=== PATIENT | female | born 2000 | race Caucasian/White ===

== ENCOUNTER → 2020-07-21 15:43 | Outpatient (BNVA) | payer MEDICAID, SELFPAY | PROVIDERS: PCP Internal Medicine; Visit Provider Student in an Organized Health Care Education/Training Program | DX: Z76.89 Persons encountering health services in other specified circumstances (principal) ==

== ENCOUNTER 2020-08-18 09:14 | Outpatient (REF) | payer MEDICAID, SELFPAY ==
[2020-08-18 10:13] LABS: MANUAL DIFF FLAG NO
[2020-08-18 10:31] LABS: Basophils Percent Auto 0.3 % (0-2); Hematocrit 37.6 % (37-47); Hemoglobin 11.1 g/dl (12.0-16.0); Imm Gran Abs Auto 0.01 X10*3/uL (0.00-0.03); Imm Gran Pct Auto 0.2 % (0.0-0.4); Lymphocytes Absolute Auto 2.4 X10*3/uL (1.2-4.9); Lymphocytes Percent Auto 36.8 % (20-40); Mean Corpuscular HGB Conc 29.5 g/dl (31.0-35.0); Mean Corpuscular Hemoglobin 20.3 pg (27.0-33.0); Mean Corpuscular Volume 68.6 fL (80-98); Mean Platelet Volume 9.8 fL (9.4-12.3); Monocytes Absolute Auto 0.6 X10*3/uL (0.1-1.2); Monocytes Percent Auto 9.8 % (2-11); Neutrophils Absolute Auto 3.5 X10*3/uL (2.0-8.3); Neutrophils Percent Auto 52.9 % (45-73); Platelet Count 411 X10*3/uL (160-400); Red Blood Count 5.48 X10*6/uL (4.20-5.50); Red Cell Distribution Width 20.3 % (11.0-16.0); White Blood Count 6.5 X10*3/uL (4.8-10.8)
[2020-08-18 10:59] LABS: Alanine Aminotransferase 16 U/L (0-31); Albumin Level 3.5 g/dL (3.5-5.0); Alkaline Phosphatase 67 U/L (39-117); Anion Gap 13 (12-20); Aspartate Amino Transferase 16 U/L (5-31); Bilirubin Total 0.3 mg/dL (0.0-1.0); Blood Urea Nitrogen 12 mg/dL (9-16); C Reactive Protein 0.02 mg/dL (< or = 0.50); Calcium 8.5 mg/dL (8.4-10.2); Carbon Dioxide 26 mmol/L (22-29); Chloride 106 mmol/L (96-108); Estimated Glomerular Filt Rate > 60; Glucose Random 84 mg/dL (60-115); Potassium 3.9 mmol/L (3.3-5.1); Sodium 141 mmol/L (135-145); Total Protein 6.2 g/dL (6.5-8.0)
[2020-08-18 11:47] LABS: Erythrocyte Sedimentation Rate 12 MM/HR (0-20)
[2020-08-18 13:26] LABS: Glucose Urine UA NEG (NEG); Leukocyte Esterase Urine NEG (NEG); Nitrite Urine NEG (NEG); Specific Gravity - Urine >= 1.030 (1.005-1.025); Urine Blood TRACE (NEG); Urine Ketones NEG (NEG); Urine Protein 3+ MG/DL (NEG-TRACE)
[2020-08-18 13:30] LABS: Appearance Urine HAZY; Color Urine YELLOW
[2020-08-18 13:48] LABS: Bacteria Urine TRACE /LPF; RBC Urine 0-2 /HPF (0); Squamous Epithelial Cell Urine TRACE /LPF; WBC Urine 0 /HPF (0-4)
[2020-08-18 13:53] LABS: Creatinine Urine 293.17 mg/dL
[2020-08-18 14:09] LABS: Protein/Creatinine Ratio, Ur 4.04 (<0.2); Total Protein Urine Random 1183 mg/dL (<12)
[2020-08-19 13:58] LABS: Complement C3 54 mg/dL (83-193)
[2020-08-21 12:58] LABS: Anti DNA DS Antibody 3 IU/mL
== END 2020-08-18 09:15 | disposition home or self-care (01) ==
LOC: HO.LAB 09:14
PROVIDERS: PCP Student in an Organized Health Care Education/Training Program; Visit Provider Student in an Organized Health Care Education/Training Program
DX: M32.14 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 lupus erythematosus (principal)
CPT/HCPCS: 36415; 80053; 81001; 84156; 85025; 85652; 86140; 86160; 86225

== ENCOUNTER → 2020-08-19 10:03 | Outpatient (BNVA) | payer MEDICAID, SELFPAY | PROVIDERS: PCP Internal Medicine; Visit Provider Student in an Organized Health Care Education/Training Program | DX: M32.14 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 lupus erythematosus (principal) | CPT/HCPCS: 36415; 80053; 81001; 84156; 84702; 85025; 85652; 86140; 86160; 86225; 99212 ==

== ENCOUNTER 2020-10-01 09:03 | Outpatient (REF) | payer MEDICAID, SELFPAY ==
[2020-10-01 09:49] LABS: Glucose Urine UA NEG (NEG); Leukocyte Esterase Urine NEG (NEG); Nitrite Urine NEG (NEG); Specific Gravity - Urine >= 1.030 (1.005-1.025); Urine Blood 1+ (NEG); Urine Ketones NEG (NEG); Urine Protein 3+ MG/DL (NEG-TRACE)
[2020-10-01 09:51] LABS: Appearance Urine CLEAR; Color Urine YELLOW
[2020-10-01 10:05] LABS: Bacteria Urine TRACE /LPF; Mucus Urine 2+ /LPF; Squamous Epithelial Cell Urine 1+ /LPF; WBC Urine 0-2 /HPF (0-4)
== END 2020-10-01 09:04 | disposition home or self-care (01) ==
LOC: HO.LAB 09:03
PROVIDERS: PCP Internal Medicine; Visit Provider Student in an Organized Health Care Education/Training Program
DX: M35.02 Sjogren syndrome with lung involvement (principal)
CPT/HCPCS: 81001

== ENCOUNTER 2020-11-10 15:20 | Outpatient (REF) | payer MEDICAID, SELFPAY ==
[2020-11-10 16:21] LABS: Glucose Urine UA NEG (NEG); Leukocyte Esterase Urine NEG (NEG); Nitrite Urine NEG (NEG); PH 5.5 (5.0-8.0); Specific Gravity - Urine >= 1.030 (1.005-1.025); Urine Blood 1+ (NEG); Urine Ketones NEG (NEG); Urine Protein 3+ MG/DL (NEG-TRACE)
[2020-11-10 16:24] LABS: Appearance Urine CLEAR; Color Urine YELLOW
[2020-11-10 16:29] LABS: Bacteria Urine 2+ /LPF; Squamous Epithelial Cell Urine 3+ /LPF; WBC Urine 0 /HPF (0-4)
== END 2020-11-10 15:21 | disposition home or self-care (01) ==
LOC: HO.LAB 15:20
PROVIDERS: Visit Provider Student in an Organized Health Care Education/Training Program
DX: M32.14 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 lupus erythematosus (principal)
CPT/HCPCS: 81001

== ENCOUNTER 2020-11-11 13:14 | Outpatient (REF) | payer MEDICAID, SELFPAY ==
[2020-11-11 14:28] LABS: MANUAL DIFF FLAG NO
[2020-11-11 14:36] LABS: Basophils Percent Auto 0.1 % (0-2); Eosinophils Percent Auto 0.3 % (0-4); Hematocrit 41.5 % (37-47); Hemoglobin 12.9 g/dl (12.0-16.0); Imm Gran Abs Auto 0.02 X10*3/uL (0.00-0.03); Imm Gran Pct Auto 0.3 % (0.0-0.4); Lymphocytes Absolute Auto 1.6 X10*3/uL (1.2-4.9); Lymphocytes Percent Auto 21.3 % (20-40); Mean Corpuscular HGB Conc 31.1 g/dl (31.0-35.0); Mean Corpuscular Hemoglobin 23.2 pg (27.0-33.0); Mean Corpuscular Volume 74.5 fL (80-98); Mean Platelet Volume 10.2 fL (9.4-12.3); Monocytes Absolute Auto 0.7 X10*3/uL (0.1-1.2); Monocytes Percent Auto 9.1 % (2-11); Neutrophils Absolute Auto 5.1 X10*3/uL (2.0-8.3); Neutrophils Percent Auto 68.9 % (45-73); Platelet Count 384 X10*3/uL (160-400); Red Blood Count 5.57 X10*6/uL (4.20-5.50); Red Cell Distribution Width 23.9 % (11.0-16.0); White Blood Count 7.4 X10*3/uL (4.8-10.8)
[2020-11-11 14:56] LABS: Alanine Aminotransferase 14 U/L (0-31); Albumin Level 3.6 g/dL (3.5-5.0); Alkaline Phosphatase 73 U/L (39-117); Anion Gap 12 (12-20); Aspartate Amino Transferase 15 U/L (5-31); Bilirubin Total 0.2 mg/dL (0.0-1.0); Blood Urea Nitrogen 13 mg/dL (9-16); C Reactive Protein 0.03 mg/dL (< or = 0.50); Calcium 8.9 mg/dL (8.4-10.2); Carbon Dioxide 23 mmol/L (22-29); Chloride 110 mmol/L (96-108); Estimated Glomerular Filt Rate > 60; Glucose Random 95 mg/dL (60-115); Sodium 141 mmol/L (135-145); Total Protein 6.5 g/dL (6.5-8.0)
[2020-11-11 15:11] LABS: Glucose Urine UA NEG (NEG); Leukocyte Esterase Urine NEG (NEG); Nitrite Urine NEG (NEG); Specific Gravity - Urine >= 1.030 (1.005-1.025); Urine Blood 1+ (NEG); Urine Ketones NEG (NEG); Urine Protein 3+ MG/DL (NEG-TRACE)
[2020-11-11 15:12] LABS: Appearance Urine CLEAR; Color Urine YELLOW
[2020-11-11 15:22] LABS: Bacteria Urine TRACE /LPF; RBC Urine 0-2 /HPF (0); Squamous Epithelial Cell Urine 1+ /LPF; WBC Urine 0 /HPF (0-4)
[2020-11-11 15:29] LABS: Erythrocyte Sedimentation Rate 12 MM/HR (0-20)
[2020-11-11 16:13] LABS: Creatinine Urine 173.11 mg/dL; Protein/Creatinine Ratio, Ur 3.43 (<0.2); Total Protein Urine Random 593 mg/dL (<12)
[2020-11-12 10:23] LABS: Complement C3 103 mg/dL (83-193)
[2020-11-12 12:02] LABS: Anti DNA DS Antibody 3 IU/mL
== END 2020-11-11 13:15 | disposition home or self-care (01) ==
LOC: HO.LAB 13:14
PROVIDERS: Visit Provider Student in an Organized Health Care Education/Training Program
DX: M31.4 Aortic arch syndrome [Takayasu] (principal)
CPT/HCPCS: 36415; 80053; 81001; 84156; 85025; 85652; 86140; 86160; 86225; 99212

== ENCOUNTER 2022-10-10 09:53 | Outpatient (REF) | payer OTHER, SELFPAY ==
[2022-10-10 11:48] LABS: Hematocrit 37.2 % (37.0-47.0); Hemoglobin 11.6 g/dl (12.0-16.0); Mean Corpuscular HGB Conc 31.2 g/dl (31.0-35.0); Mean Corpuscular Hemoglobin 25.3 pg (27.0-33.0); Mean Corpuscular Volume 81.2 fL (80.0-98.0); Mean Platelet Volume 10.1 fL (9.4-12.3); Platelet Count 505 X10*3/uL (160-400); Red Blood Count 4.58 X10*6/uL (4.20-5.50); Red Cell Distribution Width 13.8 % (11.0-16.0); White Blood Count 10.3 X10*3/uL (4.8-10.8)
[2022-10-10 12:23] LABS: Alanine Aminotransferase 10 U/L (0-31); Albumin Level 3.1 g/dL (3.5-5.0); Alkaline Phosphatase 73 U/L (39-117); Anion Gap 12 (12-20); Aspartate Amino Transferase 14 U/L (5-31); Bilirubin Total 0.2 mg/dL (0.0-1.0); Blood Urea Nitrogen 19 mg/dL (9-16); Calcium 8.7 mg/dL (8.4-10.2); Carbon Dioxide 25 mmol/L (22-29); Chloride 108 mmol/L (96-108); Cholesterol 240 mg/dL; Estimated Glomerular Filt Rate > 60; Glucose Fasting 96 mg/dL (60-99); HDL Cholesterol 38 mg/dL; LDL Cholesterol Calculated 175 mg/dl; Magnesium 1.9 mg/dL (1.6-2.6); Phosphorus 4.8 mg/dL (2.7-4.5); Potassium 3.9 mmol/L (3.3-5.1); Sodium 141 mmol/L (135-145); Total Protein 5.5 g/dL (6.5-8.0); Triglycerides 139 mg/dL
[2022-10-10 12:36] LABS: TSH reflex Free T4 3.15 uIU/mL (0.32-4.0); Vitamin B12 350 pg/mL (200-900)
[2022-10-10 14:19] LABS: Appearance Urine Clear; Color Urine Yellow; Glucose Urine UA Negative (Negative); Leukocyte Esterase Urine Negative (Negative); Nitrite Urine Negative (Negative); PH 5.5 (5.0-9.0); Specific Gravity - Urine 1.025 (1.005-1.025); UMIC TRIGGER UA YES; Urine Blood Large (3+) (Negative); Urine Ketones Negative (Negative); Urine Protein >=1000 (4+) mg/dL (Neg-Trace)
[2022-10-10 14:37] LABS: Bacteria Urine None Seen (None Seen); WBC Urine 0-5 /HPF (0-5)
[2022-10-14 19:24] LABS: Vitamin D 25-OH, D2 <4 ng/mL; Vitamin D 25-OH, D3 9 ng/mL; Vitamin D 25-OH, Total 9 ng/mL (30-100)
== END 2022-10-10 09:54 | disposition home or self-care (01) ==
LOC: HO.WFDLDS 09:53
PROVIDERS: Visit Provider Hospitalist
DX: Z00.00 Encounter for general adult medical examination without abnormal findings (principal); D64.9 Anemia, unspecified; K21.9 Gastro-esophageal reflux disease without esophagitis; K44.9 Diaphragmatic hernia without obstruction or gangrene; E78.00 Pure hypercholesterolemia, unspecified; E55.9 Vitamin D deficiency, unspecified; E11.9 Type 2 diabetes mellitus without complications; E66.9 Obesity, unspecified; Z79.899 Other long term (current) drug therapy
CPT/HCPCS: 36415; 80053; 80061; 81001; 82306; 82607; 83735; 84100; 84443; 85027

== ENCOUNTER 2024-06-13 11:27 | Outpatient (AMB) | payer OTHER, SELFPAY ==
--- NOTE | 2024-06-13 11:29 | A.OFFPC_ITS ---
Vital Signs 06/13/24 11:39 Height 5 ft 8 in Weight 245 lb BMI 37.2 BP 144/70 H Blood Pressure Location Lt brachial Position Sitting Respiration 13 Pulse 86 Pulse Source Pulse Oximeter Temp 98.2 F Temp Source Skin Pulse Oximetry (%) 97 Oxygen Delivery Method Room Air Intake Visit Reasons: brian from linda Intake Note: brian linda to establish care Envelope Adjuster Required: No Allergies amoxicillin Allergy (Intermediate, Verified 06/13/24 11:32) rash Medication List - Last Reconciled 06/13/24 by Adamaris Acosta PA-C albuterol sulfate 90 mcg/actuation 2 puffs inhalation Q4-6H PRN blood sugar diagnostic (FreeStyle Lite Strips) As directed cholecalciferol (vitamin D3) 1,250 mcg PO 2XW ferrous sulfate 325 mg PO DAILY hydroxychloroquine 200 mg PO BID lancets (FreeStyle Lancets) As directed losartan 25 mg PO DAILY mycophenolate mofetil 500 mg PO BID omeprazole 20 mg PO DAILY torsemide 20 mg PO DAILY Tobacco use date assessed: 06/13/24 Dental Screening Dental Screen Date: 06/13/24 Did you have a dental visit in the last 12 months?: No Did you have a dental problem in the last 6 months where you did not have access to dental care?: No Was dental information given to patient?: Patient has dentist HPI brian from linda HPI Details Patient is a 23-year-old female with a significant past medical history of hyperlipidemia, iron-deficiency anemia, mild intermittent asthma, diet- controlled gestational diabetes, hypertension and lupus presenting today for a new patient visit. Used to follow with Linda. She states that she has had a cold for 2 weeks and has been using coricidin. She has been having ear pain, nasal congestion, pnd, sore throat, cough and sinus pain. She has a hx of asthma and has not needed albuterol. No fever or chills. No n/v/d. rheum: was following [facility] but has had difficulty getting appointments and would like to see a different certified hyperbaric technologist because most of her lupus care is being managed by nephrology. Nephro: On hydroxychloroquine and mycophenolate for management of lupus. Her pulp plant supervisor ordered farxiga last week for management of DM and for renal protection. She is on losartan and torsemide as well from [facility]. -she states she was told she has some pr otein and getting rechecked in a month after starting farxiga. -no records available today CV: Blood pressure today in the office is 144/70. She is on losartan 25 mg and 2 furosemide 20 mg daily Endo: Last A1c was over a year ago and she states that she was just a prediabetic. Recently started farxiga. Denies any polyuria or polydipsia. Heme: On iron MANUFACTURING QUALITY INSPECTOR: overdue [facility] Medical History (Updated 06/13/24 @ 12:04 by Adamaris Acosta PA-C) Migraines Hypertension Kidney disease Diabetes Asthma Denial Lupus (systemic lupus erythematosus) Systemic lupus erythematosus, unspecified Surgical History (Updated 06/13/24 @ 11:37 by Dahlia Humphrey MA) No pertinent past surgical history Family History (Updated 06/13/24 @ 11:37 by Dahlia Humphrey MA) Father Diabetes Hypertension Asthma Mother Diabetes Hypertension Maternal Grandmother Cancer Paternal Grandmother Cancer Brother Asthma Social History (Updated 06/13/24 @ 11:35 by Dahlia Humphrey MA) Household Members: Spouse Both parents involved: No Caregiver staying overnight: No Housing: Apartment Are you a primary manager home healthcare to a significant other at home: Yes Do you presently have visiting nurse or other home services: No 75 years or older and lives alone: No Alcohol intake: never Patient Tobacco Use Status: Never used Tobacco e-Cigarette/Vaping Use: Never Used Current occupational status: employed Cognitive needs: No Hearing needs: No Vision needs: No Questionnaire PHQ-9 Over the last 2 weeks, how often have you been bothered by any of the following problems? 1. Little interest or pleasure in doing things: several days 2. Feeling down, depressed, or hopeless: not at all 3. Trouble falling or staying asleep, or sleeping too much: not at all 4. Feeling tired or having little energy: nearly every day 5. Poor appetite or overeating: several days 6. Feeling bad about yourself - or that you are a failure or have let yourself or your family down: not at all 7. Trouble concentrating on things, such as reading the newspaper or watching television: not at all 8. Moving or speaking so slowly that other people could have noticed. Or the opposite - being so fidgety or restless that you have been moving around a lot more than usual: not at all 9. Thoughts that you would be better off or of hurting yourself in some way: not at all Total score: 5 Depression Screening Interpretation: Negative (feels tired, not depressed) Depression Screening Done: Yes 63366 - PHQ-9 Billing: Yes Source: Developed by Drs. Konstantin Parekh, Tatiana Gallardo, Juancarlos Rodrigez and colleagues, with an educational chente from [employer]. Thrive Questionnaire Date Thrive assessed: 06/13/24 I am a: Patient What is your living situation today?: I choose not to answer this question Within the past 12 months, did the food you bought not last and you didn't have the money to get more?: I choose not to answer this question Within the past 12 months, did you worry whether your food would run out before you got money to buy more?: I choose not to answer this question Do you have trouble paying for medicines?: Yes Do you have trouble getting transportation to medical appointments?: No Do you have trouble paying your heating and electricity bill?: No Do you have trouble taking care of your child, family member or friend?: No Do you have trouble with day-to-day activities such as bathing, preparing meals, shopping, managing finances, etc.?: No Are you currently unemployed and looking for a job?: No Are you interested in more education?: No Please select the resources that you would like help with: None Currently or been in a relationship where the following occur: I choose not to answer THRIVE Score: 0 AUDIT C Alcohol Use Questionnaire (AUDIT-C) 1. How often do you have a drink containing alcohol?: Never Total Score: 0 HEIDE-7 AMB Questionnaire HEIDE-7 Date HEIDE - 7 assessed: 06/13/24 Feeling nervous, anxious, or on edge: 0 = Not at all Not being able to stop or control worryin = More than half the days Worrying too much about different things: 2 = More than half the days Trouble relaxin = Several days Being so restless that it is hard to sit still: 0 = Not at all Becoming easily annoyed or irritable: 0 = Not at all Feeling afraid as if something awful might happen: 0 = Not at all Total HEIDE-7 score (0-4 normal; 5-9 mild; 10-14 moderate; 15-21 severe): 5 Source: Developed by Drs. Konstantin Parekh, Tatiana Gallardo, Juancarlos Rodrigez and colleagues, with an educational chente from [employer]. HEIDE-7 Assessment Billing HEIDE-7 Assessment Tool: HEIDE-7 Assessment 59739 Physical exam (Primary Care) Vital Signs: Last Vital Signs Temp 98.2 F 06/13/24 11:39 Pulse 86 06/13/24 11:39 Resp 13 06/13/24 11:39 BP 144/70 H 06/13/24 11:39 Pulse Ox 97 06/13/24 11:39 Oxygen Delivery Method Room Air 06/13/24 11:39 BMI result Body Mass Index 37.2 Tobacco/Smoking Status: Tobacco use Status Tobacco use date assessed 06/13/24 06/13/24 11:41 Patient Tobacco Use Status Never used Tobacco 06/13/24 11:35 e-Cigarette/Vaping Use Never Used 06/13/24 11:35 PHQ-9: PHQ-9 Score PHQ-9: Total score 5 06/13/24 11:30 Depression Screening Interpretation: Negative (feels tired, not depressed) Thrive Assessment: Date of Thrive Assessment Date Thrive assessed 06/13/24 06/13/24 11:30 Currently or been in a relationship where the following occur: I choose not to answer Const Orientation/consciousness: patient oriented x3 HENMT Other: TMs dome-shaped with small air-fluid levels, nasal mucosa erythematous and edematous. Maxillary sinus tenderness present. Ears: hearing grossly normal bilaterally Neck Thyroid: Thyroid normal Lymphatic: no lymphadenopathy noted Resp Auscultation: clear to auscultation bilaterally Cardio Rate: regular rate Rhythm: regular rhythm Heart sounds: S1 normal heart sound present and S2 normal heart sound present GI Inspection: Yes normal to inspection Palpation (GI): Soft to palpation and Other GI palpation findings present (nontender, no cva tenderness) Auscultation: normoactive bowel sounds Rectal Exam - Female: deferred Skin General skin exam: no rashes or lesions noted Neuro General: patient oriented x3, gait normal and no focal motor deficits Coding Level of Care Code Est Pt Level 4 (75977) Complex EM visit Add On G2211 Diagnoses Systemic lupus erythematosus with glomerular disease, unspecified SLE type M32.14 Systemic lupus erythematosus type: unspecified Systemic lupus erythematosus organ involvement: glomerular disease HTN, goal below 130/80 I10 High cholesterol E78.00 IFG (impaired fasting glucose) R73.01 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; N28.89 Bacterial sinusitis J32.9; B96.89 Additional Codes HEIDE-7 Assessment Billing - HEIDE-7 Assessment Tool: HEIDE-7 Assessment 67917 ([id number]) PHQ-9 - 94281 - PHQ-9 Billing: Yes ([id number]) Assessment & Plan Assessment & Plan (1) Lupus (systemic lupus erythematosus): Code(s): M32.9 - Systemic lupus erythematosus, unspecified Category: Medical Qualifiers: Systemic lupus erythematosus type: unspecified Systemic lupus erythematosus organ involvement: glomerular disease Qualified Code(s): M32.14 - 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 Plan: referral to rheum being managed right now by nephro because she can't get into rheum (2) HTN, goal below 130/80: Code(s): I10 - Essential (primary) hypertension Category: Medical Plan: elevated today but states she has been using cough and cold medicine, follows monthly with nephrology. she states that she did not take losartan today. (3) High cholesterol: Code(s): E78.00 - Pure hypercholesterolemia, unspecified Category: Medical Plan: used to be on atorvastatin but this was d/c and she does not know why (4) IFG (impaired fasting glucose): Code(s): R73.01 - Impaired fasting glucose Category: Medical Plan: a1c ordered started [facility] (5) Kidney disease associated with lupus: Code(s): M32.19 - Other organ or system involvement in systemic lupus erythematosus; N28.89 - Other specified disorders of kidney and ureter Category: Medical Plan: following with [facility]. advised to get records (6) Bacterial sinusitis: Code(s): J32.9 - Chronic sinusitis, unspecified; B96.89 - Other specified bacterial agents as the cause of diseases classified elsewhere Category: Medical Plan: will start doxy and flonase. will follow up if no improvement or anything worsens/changes. Orders: Orders Lipid Panel Today E78.00 - Pure hypercholesterolemia, unspecified, I10 - Essential (primary) hypertension, M32.14 - 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, M32.19 - Other organ or system involvement in systemic lupus erythematosus, N28.89 - Other specified disorders of kidney and ureter, R73.01 - Impaired fasting glucose TSH reflex Free T4 Today E78.00 - Pure hypercholesterolemia, unspecified, I10 - Essential (primary) hypertension, M32.14 - 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, M32.19 - Other organ or system involvement in systemic lupus erythematosus, N28.89 - Other specified disorders of kidney and ureter, R73.01 - Impaired fasting glucose Comprehensive [facility]. Panel Fast Today E78.00 - Pure hypercholesterolemia, unspecified, I10 - Essential (primary) hypertension, M32.14 - 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, M32.19 - Other organ or system involvement in systemic lupus erythematosus, N28.89 - Other specified disorders of kidney and ureter, R73.01 - Impaired fasting glucose Hemoglobin A1c Today E78.00 - Pure hypercholesterolemia, unspecified, I10 - Essential (primary) hypertension, M32.14 - 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, M32.19 - Other organ or system involvement in systemic lupus erythematosus, N28.89 - Other specified disorders of kidney and ureter, R73.01 - Impaired fasting glucose Referrals Rheumatology Referral M32.14 - 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 FRONTLOAD DRIVER Referral [id number] - Encounter for gynecological examination (general) (routine) without abnormal findings Medications: New fluticasone propionate 50 mcg/actuation (Flonase Allergy Relief) administer into each nostril 1 spray intranasal BID 16 grams 0RF doxycycline hyclate 100 mg PO BID 20 tabs 0RF
[2024-06-13 11:39] VITALS: BP 144/70; PULSE 86; RESP 13; TEMP 36.8; O2SAT 97; BMI 37.2
== END 2024-06-13 13:44 | disposition home or self-care (01) ==
PROVIDERS: PCP Physician Assistant; Visit Provider Physician Assistant
DX: I10 Essential (primary) hypertension (principal); M32.14 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 lupus erythematosus; M32.19 Other organ or system involvement in systemic lupus erythematosus; E78.00 Pure hypercholesterolemia, unspecified; R73.01 Impaired fasting glucose; N28.89 Other specified disorders of kidney and ureter; J32.9 Chronic sinusitis, unspecified; B96.89 Other specified bacterial agents as the cause of diseases classified elsewhere

== ENCOUNTER → 2024-06-13 11:27 | Outpatient (BNVA) | payer OTHER, SELFPAY | PROVIDERS: PCP Hospitalist; Visit Provider Physician Assistant | DX: M32.14 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 lupus erythematosus (principal); I10 Essential (primary) hypertension; E78.00 Pure hypercholesterolemia, unspecified; R73.01 Impaired fasting glucose; M32.19 Other organ or system involvement in systemic lupus erythematosus; N28.89 Other specified disorders of kidney and ureter; J32.9 Chronic sinusitis, unspecified; B96.89 Other specified bacterial agents as the cause of diseases classified elsewhere | CPT/HCPCS: 96127; 99212 ==

== ENCOUNTER 2024-06-24 11:32 | Outpatient (AMB) | payer OTHER, SELFPAY ==
[2024-06-24 11:43] VITALS: BP 114/66; PULSE 84; TEMP 36.6; O2SAT 99; BMI 37.2
--- NOTE | 2024-06-24 11:43 | MHC.OFFWIV ---
Intake Vital Signs 06/24/24 11:43 Height 5 ft 8 in Weight 245 lb BMI 37.2 BP 114/66 Blood Pressure Location Lt brachial Position Sitting Pulse 84 Pulse Source Pulse Oximeter Temp 97.8 F Temp Source Temporal Artery Scan Pulse Oximetry (%) 99 Oxygen Delivery Method Room Air Intake Visit Reasons: EP-dizziness, vomiting, body ache, headaches Intake Note: Pt presents to the office today for dizziness,vomiting, body aches, and a headache x4 days. Patient Tobacco Use Status: Never used Tobacco Allergies amoxicillin Allergy (Intermediate, Verified 06/24/24 11:45) rash HPI HPI Comments History of Present Illness Details History The patient is a 23-year-old female presenting with dizziness, headache, vomiting, and generalized body pain. She also has pain with deep inspiration and a cough. These symptoms began a day prior to the visit, with vomiting and nausea intensifying over the last two days, while nausea has been persistent for the last two weeks. The patient attributes these symptoms to a potential lupus flare, as past flares have manifested similarly. She denies having fever, though she reports a sensation of feeling febrile, with her maximum recorded temperature being only 99?F. The patient also reports significant bilateral flank pain and diffuse musculoskeletal pain, exacerbated by coughing and vomiting, suggestive of musculoskeletal strain. Additionally, she mentions experiencing increased bruising on her legs, which is atypical in extent compared to her past experiences. The patient describes having lupus and chronic kidney disease under the care of a residential sales rep, who has planned a kidney biopsy due to her lab results being abnormal. Her laboratory tests revealed low levels of several analytes, including vitamins and proteins. There has been no mention of recent fever, but the patient experiences significant difficulty in retaining fluids due to vomiting, raising concern for dehydration. Previous evaluation by her primary care physician, Adamaris Acosta PA-C included the prescription of Flonase and doxycycline for an upper respiratory condition. The patient had recent labs ordered by her Adamaris, which have yet to be completed. Physical Exam General: Cooperative, healthy appearing, comfortable and no acute distress Orientation/consciousness: Patient oriented x3 Limitations: No limitations Head: Normal to inspection Ears: Hearing grossly normal bilaterally, external ears normal and TM's normal bilaterally Nose: Normal external nose present, Normal nares present and No nasal discharge present Face and sinus: Normal facial exam and Yes sinuses nontender Mouth: Normal oral and palatal mucosa present and moist mucous membranes Throat: Yes tonsils normal, Yes uvula midline. Posterior oropharynx erythema Eyes: Appearance normal, both eyes and all related structures Neck: Normal visual inspection Respiratory: Clear to auscultation bilaterally. Normal respiratory effort, able to speak in complete sentences, no respiratory distress, not tachypneic, no tripod positioning and no use of accessory muscles Cardiovascular: Regular rate and rhythm. Normal S1 and S2 Skin: No rashes or lesions noted Neuro: Patient oriented x3 Extremities: Normal to inspection and Yes no clubbing, cyanosis or edema PFSH Medical History (Updated 06/24/24 @ 12:05 by Staci Madrigal PA-C) Migraines Hypertension Kidney disease Diabetes Asthma Denial Lupus (systemic lupus erythematosus) Systemic lupus erythematosus, unspecified Surgical History (Updated 06/13/24 @ 11:37 by Dahlia Humphrey MA) No pertinent past surgical history Family History (Updated 06/13/24 @ 11:37 by Dahlia Humphrey MA) Father Diabetes Hypertension Asthma Mother Diabetes Hypertension Maternal Grandmother Cancer Paternal Grandmother Cancer Brother Asthma Social History (Updated 06/13/24 @ 11:35 by Dahlia Humphrey MA) Household Members: Spouse Housing: Apartment Are you a primary resident care director to a significant other at home: Yes Do you presently have visiting nurse or other home services: No Alcohol intake: never Patient Tobacco Use Status: Never used Tobacco e-Cigarette/Vaping Use: Never Used Current occupational status: employed Cognitive needs: No Hearing needs: No Vision needs: No Review of Systems Const All systems reviewed & are unremarkable except as noted in HPI and below Physical Exam Vital Signs: Last Vital Signs Temp 97.8 F 06/24/24 11:43 Pulse 102 H 06/24/24 11:43 BP 114/66 06/24/24 11:43 Pulse Ox 99 06/24/24 11:43 Oxygen Delivery Method Room Air 06/24/24 11:43 BMI result Body Mass Index 37.2 Assessment & Plan Assessment & Plan (1) URI, acute: Code(s): J06.9 - Acute upper respiratory infection, unspecified Plan: Plan - Assess for viral gastroenteritis and differentiate from lupus flare symptoms. Advise the patient to take ondansetron for nausea and to ensure adequate hydration to prevent dehydration. - Perform chest radiograph to investigate possible pneumonic process due to pleuritic chest pain. - Order influenza, COVID-19, and RSV testing to assess for viral respiratory infection. - Encouraged the patient to complete all outstanding labs ordered by her PCP, particularly assessing coagulation profiles to elucidate cause of increased bruising. - Prescribe benzonatate for relief of cough-related symptoms causing musculoskeletal strain. - Provide a work note for the patient to take two days off work and ensure adequate rest and recovery. - Recommend urgent re-evaluation or emergency care if symptoms persist or worsen towards the weekend, particularly if linked to lupus activity. - Inform the patient of current findings and the next steps, including potential adjustments based on test outcomes and symptom progression. Patient was informed and verbally consented to the use of an ambient scribe for clinic note documentation during this visit (2) Viral gastroenteritis: Code(s): A08.4 - Viral intestinal infection, unspecified Plan: as above Orders: Orders SARS-CoV2/FLU/RSV Today J06.9 - Acute upper respiratory infection, unspecified XR chest 2V Today R05.9 - Cough, unspecified Medications: New benzonatate 200 mg PO TID PRN 14 caps 0RF cough ondansetron 4 mg PO Q8H PRN 10 tabs 0RF nausea and vomiting Coding Level of Care Code Est Pt Level 4 (85362) Diagnoses URI, acute J06.9 Viral gastroenteritis A08.4
== END 2024-06-24 12:22 | disposition home or self-care (01) ==
PROVIDERS: PCP Physician Assistant; Visit Provider Physician Assistant
DX: J06.9 Acute upper respiratory infection, unspecified (principal); A08.4 Viral intestinal infection, unspecified

== ENCOUNTER 2024-06-24 11:32 | Outpatient (REF) | payer OTHER, SELFPAY ==
[2024-06-24 14:21] LABS: Influenza A PCR NEGATIVE (Negative); Influenza B PCR NEGATIVE (Negative); Resp Syncy Virus RNA Qual PCR NEGATIVE (Negative); SARS COV2 PCR INHOUSE NEGATIVE (Negative)
== END 2024-06-24 11:33 | disposition home or self-care (01) ==
LOC: HO.LAB 11:32
PROVIDERS: PCP Physician Assistant; Visit Provider Physician Assistant
DX: J06.9 Acute upper respiratory infection, unspecified (principal); A08.4 Viral intestinal infection, unspecified
CPT/HCPCS: 0241U; 99212

== ENCOUNTER 2024-06-24 12:01 | Outpatient (REF) | payer OTHER, SELFPAY ==
--- NOTE | ~2024-06-24 | XR_ITS ---
EXAMINATION: XR CHEST CLINICAL INFORMATION: R05.9 - Cough, unspecified COMPARISON: X-ray 10/10/2018 TECHNIQUE: 2 views of the chest were obtained. FINDINGS: The cardiomediastinal silhouette is within normal limits. The lungs are well expanded. There is no focal consolidation, edema, or effusion. No pneumothorax. No acute osseous abnormality. XR/XR chest 2V IMPRESSION: No evidence of focal consolidation. Electronically signed by: Ivan Chamorro MD 06/24/2024 04:00 PM KARUNA CAMERON
[2024-06-24 14:30] LABS: Estimated Average Glucose 103 mg/dL; Hemoglobin A1C 127.2824 umol/L; Hemoglobin A1c % 5.2 % (<6.0)
[2024-06-24 14:45] LABS: Alanine Aminotransferase 20 U/L (0-31); Alkaline Phosphatase 73 U/L (39-117); Anion Gap 12 (12-20); Aspartate Amino Transferase 19 U/L (5-31); Bilirubin Total 0.2 mg/dL (0.0-1.0); Blood Urea Nitrogen 24 mg/dL (9-16); Calcium 8.7 mg/dL (8.4-10.2); Carbon Dioxide 25 mmol/L (22-29); Chloride 103 mmol/L (96-108); Cholesterol 328 mg/dL (<200); Estimated Glomerular Filt Rate 55; Glucose Fasting 104 mg/dL (60-99); HDL Cholesterol 46 mg/dL (>40); LDL Cholesterol Calculated 238 mg/dL (<100); Potassium 3.4 mmol/L (3.3-5.1); Sodium 137 mmol/L (135-145); Total Protein 6.6 g/dL (6.5-8.0); Triglycerides 223 mg/dL (<150)
[2024-06-24 14:52] LABS: TSH reflex Free T4 2.89 uIU/mL (0.32-4.0)
== END 2024-06-24 12:02 | disposition home or self-care (01) ==
LOC: HO.HMGCX 12:01
PROVIDERS: PCP Physician Assistant; Referring Provider Physician Assistant; Visit Provider Physician Assistant
DX: R73.01 Impaired fasting glucose (principal); R05.9 Cough, unspecified; E78.00 Pure hypercholesterolemia, unspecified; I10 Essential (primary) hypertension; M32.14 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 lupus erythematosus; M32.19 Other organ or system involvement in systemic lupus erythematosus; N28.89 Other specified disorders of kidney and ureter
CPT/HCPCS: 36415; 71046; 80053; 80061; 83036; 84443

== ENCOUNTER 2024-06-26 10:59 | Outpatient (AMB) | payer OTHER, SELFPAY ==
--- NOTE | 2024-06-26 11:05 | A.OFFPC_ITS ---
Vital Signs 06/26/24 11:15 Height 5 ft 8 in Weight 241 lb 2 oz BMI 36.7 BP 102/84 Blood Pressure Location Lt brachial Pulse 79 Pulse Source Pulse Oximeter Temp 98.5 F Temp Source Oral Pulse Oximetry (%) 99 Oxygen Delivery Method Room Air Intake Visit Reasons: Regular Visit Intake Note: Follow up. Still having nausea, vomiting, dizziness, joint pain, fatigue. Dizziness started over the weekend. Resident Care Coordinator Required: No Allergies amoxicillin Allergy (Intermediate, Verified 06/26/24 11:05) rash Tobacco use date assessed: 06/26/24 Dental Screening Dental Screen Date: 06/13/24 HPI Regular Visit HPI Details History of Present Illness The patient is a 23-year-old female presenting with persistent vomiting and associated symptoms. She reports the onset of vomiting since last Monday and has vomited multiple times daily. Associated symptoms include dizziness, described as a feeling of being out of it, and not feeling like she might faint. She has also experienced left-sided body pain, which initially was significant but has decreased in intensity since Monday. The patient reports prior episodes of sinus congestion and coughing, which have improved. She sought urgent care on Monday due to persistent symptoms where dehydration was noted, and she was prescribed Zofran. Attempts to drink water or juice result in nausea and vomiting. She denies fever, abdominal pain, or diarrhea. The patient has a history of lupus nephritis and dyslipidemia. The recent laboratory tests indicated elevated cholesterol levels. She also reports headaches, described as occurring since the onset of her illness and located primarily near the hairline. Health Maintenance - Recent COVID-19, Influenza, and RSV te sts were all negative. - Previous atorvastatin usage for dyslip idemia, though not actively being taken due to current illness. - Plan to re-evaluate cholesterol in a c ouple of months. Social History - Employment: Works in a [employer]. - Currently inactive due to illness and receiving a note to remain out of work until Monday. - Reports significant tiredness affectin g daily activities such as cooking for her family. Review of Systems - Gastrointestinal: Reports nausea and v omiting, no diarrhea. - Neurological: Reports dizziness and he adaches. Physical Exam see note Results - Labs: Elevated cholesterol. - Tests: Negative results for COVID-19, Influenza, and RSV. Plan - Temporarily discontinue Farxiga due to risk of hypoglycemia and dehydration. - Continue Zofran as needed to manage na usea, taking it proactively before vomiting occurs. - Encourage small frequent sips of liqui ds and bland diets to allow the gastrointestinal system to heal. - Consider avoiding dairy products such as yogurt which may irritate the stomach. - Pause atorvastatin until a follow-up a ssessment is conducted for cholesterol management. - Check kidney function and electrolyte levels, lipase and cbc Patient was informed and verbally consented to the use of an ambient scribe for clinic note documentation during this visit. Discussion Notes I discussed with the patient the likely diagnosis of viral gastroenteritis, given the negative results for COVID-19, Influenza, and RSV, and that this condition is self-limiting. I recommended temporarily holding medications such as Farxiga until her symptoms improve and reinforced the importance of hydration and dietary modifications. We reviewed the use of Zofran to manage nausea proactively. For her headache, we discussed that it may be related to dehydration, and I emphasized the necessity of fluid intake to address this. I provided leave from work until Monday. I planned a follow-up in two to four weeks or sooner if her condition worsens significantly. Patient Instructions - Hold Farxiga until symptoms improve. - Take Zofran as needed, especially befo re feeling nauseous. - Maintain hydration with small, frequen t sips of water or electrolyte-rich fluids, avoiding juices and sugary drinks. - Stick to bland foods such as dry toast , applesauce, and oatmeal, avoiding dairy. - Rest as much as possible and listen to your body. - Return for follow-up labs and assessme nt in two to four weeks. - Seek attention sooner if your symptoms worsen, such as increased abdominal pain or inability to hydrate adequately. [facility] Medical History (Updated 06/24/24 @ 12:05 by Staci Madrigal PA-C) Migraines Hypertension Kidney disease Diabetes Asthma Denial Lupus (systemic lupus erythematosus) Systemic lupus erythematosus, unspecified Surgical History No pertinent past surgical history Family History Father Diabetes Hypertension Asthma Mother Diabetes Hypertension Maternal Grandmother Cancer Paternal Grandmother Cancer Brother Asthma Social History (Updated 06/26/24 @ 11:11 by SAM Chavez Household Members: Spouse Both parents involved: No Caregiver staying overnight: No Housing: Apartment Are you a primary urgent care physician assistant to a significant other at home: Yes Do you presently have visiting nurse or other home services: No 75 years or older and lives alone: No Alcohol intake: never Patient Tobacco Use Status: Never used Tobacco e-Cigarette/Vaping Use: Never Used Current occupational status: employed Cognitive needs: No Hearing needs: No Vision needs: No Questionnaire Thrive Questionnaire Date Thrive assessed: 06/13/24 I am a: Patient What is your living situation today?: I choose not to answer this question Within the past 12 months, did the food you bought not last and you didn't have the money to get more?: I choose not to answer this question Within the past 12 months, did you worry whether your food would run out before you got money to buy more?: I choose not to answer this question Do you have trouble paying for medicines?: Yes Do you have trouble getting transportation to medical appointments?: No Do you have trouble paying your heating and electricity bill?: No Do you have trouble taking care of your child, family member or friend?: No Do you have trouble with day-to-day activities such as bathing, preparing meals, shopping, managing finances, etc.?: No Are you currently unemployed and looking for a job?: No Are you interested in more education?: No Please select the resources that you would like help with: None Currently or been in a relationship where the following occur: I choose not to answer THRIVE Score: 0 HEIDE-7 AMB Questionnaire HEIDE-7 Date HEIDE - 7 assessed: 06/13/24 Source: Developed by Drs. Konstantin Parekh, Tatiana Gallardo, Juancarlos Rodrigez and colleagues, with an educational chente from [employer]. Physical exam (Primary Care) Vital Signs: Last Vital Signs Temp 98.5 F 06/26/24 11:15 Pulse 79 06/26/24 11:15 BP 102/84 06/26/24 11:15 Pulse Ox 99 06/26/24 11:15 Oxygen Delivery Method Room Air 06/26/24 11:15 BMI result Body Mass Index 36.7 Tobacco/Smoking Status: Tobacco use Status Tobacco use date assessed 06/26/24 06/26/24 11:12 Patient Tobacco Use Status Never used Tobacco 06/26/24 11:12 e-Cigarette/Vaping Use Never Used 06/26/24 11:12 Thrive Assessment: Date of Thrive Assessment Date Thrive assessed 06/13/24 06/26/24 11:12 Currently or been in a relationship where the following occur: I choose not to answer Const Orientation/consciousness: patient oriented x3 HENMT Ears: hearing grossly normal bilaterally Neck Thyroid: Thyroid normal Lymphatic: no lymphadenopathy noted Resp Auscultation: clear to auscultation bilaterally Cardio Rate: regular rate Rhythm: regular rhythm Heart sounds: S1 normal heart sound present and S2 normal heart sound present GI Inspection: Yes normal to inspection Palpation (GI): Soft to palpation and Other GI palpation findings present (nontender, no cva tenderness) Auscultation: normoactive bowel sounds Rectal Exam - Female: deferred Skin General skin exam: no rashes or lesions noted Neuro General: patient oriented x3, gait normal and no focal motor deficits Coding Level of Care Code Est Pt Level 4 (33681) Complex EM visit Add On G2211 Diagnoses Viral gastroenteritis A08.4 Systemic lupus erythematosus with glomerular disease, unspecified SLE type M32.14 Systemic lupus erythematosus type: unspecified Systemic lupus erythematosus organ involvement: glomerular disease Assessment & Plan Assessment & Plan (1) Viral gastroenteritis: Code(s): A08.4 - Viral intestinal infection, unspecified Category: Medical (2) Lupus (systemic lupus erythematosus): Code(s): M32.9 - Systemic lupus erythematosus, unspecified Category: Medical Qualifiers: Systemic lupus erythematosus type: unspecified Systemic lupus erythematosus organ involvement: glomerular disease Qualified Code(s): M32.14 - 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 Plan: . Plan . Orders: Orders Magnesium Today A08.4 - Viral intestinal infection, unspecified, M32.14 - 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 Complete Blood Count Auto Diff Today A08.4 - Viral intestinal infection, unspecified Comprehensive Met. Panel Today A08.4 - Viral intestinal infection, unspecified UA CC w/rflx Micro + Cult Today A08.4 - Viral intestinal infection, unspe cified, Z13.220 - Encounter for screening for lipoid disorders Lipase Today A08.4 - Viral intestinal infection, unspecified
[2024-06-26 11:15] VITALS: BP 102/84; PULSE 79; TEMP 36.9; O2SAT 99; BMI 36.7
== END 2024-06-26 11:50 | disposition home or self-care (01) ==
PROVIDERS: PCP Physician Assistant; Visit Provider Physician Assistant
DX: A08.4 Viral intestinal infection, unspecified (principal); M32.14 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 lupus erythematosus

== ENCOUNTER → 2024-06-26 10:59 | Outpatient (BNVA) | payer OTHER, SELFPAY | PROVIDERS: PCP Physician Assistant; Visit Provider Physician Assistant | DX: A08.4 Viral intestinal infection, unspecified (principal); M32.14 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 lupus erythematosus | CPT/HCPCS: 99212 ==

== ENCOUNTER 2024-06-26 13:41 | Outpatient (REF) | payer OTHER, SELFPAY ==
[2024-06-26 17:31] LABS: MANUAL DIFF FLAG NO
[2024-06-26 17:36] LABS: Appearance Urine Clear; Color Urine Yellow; Glucose Urine UA 500 mg/dL (Negative); Leukocyte Esterase Urine Negative (Negative); Nitrite Urine Negative (Negative); Specific Gravity - Urine >= 1.030 (1.005-1.025); UMIC TRIGGER UACC YES; Urine Blood Small (1+) (Negative); Urine Ketones Negative (Negative); Urine Protein >=1000 (4+) mg/dL (Neg-Trace)
[2024-06-26 17:41] LABS: Basophils Absolute Auto 0.1 X10*3/uL (0.0-0.2); Basophils Percent Auto 0.6 % (0-2); Eosinophils Absolute Auto 0.2 X10*3/uL (0.0-0.4); Hematocrit 39.1 % (37.0-47.0); Hemoglobin 12.6 g/dl (12.0-16.0); Imm Gran Abs Auto 0.04 X10*3/uL (0.00-0.03); Imm Gran Pct Auto 0.4 % (0.0-0.4); Lymphocytes Percent Auto 22.1 % (20-40); Mean Corpuscular HGB Conc 32.2 g/dl (31.0-35.0); Mean Corpuscular Hemoglobin 25.9 pg (27.0-33.0); Mean Corpuscular Volume 80.5 fL (80.0-98.0); Mean Platelet Volume 10.2 fL (9.4-12.3); Monocytes Absolute Auto 0.5 X10*3/uL (0.1-1.2); Neutrophils Absolute Auto 6.2 x10*3/uL (2.0-8.3); Neutrophils Percent Auto 68.9 % (45-73); Platelet Count 509 X10*3/uL (160-400); Red Blood Count 4.86 X10*6/uL (4.20-5.50); Red Cell Distribution Width 15.8 % (11.0-16.0)
[2024-06-26 17:55] LABS: Alanine Aminotransferase 16 U/L (0-31); Albumin Level 2.6 g/dL (3.5-5.0); Alkaline Phosphatase 60 U/L (39-117); Anion Gap 9 (12-20); Aspartate Amino Transferase 21 U/L (5-31); Bilirubin Total 0.1 mg/dL (0.0-1.0); Blood Urea Nitrogen 20 mg/dL (9-16); Calcium 8.3 mg/dL (8.4-10.2); Carbon Dioxide 24 mmol/L (22-29); Chloride 109 mmol/L (96-108); Estimated Glomerular Filt Rate > 60; Glucose Random 117 mg/dL (60-115); Lipase 11 U/L (8-78); Magnesium 2.3 mg/dL (1.6-2.6); Potassium 3.6 mmol/L (3.3-5.1); Sodium 138 mmol/L (135-145); Total Protein 5.4 g/dL (6.5-8.0)
[2024-06-26 18:03] LABS: Bacteria Urine None Seen (None Seen); WBC Urine 0-5 /HPF (0-5)
== END 2024-06-26 13:42 | disposition home or self-care (01) ==
LOC: HO.WFDLDS 13:41
PROVIDERS: Visit Provider Physician Assistant
DX: A08.4 Viral intestinal infection, unspecified (principal); M32.14 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 lupus erythematosus
CPT/HCPCS: 36415; 80053; 81001; 83690; 83735; 85025

== ENCOUNTER 2024-07-04 10:21 | Outpatient (REF) | payer OTHER, SELFPAY ==
[2024-07-04 14:35] LABS: Appearance Urine Clear; Color Urine Yellow; Glucose Urine UA Negative (Negative); Leukocyte Esterase Urine Negative (Negative); Nitrite Urine Negative (Negative); Specific Gravity - Urine 1.025 (1.005-1.025); UMIC TRIGGER UACC YES; Urine Blood Trace (Negative); Urine Ketones Negative (Negative); Urine Protein >=1000 (4+) mg/dL (Neg-Trace)
[2024-07-04 14:40] LABS: Bacteria Urine None Seen (None Seen); RBC Urine 0-2 /HPF (0-2); Squamous Epithelial Cell Urine 0-2 /HPF (0-2); WBC Urine 0-5 /HPF (0-5)
== END 2024-07-04 10:22 | disposition home or self-care (01) ==
LOC: HO.WFDLDS 10:21
PROVIDERS: Visit Provider Physician Assistant
DX: A08.4 Viral intestinal infection, unspecified (principal)
CPT/HCPCS: 81001

== ENCOUNTER 2024-07-18 14:48 | Outpatient (AMB) | payer MEDICARE, SELFPAY ==
--- NOTE | 2024-07-18 14:50 | MHC.PC.OV ---
Vital Signs 07/18/24 14:57 Height 5 ft 8 in Weight 249 lb BMI 37.9 BP 132/76 Blood Pressure Location Rt brachial Position Sitting Respiration 14 Pulse 100 Pulse Source Pulse Oximeter Pulse Oximetry (%) 98 Oxygen Delivery Method Room Air Intake Visit Reasons: f/u meds Intake Note: follow up on meds and patient also needs a refill on zofran that was given to her at walk in clinic at [place]. Transportation Maintenance Supervisor Required: No Allergies amoxicillin Allergy (Intermediate, Verified 07/18/24 14:50) rash Medication List - Last Reconciled 07/18/24 by Adamaris Acosta PA-C albuterol sulfate 90 mcg/actuation 2 puffs inhalation Q4-6H PRN blood sugar diagnostic (FreeStyle Lite Strips) As directed cholecalciferol (vitamin D3) 1,250 mcg PO 2XW dapagliflozin propanediol (Farxiga) 5 mg PO DAILY fluticasone propionate 50 mcg/actuation (Flonase Allergy Relief) 1 spray intranasal BID hydroxychloroquine 200 mg PO BID lancets (FreeStyle Lancets) As directed losartan 25 mg PO DAILY mycophenolate mofetil 500 mg PO BID omeprazole 20 mg PO DAILY ondansetron 4 mg PO Q8H PRN prednisone 40 mg PO DAILY torsemide 40 mg PO DAILY Tobacco use date assessed: 06/26/24 Dental Screening Dental Screen Date: 06/13/24 HPI f/u meds HPI Details Patient is a 23-year-old female with a significant past medical history of kidney disease associated with lupus, lupus, hypertension, chronic GERD, anemia presenting today for a follow up. Complains today of upper abdominal pain that started on and off for 3 months. She states the pain comes and goes. She states that it feels cramping. No n/v/d/c with the pain. She is getting intermittent nausea and vomiting by itself without the pain. She states in one week she will have 2 days of vomiting. She does feel nauseous on and off throughout the day. When she does not eat she feels nauseous. She states the only thing she tolerates well is fruit. Last night she tolerated welsh fries, bananas, cherries, apple sauce. She had similar food for breakfast and milk. She states these foods do not bother her. These sx have also been going on for about 3 months as well. She thinks that she has multiple food sensitivities and would like to see Allergy and immunology. She also wants to see what she is allergic to in the environment as she does get a runny nose. She avoids gluten completely because she was told that she is gluten sensitive by her mother as a child. -she states that she knows the [place] fries that she eats are free of gluten contamination. She is back on jardiance and torsemide since our last visit and is feeling better. The URI sx have resolved. She did see nephrology who also increased her prednisone. She is currently taking 20-10 mg of prednisone. BP today in the office is 132/76 she is on torsemide 20 mg 4x a day, losartan 25 mg, PFSH Medical History (Updated 07/18/24 @ 15:45 by Adamaris Acosta PA-C) Migraines Hypertension Kidney disease Diabetes Asthma Denial Lupus (systemic lupus erythematosus) Systemic lupus erythematosus, unspecified Surgical History No pertinent past surgical history Family History Father Diabetes Hypertension Asthma Mother Diabetes Hypertension Maternal Grandmother Cancer Paternal Grandmother Cancer Brother Asthma Social History (Updated 06/26/24 @ 11:11 by Lisa Medel CMA) Household Members: Spouse Both parents involved: No Caregiver staying overnight: No Housing: Apartment Are you a primary patient care specialist to a significant other at home: Yes Do you presently have visiting nurse or other home services: No 75 years or older and lives alone: No Alcohol intake: never Patient Tobacco Use Status: Never used Tobacco e-Cigarette/Vaping Use: Never Used Current occupational status: employed Cognitive needs: No Hearing needs: No Vision needs: No Questionnaire PHQ-9 Over the last 2 weeks, how often have you been bothered by any of the following problems? 53071 - PHQ-9 Billing: Patient declined-do not bill Source: Developed by Drs. Konstantin Parekh, Tatiana Gallardo, Juancarlos Rodrigez and colleagues, with an educational chente from [employer] Thrive Questionnaire Date Thrive assessed: 07/18/24 I am a: Patient What is your living situation today?: I choose not to answer this question Within the past 12 months, did the food you bought not last and you didn't have the money to get more?: I choose not to answer this question Within the past 12 months, did you worry whether your food would run out before you got money to buy more?: I choose not to answer this question Do you have trouble paying for medicines?: I choose not to answer this question Do you have trouble getting transportation to medical appointments?: I choose not to answer this question Do you have trouble paying your heating and electricity bill?: I choose not to answer this question Do you have trouble taking care of your child, family member or friend?: I choose not to answer this question Do you have trouble with day-to-day activities such as bathing, preparing meals, shopping, managing finances, etc.?: I choose not to answer this question Are you currently unemployed and looking for a job?: I choose not to answer this question Are you interested in more education?: I choose not to answer this question Please select the resources that you would like help with: None Currently or been in a relationship where the following occur: I choose not to answer THRIVE Score: 0 HEIDE-7 AMB Questionnaire HEIDE-7 Date HEIDE - 7 assessed: 06/13/24 Source: Developed by Drs. Konstantin Parekh, Tatiana Gallardo, Juancarlos Rodrigez and colleagues, with an educational chente from [employer]). Physical exam (Primary Care) Vital Signs: Last Vital Signs Pulse 100 07/18/24 14:57 Resp 14 07/18/24 14:57 BP 132/76 07/18/24 14:57 Pulse Ox 98 07/18/24 14:57 Oxygen Delivery Method Room Air 07/18/24 14:57 BMI result Body Mass Index 37.9 Tobacco/Smoking Status: Tobacco use Status Tobacco use date assessed 06/26/24 07/18/24 14:53 Patient Tobacco Use Status Never used Tobacco 07/18/24 14:53 e-Cigarette/Vaping Use Never Used 07/18/24 14:53 Thrive Assessment: Date of Thrive Assessment Date Thrive assessed 07/18/24 07/18/24 14:53 Currently or been in a relationship where the following occur: I choose not to answer Const Orientation/consciousness: patient oriented x3 HENMT Ears: hearing grossly normal bilaterally Neck Thyroid: Thyroid normal Lymphatic: no lymphadenopathy noted Resp Auscultation: clear to auscultation bilaterally Cardio Rate: regular rate Rhythm: regular rhythm Heart sounds: S1 normal heart sound present and S2 normal heart sound present GI Inspection: Yes normal to inspection Palpation (GI): Soft to palpation and Other GI palpation findings present (nontender, no cva tenderness) Auscultation: normoactive bowel sounds Rectal Exam - Female: deferred Skin General skin exam: no rashes or lesions noted Neuro General: patient oriented x3, gait normal and no focal motor deficits Coding Level of Care Code Est Pt Level 4 (83952) Complex EM visit Add On G2211 Diagnoses HTN, goal below 130/80 I10 Chronic GERD K21.9 IFG (impaired fasting glucose) R73.01 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; N28.89 Upper abdominal pain R10.10 Assessment & Plan Assessment & Plan (1) HTN, goal below 130/80: Code(s): I10 - Essential (primary) hypertension Category: Medical Plan: WNL. Continue current regimen (2) Chronic GERD: Code(s): K21.9 - Gastro-esophageal reflux disease without esophagitis Category: Medical Plan: She is compliant with the omeprazole. Refilled today. Referral to GI. (3) IFG (impaired fasting glucose): Code(s): R73.01 - Impaired fasting glucose Category: Medical Plan: Last A1c was 5.2 (4) Kidney disease associated with lupus: Code(s): M32.19 - Other organ or system involvement in systemic lupus erythematosus; N28.89 - Other specified disorders of kidney and ureter Category: Medical Plan: Following with Nephrology. Was referred to Rheumatology (5) Upper abdominal pain: Code(s): R10.10 - Upper abdominal pain, unspecified Category: Medical Plan: Abdominal ultrasound and labs ordered. Refilled Zofran. Orders: Orders Comprehensive Met. Panel Today I10 - Essential (primary) hypertension, K21.9 - Gastro-esophageal reflux disease without esophagitis, M32.19 - Other organ or system involvement in systemic lupus erythematosus, N28.89 - Other specified disorders of kidney and ureter, R10.10 - Upper abdominal pain, unspecified, R11.2 - Nausea with vomiting, unspecified, R73.01 - Impaired fasting glucose Complete Blood Count Auto Diff Today I10 - Essential (primary) hypertension, K21.9 - Gastro-esophageal reflux disease without esophagitis, M32.19 - Other organ or system involvement in systemic lupus erythematosus, N28.89 - Other specified disorders of kidney and ureter, R10.10 - Upper abdominal pain, unspecified, R11.2 - Nausea with vomiting, unspecified, R73.01 - Impaired fasting glucose TSH reflex Free T4 Today I10 - Essential (primary) hypertension, K21.9 - Gastro-esophageal reflux disease without esophagitis, M32.19 - Other organ or system involvement in systemic lupus erythematosus, N28.89 - Other specified disorders of kidney and ureter, R10.10 - Upper abdominal pain, unspecified, R11.2 - Nausea with vomiting, unspecified, R73.01 - Impaired fasting glucose Referrals Allergy & Immunology Referral T78.1XXA - Other adverse food reactions, not elsewhere classified, initial encounter Gastroenterology Referral R10.10 - Upper abdominal pain, unspecified, R11.2 - Nausea with vomiting, unspecified Medications: Refilled ondansetron 4 mg PO Q8H PRN 30 tabs 0RF nausea and vomiting omeprazole 20 mg PO DAILY 90 caps 1RF K21.9 - Gastro-esophageal reflux disease without esophagitis
[2024-07-18 14:57] VITALS: BP 132/76; PULSE 100; RESP 14; O2SAT 98; BMI 37.9
== END 2024-07-18 15:58 | disposition home or self-care (01) ==
PROVIDERS: PCP Physician Assistant; Visit Provider Physician Assistant
DX: I10 Essential (primary) hypertension (principal); K21.9 Gastro-esophageal reflux disease without esophagitis; R73.01 Impaired fasting glucose; M32.19 Other organ or system involvement in systemic lupus erythematosus; N28.89 Other specified disorders of kidney and ureter; R10.10 Upper abdominal pain, unspecified

== ENCOUNTER → 2024-07-18 14:48 | Outpatient (BNVA) | payer MEDICARE, SELFPAY | PROVIDERS: PCP Physician Assistant; Visit Provider Physician Assistant | DX: I10 Essential (primary) hypertension (principal); K21.9 Gastro-esophageal reflux disease without esophagitis; R73.01 Impaired fasting glucose; M32.19 Other organ or system involvement in systemic lupus erythematosus; N28.89 Other specified disorders of kidney and ureter; R10.10 Upper abdominal pain, unspecified | CPT/HCPCS: 99212 ==

== ENCOUNTER 2024-08-07 13:28 | Outpatient (REF) | payer MEDICARE, SELFPAY ==
--- OUTSIDE RECORDS SUMMARY | 2024-08-07 15:38 | XMS_ITS | Encounter Summary ---
Author Organization [facility] Address [address] [place] [address] Phone Care Team Providers Care Neurology Technologist Name Role Phone Denise Blancas MD Primary Care Provider [phone] Encounter Details Date Type Department Care Team (Latest Contact Info) Description 07/11/2024 2:15 PM EST Office Visit [facility] [place], [address] [place] [address] Omar Garcia MD [address] 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) (Primary Dx) Social History Tobacco Use Types Packs/Day Years Used Date Smoking Tobacco: Never Alcohol Use Standard Drinks/Week Comments No 0 (1 standard drink = 0.6 oz pur e alcohol) Comments Unknown Sex and Gender Information Value Date Recorded Sex Assigned at Not on file Legal Sex Female 4:31 PM EST Gender Identity Not on file Sexual Orientation Not on file documented as of this encounter Last Filed Vital Signs Vital Sign Reading Time Taken Comments Blood Pressure 141/89 07/11/2024 2:14 PM EST Pulse 76 07/11/2024 2:14 PM EST Temperature - - Respiratory Rate - - Oxygen Saturation - - Inhaled Oxygen Concentration - - Weight - - Height - - Body Mass Index - - documented in this encounter Progress Notes * Omar Garcia MD - 07/11/2024 2:15 PM EST Images from the original note were not included. PATIENT: Deny Reeder : 2000 ENCOUNTER: 07/11/2024 PCP: Denise Blancas MD HPI: In the interval since our last visit I have had the opportunity to review the following, if available: -laboratory data, imaging studies, and cardiovascular data -current medications from the patient; any changes from previous (including information from the patient's pharmacy, [facility], and Care Everywhere) During this visit I had the opportunity for a full review of systems and limited physical exam as outlined below, with the pertinent findings noted and others found to be negative or noncontributory to the current assessment of this patient. ROS: Constitutional: No fever. Respiratory: No shortness of breath. Cardiovascular: No chest pain. Gastrointestinal: No abdominal pain, nausea or vomiting. Genitourinary: No hematuria. All other systems reviewed and are negative. PAST MEDICAL HISTORY: Patient Active Problem List Diagnosis Date Noted ??? Type 2 diabetes mellitus (HCC) ??? Systemic lupus erythematosus (HCC) 09/05/2023 ??? Vitamin D deficiency 09/05/2023 ??? Anemia 09/05/2023 ??? Edema of lower extremity 09/05/2023 ??? Flank pain 09/05/2023 ??? Hypertension 09/05/2023 ??? Nephrotic syndrome 09/05/2023 ??? Proteinuria 06/20/2019 PAST SURGICAL HISTORY: No past surgical history on file. SOCIAL HISTORY: Social History Tobacco Use ??? Smoking status: Never ??? Smokeless tobacco: Not on file Substance Use Topics ??? Alcohol use: No FAMILY HISTORY: No family history on file. MEDICATIONS: Outpatient Encounter Medications as of 07/11/2024 Medication Sig Dispense Refill ??? albuterol HFA (PROAIR HFA) 108 (90 Base) MCG/ACT inhaler ??? amLODIPine (NORVASC) 5 MG tablet Take 1 tablet (5 mg total) by mouth 1 (one) time each day 30 tablet 11 ??? atorvastatin (LIPITOR) 20 MG tablet ??? Dapagliflozin Propanediol (Farxiga) 10 MG tablet Take 10 mg by mouth 1 (one) time each day in the morning 30 tablet 5 ??? folic acid (FOLVITE) 1 MG tablet Take 1 tablet by mouth 1 (one) time each day ??? furosemide (Lasix) 40 MG tablet Take 1 tablet (40 mg total) by mouth in the morning and 1 tablet (40 mg total) at noon and 1 tablet (40 mg total) in the evening. 270 tablet 0 ??? hydroxychloroquine (PLAQUENIL) 200 MG tablet TAKE 1 TABLET BY MOUTH EVERY DAY 90 tablet 1 ??? losartan (Cozaar) 50 MG tablet Take 1 tablet (50 mg total) by mouth 1 (one) time each day 30 tablet 11 ??? omeprazole (PriLOSEC) [address] capsule TAKE 1 CAPSULE BY MOUTH 1 TIME EACH DAY. 30 capsule 3 ??? omeprazole (PriLOSEC) [address] capsule Take 20 mg by mouth ??? omeprazole OTC (PriLOSEC OTC) 20 MG EC tablet Take 1 tablet (20 mg total) by mouth 1 (one) timeeach day Do not crush, chew, or split. 30 tablet 11 ??? predniSONE (DELTASONE) 20 MG tablet Take 2 tablets (40 mg total) by mouth 1 (one) time each day60 tablet 0 ??? SITagliptin (Januvia) 50 MG tablet Take 1 tablet (50 mg total) by mouth 1 (one) time each day 30 tablet 11 ??? sulfamethoxazole-trimethoprim (BACTRIM,SEPTRA) 400-80 MG per tablet Take 1 tablet by mouth 1 (one) time each day 30 tablet 1 ??? torsemide (DEMADEX) 20 MG tablet Take 3 tablets (60 mg total) by mouth 1 (one) time each day 90tablet 3 ??? traZODone (DESYREL) 50 MG tablet Take 50 mg by mouth at bed time No facility-administered encounter medications on file as of 07/11/2024. MEDICATION REVIEW: I have reviewed the patient's current medications. ALLERGIES: is allergic to amoxicillin, ferumoxytol, and gluten meal. PHYSICAL EXAM: BP 141/89 Pulse 76 Constitutional: No apparent distress Cardiovascular: No friction rub. Pulmonary/Chest: No rales. Abdominal: Soft and non-tender. Extremities: Edema None LABS: Chemistry Lab Units 06/27/24 1440 05/30/24 1618 05/15/24 1509 02/06/24 1513 12/20/23 1147 10/30/23 1635 08/03/23 1339 05/25/23 1338 10/25/22 1516 10/03/22 1104 08/29/22 1059 07/28/22 1610 07/28/22 1610 07/14/22 1353 CREATININE mg/dL 0.90 1.08* 0.95 0.88 0.84 0.64 1.0 0.9 1.0 1.0 1.1* -- 1.1* 1.1* BUN mg/dL 21* 15 20 15 21* 14 22* 14 23* 23* 23* -- 26* 30* POTASSIUM mmol/L 4.2 4.4 4.3 4.4 4.0 4.5 3.9 4.3 4.0 3.9 4.0 -- 4.3 4.3 SODIUM mmol/L 141 141 141 140 141 139 141 143 138 140 140 -- 140 141 CO2 mmol/L 20 22 22 21 22 21 25 26 25 24 27 -- 27 25 CHLORIDE mmol/L 108* 108* 106 106 105 107* 106 110* 104 105 103 -- 103 102 ALBUMIN g/dL 2.8* 2.9* 2.7* 3.1* 2.9* 2.9* 3.1* 2.8* 3.8 3.7 3.5 -- 3.2* 3.5 EGFRNAFR ML/MIN/1.73 M2 -- -- -- -- -- -- 84 97 84 82 71 -- 73 71 HEMOGLOBIN A1C % -- -- -- -- 5.9* -- -- -- 5.9* -- -- -- -- 6.3* WBC AUTO x10E3/uL 9.3 10.1 9.8 12.3* 8.8 10.7 12.0* -- 9.0 -- 8.7 < > -- -- HEMATOCRIT % 41.1 40.0 39.8 39.0 37.9 40.2 39.3 -- 35.8 -- 35.2* < > -- -- HEMOGLOBIN g/dL 13.3 12.5 12.7 12.2 11.8 12.9 12.0 -- 11.1* -- 11.0* < > -- -- PLATELETS AUTO x10E3/uL 493* 453* 395 470* 469* 502* 464* -- 447 -- 472* < > -- -- < > = values in this interval not displayed. Bone Mineral Lab Units 06/27/24 1440 05/30/24 1618 05/15/24 1509 02/06/24 1513 12/20/23 1147 10/30/23 1635 08/03/23 1339 CALCIUM mg/dL 8.4* 8.4* 8.2* 8.4* 8.4* 8.7 8.4* PHOSPHORUS mg/dL -- 3.0 3.3 4.2 4.1 4.3 3.5 ALK PHOS IU/L 76 -- -- -- -- -- -- PTH pg/mL -- -- 48 -- -- -- -- VIT D 25 HYDROXY ng/mL -- -- 5.5* -- 5.3* -- -- Urine Lab Units 05/30/24 1618 05/16/24 1504 02/06/24 1513 12/20/23 1147 10/30/23 1635 08/03/23 1339 10/25/22 1516 PROT/CREAT RATIO UR mg/g creat 7,159* 7,173* 5,448* 3,992* 7,137* -- -- ALB MG/G CREAT UR mg/g creat 4,263* 5,057* -- 2,492* -- 4,120.0* 9.0 1,788.6* 38.5 Protein/Creatine Ratio Date Value Ref Range Status 08/03/2023 5.31 (H) (0-0.2) Final LABORATORY REVIEW: I have reviewed the labs noted above as well as in the chart, in [facility] and in Care Everywhere. DOCUMENTATION REVIEW: I have reviewed the applicable outside notes located in the chart, in [facility] and in Care Everywhere. ASSESSMENT: 1. 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) Ms. Reeder is 23 y/o woman w hx of lupus nephritis, last flare in 03/2022 (bx: class IV and V), currently on MMF and hydroxychloroquine. Due to concern for possible flare, we repeated her biopsy this past Monday but do not have the results yet. She has been tapering her steroids. Labs looked reasonably good middle of June but we do not have urine testing from then. Will have her repeat labs ming few weeks, continuing to taper her steroids down. She dominguez have quite a bit of edema so increasingtorsemide to BID. Plan to cont current dose of MMF (has been on it steadily over the past 6mo), plaquenil, and losartan. Will also restart her farxiga. Otherwise will make further plans when we get our biopsy back. Omar Garcia MD Home Health Administrator Court Interpreter [facility] [address] [place] [address] Orders Placed This Encounter ??? CBC and Differential ??? Renal Function Panel ??? Urinalysis with microscopic ??? Protein, Total, Random Urine w/Creatinine (Protein/Creat Ratio) ??? Vitamin D 25 Hydroxy ??? Urine Albumin / Creatinine Ratio ??? Anti-DNA antibody, double-stranded ??? DANNIE Panel ??? C3 Complement ??? C4 Complement ??? C-Reactive Protein ??? Sedimentation Rate documented in this encounter Plan of Treatment Upcoming Encounters Date Type Department Care Team (Late st Contact Info) Description 09/05/2024 4:00 PM EST [facility] [address] [place] [address] Breonna Le MD [address] [place] [address] [place] [id number] Scheduled Orders Name Type Priority Associated Diagnoses Orde r Schedule CBC and Differential Lab Routine 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) Expected: 07/11/2024, Expires: 08/11/2025 Renal Function Panel Lab Routine 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) Expected: 07/11/2024, Expires: 08/11/2025 Urinalysis with microscopic Lab Routine 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) Expected: 07/11/2024, Expires: 08/11/2025 Protein, Total, Random Urine w/Creatinine (Protein/Creat Ratio) Lab Routine 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 ([facility]) Expected: 07/11/2024, Expires: 08/11/2025 Vitamin D 25 Hydroxy Lab Routine 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 ([facility]) Expected: 07/11/2024, Expires: 08/11/2025 Urine Albumin / Creatinine Ratio Lab Routine 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 ([facility]) Expected: 07/11/2024, Expires: 08/11/2025 Anti-DNA antibody, double-stranded Lab Routine 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 ([facility]) Expected: 07/11/2024, Expires: 08/11/2025 DANNIE Panel Lab Routine 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 ([facility]) Expected: 07/11/2024, Expires: 08/11/2025 C3 Complement Lab Routine 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 ([facility]) Expected: 07/11/2024, Expires: 08/11/2025 C4 Complement Lab Routine 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 ([facility]) Expected: 07/11/2024, Expires: 08/11/2025 C-Reactive Protein Lab Routine 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 ([facility]) Expected: 07/11/2024, Expires: 08/11/2025 Sedimentation Rate Lab Routine 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 ([facility]) Expected: 07/11/2024, Expires: 08/11/2025 documented as of this encounter Visit Diagnoses Diagnosis 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)- Primary documented in this encounter Care Teams Neurology Technologist Relationship Specialty Start Date End Date Denise Blancas MD [address] [place] [address] PCP - General Internal Medicine 06/27/24 documented as of this encounter
--- OUTSIDE RECORDS SUMMARY | 2024-08-07 15:38 | XMS_ITS | Clinical Summary ---
Author Organization [facility], Address [address] [place] [address] [place] [address] Phone Care Team Providers Care Continuous Improvement Facilitator Name Role Phone Denise Blancas MD Primary Care Provider [phone] Allergies Active Allergy Reactions Criticality Noted Date Comments Amoxicillin Other (see comments) 06/20/2019 Ferumoxytol 09/29/2020 NAUSEA VOMITING AND ABDOMINAL PAIN ON 09/25 INFUSION Gluten Meal 05/05/2022 Medications * This document contains information received from the source organization and may not represent a complete record from that organization. folic acid (FOLVITE) 1 MG tablet Take 1 tablet by mouth 1 (one) time each day 9 Active traZODone (DESYREL) 50 MG tablet Take 50 mg by mouth at bed time 9 Active albuterol HFA (PROAIR HFA) 108 (90 Base) MCG/ACT inhaler Acti ve sulfamethoxazole -trimethoprim (BACTRIM,SEPTRA) 400-80 MG per tablet Take 1 tablet by mouth 1 (one) time each day 30 tablet 1 2 Active omeprazole (PriLOSEC) [address] capsule TAKE 1 CAPSULE BY MOUTH 1 TIME EACH DAY. 30 capsule 3 3 Active SITagliptin (Januvia) 50 MG tablet Take 1 tablet (50 mg total) by mouth 1 (one) time each day 30 tablet 11 3 Active losartan (Cozaar) 50 MG tablet Take 1 tablet (50 mg total) by mouth 1 (one) time each day 30 tablet 11 3 Active atorvastatin (LIPITOR) 20 MG tablet 3 Active omeprazole (PriLOSEC) [address] capsule Take 20 mg by mouth 2 Active amLODIPine (NORVASC) 5 MG tablet Take 1 tablet (5 mg total) by mouth 1 (one) time each day 30 tablet 11 4 Active furosemide (Lasix) 40 MG tablet Take 1 tablet (40 mg total) by mouth in the morning and 1 tablet (40 mg total) at noon and 1 tablet (40 mg total) in the evening. 270 tablet 4 Active omeprazole OTC (PriLOSEC OTC) 20 MG EC tablet Take 1 tablet (20 mg total) by mouth 1 (one) time each day Do not crush, chew, or split. 30 tablet 11 4 09/28/19 25 Active Dapagliflozin Propanediol (Farxiga) 10 MG tablet Take 10 mg by mouth 1 (one) time each day in the morning 30 tablet 5 4 Active torsemide (DEMADEX) 20 MG tablet Take 3 tablets (60 mg total) by mouth 1 (one) time each day 90 tablet 3 4 Active hydroxychloroqui ne (PLAQUENIL) 200 MG tablet TAKE 1 TABLET BY MOUTH EVERY DAY 90 tablet 1 4 Active predniSONE (DELTASONE) 20 MG tablet Take 2 tablets (40 mg total) by mouth 1 (one) time each day 60 tablet 4 07/27/19 25 Active Problems Problem Noted Date Diagnosed Date Systemic lupus erythematosus 09/05/2023 Overview (09/05/2023): with lupus nephritis class IV/V Vitamin D deficiency 09/05/2023 Anemia 09/05/2023 Edema of lower extremity 09/05/2023 Flank pain 09/05/2023 Hypertension 09/05/2023 Nephrotic syndrome 09/05/2023 Proteinuria 06/20/2019 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 Date Type Department Care Team Description 08/02/2024 Telephone [facility] [address] [place] [address] Rhianna Castro 08/01/2024 Documentation Only [facility] [address] [place] [address] Shauna Foreman MA 07/30/2024 Telephone [facility] [address] [place] [address] Shauna Foreman MA 07/17/2024 Documentation Only [facility] [address] [place] [address] Rhianna Castro 07/11/2024 2:15 PM EST Office Visit [facility] [address] [place] [address] Omar Garcia MD 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 ([facility]) (Primary Dx) 07/08/2024 Office Communication [facility] [address] [place] [address] Rhianna Castro 07/05/2024 Orders Only [facility] [address] [place] [address] Jovanna Schaeffer MD SLE glomerulonephritis syndrome, 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[facility]) 06/27/2024 1:30 PM EST Office Visit [facility] [address] [place] [address] Breonna Le MD 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) (Primary Dx) from Last 3 Months Immunizations Name Administration Dates Next Due DTaP 04/19/2012, 1,05/25/2000,02/16,1999 DTaP 5 10/16/2003, 1,05/25/2000,02/16,1999 HPV, Quadrivalent 05/06/2016,01/05/2016,05/08/20 15 HPV, Unspecified 05/06/2016,01/05/2016, 5 Hep A, 2 Dose 01/05/2016,05/08/2015 Hep A, Unspecified 01/05/2016,05/08/2015 Hep B, Adolescent or Pediatric 05/25/2000,1999,1999 Hib (PRP-T) 02/05/2001, 0,02/17/2000,12/15 IPV 10/16/2003, 1,02/17/2000,12/15 Influenza TIV (IM) 05/23/2006 Influenza, Quadrivalent, Pre servative Free 05/28/2020,06/05/2018,05/08/2015 Influenza, Unspecified 05/28/2020,2018,06/05/2018,05/08 MMR 10/16/2003,09/27/2000 Meningococcal MCV4P 05/06/2016,05/08/2015 Meningococcal, Unspecified 05/06/2016,05/08/2015 Pneumococcal Conjugate 05/10/2001,2000,05/25/2000,02/16 Pneumococcal Conjugate 13-Valent 07/18/2019 Tdap 05/08/2015 Varicella 04/19/2012,09/27/2000 Family History Relation Status Comments Father Alive Mother Alive Social History Tobacco Use Types Packs/Day Years Used Date Smoking Tobacco: Never Alcohol Use Standard Drinks/Week Comments No 0 (1 standard drink = 0.6 oz pur e alcohol) Comments Unknown Sex and Gender Information Value Date Recorded Sex Assigned at Not on file Legal Sex Female 4:31 PM EST Gender Identity Not on file Sexual Orientation Not on file Last Filed Vital Signs Vital Sign Reading Time Taken Comments Blood Pressure 141/89 07/11/2024 2:14 PM EST Pulse 76 07/11/2024 2:14 PM EST Temperature - - Respiratory Rate 16 2019 1:11 PM EDT Oxygen Saturation - - Inhaled Oxygen Concentration - - Weight 88.9 kg (196 lb) 06/09/2022 3:33 PM EST Height 172.7 cm (5' 8 ) 2019 1:11 PM EDT Body Mass Index 29.8 2019 1:11 PM EDT Plan of Treatment Upcoming Encounters Date Type Department Care Team (Late st Contact Info) Description 09/05/2024 4:00 PM EST Office Visit [facility], [address] [place] [address] Breonna Le MD [address] [place] [address] Health Maintenance Due Date Last Done Comments Pneumococcal Vaccine: Pediat rics (0 to 5 Years) and At-Risk Patients (6 to 64 Years) (2 of 2 - PPSV23 or PCV20) 09/12/2019 07/18/2019, 05/10/2001, 02/05/2001, Additional history exists Diabetes: Ophthalmology Exam 09/05/2023 Diabetes: Pedal Pulse Checked 09/05/2023 Diabetes: Sensory Foot Exam 09/05/2023 Diabetes: Visual Foot Exam 09/05/2023 Influenza Vaccine (#1) 2024 0, 05/28/2020, 05/30/2019, Additional history exists Diabetes: Hemoglobin A1C 03/21/2024 024, 10/25/2022, 07/14/2022, Additional history exists Hepatitis B Vaccine Completed 05/25/2000, 1999, 1999 Procedures Procedure Name Priority Date/Time Associated Diagnosis Comments PROTIME-INR Routine 06/27/2024 2:40 PM EST 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 ([facility]) ANTI-DNA ANTIBODY, DOUBLE-STRANDED Routine 06/27/2024 2:40 PM EST 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 ([facility]) C-REACTIVE PROTEIN Routine 06/27/2024 2: 40 PM EST 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 ([facility]) SEDIMENTATION RATE, AUTOMATED Routine 06/27/2024 2:40 PM EST 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 ([facility]) C4 COMPLEMENT Routine 06/27/2024 2:40 PM EST 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 ([facility]) C3 COMPLEMENT Routine 06/27/2024 2:40 PM EST 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 ([facility]) URINALYSIS WITH MICROSCOPIC Routine 06/27/2024 2:40 PM EST 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 ([facility]) COMPREHENSIVE METABOLIC PANEL Routine 06/27/2024 2:40 PM EST 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 ([facility]) CBC Routine 06/27/2024 2:40 PM EST 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 ([facility]) MICROSCOPIC EXAMINATION - DO NOT USE Routine 06/27/2024 2:40 PM EST C-REACTIVE PROTEIN Routine 05/30/2024 4: 19 PM EST 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 ([facility]) SEDIMENTATION RATE, AUTOMATED Routine 05/30/2024 4:19 PM EST 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 ([facility]) CBC Routine 05/30/2024 4:18 PM EST Other proteinuria 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 ([facility]) URINALYSIS WITH MICROSCOPIC Routine 05/30/2024 4:18 PM EST Other proteinuria 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 ([facility]) URINE ALBUMIN / CREATININE RATIO Routine 05/30/2024 4:18 PM EST Other proteinuria 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 ([facility]) PROTEIN / CREATININE RATIO, URINE Routine 05/30/2024 4:18 PM EST Other proteinuria 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 ([facility]) RENAL FUNCTION PANEL Routine 05/30/2024 4:18 PM EST Other proteinuria 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 ([facility]) MICROSCOPIC EXAMINATION - DO NOT USE Routine 05/30/2024 4:18 PM EST SJOGRENS SYNDROME-B EXTRACTABLE NUCLEAR ANTIBODY Routine 05/16/2024 3:04 PM EST 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 ([facility]) SJOGRENS SYNDROME-A EXTRACTABLE NUCLEAR ANTIBODY Routine 05/16/2024 3:04 PM EST 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 ([facility]) FAWAD PANEL Routine 05/16/2024 3:04 PM EST 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 ([facility]) PROTEIN / CREATININE RATIO, URINE Routine 05/16/2024 3:04 PM EST 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 ([facility]) URINALYSIS WITH MICROSCOPIC Routine 05/16/2024 3:04 PM EST 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) URINE ALBUMIN / CREATININE RATIO Routine 05/16/2024 3:04 PM EST 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) MICROSCOPIC EXAMINATION - DO NOT USE Routine 05/16/2024 3:04 PM EST PTH, INTACT Routine 05/15/2024 3:09 PM EST FERRITIN Routine 05/15/2024 3:09 PM EST ANTI-DNA ANTIBODY, DOUBLE-STRANDED Routine 05/15/2024 3:09 PM EST VITAMIN D 25 HYDROXY Routine 05/15/2024 3:09 PM EST C3 COMPLEMENT Routine 05/15/2024 3:09 PM EST C4 COMPLEMENT Routine 05/15/2024 3:09 PM EST IRON PANEL (FE, TIBC, TSAT) Routine 05/15/2024 3:09 PM EST RENAL FUNCTION PANEL Routine 05/15/2024 3:09 PM EST CBC AND DIFFERENTIAL Routine 05/15/2024 3:09 PM EST ANTI-DNA ANTIBODY, DOUBLE-STRANDED Routine 05/15/2024 3:08 PM EST SLE glomerulonephritis syndrome, 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HCC) HEMOGLOBIN A1C Routine 12/20/2023 11:47 AM EDT SLE glomerulonephritis syndrome, 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HCC) from Last 3 Months or Most Recently Relevant to Health Maintenance Results * (ABNORMAL) Microscopic Examination (06/27/2024 2:40 PM EST) Only the most recent of3 resultswithin the time period is included. WBC, Urine 0-5 0 - 5 /hpf [facility] RBC, Urine 11-30(A) 0 - 2 /hpf [facility] Squamous Epithelial, Urine 0-10 0 - 10 /hpf [facility] Casts None seen None seen /lpf [facility] Bacteria, Urine None seen None seen/Few [facility] 06/27/2024 2:40 PM EST 06/27/2024 us Breonna Le MD LAB MICROBIOLOGY - GENERAL ORD ERABLES Final Result Performing Organization Address [facility] Co de Phone Number [facility] [address] [place] [phone] * Anti-DNA antibody, double-stranded (06/27/2024 2:40 PM EST) Only the most recent of3 resultswithin the time period is included. [facility] DS DNA Ab 3 0 - 9 IU/mL [facility] Comment: ? Negative ?<5 ? Equivocal ??5 - 9 ? Positive ?>9 Blood (Blood, Venous) 06/27/2024 2:40 PM EST 06/27/2024 us Breonna Le MD LAB BLOOD ORDERABLES Final Res ult Performing Organization Address [facility]/ZIP Co de Phone Number [facility] [address] [place] [address] * (ABNORMAL) Urinalysis with microscopic (06/27/2024 2:40 PM EST) Only the most recent of3 resultswithin the time period is included. Specific [place], Urine >=1.030(A) 1.005 - 1.030 [facility] pH Urine 6.0 5.0 - 7.5 [facility] Color, Urine Yellow Yellow [facility] Appearance Urine Clear Clear [facility] WBC Esterase Urine Negative Negative [facility] [phone] Protein, Ur 4+(A) Negative/Tra ce [facility] Glucose, Ur 1+(A) Negative [facility] Ketones, Urine Negative Negative [facility] Blood Urine 1+(A) Negative [facility] Bilirubin Urine Negative Negative [facility] Urobilinogen Urine 0.2 0.2 - 1.0 mg/dL [facility] Nitrite, Urine Negative Negative [facility] Microscopic Examination See below: [facility] Comment:Microscopic was shashi cated and was performed. Urine (Urine, Clean Catch) 06/27/2024 2:40 PM EST 06/27/2024 us Breonna Le MD LAB URINE ORDERABLES Final Res ult [facility] [address] [place] [address] * (ABNORMAL) Sedimentation Rate (06/27/2024 2:40 PM EST) Only the most recent of2 resultswithin the time period is included. Sed Rate 35(H) 0 - 32 mm/hr [facility] Blood (Blood, Venous) 06/27/2024 2:40 PM EST 06/27/2024 Breonna Le MD LAB BLOOD ORDERABLES Final Res ult Performing Organization Address [facility] Co de Phone Number [facility] [address] [place] [address] * Protime-INR (06/27/2024 2:40 PM EST) INR 1.0 0.9 - 1.2 [facility] Comment: Reference interval is for non-anticoagulated patients. Suggested INR therapeutic range for Vitamin K antagonist therapy: ?? Standard Dose (moderate intensity ?therapeutic range): ? 2.0 - 3.0 ?? Higher intensity therapeutic range ? 2.5 - 3.5 Protime 10.6 9.1 - 12.0 sec [facility] Blood (Blood, Venous) 06/27/2024 2:40 PM EST 06/27/2024 Breonna Le MD LAB BLOOD ORDERABLES Final Res ult Performing Organization Address [facility] de Phone Number [facility] [address] [place] [address] * (ABNORMAL) CBC (06/27/2024 2:40 PM EST) Only the most recent of2 resultswithin the time period is included. WBC 9.3 3.4 - 10.8 x10E3/uL [facility] RBC 4.95 3.77 - 5.28 x10E6/uL [facility] Hemoglobin 13.3 11.1 - 15.9 g/dL [facility] Hematocrit 41.1 34.0 - 46.6 % [facility] MCV 83 79 - 97 fL [facility] MCH 26.9 26.6 - 33.0 pg [facility] MCHC 32.4 31.5 - 35.7 g/dL [facility] RDW 15.9(H) 11.7 - 15.4 % [facility] Platelets 493(H) 150 - 450 x10E3/uL [facility] Blood (Blood, Venous) 06/27/2024 2:40 PM EST 06/27/2024 us Breonna Le MD LAB BLOOD ORDERABLES Final Res ult Performing Organization Address City/[facility]/ZIP Co de Phone Number [facility] [address] [place] [address] * C3 complement (06/27/2024 2:40 PM EST) Only the most recent of2 resultswithin the time period is included. C3 Complement 130 82 - 167 mg/dL [facility] Blood (Blood, Venous) 06/27/2024 2:40 PM EST 06/27/2024 Breonna Le MD LAB BLOOD ORDERABLES Final Res ult [facility] [address] [place] [address] * C4 complement (06/27/2024 2:40 PM EST) Only the most recent of2 resultswithin the time period is included. C4 Complement 16 12 - 38 mg/dL [facility] Blood (Blood, Venous) 06/27/2024 2:40 PM EST 06/27/2024 Breonna Le MD LAB BLOOD ORDERABLES Final Res ult [facility] [address] [place] [address] * C-Reactive Protein (06/27/2024 2:40 PM EST) Only the most recent of2 resultswithin the time period is included. [facility] C-Reactive Protein Quant <1 0 - 10 mg/[facility] Blood (Blood, Venous) 06/27/2024 2:40 PM EST 06/27/2024 us Breonna Le MD LAB BLOOD ORDERABLES Final Res ult Performing Organization Address City/[facility]/ZIP Co de Phone Number [facility] [address] [place] [address] * (ABNORMAL) Comprehensive metabolic panel (06/27/2024 2:40 PM EST) [facility] Glucose 84 70 - 99 mg/dL [facility] BUN 21(H) 6 - 20 mg/dL [facility] Creatinine 0.90 0.57 - 1.00 mg/dL [facility] eGFR CKD-EPI CR 2020 92 >59 mL/min/1.7 3 [facility] BUN/Creatinine Ratio 23 9 - 23 [facility] Sodium 141 134 - 144 mmol/L [facility] Potassium 4.2 3.5 - 5.2 mmol/L [facility] Chloride 108(H) 96 - 106 mmol/L [facility] Bicarbonate (CO2) 20 20 - 29 mmol/L [facility] Calcium 8.4(L) 8.7 - 10.2 mg/dL [facility] Total Protein 5.0(L) 6.0 - 8.5 g/dL [facility] Albumin 2.8(L) 4.0 - 5.0 g/dL [facility] Globulin 2.2 1.5 - 4.5 g/dL [facility] Total Bilirubin <0.2 0.0 - 1.2 mg/dL [facility] Alkaline Phosphatase 76 44 - 121 IU/L [facility] AST (SGOT) 15 0 - 40 IU/L [facility] ALT (SGPT) 16 0 - 32 IU/L [facility] Blood (Blood, Venous) 06/27/2024 2:40 PM EST 06/27/2024 us Breonna Le MD LAB BLOOD ORDERABLES Final Res ult [facility] [address] [place] [address] * (ABNORMAL) Urine Protein / creatinine ratio (05/30/2024 4:18 PM EST) Only the most recent of2 resultswithin the time period is included. Creatinine, Ur 231.3 Not Estab. mg/dL [facility] Protein, Ur 1,655.9 Not Estab. mg/dL [facility] Comment: Results confirmed on dilution. Urine Protein/Creati nine Ratio 7,159(H) 0 - 200 mg/g creat [facility] Urine (Urine, Clean Catch) 05/30/2024 4:18 PM EST 05/30/2024 us Breonna Le MD LAB URINE ORDERABLES Final Res ult Performing Organization Address [facility] de Phone Number [facility] [address] [place] [address] * (ABNORMAL) Urine Albumin / Creatinine Ratio (05/30/2024 4:18 PM EST) Only the most recent of2 resultswithin the time period is included. Urine Microalbumin 9,860.3 Not Estab. ug/mL [facility] Comment: Results confirmed on dilution. Microalbumin/Crea tinine Ratio 4,263(H) 0 - 29 mg/g creat [facility] Comment: ? Normal: ?0 - ??29 ? Moderately increased: 30 - 300 ? Severely increased: ? >300 Urine (Urine, Clean Catch) 05/30/2024 4:18 PM EST 05/30/2024 us Breonna Le MD LAB URINE ORDERABLES Final Res ult Performing Organization Address [facility] de Phone Number [facility] [address] [place] [address] * (ABNORMAL) Renal function panel (05/30/2024 4:18 PM EST) Only the most recent of2 resultswithin the time period is included. Glucose 104(H) 70 - 99 mg/dL [facility] BUN 15 6 - 20 mg/dL [facility] Creatinine 1.08(H) 0.57 - 1.00 mg/dL [facility] eGFR CKD-EPI CR 2020 74 >59 mL/min/1.7 3 [facility] BUN/Creatinine Ratio 14 9 - 23 [facility] Sodium 141 134 - 144 mmol/L [facility] Potassium 4.4 3.5 - 5.2 mmol/L [facility] Chloride 108(H) 96 - 106 mmol/L [facility] Bicarbonate (CO2) 22 20 - 29 mmol/L [facility] Calcium 8.4(L) 8.7 - 10.2 mg/dL [facility] Albumin 2.9(L) 4.0 - 5.0 g/dL [facility] Phosphorus 3.0 3.0 - 4.3 mg/dL [facility] Blood (Blood, Venous) 05/30/2024 4:18 PM EST 05/30/2024 us Breonna Le MD LAB BLOOD ORDERABLES Final Res ult [facility] [address] [place] [address] * (ABNORMAL) FAWAD Panel (05/16/2024 3:04 PM EST) Pathologist Laura AG ANTIBODIES >8.0(H) 0.0 - 0.9 AI [facility] Blood (Blood, Venous) 05/16/2024 3:04 PM EST 05/16/2024 us Breonna Le MD LAB BLOOD ORDERABLES Final Res ult Performing Organization Address City/[facility]/ZIP Co de Phone Number [facility] [address] [place] [address] * Sjogrens syndrome-B extractable nuclear antibody (05/16/2024 3:04 PM EST) Sjogren's Anti-SS-B <0.2 0.0 - 0.9 AI [facility] Blood (Blood, Venous) 05/16/2024 3:04 PM EST 05/16/2024 us Breonna Le MD LAB BLOOD ORDERABLES Final Res ult Performing Organization Address [facility] Co de Phone Number [facility] [address] [place] [address] * (ABNORMAL) Sjogrens syndrome-A extractable nuclear antibody (05/16/2024 3:04 PM EST) Sjogren's Anti-SS-A 1.2(H) 0.0 - 0.9 [facility] Blood (Blood, Venous) 05/16/2024 3:04 PM EST 05/16/2024 us Breonna Le MD LAB BLOOD ORDERABLES Final Res ult Performing Organization Address City/[facility]/ZIP Co de Phone Number [facility] [address] [place] [address] * (ABNORMAL) Iron Panel (Fe, TIBC, TSAT) (05/15/2024 3:09 PM EST) TIBC 296 250 - 450 ug/dL [facility] UIBC 257 131 - 425 ug/dL [facility] Iron 39 27 - 159 ug/dL [facility] Iron Saturation (TSat) 13(L) 15 - 55 % [facility] 05/15/2024 3:09 PM EST 05/15/2024 Omar Garcia MD LAB BLOOD ORDERABLES Final Re sult Performing Organization Address City/[facility]/ZIP Co de Phone Number [facility] [address] [place] [address] * (ABNORMAL) Vitamin D 25 Hydroxy (05/15/2024 3:09 PM EST) Pathologist [facility] Vitamin D, 25-OH, Total 5.5(L) 30.0 - 100.0 ng/mL [facility] Comment: Vitamin D deficiency has been defined by the [place] of Medicine and an Endocrine Society practice guideline as a level of serum 25-OH vitamin D less than 20 ng/mL (1,2). The Endocrine Society went on to further define vitamin D insufficiency as a level between 21 and 29 ng/mL (2). 1. IOM ([place] of [employer]). 2010. Dietary reference ?? intakes for calcium and D. [place]: The ?? National AcademGoSave Press. 2. Niranjan MF, Jesu NC, Leatha OWEN, et al. ?? Evaluation, treatment, and prevention of vitamin D ?? deficiency: an Endocrine Society clinical practice ?? guideline. JCEM. 2010; 96(7):1911-30. 05/15/2024 3:09 PM EST 05/15/2024 Omar Garcia MD LAB BLOOD ORDERABLES Final Re sult Performing Organization Address City/[facility]/ZIP Co de Phone Number [facility] [address] [place] [address] * (ABNORMAL) CBC and Differential (05/15/2024 3:09 PM EST) WBC 9.8 3.4 - 10.8 x10E3/uL [facility] RBC 5.00 3.77 - 5.28 x10E6/uL [facility] Hemoglobin 12.7 11.1 - 15.9 g/dL [facility] Hematocrit 39.8 34.0 - 46.6 % [facility] MCV 80 79 - 97 fL [facility] MCH 25.4(L) 26.6 - 33.0 pg [facility] MCHC 31.9 31.5 - 35.7 g/dL [facility] RDW 16.7(H) 11.7 - 15.4 % [facility] Platelets 395 150 - 450 x10E3/uL [facility] Neutrophils Relative 71 Not Estab. % [facility] Lymphocytes Relative 19 Not Estab. % [facility] Monocytes 7 Not Estab. % [facility] Eosinophils Relative 2 Not Estab. % [facility] Basophils Relative 1 Not Estab. % [facility] Neutrophils Absolute 7.0 1.4 - 7.0 x10E3/uL [facility] Lymphocytes Absolute 1.8 0.7 - 3.1 x10E3/uL [facility] Monocytes Absolute 0.6 0.1 - 0.9 x10E3/uL [facility] Eosinophils Absolute 0.2 0.0 - 0.4 x10E3/uL [facility] Basophils Absolute 0.1 0.0 - 0.2 x10E3/uL [facility] Immature Granulocytes 0 Not Estab. % [facility] Immature Grans (Absolute) 0.0 0.0 - 0.1 x10E3/uL [facility] 05/15/2024 3:09 PM EST 05/15/2024 Omar Garcia MD LAB BLOOD ORDERABLES Final Re sult Performing Organization Address City/[facility]/ZIP Co de Phone Number [facility] [address] [place] [address] * PTH, Intact (05/15/2024 3:09 PM EST) PTH 48 15 - 65 pg/mL [facility] 05/15/2024 3:09 PM EST 05/15/2024 Omar Garcia MD LAB BLOOD ORDERABLES Final Re sult Performing Organization Address [facility] Co de Phone Number [facility] [address] [place] [address] * Ferritin (05/15/2024 3:09 PM EST) Pathologist [facility] Ferritin 16 15 - 150 ng/mL [facility] 05/15/2024 3:09 PM EST 05/15/2024 Omar Garcia MD LAB BLOOD ORDERABLES Final Re sult Performing Organization Address City/[facility] de Phone Number [facility] [address] [place] [address] * (ABNORMAL) Hemoglobin A1c (12/20/2023 11:47 AM EDT) Hemoglobin A1C 5.9(H) 4.8 - 5.6 % See order comments Comment: ? Prediabetes: 5.7 - 6.4 ? Diabetes: >6.4 ? Glycemic control for adults with diabetes: <7.0 Blood (Blood, Venous) 12/20/2023 11:47 AM EDT 12/20/2023 Narrative [facility] - 12/21/2023 4:08 PM EDT Performed at: ??01 - [facility] [address] ??[id number] Antique Dealer: Mitzy Knutson MD, Phone: ??[phone] us Omar Garcia MD LAB BLOOD ORDERABLES Final Re sult [facility] See order comments [place] [address] from Last 3 Months or Most Recently Relevant to Health Maintenance Insurance MEDICARE Care Teams Continuous Improvement Facilitator Relationship Specialty Start Date End Date Denise Blancas MD [address] [place] [address] [place] [address] PCP - General Internal Medicine 06/27/24
--- OUTSIDE RECORDS SUMMARY | 2024-08-07 15:38 | XMS_ITS | Encounter Summary ---
Author Organization [facility] [place], Address [address] [place] [address] Phone Care Team Providers Care Snow Technician Name Role Phone Denise Blancas MD Primary Care Provider [phone] Encounter Details Date Type Department Care Team (Late st Contact Info) Description 07/17/2024 Documentation Only [facility] [place] [facility], [address] [place] [address] Rhianna Castro [address] [place] [address] Social History Tobacco Use Types Packs/Day Years [...] on file documented as of this encounter Plan of Treatment Upcoming Encounters Date Type Department Care Team (Late st Contact Info) Description 09/05/2024 4:00 PM EST Office Visit [facility] [address] [place] [address] Breonna Le MD [address] [place] [address] [place] [address] documented as of this encounter Visit Diagnoses Not on filedocumented in this encounter Care Teams Snow Technician Relationship Specialty Start Date End Date Denise Blancas MD [address] [facility] [address] PCP - General Internal Medicine 06/27/24 documented as of this encounter
--- OUTSIDE RECORDS SUMMARY | 2024-08-07 15:38 | XMS_ITS | Encounter Summary ---
Author Organization [facility] Address [address] [place] [address] Phone Care Team Providers Care Vice President Risk Management Name Role Phone Denise Blancas MD Primary Care Provider [phone] Encounter Details Date Type Department Care Team (Latest Contact Info) Description 04/12/2024 Orders Only [facility] [address] [place] [address] Jovanna Schaeffer MD SLE glomerulonephritis syndrome, 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HCC) Social History Tobacco Use Types Packs/Day Years [...] Visit [facility] [address] [place] [address] Breonna Le MD [address] [place] [address] [place] [address] documented as of this encounter Procedures Procedure Name Priority Date/Time Associated Diagnosis Comments ANTI-DNA ANTIBODY, DOUBLE-STRANDED Routine 05/15/2024 3:08 PM EST SLE glomerulonephritis syndrome, 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HCC) documented in this encounter Results * Anti-DNA antibody, double-stranded (05/15/2024 3:08 PM EST) DS DNA Ab 2 0 - 9 IU/mL [facility] Comment: ? Negative ?<5 ? Equivocal ??5 - 9 ? Positive ?>9 Blood (Blood, Venous) 05/15/2024 3:08 PM EST 05/15/2024 us Jovanna Schaeffer MD LAB BLOOD ORDERABLES Final Resul t [facility] [address] [place] [address] documented in this encounter Visit Diagnoses Diagnosis SLE glomerulonephritis syndrome, 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HCC) documented in this encounter Care Teams Vice President Risk Management Relationship Specialty Start Date End Date Denise Blancas MD [address] [place] [address] PCP - General Internal Medicine 06/27/24 documented as of this encounter
--- OUTSIDE RECORDS SUMMARY | 2024-08-07 15:38 | XMS_ITS | Encounter Summary ---
Author Organization [facility] Address [address] [place] [address] Phone Care Team Providers Care Basket Operator Name Role Phone Denise Blancas MD Primary Care Provider [phone] Encounter Details Date Type Department Care Team (Latest Contact Info) Description 03/17/2023 Orders Only [facility] [address] [place] [address] oJvanna Schaeffer MD SLE glomerulonephritis syndrome, WHO class [...] Visit [facility] [address] [place] [address] Breonna Le MD [address] [place] [address] [place] [address] documented as of this encounter Visit Diagnoses Diagnosis SLE glomerulonephritis syndrome, 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HCC) documented in this encounter Care Teams Basket Operator Relationship Specialty Start Date End Date Denise Blancas MD [address] [facility] [address] PCP - General Internal Medicine 06/27/24 documented as of this encounter
--- OUTSIDE RECORDS SUMMARY | 2024-08-07 15:38 | XMS_ITS | Encounter Summary ---
Author Organization [facility] Address [address] [place] [address] Phone Care Team Providers Care Car Mechanic Helper Name Role Phone Denise Blancas MD Primary Care Provider [phone] Encounter Details Date Type Department Care Team (Latest Contact Info) Description 06/09/2023 Orders Only [facility] [address] [place] [address] Jovanna Schaeffer MD SLE glomerulonephritis [...] Visit [facility] [address] [place] [address] Breonna Le MD [address] [place] [address] [place] [address] documented as of this encounter Visit Diagnoses Diagnosis SLE glomerulonephritis syndrome, 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HCC) documented in this encounter Care Teams Car Mechanic Helper Relationship Specialty Start Date End Date Denise Blancas MD [address] [facility] [place] [address] PCP - General Internal Medicine 06/27/24 documented as of this encounter
--- OUTSIDE RECORDS SUMMARY | 2024-08-07 15:38 | XMS_ITS | Encounter Summary ---
Author Organization [facility] Address [address] [place] [address] Phone Care Team Providers Care Faa Certified Powerplant Mechanic Name Role Phone Denise Blancas MD Primary Care Provider [phone] Encounter Details Date Type Department Care Team (Latest Contact Info) Description 01/19/2024 Orders Only [facility] [address] [place] [address] Jovanna Schaeffer MD SLE glomerulonephritis [...] Visit [facility] [address] [place] [address] Breonna Le MD [address] [place] [address] [place] [address] documented as of this encounter Procedures Procedure Name Priority Date/Time Associated Diagnosis Comments ANTI-DNA ANTIBODY, DOUBLE-STRANDED Routine 02/06/2024 3:02 PM EDT SLE glomerulonephritis syndrome, 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HCC) documented in this encounter Results * Anti-DNA antibody, double-stranded (02/06/2024 3:02 PM EDT) DS DNA Ab 2 0 - 9 IU/mL [facility] Comment: ? Negative ?<5 ? Equivocal ??5 - 9 ? Positive ?>9 Blood (Blood, Venous) 02/06/2024 3:02 PM EDT 02/06/2024 us Jovanna Schaeffer MD LAB BLOOD ORDERABLES Final Resul t [facility] [address] [place] [address] documented in this encounter Visit Diagnoses Diagnosis SLE glomerulonephritis syndrome, 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HCC) documented in this encounter Care Teams Faa Certified Powerplant Mechanic Relationship Specialty Start Date End Date Denise Blancas MD [address] [place] [address] PCP - General Internal Medicine 06/27/24 documented as of this encounter
--- OUTSIDE RECORDS SUMMARY | 2024-08-07 15:38 | XMS_ITS | Encounter Summary ---
Author Organization [facility] [place], Address [address] [place] [address] Phone Care Team Providers Care Unloader Operator Name Role Phone Denise Blancas MD Primary Care Provider [phone] Encounter Details Date Type Department Care Team (Late st Contact Info) Description 09/01/2023 Documentation Only [facility] [place], [address] [place] [address] Omar Garcia MD [address] [place] [address] [place] [address] Social History Tobacco Use Types Packs/Day Years [...] Visit [facility] [address] [place] [address] Breonna Le MD [address] [place] [address] documented as of this encounter Visit Diagnoses Not on filedocumented in this encounter Care Teams Unloader Operator Relationship Specialty Start Date End Date OCassandraVazquez, Denise M, MD [address] [place] [address] PCP - General Internal Medicine 06/27/24 documented as of this encounter
--- OUTSIDE RECORDS SUMMARY | 2024-08-07 15:38 | XMS_ITS | Encounter Summary ---
Author Organization [facility] Address [address] [place] [address] Phone Care Team Providers Care Vertical Roll Operator Name Role Phone Denise Blancas MD Primary Care Provider [phone] Encounter Details Date Type Department Care Team (Latest Contact Info) Description 12/23/2022 Orders Only [facility] [address] [place] [address] Jovanna Schaeffer MD SLE glomerulonephritis [...] Visit [facility] [address] [place] [address] Breonna Le MD [address] [place] [address] [place] [address] documented as of this encounter Procedures Procedure Name Priority Date/Time Associated Diagnosis Comments DNA ANTIBODY DS #2 - HC Routine 10/30/2023 4:35 PM EDT documented in this encounter Results * DNA Antibody DS (10/30/2023 4:35 PM EDT) Anti-DNA (DS) AB QN 2 0 - 9 IU/mL See order comments Comment: ? Negative ?<5 ? Equivocal ??5 - 9 ? Positive ?>9 10/30/2023 4:35 PM EDT 10/30/2023 Narrative [facility] - 10/31/2023 3:07 PM EDT Performed at: ??01 - [facility] [address] ??[id number] Crossing Guard: Mitzy Knutson MD, Phone: ??[phone] us Jovanna Schaeffer MD LAB [id number] ICITED RESULTS Final Result [facility] See order comments [place] [address] documented in this encounter Visit Diagnoses Diagnosis SLE glomerulonephritis syndrome, 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HCC) documented in this encounter Care Teams Vertical Roll Operator Relationship Specialty Start Date End Date Denise Blancas MD [address] [place] [address] PCP - General Internal Medicine 06/27/24 documented as of this encounter
--- OUTSIDE RECORDS SUMMARY | 2024-08-07 15:39 | XMS_ITS | Encounter Summary ---
Author Organization [facility] [place], Address [address] [place] [address] Phone Care Team Providers Care Barrel Turner Name Role Phone Denise Blancas MD Primary Care Provider [phone] Encounter Details Date Type Department Care Team (Late st Contact Info) Description 10/26/2023 Documentation Only [facility] [place], [address] [place] [address] Rhianna Castro [address] [place] [address] Social History Tobacco Use Types [...] Visit [facility] [address] [place] [address] Breonna Le MD [address] [place] [address] [place] [address] documented as of this encounter Visit Diagnoses Not on filedocumented in this encounter Care Teams Barrel Turner Relationship Specialty Start Date End Date Denise Blancas MD [address] [facility] [place] [address] PCP - General Internal Medicine 06/27/24 documented as of this encounter
--- OUTSIDE RECORDS SUMMARY | 2024-08-07 15:39 | XMS_ITS | Encounter Summary ---
Author Organization [facility] Address [address] [place] [address] Phone Care Team Providers Care Fur Puller Name Role Phone Denise Blancas MD Primary Care Provider [phone] Encounter Details Date Type Department Care Team (Latest Contact Info) Description 09/16/2022 Orders Only [facility] [address] [place] [address] Jovanna Schaeffer MD SLE glomerulonephritis [...] Visit [facility] [address] [place] [address] Breonna Le MD [address] [place] [address] [place] [address] documented as of this encounter Visit Diagnoses Diagnosis SLE glomerulonephritis syndrome, 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HCC) documented in this encounter Care Teams Fur Puller Relationship Specialty Start Date End Date Denise Blancas MD [address] [facility] [place] [address] PCP - General Internal Medicine 06/27/24 documented as of this encounter
--- OUTSIDE RECORDS SUMMARY | 2024-08-07 15:39 | XMS_ITS | Encounter Summary ---
Author Organization [facility] [place], Address [address] [place] [address] Phone Care Team Providers Care Wool Scourer Name Role Phone Denise Blancas MD Primary Care Provider [phone] Encounter Details Date Type Department Care Team (Late st Contact Info) Description 09/05/2023 Documentation Only [facility] [place], [address] [place] [address] Rhianna Castro [address] [place] [address] Social History Tobacco Use Types [...] Visit [facility] [address] [place] [address] Breonna Le MD [address] [place] [address] [place] [address] documented as of this encounter Visit Diagnoses Not on filedocumented in this encounter Care Teams Wool Scourer Relationship Specialty Start Date End Date Denise Blancas MD [address] [place] [address] PCP - General Internal Medicine 06/27/24 documented as of this encounter
--- OUTSIDE RECORDS SUMMARY | 2024-08-07 15:39 | XMS_ITS | Encounter Summary ---
Author Organization [facility] Address [address] [place] [address] Phone Care Team Providers Care Quartz Miner Name Role Phone Denise Blancas MD Primary Care Provider [phone] Encounter Details Date Type Department Care Team (Latest Contact Info) Description 07/05/2024 Orders Only [facility] [address] [place] [address] Jovanna Schaeffer MD SLE glomerulonephritis [...] Visit [facility] [address] [place] [address] Breonna Le MD [address] [place] [address] [place] [address] documented as of this encounter Visit Diagnoses Diagnosis SLE glomerulonephritis syndrome, 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HCC) documented in this encounter Care Teams Quartz Miner Relationship Specialty Start Date End Date Denise Blancas MD [address] [place] [address] PCP - General Internal Medicine 06/27/24 documented as of this encounter
--- OUTSIDE RECORDS SUMMARY | 2024-08-07 15:39 | XMS_ITS | Encounter Summary ---
Author Organization [employer] [facility] Address [address] [place] [address] [address] [place] [address] Care Team Providers Care Senior Bi Architect Name Role Phone Verena Hardin Primary Care Provider [phone] Encounter Details Date Type Department Care Team (Late st Contact Info) Description 06/01/2022 Orders Only [facility] [address] [place] [address] Norma Reich, RN [address] [place] [address] Social History Tobacco Use Types Packs/Day Years Used Date Smoking Tobacco: Never Assessed Comments Unknown Sex and Gender Information Value Date Recorded Sex Assigned at Female 05/09/2022 10:17 AM EDT Legal Sex Female 10:17 AM EDT Gender Identity Female 06/01/2022 12:17 PM EST Sexual Orientation Not on file documented as of this encounter Plan of Treatment Not on file documented as of this encounter Visit Diagnoses Not on filedocumented in this encounter Care Teams Senior Bi Architect Relationship Specialty Start Date End Date Verena Hardin FNP [address] [place] [address] PCP - General Family Medicine 12/14/21 05/29/23 documented as of this encounter
--- OUTSIDE RECORDS SUMMARY | 2024-08-07 15:39 | XMS_ITS | Encounter Summary ---
Author Organization [facility] [place], Address [address] [place] [address] Phone Care Team Providers Care Wind Energy Mechanic Name Role Phone Denise Blancas MD Primary Care Provider [phone] Encounter Details Date Type Department Care Team (Late st Contact Info) Description 04/21/2022 Documentation Only [facility] [place], [address] [place] [address] Ahsan [place], [place] [address] [place] [address] Social History Tobacco Use Types [...] Visit [facility] [place], [address] [place] [place] [address] Breonna eL MD [address] [place] [address] documented as of this encounter Visit Diagnoses Not on filedocumented in this encounter Care Teams Wind Energy Mechanic Relationship Specialty Start Date End Date Denise Blancas MD [address] [place] [address] PCP - General Internal Medicine 06/27/24 documented as of this encounter
--- OUTSIDE RECORDS SUMMARY | 2024-08-07 15:39 | XMS_ITS | Encounter Summary ---
Author Organization [facility] Address [address] [place] [address] Phone Care Team Providers Care Transit Vehicle Inspector Name Role Phone Denise Blancas MD Primary Care Provider [phone] Encounter Details Date Type Department Care Team (Latest Contact Info) Description 09/02/2022 Orders Only [facility] [address] [place] [address] Jovanna Schaeffer MD SLE glomerulonephritis [...] [facility] [address] [place] [address] Breonna Le MD [address] [place] [address] [place] [address] documented as of this encounter Procedures Procedure Name Priority Date/Time Associated Diagnosis Comments PROTEIN / CREATININE RATIO, URINE Routine 10/03/2022 11:04 AM EDT SLE glomerulonephritis syndrome, 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HCC) URINE ALBUMIN / CREATININE RATIO Routine 10/03/2022 11:04 AM EDT SLE glomerulonephritis syndrome, 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HCC) ANTI-DNA ANTIBODY, DOUBLE-STRANDED Routine 10/03/2022 11:04 AM EDT SLE glomerulonephritis syndrome, 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HCC) URINALYSIS WITH MICROSCOPIC Routine 10/03/2022 11:04 AM EDT SLE glomerulonephritis syndrome, 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HCC) SEDIMENTATION RATE, AUTOMATED Routine 10/03/2022 11:04 AM EDT SLE glomerulonephritis syndrome, 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HCC) C3 COMPLEMENT Routine 10/03/2022 11:04 AM EDT SLE glomerulonephritis syndrome, 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HCC) C4 COMPLEMENT Routine 10/03/2022 11:04 AM EDT SLE glomerulonephritis syndrome, 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HCC) C-REACTIVE PROTEIN Routine 10/03/2022 11 :04 AM EDT SLE glomerulonephritis syndrome, 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HCC) DANNIE PANEL Routine 10/03/2022 11:04 AM EDT SLE glomerulonephritis syndrome, 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HCC) RENAL FUNCTION PANEL Routine 10/03/2022 11:04 AM EDT SLE glomerulonephritis syndrome, 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HCC) documented in this encounter Results * C3 Complement (10/03/2022 11:04 AM EDT) C3 Complement 118 (90-180) MG/DL [facility] Comment: Testing performed or reported by [facility], a Service of [facility], [address] [place] [address] Cherri Lucas MD, Neurocritical Care Physician [facility]# [id number] Blood (Blood, Venous) 10/03/2022 11:04 AM EDT 10/03/2022 11:12 AM EDT us Jovanna Schaeffer MD LAB BLOOD ORDERABLES Final Resul t [facility] * C4 Complement (10/03/2022 11:04 AM EDT) Pathologist [facility] C4 Complement 22 (10-40) MG/DL [facility] Comment: Testing performed or reported by [facility], a Service of [facility], [address] [place] [address] Cherri Lucas MD, Neurocritical Care Physician CLIA# [id number] Blood (Blood, Venous) 10/03/2022 11:04 AM EDT 10/03/2022 11:12 AM EDT Result [facility] Jovanna Schaeffer MD LAB BLOOD ORDERABLES Final Resul t Performing Organization Address City/[facility]/ZIP Co de Phone Number [facility] * (ABNORMAL) DANNIE Panel (10/03/2022 11:04 AM EDT) [facility] DANNIE Screen POSITIVE(A ) [facility] Comment: (NOTE) ?Negative ?? <1:80 ?Borderline ??1:80 ?Positive ?? >1:80 Test performed by [facility], [address] [place] [address] Testing performed or reported by [facility], a Service of [facility], [address] [place] [address] Robbie Cardona MD, Neurocritical Care Physician [facility]# [id number] Blood (Blood, Venous) 10/03/2022 11:04 AM EDT 10/03/2022 11:13 AM EDT Result [facility] Jovanna Schaeffer MD LAB BLOOD ORDERABLES Final Resul t Performing Organization Address [facility] de Phone Number [facility] * Anti-DNA antibody, double-stranded (10/03/2022 11:04 AM EDT) Pathologist [facility] Anti DNA, [place] [address] [facility] Comment: Reference range: 0 to 9 Unit: IU/mL (NOTE) ?Negative ?<5 ?Equivocal ??5 - 9 ?Positive ?>9 Test performed by [facility], [address] [place] [address] Testing performed or reported by [facility], a Service of [facility], [address] [place] [address] Robbie Cardona MD, Neurocritical Care Physician CLIA# [id number] Blood (Blood, Venous) 10/03/2022 11:04 AM EDT 10/03/2022 11:13 AM EDT Jovanna Schaeffer MD LAB BLOOD ORDERABLES Final Resul t Performing Organization Address [facility] de Phone Number [facility] * C-Reactive Protein (10/03/2022 11:04 AM EDT) [facility] CRP <0.3 (0-0.5) MG/DL [facility] Comment: Testing performed or reported by [facility], a Service of [facility], [address] [place] [address] Cherri Lucas MD, Neurocritical Care Physician CLIA# [id number] Blood (Blood, Venous) 10/03/2022 11:04 AM EDT 10/03/2022 11:12 AM EDT us Jovanna Schaeffer MD LAB BLOOD ORDERABLES Final Resul t Performing Organization Address [facility] de Phone Number [facility] * (ABNORMAL) Sedimentation Rate (10/03/2022 11:04 AM EDT) Pathologist [facility] Sed Rate 47(H) (0-20) MM/HR [facility] Comment: Testing performed or reported by [facility], [place] [address] Cherri Lucas MD, Neurocritical Care Physician [place]# [id number] Blood (Blood, Venous) 10/03/2022 11:04 AM EDT 10/03/2022 11:13 AM EDT Result [facility] Jovanna Schaeffer MD LAB BLOOD ORDERABLES Final Resul t Performing Organization Address [facility] Phone Number [facility] * (ABNORMAL) Urine Albumin / Creatinine Ratio (10/03/2022 11:04 AM EDT) Pathologist [facility] Urine Microalbumin 576.4(H) (<20) MG/L [facility] Comment: The urine microalbumin test is designed to monitor renal function. When screening for [place]ne proteinuria, urine electrophoresis is recommended. Microalbumin/Creati nine Ratio 2,088.4(H ) (0-20) MG/GM [facility] Microalb/Creat Ratio 27.6 MG/DL [facility] Comment: Testing performed or reported by [facility], a Service of [facility], [address] [place] [address] Cherri Lucas MD, Neurocritical Care Physician [place]# [id number] Urine (Urine, Clean Catch) 10/03/2022 11:04 AM EDT 10/03/2022 11:12 AM EDT Result [facility] Jovanna Schaeffer MD LAB URINE ORDERABLES Final Resul t Performing Organization Address [facility] de Phone Number [facility] * (ABNORMAL) Protein, Total, Random Urine w/Creatinine (Protein/Creat Ratio) (10/03/2022 11:04 AM EDT) [facility] Protein/Creatine Ratio 2.73(H) (0-0.2) [facility] Protein, Urine 75 MG/DL [facility] Comment: The urine microalbumin test is designed to monitor renal function. When screening for B[place] Lyn[place] proteinuria, urine electrophoresis is recommended. Creatinine, Urine 27.6 MG/DL [facility] Comment: Testing performed or reported by [facility], [place] [address] Cherri Lucas MD, Neurocritical Care Physician [facility]# [id number] Urine (Urine, Clean Catch) 10/03/2022 11:04 AM EDT 10/03/2022 11:12 AM EDT us Jovanna Schaeffer MD LAB URINE ORDERABLES Final Resul t [facility] * (ABNORMAL) Urinalysis with microscopic (10/03/2022 11:04 AM EDT) [facility] Appearance COLORLESS [facility] Comment:CLEAR Specific [place] 1.009 (1.002-1. 030) [facility] pH Urine 6.0 (5.0-8.0) [facility] Albumin, Urine 2+(A) (NEG) [facility] Glucose, Ur NEGATIVE (NEG) [facility] Ketones, Urine NEGATIVE (NEG) [facility] Bilirubin Urine NEGATIVE (NEG) [facility] Hemoglobin Presence in Urine NEGATIVE (NEG) [facility] Nitrite, Urine NEGATIVE (NEG) [facility] Leukocyte Esterase Urine NEGATIVE (NEG) [facility] Urobilinogen Urine NORMAL (NORM) MG/DL [facility] WBC, Urine <1 (0-5) /HPF [facility] RBC, Urine 1 (0-3) /HPF [facility] Bacteria SLIGHT(A) (NEG) HPF [facility] Mucus, Urine SLIGHT /LPF [facility] Squamous Epithelial, Urine <1 (0-8) /HPF [facility] Hyaline Casts, Urine 1 (0-2) LPF [facility] Comment: Testing performed or reported by [facility], a Service of [address] [address] Cherri Lucas MD, Neurocritical Care Physician [facility]# [id number] Urine (Urine, Clean Catch) 10/03/2022 11:04 AM EDT 10/03/2022 11:12 AM EDT Jovanna Schaeffer MD LAB URINE ORDERABLES Final Resul t Performing Organization Address [facility] Co de Phone Number [facility] * (ABNORMAL) Renal Function Panel (10/03/2022 11:04 AM EDT) Glucose 87 (70-99) MG/DL [facility] BUN 23(H) (6-20) MG/DL [facility] Creatinine 1.0 (0.5-1.0) MG/DL [facility] Sodium 140 (133-145) MMOL/L [facility] Potassium 3.9 (3.6-5.2) MMOL/L [facility] Chloride 105 (98-107) MMOL/L [facility] Bicarbonate (CO2) 24 (22-29) MMOL/L [facility] Anion Gap 11 (4-17) [facility] Albumin 3.7 (3.4-4.8) GM/DL [facility] Calcium 9.2 (8.6-10.5) MG/DL [facility] Phosphorus, Serum 4.8(H) (2.5-4.5) MG/DL [facility] Est GFR Non 82 ML/MIN/1.7 3 M2 [facility] Comment: Creatinine based estimated glomerular filtration (eGFR) in adults is calculated using the National Kid[employer] recommended 2020 CKD-EPI equation. Estimates GFR from serum creatinine, age and sex. Testing performed or reported by [facility], a Service of [facility], [address] [place] [address] Cherri Lucas MD, Neurocritical Care Physician [facility]# [id number] Blood (Blood, Venous) 10/03/2022 11:04 AM EDT 10/03/2022 11:12 AM EDT Result [facility] Jovanna Schaeffer MD LAB BLOOD ORDERABLES Final Resul t Performing Organization Address [facility] Co de Phone Number [facility] documented in this encounter Visit Diagnoses Diagnosis SLE glomerulonephritis syndrome, 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HCC) documented in this encounter Care Teams Transit Vehicle Inspector Relationship Specialty Start Date End Date Denise Blancas MD [address] [facility] [place] [address] PCP - General Internal Medicine 06/27/24 documented as of this encounter
--- OUTSIDE RECORDS SUMMARY | 2024-08-07 15:39 | XMS_ITS | Encounter Summary ---
Author Organization [facility] [place], Address [address] [place] [address] Phone Care Team Providers Care Straightening Press Operator Name Role Phone Denise Blancas MD Primary Care Provider [phone] Encounter Details Date Type Department Care Team (Late st Contact Info) Description 09/05/2023 Documentation Only [facility] [place], [address] [place] [address] Rhianna Castro [address] [place] [address] Social History Tobacco Use Types [...] Visit [facility] [address] [place] [address] Breonna Le MD [address] [place] [address] [place] [address] documented as of this encounter Visit Diagnoses Not on filedocumented in this encounter Care Teams Straightening Press Operator Relationship Specialty Start Date End Date Denise Blancas MD [address] [place] [address] PCP - General Internal Medicine 06/27/24 documented as of this encounter
--- OUTSIDE RECORDS SUMMARY | 2024-08-07 15:39 | XMS_ITS | Encounter Summary ---
Author Organization [facility] Address [address] [place] [address] Phone Care Team Providers Care Podiatric Aide Name Role Phone Denise Blancas MD Primary Care Provider [phone] Encounter Details Date Type Department Care Team (Latest Contact Info) Description 08/05/2022 Orders Only [facility] [address] [place] [address] Jovanna Schaeffer MD SLE glomerulonephritis [...] [facility] [address] [place] [address] Breonna Le MD [address] [place] [address] [place] [address] documented as of this encounter Visit Diagnoses Diagnosis SLE glomerulonephritis syndrome, 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HCC) documented in this encounter Care Teams Podiatric Aide Relationship Specialty Start Date End Date Denise Blancas MD [address] [place] [address] PCP - General Internal Medicine 06/27/24 documented as of this encounter
--- OUTSIDE RECORDS SUMMARY | 2024-08-07 15:39 | XMS_ITS | Encounter Summary ---
Author Organization [facility] Address [address] [place] [address] Phone Care Team Providers Care Ergonomics Technician Name Role Phone Denise Blancas MD Primary Care Provider [phone] Encounter Details Date Type Department Care Team (Latest Contact Info) Description 11/03/2023 Orders Only [facility] [address] [place] [address] Jovanna Schaeffer MD SLE glomerulonephritis [...] Visit [facility] [address] [place] [address] Breonna Le MD [address] [place] [address] [place] [address] documented as of this encounter Visit Diagnoses Diagnosis SLE glomerulonephritis syndrome, 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HCC) documented in this encounter Care Teams Ergonomics Technician Relationship Specialty Start Date End Date Denise Blancas MD [address] [place] [address] PCP - General Internal Medicine 06/27/24 documented as of this encounter
--- OUTSIDE RECORDS SUMMARY | 2024-08-07 15:39 | XMS_ITS | Encounter Summary ---
Author Organization [facility] Address [address] [place] [address] Phone Care Team Providers Care Plant Production Manager Name Role Phone Denise Blancas MD Primary Care Provider [phone] Encounter Details Date Type Department Care Team (Latest Contact Info) Description 11/17/2023 Orders Only [facility] [address] [place] [address] Jovanna Schaeffer MD SLE glomerulonephritis [...] Visit [facility] [address] [place] [address] Breonna Le MD [address] [place] [address] [place] [address] documented as of this encounter Visit Diagnoses Diagnosis SLE glomerulonephritis syndrome, 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HCC) documented in this encounter Care Teams Plant Production Manager Relationship Specialty Start Date End Date Denise Blancas MD [address] [facility] [place] [address] PCP - General Internal Medicine 06/27/24 documented as of this encounter
--- OUTSIDE RECORDS SUMMARY | 2024-08-07 15:39 | XMS_ITS | Encounter Summary ---
Author Organization [facility] Address [address] [place] [address] Phone Care Team Providers Care Gamb Cutter Name Role Phone Denise Blancas MD Primary Care Provider [phone] Encounter Details Date Type Department Care Team (Latest Contact Info) Description 12/15/2023 Orders Only [facility] [address] [place] [address] Jovanna Schaeffer MD SLE glomerulonephritis [...] Visit [facility] [address] [place] [address] Breonna Le MD [address] [place] [address] [place] [address] documented as of this encounter Visit Diagnoses Diagnosis SLE glomerulonephritis syndrome, 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HCC) documented in this encounter Care Teams Gamb Cutter Relationship Specialty Start Date End Date Denise Blancas MD 140 [facility] [place] [address] PCP - General Internal Medicine 06/27/24 documented as of this encounter
--- OUTSIDE RECORDS SUMMARY | 2024-08-07 15:39 | XMS_ITS | Encounter Summary ---
Author Organization [facility] [place], Address [address] [place] [address] Phone Care Team Providers Care Rn Clinical Trials Name Role Phone Denise Blancas MD Primary Care Provider [phone] Encounter Details Date Type Department Care Team (Late st Contact Info) Description 10/26/2023 Documentation Only [facility] [place], [address] [place] [address] Rhianna Castro [address] [place] [address] Social History Tobacco Use Types [...] Visit [facility] [address] [place] [address] Breonna Le MD [address] [place] [address] [place] [address] documented as of this encounter Visit Diagnoses Not on filedocumented in this encounter Care Teams Rn Clinical Trials Relationship Specialty Start Date End Date Denise Blancas MD [address] [place] [address] PCP - General Internal Medicine 06/27/24 documented as of this encounter
--- OUTSIDE RECORDS SUMMARY | 2024-08-07 15:39 | XMS_ITS | Encounter Summary ---
Author Organization [facility] Address [address] [place] [address] Phone Care Team Providers Care Cosmetology Educator Name Role Phone Denise Blancas MD Primary Care Provider [phone] Encounter Details Date Type Department Care Team (Latest Contact Info) Description 11/10/2023 Orders Only [facility] [address] [place] [address] Jovanna Schaeffer MD SLE glomerulonephritis [...] Visit [facility] [address] [place] [address] Breonna Le MD [address] [place] [address] [place] [address] documented as of this encounter Visit Diagnoses Diagnosis SLE glomerulonephritis syndrome, 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HCC) documented in this encounter Care Teams Cosmetology Educator Relationship Specialty Start Date End Date Denise Blancas MD [address] [place] [address] PCP - General Internal Medicine 06/27/24 documented as of this encounter
--- OUTSIDE RECORDS SUMMARY | 2024-08-07 15:39 | XMS_ITS | Clinical Summary ---
Author Organization [employer] Address [address] [facility] [address] [place] [address] Care Team Providers Care Unix Architect Name Role Phone Unavailable Primary Care Provider Unavailabl e Allergies Active Allergy Reactions Criticality Noted Date Comments Amoxicillin 06/01/2022 Medications albuterol (ProAir HFA) 108 (90 Base) MCG/ACT inhaler inhale 2 puff by inhalation route 4 times every day if needed as needed 0 Active omeprazole OTC (PriLOSEC OTC) 20 MG EC tablet take 1 Tablet by Oral route every day before breakfast 0 Active fluticasone (Flovent HFA) 110 MCG/ACT inhaler inhale 2 puff by inhalation route 2 times every day Rinse mouth out afterwards. 0 Active traZODone (Desyrel) 50 MG tablet Take 1 tablet by mouth at bed time. Active torsemide (Demadex) 20 MG tablet take 3 (60 mg) tablet by oral route twice a day. Active predniSONE (Deltasone) 20 MG tablet take 1 tablet by oral route every day Active mycophenolate (Cellcept) 500 MG tablet take 2 tablet by oral route 2 times every day Active lisinopril 20 MG tablet take 1 tablet by oral route every day Active labetalol (Normodyne) 100 MG tablet take 1 tablet by oral route 2 times every day Active hydroxychloroqu ine (Plaquenil) 200 MG tablet take 1 tablet by oral route BID Active hydroCHLOROthia zide (HYDRODiuril) 12.5 MG tablet take 1 tablet by oral route every day Active folic acid (Folvite) 1 MG tablet take 1 tablet by oral route every day Active ferrous sulfate 325 (65 Fe) MG tablet take 1 tablet by oral route every day Active ergocalciferol (Drisdol) 1.25 MG (17627 UT) capsule take 1 capsule by oral route once a week. Active bumetanide (Bumex) 2 MG tablet take 1 tablet by oral route twice daily. Active Spacer/Aero-Hol ding Chambers (AeroChamber Z-Stat Plus) inhaler by Other route. Aerochamber plus Z stat spacer Use as directed with Alb HFA PRN 7 Active Active Problems Problem Noted Date Diagnosed Date Hypercholesterolemia 06/01/2022 Nephrotic range proteinuria 06/01/2022 SLE glomerulonephritis syndrome 06/01/2022 Systemic lupus erythematosus 06/01/2022 Mild persistent asthma 06/05/2018 Obesity 10/17/2016 Scoliosis deformity of spine 06/17/2016 Gastroesophageal reflux disease 05/08/2015 Encounters Date Type Department Care Team Description 05/31/2024 Telephone [facility] [address] [place] [address] Andi Mancera MD New patient appt. from Last 3 Months Immunizations Name Administration Dates Next Due DTaP 04/19/2012, 1,05/25/2000,02/16 DTaP, 5 pertussis antigens 1999 HPV 9-Valent 05/06/2016,01/05/2016,05/08/2015 Hep A, ped/adol, 2 dose 01/05/2016,05/08/2015 Hep B, Adolescent or Pediatric 05/25/2000,1999,1999 IPV 10/16/2003, 1,02/17/2000,12/15 Influenza injectable quadriv alent preservative free 05/28/2020,06/05/2018,05/08/2015 MMR 10/16/2003,09/27/2000 Meningococcal MCV4P ACYW-135 05/06/2016,05/08/20 15 Pneumococcal Conjugate PCV 13 07/18/2019 Tdap 05/08/2015 Varicella 04/19/2012,09/27/2000 Social History Tobacco Use Types Packs/Day Years Used Date Smoking Tobacco: Never Assessed Comments Unknown Sex and Gender Information Value Date Recorded Sex Assigned at Female 05/09/2022 10:17 AM EDT Legal Sex Female 10:17 AM EDT Gender Identity Female 06/01/2022 12:17 PM EST Sexual Orientation Not on file Last Filed Vital Signs Vital Sign Reading Time Taken Comments Blood Pressure 120/80 08/23/2019 12:02 AM EST Pulse 80 08/23/2019 12:02 AM EST Temperature - - Respiratory Rate - - Oxygen Saturation - - Inhaled Oxygen Concentration - - Weight 94.8 kg (209 lb) 08/23/2019 12:02 AM EST Height 172.7 cm (5' 8 ) 08/23/2019 12:02 AM EST Body Mass Index 31.78 08/23/2019 12:02 AM EST Plan of Treatment Health Maintenance Due Date Last Done Comments Depression Screening 1999 HIV Screening 1999 SDOH Screening 1999 COVID-19 Vaccine (#1) 09/22/2004 Alcohol/Substance Use Screening 2011 Tobacco Screening 2011 Family Planning (PISQ) 09/22/2014 Hepatitis C Screening 09/22/2017 Zoster Vaccines (1 of 2) 09/22/2018 Pneumococcal Vaccine: Pediatrics (0 to 5 Years) and At-Risk Patients (6 to 49) Years) (2 of 2 - PPSV23 or PCV20) 09/12/2019 07/18/2019, 05/10/2001, 02/05/2001, Additional history exists Pap Smear 09/22/2020 Influenza Vaccine (#1) 2024 , 05/28/2020, 05/30/2019, Additional history exists DTaP/Tdap/Td Vaccines (8 - Td or Tdap) 05/08/2025 05/08/2015, 04/19/2012, 10/16/2003, Additional history exists Lipid Panel 05/28/2025 05/28/2020 RSV Patients and Patients Aged 60 years or older (1 - 1-dose 75+ series) 09/22/2074 Hepatitis B Vaccines Completed 05/25/2000, 1999, 1999 HIB Vaccines Completed 02/05/2001, 05/10, 02/17/2000, Additional history exists IPV Vaccines Completed 10/16/2003, 09/08, 02/17/2000, Additional history exists Hepatitis A Vaccines Completed 01/05/2016, 01/05/2016, 05/08/2015, Additional history exists HPV Vaccines Completed 05/06/2016, 04/10, 05/06/2016, Additional history exists Meningococcal Vaccine Completed 05/06/2016 , 05/06/2016, 05/08/2015, Additional history exists RSV under 20 months Aged Out No longe r eligible based on patient's age to complete this topic Rotavirus Vaccines Aged Out No longer eligible based on patient's age to complete this topic Procedures Procedure Name Priority Date/Time Associated Diagnosis Comments LIPID PANEL, STANDARD Routine 05/28/2020 10:10 AM EST from Last 3 Months or Most Recently Relevant to Health Maintenance Results * (ABNORMAL) LIPID PANEL, STANDARD (05/28/2020 10:10 AM EST) Cholesterol, Total 205(H) <200 mg/dL [facility] Non-HDL Cholesterol 164(H) <130 mg/dL (calc) [facility] Comment: For patients with diabetes plus 1 major ASCVD risk ?? factor, treating to a non-HDL-C goal of <100 mg/dL ?? (LDL-C of <70 mg/dL) is considered a therapeutic ?? option. HDL Cholesterol 41(L) > OR = 50 mg/dL [facility] Non-HDL Cholesterol 164(H) <130 mg/dL (calc) [facility] Comment: For patients with diabetes plus 1 major ASCVD risk ?? factor, treating to a non-HDL-C goal of <100 mg/dL ?? (LDL-C of <70 mg/dL) is considered a therapeutic ?? option. HDL Cholesterol 41(L) > OR = 50 mg/dL [facility] Triglycerides 95 <150 mg/dL [facility] LDL Cholesterol 144(H) mg/dL (calc) [facility] Comment: Reference range: <100 ?? Desirable range <100 mg/dL for primary prevention; ?? <70 mg/dL for patients with CHD or diabetic patients ?? with > or = 2 CHD risk factors. ?? LDL-C is now calculated using the Cori ?? calculation, which is a validated novel method providing ?? better accuracy than the Friedewald equation in the ?? estimation of LDL-C. ?? Walter SANCHEZ et al. RANDY. 2013;310(19): 3708-3463 ?? (http://education.[employer].Jumbas/faq/UQI331) Chol/HDLC Ratio 5.0(H) <5.0 (calc) [facility] Cholesterol, Total 205(H) <200 mg/dL [facility] Triglycerides 95 <150 mg/dL [facility] LDL Cholesterol 144(H) mg/dL (calc) [facility] Comment: Reference range: <100 ?? Desirable range <100 mg/dL for primary prevention; ?? <70 mg/dL for patients with CHD or diabetic patients ?? with > or = 2 CHD risk factors. ?? LDL-C is now calculated using the Cori ?? calculation, which is a validated novel method providing ?? better accuracy than the Friedewald equation in the ?? estimation of LDL-C. ?? Walter SANCHEZ et al. RANDY. 2013;310(19): 9532-6286 ?? (http://[employer].Jumbas/faq/LIS244) Chol/HDLC Ratio 5.0(H) <5.0 (calc) [facility] 05/28/2020 10:1 0 AM EST Efraín Lara HOME HEALTH NURSE LICENSED PRACTICAL LAB BLOOD ORDERABLES Final Result [facility] [address] from Last 3 Months or Most Recently Relevant to [place] [address] [place] [address] [place] [address] [place] [address]
--- OUTSIDE RECORDS SUMMARY | 2024-08-07 15:39 | XMS_ITS | Encounter Summary ---
Author Organization [facility], Address [address] [place] [address] Phone Care Team Providers Care Telephone Exchange Operator Name Role Phone Denise Blancas MD Primary Care Provider [phone] Encounter Details Date Type Department Care Team (Late st Contact Info) Description 08/01/2024 Documentation Only [facility], [address] [place] [address] [place], [place] [address] [place] [address] Social History Tobacco Use Types [...] Visit [facility], [address] [place] [address] Breonna Le MD [address] [place] [address] documented as of this encounter Visit Diagnoses Not on filedocumented in this encounter Care Teams Telephone Exchange Operator Relationship Specialty Start Date End Date Denise Blancas MD [address] [place] [address] PCP - General Internal Medicine 06/27/24 documented as of this encounter
--- OUTSIDE RECORDS SUMMARY | 2024-08-07 15:39 | XMS_ITS | Encounter Summary ---
Author Organization [facility] Address [address] [place] [address] Phone Care Team Providers Care Corporate Training Manager Name Role Phone Denise Blancas MD Primary Care Provider [phone] Encounter Details Date Type Department Care Team (Latest Contact Info) Description 12/08/2023 Orders Only [facility] [address] [place] [address] Jovanna Schaeffer MD SLE glomerulonephritis [...] Visit [facility] [address] [place] [address] Breonna Le MD [address] [place] [address] [place] [address] documented as of this encounter Visit Diagnoses Diagnosis SLE glomerulonephritis syndrome, 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HCC) documented in this encounter Care Teams Corporate Training Manager Relationship Specialty Start Date End Date Denise Blancas MD [address] [place] [address] PCP - General Internal Medicine 06/27/24 documented as of this encounter
--- OUTSIDE RECORDS SUMMARY | 2024-08-07 15:39 | XMS_ITS | Encounter Summary ---
Author Organization [facility] Address [address] [place] [address] Phone Care Team Providers Care Stone Engraver Name Role Phone Denise Blancas MD Primary Care Provider [phone] Encounter Details Date Type Department Care Team (Late st Contact Info) Description 07/08/2024 Office Communication [facility] [address] [place] [address] Rhianna Castro [address] [place] [address] Social History Tobacco Use Types [...] Visit [facility] [address] [place] [address] Breonna Le MD [address] [place] [address] [place] [address] documented as of this encounter Visit Diagnoses Not on filedocumented in this encounter Care Teams Stone Engraver Relationship Specialty Start Date End Date Denise Blancas MD [address] [place] [address] PCP - General Internal Medicine 06/27/24 documented as of this encounter
--- OUTSIDE RECORDS SUMMARY | 2024-08-07 15:39 | XMS_ITS | Encounter Summary ---
Author Organization [facility] Address [address] [place] [address] Phone Care Team Providers Care Parking Technician Name Role Phone Denise Blancas MD Primary Care Provider [phone] Encounter Details Date Type Department Care Team (Late st Contact Info) Description 08/02/2024 Telephone [facility] [place], [address] [place] [address] Rhianna Castro [address] [place] [address] Social History Tobacco Use Types [...] on file documented as of this encounter Miscellaneous Notes * Telephone Encounter - Rhianna Castro - 08/02/2024 4:[address] Le, informed Deny that she should have lab work (blood and urine) every two weeks while she is on Cytoxan therapy. Order placed through [facility]. Patient will start getting Lab work one week after her first infusion. Per patient her first infusion is 08/12. Dr. Le is aware of the above. documented in this encounter Plan of Treatment Upcoming Encounters Date Type Department Care Team (Late st Contact Info) Description 09/05/2024 4:00 PM EST Office Visit [facility], [address] [place] [address] Breonna Le MD [address] [place] [address] [place] [id number] documented as of this encounter Visit Diagnoses Not on filedocumented in this encounter Care Teams Parking Technician Relationship Specialty Start Date End Date Denise Blancas MD [address] [place] [address] PCP - General Internal Medicine 06/27/24 documented as of this encounter
--- OUTSIDE RECORDS SUMMARY | 2024-08-07 15:39 | XMS_ITS | Encounter Summary ---
Author Organization [facility] Address [address] [place] [address] Phone Care Team Providers Care Outbound Sales Executive Name Role Phone Denise Blancas MD Primary Care Provider [phone] Encounter Details Date Type Department Care Team (Latest Contact Info) Description 12/01/2023 Orders Only [facility] [address] [place] [address] Jovanna Schaeffer MD SLE glomerulonephritis [...] Visit [facility] [address] [place] [address] Breonna Le MD [address] [place] [address] [place] [address] documented as of this encounter Visit Diagnoses Diagnosis SLE glomerulonephritis syndrome, 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HCC) documented in this encounter Care Teams Outbound Sales Executive Relationship Specialty Start Date End Date Denise Blancas MD [address] [place] [address] PCP - General Internal Medicine 06/27/24 documented as of this encounter
--- OUTSIDE RECORDS SUMMARY | 2024-08-07 15:39 | XMS_ITS | Encounter Summary ---
Author Organization [facility] Address [address] [place] [address] Phone Care Team Providers Care Property Maintenance Technician Name Role Phone Denise Blancas MD Primary Care Provider [phone] Encounter Details Date Type Department Care Team (Latest Contact Info) Description 08/19/2022 Orders Only [facility] [address] [place] [address] Jovanna Schaeffer MD SLE glomerulonephritis [...] Visit [facility] [address] [place] [address] Breonna Le MD [address] [place] [address] [place] [address] documented as of this encounter Visit Diagnoses Diagnosis SLE glomerulonephritis syndrome, 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HCC) documented in this encounter Care Teams Property Maintenance Technician Relationship Specialty Start Date End Date Denise Blancas MD [address] [place] [address] PCP - General Internal Medicine 06/27/24 documented as of this encounter
--- OUTSIDE RECORDS SUMMARY | 2024-08-07 15:39 | XMS_ITS | Encounter Summary ---
Author Organization [facility] Address [address] [place] [address] Phone Care Team Providers Care Dial Painter Name Role Phone Denise Blancas MD Primary Care Provider [phone] Encounter Details Date Type Department Care Team (Latest Contact Info) Description 11/24/2023 Orders Only [facility] [address] [place] [address] Jovanna Schaeffer MD SLE glomerulonephritis [...] Visit [facility] [address] [place] [address] Breonna Le MD [address] [place] [address] [place] [address] documented as of this encounter Visit Diagnoses Diagnosis SLE glomerulonephritis syndrome, 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HCC) documented in this encounter Care Teams Dial Painter Relationship Specialty Start Date End Date Denise Blancas MD [address] [place] [address] PCP - General Internal Medicine 06/27/24 documented as of this encounter
--- OUTSIDE RECORDS SUMMARY | 2024-08-07 15:39 | XMS_ITS | Encounter Summary ---
Author Organization [facility] Address [address] [place] [address] Phone Care Team Providers Care Amr Physician Name Role Phone Denise Blancas MD Primary Care Provider [phone] Encounter Details Date Type Department Care Team (Late st Contact Info) Description 07/30/2024 Telephone [facility] [place], [address] [place] [address] [place] [address] [place] [address] Social History Tobacco Use Types Packs/Day [...] encounter Miscellaneous Notes * Telephone Encounter - Shauna Foreman MA - 07/30/2024 4:21 PM EST I called and left a message for Deny asking if she has a secondary insurance to the Medicare so that I can work on getting her Cytoxan scheduled documented in this encounter Plan of Treatment Upcoming Encounters Date Type Department Care Team (Late st Contact Info) Description 09/05/2024 4:00 PM EST Office Visit [facility] [place], [address] [place] [address] Breonna Le MD [address] [place] [address] documented as of this encounter Visit Diagnoses Not on filedocumented in this encounter Care Teams Amr Physician Relationship Specialty Start Date End Date Denise Blancas MD [address] [place] [address] PCP - General Internal Medicine 06/27/24 documented as of this encounter
[2024-08-07 17:43] LABS: MANUAL DIFF FLAG NO
[2024-08-07 18:19] LABS: Alanine Aminotransferase 10 U/L (0-31); Albumin Level 2.5 g/dL (3.5-5.0); Alkaline Phosphatase 53 U/L (39-117); Anion Gap 6 (12-20); Aspartate Amino Transferase 22 U/L (5-31); Bilirubin Total 0.2 mg/dL (0.0-1.0); Blood Urea Nitrogen 14 mg/dL (9-16); Calcium 7.8 mg/dL (8.4-10.2); Carbon Dioxide 20 mmol/L (22-29); Chloride 113 mmol/L (96-108); Estimated Glomerular Filt Rate > 60; Glucose Random 85 mg/dL (60-115); Sodium 135 mmol/L (135-145); Total Protein 5.3 g/dL (6.5-8.0)
[2024-08-07 18:20] LABS: Basophils Absolute Auto 0.1 X10*3/uL (0.0-0.2); Basophils Percent Auto 0.5 % (0-2); Eosinophils Absolute Auto 0.2 X10*3/uL (0.0-0.4); Eosinophils Percent Auto 1.4 % (0-4); Hemoglobin 12.4 g/dl (12.0-16.0); Imm Gran Abs Auto 0.06 X10*3/uL (0.00-0.03); Imm Gran Pct Auto 0.5 % (0.0-0.4); Lymphocytes Absolute Auto 1.7 X10*3/uL (1.2-4.9); Lymphocytes Percent Auto 15.3 % (20-40); Mean Corpuscular HGB Conc 31.8 g/dl (31.0-35.0); Mean Corpuscular Hemoglobin 25.4 pg (27.0-33.0); Mean Corpuscular Volume 79.8 fL (80.0-98.0); Mean Platelet Volume 10.7 fL (9.4-12.3); Monocytes Absolute Auto 0.6 X10*3/uL (0.1-1.2); Monocytes Percent Auto 5.8 % (2-11); Neutrophils Absolute Auto 8.5 x10*3/uL (2.0-8.3); Neutrophils Percent Auto 76.5 % (45-73); Platelet Count 400 X10*3/uL (160-400); Red Blood Count 4.89 X10*6/uL (4.20-5.50); Red Cell Distribution Width 15.7 % (11.0-16.0); White Blood Count 11.1 X10*3/uL (4.8-10.8)
[2024-08-07 18:25] LABS: TSH reflex Free T4 2.84 uIU/mL (0.32-4.0)
[2024-08-09 14:34] LABS: HCG Quantitative 288 mIU/mL; Vitamin D 25-OH Total 8.7 ng/mL (>30)
== END 2024-08-07 13:29 | disposition home or self-care (01) ==
LOC: HO.WFDLDS 13:28
PROVIDERS: Visit Provider Physician Assistant
DX: M32.19 Other organ or system involvement in systemic lupus erythematosus (principal); N28.89 Other specified disorders of kidney and ureter; R73.01 Impaired fasting glucose; K21.9 Gastro-esophageal reflux disease without esophagitis; I10 Essential (primary) hypertension; R10.10 Upper abdominal pain, unspecified; R11.2 Nausea with vomiting, unspecified; N91.2 Amenorrhea, unspecified; E83.51 Hypocalcemia
CPT/HCPCS: 36415; 80053; 82306; 84443; 84702; 85025

== ENCOUNTER 2024-08-08 08:42 | Outpatient (AMB) | payer MEDICARE, SELFPAY ==
--- NOTE | 2024-08-08 08:55 | A.OFFPC_ITS ---
Vital Signs 08/08/24 08:57 Height 5 ft 8 in Weight 254 lb BMI 38.6 BP 118/72 Blood Pressure Location Lt brachial Position Sitting Pulse 98 Pulse Source Pulse Oximeter Pulse Oximetry (%) 97 Oxygen Delivery Method Room Air Intake Visit Reasons: F/U meds Intake Note: Follow up. Hearing Impaired Itinerant Teacher Required: No Allergies amoxicillin Allergy (Intermediate, Verified 08/08/24 08:56) rash Medication List - Last Reconciled 08/08/24 by Adamaris Acosta PA-C albuterol sulfate 90 mcg/actuation 2 puffs inhalation Q4-6H PRN blood sugar diagnostic (FreeStyle Lite Strips) As directed cholecalciferol (vitamin D3) 1,250 mcg PO 2XW dapagliflozin propanediol (Farxiga) 5 mg PO DAILY fluticasone propionate 50 mcg/actuation (Flonase Allergy Relief) 1 spray intranasal BID hydroxychloroquine 200 mg PO BID lancets (FreeStyle Lancets) As directed losartan 25 mg PO DAILY mycophenolate mofetil 500 mg PO BID omeprazole 20 mg PO DAILY ondansetron 4 mg PO Q8H PRN torsemide 80 mg PO DAILY Tobacco use date assessed: 06/26/24 Dental Screening Dental Screen Date: 06/13/24 HPI F/U meds HPI Details Patient is a 23-year-old female with a significant past medical history of hypertension, impaired fasting glucose, vitamin-D deficiency, anemia, lupus, kidney disease associated with lupus presenting today for a follow up. At our last visit she did complain of ongoing nausea, vomiting and intermittent upper abdominal pain x 4 months. I did refer her to GI. She states that this is relatively stable and intermittent. She is scheduled with Allergy and immunology to work her up for food sensitivities. Her labs to come back yesterday with a decreased albumin, protein and calcium. White count slightly elevated. She does have a history of vitamin-D deficiency and has been taking her supplement. She is also on a diuretic. She states that her labs were similar last week at her cdl driver's office. She says that they plan to start a new treatment for her once a week. She does not recall exactly what it is but she also tells me that she is worried that she will not be able to get it because she thinks she had a positive test last night. She states that she was not preventing but also was not necessarily planning it. She would be excited about the idea of having a baby. She says that she is aware that the medications that she is taking would need to be changed if she is in fact . She is aware of the risks as she has been warned by her cdl driver about these medications and . She does not have an OB. She is currently off of the prednisone BP today in the office is 118/72 she is on torsemide 20 mg 4x a day, losartan 25 mg. She is back on farxiga. She is still on the mycophenolate and hydroxychloroquine. Has a rheumatology appointment in October. [facility] Medical History (Updated 08/08/24 @ 09:23 by Adamaris Acosta PA-C) Migraines Hypertension Kidney disease Diabetes Asthma Denial Lupus (systemic lupus erythematosus) Systemic lupus erythematosus, unspecified Surgical History No pertinent past surgical history Family History Father Diabetes Hypertension Asthma Mother Diabetes Hypertension Maternal Grandmother Cancer Paternal Grandmother Cancer Brother Asthma Social History (Updated 08/08/24 @ 09:24 by Lisa Medel CMA) Household Members: Spouse Both parents involved: No Caregiver staying overnight: No Housing: Apartment Are you a primary account executive healthcare to a significant other at home: Yes Do you presently have visiting nurse or other home services: No 75 years or older and lives alone: No Alcohol intake: never Patient Tobacco Use Status: Never used Tobacco e-Cigarette/Vaping Use: Never Used Use of substances other than those prescribed or required for medical reasons: No Current occupational status: employed Cognitive needs: No Hearing needs: No Vision needs: No Questionnaire Thrive Questionnaire Date Thrive assessed: 07/11/24 I am a: Patient What is your living situation today?: I choose not to answer this question Within the past 12 months, did the food you bought not last and you didn't have the money to get more?: I choose not to answer this question Within the past 12 months, did you worry whether your food would run out before you got money to buy more?: I choose not to answer this question Do you have trouble paying for medicines?: I choose not to answer this question Do you have trouble getting transportation to medical appointments?: I choose not to answer this question Do you have trouble paying your heating and electricity bill?: I choose not to answer this question Do you have trouble taking care of your child, family member or friend?: I choose not to answer this question Do you have trouble with day-to-day activities such as bathing, preparing meals, shopping, managing finances, etc.?: I choose not to answer this question Are you currently unemployed and looking for a job?: I choose not to answer this question Are you interested in more education?: I choose not to answer this question Please select the resources that you would like help with: None Currently or been in a relationship where the following occur: I choose not to answer THRIVE Score: 0 HEIDE-7 AMB Questionnaire HEIDE-7 Date HEIDE - 7 assessed: 06/13/24 Source: Developed by Drs. Konstantin Parekh, Tatiana Gallardo, Juancarlos Rodrigez and colleagues, with an educational chente from [employer]. Physical exam (Primary Care) Vital Signs: Last Vital Signs Pulse 98 08/08/24 08:57 BP 118/72 08/08/24 08:57 Pulse Ox 97 08/08/24 08:57 Oxygen Delivery Method Room Air 08/08/24 08:57 BMI result Body Mass Index 38.6 Tobacco/Smoking Status: Tobacco use Status Tobacco use date assessed 06/26/24 08/08/24 08:57 Patient Tobacco Use Status Never used Tobacco 08/08/24 09:24 e-Cigarette/Vaping Use Never Used 08/08/24 09:24 Thrive Assessment: Date of Thrive Assessment Date Thrive assessed 07/11/24 08/08/24 08:57 Currently or been in a relationship where the following occur: I choose not to answer Const Orientation/consciousness: patient oriented x3 HENMT Ears: hearing grossly normal bilaterally Neck Thyroid: Thyroid normal Lymphatic: no lymphadenopathy noted Resp Auscultation: clear to auscultation bilaterally Cardio Rate: regular rate Rhythm: regular rhythm Heart sounds: S1 normal heart sound present and S2 normal heart sound present GI Inspection: Yes normal to inspection Palpation (GI): Soft to palpation and Other GI palpation findings present (nontender, no cva tenderness) Auscultation: normoactive bowel sounds Rectal Exam - Female: deferred Skin General skin exam: no rashes or lesions noted Neuro General: patient oriented x3, gait normal and no focal motor deficits Coding Level of Care Code Est Pt Level 4 (70079) Complex EM visit Add On G2211 Diagnoses Systemic lupus erythematosus with glomerular disease, unspecified SLE type M32.14 Systemic lupus erythematosus organ involvement: glomerular disease Systemic lupus erythematosus type: unspecified Vitamin D deficiency E55.9 Upper abdominal pain R10.10 Nausea and vomiting R11.2 Amenorrhea N91.2 Assessment & Plan Assessment & Plan (1) Lupus (systemic lupus erythematosus): Code(s): M32.9 - Systemic lupus erythematosus, unspecified Category: Medical Qualifiers: Systemic lupus erythematosus organ involvement: glomerular disease Systemic lupus erythematosus type: unspecified Qualified Code(s): M32.14 - 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 Plan: Following with Nephrology. Has an appointment pending with Rheumatology. (2) Vitamin D deficiency: Code(s): E55.9 - Vitamin D deficiency, unspecified Category: Medical Plan: Reports compliance of this. I will check a lab today. (3) Upper abdominal pain: Code(s): R10.10 - Upper abdominal pain, unspecified Category: Medical Plan: Ultrasound ordered. Has been referred to GI. Abdominal exam is benign. She is not currently symptomatic. We did discuss warning signs of abdominal pain that would require emergent medical treatment. (4) Nausea and vomiting: Code(s): R11.2 - Nausea with vomiting, unspecified Category: Medical Plan: As above. (5) Amenorrhea: Code(s): N91.2 - Amenorrhea, unspecified Category: Medical Plan: Eighteen days late on her menses per her maik. She took an at home test twice last night and she states that the lines were faintly positive. She is requesting a blood test today. She does not have a OBGYN. I did put in a referral for her. Advised that if she is she needs to contact her cdl driver who is managing her medications immediately to discuss changes. Orders: Orders Comprehensive Met. Panel Today E55.9 - Vitamin D deficiency, unspecified, M32.14 - 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, N91.2 - Amenorrhea, unspecified, R10.10 - Upper abdominal pain, unspecified, R11.2 - Nausea with vomiting, unspecified Vitamin D 25-OH Total Today E55.9 - Vitamin D deficiency, unspecified, E83.51 - Hypocalcemia, N91.2 - Amenorrhea, unspecified, R10.10 - Upper abdominal pain, unspecified, R11.2 - Nausea with vomiting, unspecified US abdomen complete Today M32.14 - 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, R10.10 - Upper abdominal pain, unspecified, R11.2 - Nausea with vomiting, unspecified HCG Quantitative Today E55.9 - Vitamin D deficiency, unspecified, M32.14 - 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, N91.2 - Amenorrhea, unspecified, R10.10 - Upper abdominal pain, unspecified, R11.2 - Nausea with vomiting, unspecified Complete Blood Count Auto Diff Today E55.9 - Vitamin D deficiency, unspecified, M32.14 - 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, N91.2 - Amenorrhea, unspecified, R10.10 - Upper abdominal pain, unspecified, R11.2 - Nausea with vomiting, unspecified Referrals MASONRY INSTALLER Referral N91.2 - Amenorrhea, unspecified, Z01.419 - Encounter for gynecological examination (general) (routine) without abnormal findings
[2024-08-08 08:57] VITALS: BP 118/72; PULSE 98; O2SAT 97; BMI 38.6
--- OUTSIDE RECORDS SUMMARY | 2024-08-08 11:27 | XMS_ITS | Encounter Summary ---
Author Organization [facility] [place], Address [address] [place] [address] Phone Care Team Providers Care Silo Worker Name Role Phone Denise Blancas MD Primary Care Provider [phone] Encounter Details Date Type Department Care Team (Late st Contact Info) Description 08/01/2024 Documentation Only [facility] [place], [address] [place] [address] Ahsan [place], [place] [address] [place] [address] Social History Tobacco Use Types [...] Visit [facility] [place], [address] [place] [address] Breonna Le MD [address] [place] [address] documented as of this encounter Visit Diagnoses Not on filedocumented in this encounter Care Teams Silo Worker Relationship Specialty Start Date End Date Denise Blancas MD [address] [place] [address] PCP - General Internal Medicine 06/27/24 documented as of this encounter
--- OUTSIDE RECORDS SUMMARY | 2024-08-08 11:27 | XMS_ITS | Encounter Summary ---
Author Organization [facility] Address [address] [place] [address] Phone Care Team Providers Care Vascular Manager Name Role Phone Denise Blancas MD Primary Care Provider [phone] Encounter Details Date Type Department Care Team (Latest Contact Info) Description 04/12/2024 Orders Only [facility] [address] [place] [address] Jovanna Schaeffer MD SLE glomerulonephritis [...] Visit [facility] [address] [place] [address] Breonna eL MD [address] [place] [address] [place] [address] documented as of this encounter Procedures Procedure Name Priority Date/Time Associated Diagnosis Comments ANTI-DNA ANTIBODY, DOUBLE-STRANDED Routine 05/15/2024 3:08 PM EST SLE glomerulonephritis syndrome, 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HCC) documented in this encounter Results * Anti-DNA antibody, double-stranded (05/15/2024 3:08 PM EST) DS DNA Ab 2 0 - 9 IU/[facility] Comment: ? Negative ?<5 ? Equivocal ??5 - 9 ? Positive ?>9 Blood (Blood, Venous) 05/15/2024 3:08 PM EST 05/15/2024 us Jovanna Schaeffer MD LAB BLOOD ORDERABLES Final Resul t [facility] [address] [place] [address] documented in this encounter Visit Diagnoses Diagnosis SLE glomerulonephritis syndrome, 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HCC) documented in this encounter Care Teams Vascular Manager Relationship Specialty Start Date End Date Denise Blancas MD [address] [place] [address] PCP - General Internal Medicine 06/27/24 documented as of this encounter
--- OUTSIDE RECORDS SUMMARY | 2024-08-08 11:27 | XMS_ITS | Encounter Summary ---
Author Organization [facility] [place], Address [address] [place] [address] Phone Care Team Providers Care Entry Level Financial Analyst Name Role Phone Denise Blancas MD Primary Care Provider [phone] Encounter Details Date Type Department Care Team (Late st Contact Info) Description 07/17/2024 Documentation Only [facility] [place], [address] [place] [address] Rhianna Castro [address] [place] [address] Social History Tobacco Use Types [...] Visit [facility] [address] [address] Breonna Le MD [address] [place] [address] [place] [address] documented as of this encounter Visit Diagnoses Not on filedocumented in this encounter Care Teams Entry Level Financial Analyst Relationship Specialty Start Date End Date Denise Blancas MD [address] [facility] [place] [address] PCP - General Internal Medicine 06/27/24 documented as of this encounter
--- OUTSIDE RECORDS SUMMARY | 2024-08-08 11:27 | XMS_ITS | Encounter Summary ---
Author Organization [facility] Address [address] [place] [address] Phone Care Team Providers Care Emergency Management Consultant Name Role Phone Denise Blancas MD Primary Care Provider [phone] Encounter Details Date Type Department Care Team (Latest Contact Info) Description 07/11/2024 2:15 PM EST Office Visit [facility] [place], [address] [place] [address] Omar Garcia MD [address] [place] [address] 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 lupus [...] get our biopsy back. Omar Garcia MD Early Breastfeeding Care Specialist Cargo Agent [facility] [address] [place] [address] Orders Placed This Encounter ??? CBC and [...] Office Visit [facility] [address] [place] [address] Breonna Le MD [address] [place] [address] [place] [address] Scheduled Orders Name Type Priority Associated Diagnoses [...] Routine 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 ([facility]) Expected: 07/11/2024, Expires: 08/11/2025 Vitamin D 25 Hydroxy Lab Routine 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 ([facility]) Expected: 07/11/2024, Expires: 08/11/2025 Urine Albumin / Creatinine Ratio Lab Routine 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 ([facility]) Expected: 07/11/2024, Expires: 08/11/2025 Anti-DNA antibody, double-stranded Lab Routine 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 ([facility]) Expected: 07/11/2024, Expires: 08/11/2025 DANNIE Panel Lab Routine 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 ([facility]) Expected: 07/11/2024, Expires: 08/11/2025 C3 Complement Lab Routine 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 ([facility]) Expected: 07/11/2024, Expires: 08/11/2025 C4 Complement Lab Routine 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 ([facility]) Expected: 07/11/2024, Expires: 08/11/2025 C-Reactive Protein Lab Routine 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 ([facility]) Expected: 07/11/2024, Expires: 08/11/2025 Sedimentation Rate Lab Routine 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 ([facility]) Expected: 07/11/2024, Expires: 08/11/2025 documented as of this encounter Visit Diagnoses Diagnosis 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)- Primary documented in this encounter Care Teams Emergency Management Consultant Relationship Specialty Start Date End Date Denise Blancas MD [address] [place] [address] PCP - General Internal Medicine 06/27/24 documented as of this encounter
--- OUTSIDE RECORDS SUMMARY | 2024-08-08 11:27 | XMS_ITS | Encounter Summary ---
Author Organization [facility] [place], Address [address] [place] [address] Phone Care Team Providers Care Web Content Producer Name Role Phone Denise Blancas MD Primary Care Provider [phone] Encounter Details Date Type Department Care Team (Late st Contact Info) Description 09/05/2023 Documentation Only [facility] [place], [address] [place] [address] Rhianna Castro [address] [place] [address] Social History Tobacco Use Types [...] Visit [facility] [address] [place] [address] Breonna Le MD [address] [place] [address] [place] [address] documented as of this encounter Visit Diagnoses Not on filedocumented in this encounter Care Teams Web Content Producer Relationship Specialty Start Date End Date Denise Blancas MD [address] [facility] [address] PCP - General Internal Medicine 06/27/24 documented as of this encounter
--- OUTSIDE RECORDS SUMMARY | 2024-08-08 11:27 | XMS_ITS | Encounter Summary ---
Author Organization [facility] Address [address] [place] [address] Phone Care Team Providers Care Business Risk Analyst Name Role Phone Denise Blancas MD Primary Care Provider [phone] Encounter Details Date Type Department Care Team (Latest Contact Info) Description 01/19/2024 Orders Only [facility] [address] [place] [address] Jovanna Schaeffer MD SLE glomerulonephritis [...] Visit [facility] [address] [place] [address] Breonna Le MD [address] [place] [address] [place] [address] documented as of this encounter Procedures Procedure Name Priority Date/Time Associated Diagnosis Comments ANTI-DNA ANTIBODY, DOUBLE-STRANDED Routine 02/06/2024 3:02 PM EDT SLE glomerulonephritis syndrome, 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HCC) documented in this encounter Results * Anti-DNA antibody, double-stranded (02/06/2024 3:02 PM EDT) DS DNA Ab 2 0 - 9 IU/[facility] Comment: ? Negative ?<5 ? Equivocal ??5 - 9 ? Positive ?>9 Blood (Blood, Venous) 02/06/2024 3:02 PM EDT 02/06/2024 us Jovanna Schaeffer MD LAB BLOOD ORDERABLES Final Resul t [facility] [address] [place] [address] documented in this encounter Visit Diagnoses Diagnosis SLE glomerulonephritis syndrome, 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HCC) documented in this encounter Care Teams Business Risk Analyst Relationship Specialty Start Date End Date Denise Blancas MD [address] [place] [address] PCP - General Internal Medicine 06/27/24 documented as of this encounter
--- OUTSIDE RECORDS SUMMARY | 2024-08-08 11:27 | XMS_ITS | Encounter Summary ---
Author Organization [facility] [place], Address [address] [place] [address] Phone Care Team Providers Care Coastal And Estuary Specialist Name Role Phone Denise Blancas MD Primary Care Provider [phone] Encounter Details Date Type Department Care Team (Late st Contact Info) Description 09/01/2023 Documentation Only [facility] [place], [address] [place] [address] Omar Garcia MD [address] [place] [address] [place] [address] Social History Tobacco Use Types [...] Visit [facility] [address] [place] [address] Breonna Le MD [address] [facility] [address] [address] [place] [address] documented as of this encounter Visit Diagnoses Not on filedocumented in this encounter Care Teams Coastal And Estuary Specialist Relationship Specialty Start Date End Date OCassandraVazquez, Denise M, MD [address] [place] [address] PCP - General Internal Medicine 06/27/24 documented as of this encounter
--- OUTSIDE RECORDS SUMMARY | 2024-08-08 11:27 | XMS_ITS | Encounter Summary ---
Author Organization [facility] Address [address] [place] [address] Phone Care Team Providers Care Geothermal Sheet Metal Worker Name Role Phone Denise Blancas MD Primary Care Provider [phone] Encounter Details Date Type Department Care Team (Latest Contact Info) Description 08/05/2022 Orders Only [facility] [address] [place] [address] Jovanna Schaeffer MD SLE glomerulonephritis [...] Visit [facility] [address] [place] [address] Breonna Le MD [address] [place] [address] [place] [address] documented as of this encounter Visit Diagnoses Diagnosis SLE glomerulonephritis syndrome, 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HCC) documented in this encounter Care Teams Geothermal Sheet Metal Worker Relationship Specialty Start Date End Date Denise Blancas MD [address] [place] [address] PCP - General Internal Medicine 06/27/24 documented as of this encounter
--- OUTSIDE RECORDS SUMMARY | 2024-08-08 11:27 | XMS_ITS | Encounter Summary ---
Author Organization [facility] Address [address] [place] [address] Phone Care Team Providers Care Narcotics And/Or Vice Detective Name Role Phone Denise Blancas MD Primary Care Provider [phone] Encounter Details Date Type Department Care Team (Latest Contact Info) Description 12/23/2022 Orders Only [facility] [address] [place] [address] Jovanna Schaeffer MD SLE glomerulonephritis [...] Visit [facility] [address] [place] [address] Breonna Le MD [address] [place] [address] [place] [address] documented as of this encounter [...] PM EDT Performed at: ??01 - [facility] [address] ??[id number] Aging Room Hand: Mitzy Knutson MD, Phone: ??[phone] us Jovanna Schaeffer MD LAB [id number] ICITED RESULTS Final Result [facility] See order comments [place] [address] documented in this encounter Visit Diagnoses Diagnosis SLE glomerulonephritis syndrome, 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HCC) documented in this encounter Care Teams Narcotics And/Or Vice Detective Relationship Specialty Start Date End Date Denise Blancas MD [address] [place] [address] PCP - General Internal Medicine 06/27/24 documented as of this encounter
--- OUTSIDE RECORDS SUMMARY | 2024-08-08 11:27 | XMS_ITS | Encounter Summary ---
Author Organization [facility] Address [address] [place] [address] Phone Care Team Providers Care Account Executive Name Role Phone Denise Blancas MD Primary Care Provider [phone] Encounter Details Date Type Department Care Team (Latest Contact Info) Description 06/09/2023 Orders Only [facility] [address] [place] [address] Jovanna Schaeffer MD SLE glomerulonephritis [...] Visit [facility] [address] [place] [address] Breonna Le MD [address] [place] [address] [place] [address] documented as of this encounter Visit Diagnoses Diagnosis SLE glomerulonephritis syndrome, 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HCC) documented in this encounter Care Teams Account Executive Relationship Specialty Start Date End Date Denise Blancas MD [address] [place] [address] PCP - General Internal Medicine 06/27/24 documented as of this encounter
--- OUTSIDE RECORDS SUMMARY | 2024-08-08 11:27 | XMS_ITS | Encounter Summary ---
Author Organization [facility] [place], Address [address] [place] [address] Phone Care Team Providers Care Foreign Language Interpreter Name Role Phone Denise Blancas MD Primary Care Provider [phone] Encounter Details Date Type Department Care Team (Late st Contact Info) Description 09/05/2023 Documentation Only [facility] [place], [address] [place] [address] Rhianna Castro [address] [place] [address] Social History Tobacco Use Types [...] Visit [facility] [address] [place] [address] Breonna Le MD [address] [place] [address] [place] [address] documented as of this encounter Visit Diagnoses Not on filedocumented in this encounter Care Teams Foreign Language Interpreter Relationship Specialty Start Date End Date Denise Blancas MD [address] [facility] [place] [place] [address] PCP - General Internal Medicine 06/27/24 documented as of this encounter
--- OUTSIDE RECORDS SUMMARY | 2024-08-08 11:27 | XMS_ITS | Encounter Summary ---
Author Organization [facility] Address [address] [place] [address] Phone Care Team Providers Care Bilingual Student Tutor Name Role Phone Denise Blancas MD Primary Care Provider Encounter Details Date Type Department Care Team (Late st Contact Info) Description 08/02/2024 Telephone [facility] [place], [address] [place] [address] Rhianna Castro [address] [place] [address] Social History Tobacco Use Types [...] Visit [facility] [place], [address] [place] [address] Breonna eL MD [address] [place] [address] [place] [phone] documented as of this encounter Visit Diagnoses Not on filedocumented in this encounter Care Teams Bilingual Student Tutor Relationship Specialty Start Date End Date Denise Blancas MD [address] [place] [address] PCP - General Internal Medicine 06/27/24 documented as of this encounter
--- OUTSIDE RECORDS SUMMARY | 2024-08-08 11:27 | XMS_ITS | Clinical Summary ---
Author Organization [facility] [place], Address [address] [place] [address] [place] [address] Phone Care Team Providers Care Plumbing Assembler Installer Name Role Phone Denise Blancas MD Primary Care Provider [phone] Allergies Active Allergy Reactions Criticality Noted Date [...] Telephone [facility] [address] [place] [address] Rhianna Castro 08/01/2024 Documentation Only [facility] [address] [place] [address] Shauna Foreman MA 07/30/2024 Telephone [facility] [address] [place] [address] Shauna Foreman MA 07/17/2024 Documentation Only [facility] [address] [place] [address] Rhianna Castro 07/11/2024 2:15 PM EST Office Visit [facility] [address] [place] [address] Omar Garcia MD 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 ([facility]) (Primary Dx) 07/08/2024 Office Communication [facility] [address] [place] [address] Rhianna Castro 07/05/2024 Orders Only [facility] [address] [place] [address] Jovanna Schaeffer MD SLE glomerulonephritis syndrome, 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[facility]) 06/27/2024 1:30 PM EST Office Visit [facility] [address] [place] [address] Breonna Le MD 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) (Primary Dx) 06/20/2024 Telephone [facility] [address] [place] [address] Shauna Foreman MA 06/14/2024 Documentation Only [facility] [address] [place] [address] Breonna Le MD 05/24/2024 Documentation Only [facility] [address] [place] [phone] Breonna Le MD Results (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 ) 05/17/2024 Refill [facility] [address] [place] [phone] Mariela Flores MA 05/16/2024 2:00 PM EST Office Visit [facility] [address] [place] [phone] Breonna Le MD 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 [...] Visit [facility] [place], [address] [place] [address] Breonna Le MD [address] [place] [address] Health Maintenance Due [...] EST 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 ([facility]) ANTI-DNA ANTIBODY, DOUBLE-STRANDED Routine 06/27/2024 2:40 PM EST 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 ([facility]) C-REACTIVE PROTEIN Routine 06/27/2024 2: 40 PM EST 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 ([facility]) SEDIMENTATION RATE, AUTOMATED Routine 06/27/2024 2:40 PM EST 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 ([facility]) C4 COMPLEMENT Routine 06/27/2024 2:40 PM EST 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 ([facility]) C3 COMPLEMENT Routine 06/27/2024 2:40 PM EST 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 ([facility]) URINALYSIS WITH MICROSCOPIC Routine 06/27/2024 2:40 PM EST 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 ([facility]) COMPREHENSIVE METABOLIC PANEL Routine 06/27/2024 2:40 PM EST 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 ([facility]) CBC Routine 06/27/2024 2:40 PM EST 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 ([facility]) MICROSCOPIC EXAMINATION - DO NOT USE Routine 06/27/2024 2:40 PM EST C-REACTIVE PROTEIN Routine 05/30/2024 4: 19 PM EST 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 ([facility]) SEDIMENTATION RATE, AUTOMATED Routine 05/30/2024 4:19 PM EST 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 ([facility]) CBC Routine 05/30/2024 4:18 PM EST Other proteinuria 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 ([facility]) URINALYSIS WITH MICROSCOPIC Routine 05/30/2024 4:18 PM EST Other proteinuria 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 ([facility]) URINE ALBUMIN / CREATININE RATIO Routine 05/30/2024 4:18 PM EST Other proteinuria 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 ([facility]) PROTEIN / CREATININE RATIO, URINE Routine 05/30/2024 4:18 PM EST Other proteinuria 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 ([facility]) RENAL FUNCTION PANEL Routine 05/30/2024 4:18 PM EST Other proteinuria 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 ([facility]) MICROSCOPIC EXAMINATION - DO NOT USE Routine 05/30/2024 4:18 PM EST SJOGRENS SYNDROME-B EXTRACTABLE NUCLEAR ANTIBODY Routine 05/16/2024 3:04 PM EST 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 ([facility]) SJOGRENS SYNDROME-A EXTRACTABLE NUCLEAR ANTIBODY Routine 05/16/2024 3:04 PM EST 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 ([facility]) FAWAD PANEL Routine 05/16/2024 3:04 PM EST 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 ([facility]) PROTEIN / CREATININE RATIO, URINE Routine 05/16/2024 3:04 PM EST 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 ([facility]) URINALYSIS WITH MICROSCOPIC Routine 05/16/2024 3:04 PM [...] Urine 0-5 0 - 5 /hpf [facility] RBC, Urine 11-30(A) 0 - 2 /hpf [facility] [place] Squamous Epithelial, Urine 0-10 0 - 10 /hpf [facility] [place] Casts None seen None seen /lpf [facility] [place] Bacteria, Urine None seen None seen/Few [facility] [place] 06/27/2024 2:40 PM EST 06/27/2024 us Breonna Le MD LAB MICROBIOLOGY - GENERAL ORD ERABLES Final Result Performing Organization Address [facility] Co de Phone Number [facility] [place] [address] [place] [phone] * Anti-DNA antibody, double-stranded (06/27/2024 2:40 PM EST) Only the most recent of3 resultswithin the time period is included. [facility] DS DNA Ab 3 0 - 9 IU/mL [facility] [place] Comment: ? Negative ?<5 ? Equivocal ??5 - 9 ? Positive ?>9 Blood (Blood, Venous) 06/27/2024 2:40 PM EST 06/27/2024 us Breonna Le MD LAB BLOOD ORDERABLES Final Res ult Performing Organization Address [facility]/ZIP Co de Phone Number [facility] [place] [address] [place] [address] * (ABNORMAL) Urinalysis with microscopic (06/27/2024 2:40 PM EST) Only the most recent of3 resultswithin the time period is included. Specific [place], Urine >=1.030(A) 1.005 - 1.030 [facility] [place] pH Urine 6.0 5.0 - 7.5 [facility] [place] Color, Urine Yellow Yellow [facility] [place] [phone] Appearance Urine Clear Clear [facility] [place] WBC Esterase Urine Negative Negative [facility] [place] Protein, Ur 4+(A) Negative/Tra ce [facility] [place] [phone] Glucose, Ur 1+(A) Negative [facility] [place] Ketones, Urine Negative Negative [facility] [place] Blood Urine 1+(A) Negative [facility] [place] [phone] Bilirubin Urine Negative Negative [facility] [place] Urobilinogen Urine 0.2 0.2 - 1.0 mg/dL [facility] [place] Nitrite, Urine Negative Negative [facility] [place] Microscopic Examination See below: [facility] [place] [phone] Comment:Microscopic was shashi cated and was performed. Urine (Urine, Clean Catch) 06/27/2024 2:40 PM EST 06/27/2024 us Breonna Le MD LAB URINE ORDERABLES Final Res ult [facility] [place] [address] [place] [address] * (ABNORMAL) Sedimentation Rate (06/27/2024 2:40 PM EST) Only the most recent of2 resultswithin the time period is included. Sed Rate 35(H) 0 - 32 mm/hr [facility] [place] Blood (Blood, Venous) 06/27/2024 2:40 PM EST 06/27/2024 Breonna eL MD LAB BLOOD ORDERABLES Final Res ult Performing Organization Address [facility] Co de Phone Number [facility] [place] [address] [place] [address] * Protime-INR (06/27/2024 2:40 PM EST) INR 1.0 0.9 - 1.2 [facility] [place] Comment: Reference interval is for non-anticoagulated patients. Suggested INR therapeutic range for Vitamin K antagonist therapy: ?? Standard Dose (moderate intensity ?therapeutic range): ? 2.0 - 3.0 ?? Higher intensity therapeutic range ? 2.5 - 3.5 Protime 10.6 9.1 - 12.0 sec [facility] [place] Blood (Blood, Venous) 06/27/2024 2:40 PM EST 06/27/2024 Breonna Le MD LAB BLOOD ORDERABLES Final Res ult Performing Organization Address [facility] de Phone Number [facility] [place] [address] [place] [address] * (ABNORMAL) CBC (06/27/2024 2:40 PM EST) Only the most recent of2 resultswithin the time period is included. WBC 9.3 3.4 - 10.8 x10E3/uL [facility] [place] RBC 4.95 3.77 - 5.28 x10E6/uL [facility] [place] Hemoglobin 13.3 11.1 - 15.9 g/dL [facility] [place] Hematocrit 41.1 34.0 - 46.6 % [facility] [place] MCV 83 79 - 97 fL [facility] [place] MCH 26.9 26.6 - 33.0 pg [facility] [place] MCHC 32.4 31.5 - 35.7 g/dL [facility] [place] RDW 15.9(H) 11.7 - 15.4 % [facility] [place] Platelets 493(H) 150 - 450 x10E3/uL [facility] [place] Blood (Blood, Venous) 06/27/2024 2:40 PM EST 06/27/2024 us Breonna Le MD LAB BLOOD ORDERABLES Final Res ult Performing Organization Address [facility]/ZIP Co de Phone Number [facility] [place] [address] [place] [address] * C3 complement (06/27/2024 2:40 PM EST) Only the most recent of2 resultswithin the time period is included. C3 Complement 130 82 - 167 mg/dL [facility] [place] Blood (Blood, Venous) 06/27/2024 2:40 PM EST 06/27/2024 Breonna Le MD LAB BLOOD ORDERABLES Final Res ult [facility] [place] [address] [place] [address] * C4 complement (06/27/2024 2:40 PM EST) Only the most recent of2 resultswithin the time period is included. C4 Complement 16 12 - 38 mg/dL [facility] [place] Blood (Blood, Venous) 06/27/2024 2:40 PM EST 06/27/2024 Breonna Le MD LAB BLOOD ORDERABLES Final Res ult [facility] [address] [place] [address] * C-Reactive Protein (06/27/2024 2:40 PM EST) Only the most recent of2 resultswithin the time period is included. [facility] C-Reactive Protein Quant <1 0 - 10 mg/L [facility] Blood (Blood, Venous) 06/27/2024 2:40 PM EST 06/27/2024 us Breonna Le MD LAB BLOOD ORDERABLES Final Res ult Performing Organization Address [facility]/ZIP Co de Phone Number [facility] [place] [address] [place] [address] * (ABNORMAL) Comprehensive metabolic panel (06/27/2024 2:40 PM EST) [facility] Glucose 84 70 - 99 mg/dL [facility] BUN 21(H) 6 - 20 mg/dL [facility] Creatinine 0.90 0.57 - 1.00 mg/dL [facility] [place] eGFR CKD-EPI CR 2020 92 >59 mL/min/1.7 3 [facility] [place] BUN/Creatinine Ratio 23 9 - 23 [facility] [place] Sodium 141 134 - 144 mmol/L [facility] [place] Potassium 4.2 3.5 - 5.2 mmol/L [facility] [place] Chloride 108(H) 96 - 106 mmol/L [facility] [place] Bicarbonate (CO2) 20 20 - 29 mmol/L [facility] [place] Calcium 8.4(L) 8.7 - 10.2 mg/dL [facility] [place] Total Protein 5.0(L) 6.0 - 8.5 g/dL [facility] [place] Albumin 2.8(L) 4.0 - 5.0 g/dL [facility] [place] Globulin 2.2 1.5 - 4.5 g/dL [facility] [place] Total Bilirubin <0.2 0.0 - 1.2 mg/dL [facility] [place] Alkaline Phosphatase 76 44 - 121 IU/L [facility] [place] AST (SGOT) 15 0 - 40 IU/L [facility] [place] ALT (SGPT) 16 0 - 32 IU/L [facility] [place] Blood (Blood, Venous) 06/27/2024 2:40 PM EST 06/27/2024 us Breonna Le MD LAB BLOOD ORDERABLES Final Res ult [facility] [place] [address] [place] [address] * (ABNORMAL) Urine Protein / creatinine ratio (05/30/2024 4:18 PM EST) Only the most recent of2 resultswithin the time period is included. Creatinine, Ur 231.3 Not Estab. mg/dL [facility] [place] Protein, Ur 1,655.9 Not Estab. mg/dL [facility] [place] Comment: Results confirmed on dilution. Urine Protein/Creati nine Ratio 7,159(H) 0 - 200 mg/g creat [facility] [place] Urine (Urine, Clean Catch) 05/30/2024 4:18 PM EST 05/30/2024 us Breonna Le MD LAB URINE ORDERABLES Final Res ult Performing Organization Address [facility] de Phone Number [facility] [place] [address] [place] [address] * (ABNORMAL) Urine Albumin / Creatinine Ratio (05/30/2024 4:18 PM EST) Only the most recent of2 resultswithin the time period is included. Urine Microalbumin 9,860.3 Not Estab. ug/mL [facility] [place] Comment: Results confirmed on dilution. Microalbumin/Crea tinine Ratio 4,263(H) 0 - 29 mg/g creat [id number] Comment: ? Normal: ?0 - ??29 ? Moderately increased: 30 - 300 ? Severely increased: ? >300 Urine (Urine, Clean Catch) 05/30/2024 4:18 PM EST 05/30/2024 us Breonna Le MD LAB URINE ORDERABLES Final Res ult Performing Organization Address [facility] de Phone Number [facility] [place] [address] [place] [address] * (ABNORMAL) Renal function panel (05/30/2024 4:18 PM EST) Only the most recent of2 resultswithin the time period is included. Glucose 104(H) 70 - 99 mg/dL [facility] [place] BUN 15 6 - 20 mg/dL [facility] [place] Creatinine 1.08(H) 0.57 - 1.00 mg/dL [facility] [place] eGFR CKD-EPI CR 2020 74 >59 mL/min/1.7 3 [facility] [place] BUN/Creatinine Ratio 14 9 - 23 [facility] [place] Sodium 141 134 - 144 mmol/L [facility] [place] Potassium 4.4 3.5 - 5.2 mmol/L [facility] [place] Chloride 108(H) 96 - 106 mmol/L [facility] [place] Bicarbonate (CO2) 22 20 - 29 mmol/L [facility] [place] Calcium 8.4(L) 8.7 - 10.2 mg/dL [facility] [place] Albumin 2.9(L) 4.0 - 5.0 g/dL [facility] [place] Phosphorus 3.0 3.0 - 4.3 mg/dL [facility] [place] Blood (Blood, Venous) 05/30/2024 4:18 PM EST 05/30/2024 us Breonna Le MD LAB BLOOD ORDERABLES Final Res ult [facility] [place] [address] [place] [address] * (ABNORMAL) FAWAD Panel (05/16/2024 3:04 PM EST) Pathologist Laura AG ANTIBODIES >8.0(H) 0.0 - 0.9 AI [facility] [place] Blood (Blood, Venous) 05/16/2024 3:04 PM EST 05/16/2024 us Breonna Le MD LAB BLOOD ORDERABLES Final Res ult Performing Organization Address [facility]/ZIP Co de Phone Number [facility] [place] [address] [place] [address] * Sjogrens syndrome-B extractable nuclear antibody (05/16/2024 3:04 PM EST) Sjogren's Anti-SS-B <0.2 0.0 - 0.9 AI [facility] [place] Blood (Blood, Venous) 05/16/2024 3:04 PM EST 05/16/2024 us Breonna Le MD LAB BLOOD ORDERABLES Final Res ult Performing Organization Address [facility] Co de Phone Number [facility] [place] [address] [place] [address] * (ABNORMAL) Sjogrens syndrome-A extractable nuclear antibody (05/16/2024 3:04 PM EST) Sjogren's Anti-SS-A 1.2(H) 0.0 - 0.9 [facility] [place] Blood (Blood, Venous) 05/16/2024 3:04 PM EST 05/16/2024 us Breonna Le MD LAB BLOOD ORDERABLES Final Res ult Performing Organization Address [facility]/ZIP Co de Phone Number [facility] [place] [address] [place] [address] * (ABNORMAL) Iron Panel (Fe, TIBC, TSAT) (05/15/2024 3:09 PM EST) TIBC 296 250 - 450 ug/dL [facility] [place] UIBC 257 131 - 425 ug/dL [facility] [place] Iron 39 27 - 159 ug/dL [facility] Iron Saturation (TSat) 13(L) 15 - 55 % [facility] [place] 05/15/2024 3:09 PM EST 05/15/2024 Omar Garcia MD LAB BLOOD ORDERABLES Final Re sult Performing Organization Address [facility]/ZIP Co de Phone Number [facility] [address] [place] [address] * (ABNORMAL) Vitamin D 25 Hydroxy (05/15/2024 3:09 PM EST) Pathologist [facility] Vitamin D, 25-OH, Total 5.5(L) 30.0 - 100.0 ng/mL [facility] Comment: Vitamin D deficiency has been defined by the [place] of Medicine and an Endocrine Society practice guideline as a level of serum 25-OH vitamin D less than 20 ng/mL (1,2). The Endocrine Society went on to further define vitamin D insufficiency as a level between 21 and 29 ng/mL (2). 1. IOM ([place] of Medicine). 2010. Dietary reference ?? intakes for calcium and D. [place]: The ?? National AcademHostway Press. 2. Niranjan MF, Jesu NC, Leatha OWEN, et al. ?? Evaluation, treatment, and prevention of vitamin D ?? deficiency: an Endocrine Society clinical practice ?? guideline. JCEM. 2010; 96(7):1911-30. 05/15/2024 3:09 PM EST 05/15/2024 Omar Garcia MD LAB BLOOD ORDERABLES Final Re sult Performing Organization Address [facility]/ZIP Co de Phone Number [facility] [address] [place] [address] * (ABNORMAL) CBC and Differential (05/15/2024 3:09 PM EST) WBC 9.8 3.4 - 10.8 x10E3/uL [facility] [place] RBC 5.00 3.77 - 5.28 x10E6/uL [facility] [place] Hemoglobin 12.7 11.1 - 15.9 g/dL [facility] [place] Hematocrit 39.8 34.0 - 46.6 % [facility] [place] MCV 80 79 - 97 fL [facility] [place] MCH 25.4(L) 26.6 - 33.0 pg [facility] [place] MCHC 31.9 31.5 - 35.7 g/dL [facility] [place] RDW 16.7(H) 11.7 - 15.4 % [facility] [place] Platelets 395 150 - 450 x10E3/uL [facility] [place] Neutrophils Relative 71 Not Estab. % [facility] [place] Lymphocytes Relative 19 Not Estab. % [facility] [place] Monocytes 7 Not Estab. % [facility] [place] Eosinophils Relative 2 Not Estab. % [facility] [place] Basophils Relative 1 Not Estab. % [facility] [place] Neutrophils Absolute 7.0 1.4 - 7.0 x10E3/uL [facility] [place] Lymphocytes Absolute 1.8 0.7 - 3.1 x10E3/uL [facility] [place] Monocytes Absolute 0.6 0.1 - 0.9 x10E3/uL [facility] [place] Eosinophils Absolute 0.2 0.0 - 0.4 x10E3/uL [facility] [place] Basophils Absolute 0.1 0.0 - 0.2 x10E3/uL [facility] [place] Immature Granulocytes 0 Not Estab. % [facility] [place] Immature Grans (Absolute) 0.0 0.0 - 0.1 x10E3/uL [facility] [place] 05/15/2024 3:09 PM EST 05/15/2024 Omar Garcia MD LAB BLOOD ORDERABLES Final Re sult Performing Organization Address [facility]/ZIP Co de Phone Number [facility] [place] [address] [place] [address] * PTH, Intact (05/15/2024 3:09 PM EST) PTH 48 15 - 65 pg/mL [facility] [place] 05/15/2024 3:09 PM EST 05/15/2024 Omar Garcia MD LAB BLOOD ORDERABLES Final Re sult Performing Organization Address [facility] Co de Phone Number [facility] [place] [address] [place] [address] * Ferritin (05/15/2024 3:09 PM EST) Pathologist [facility] Ferritin 16 15 - 150 ng/mL [facility] [place] 05/15/2024 3:09 PM EST 05/15/2024 Omar Garcia MD LAB BLOOD ORDERABLES Final Re sult Performing Organization Address [facility] de Phone Number [facility] [place] [address] [place] [address] * (ABNORMAL) Hemoglobin A1c (12/20/2023 11:47 AM EDT) Hemoglobin A1C 5.9(H) 4.8 - 5.6 % See order comments Comment: ? Prediabetes: 5.7 - 6.4 ? Diabetes: >6.4 ? Glycemic control for adults with diabetes: <7.0 Blood (Blood, Venous) 12/20/2023 11:47 AM EDT 12/20/2023 Narrative [facility] - 12/21/2023 4:08 PM EDT Performed at: ??01 - [facility] [address] ??[id number] Core Analyst: Mitzy Knutson MD, Phone: ??[phone] us Omar Garcia MD LAB BLOOD ORDERABLES Final Re sult [facility] See order comments [place] [address] from Last 3 Months or Most Recently Relevant to Health Maintenance Insurance MEDICARE Care Teams Plumbing Assembler Installer Relationship Specialty Start Date End Date Denise Blancas MD [address] [place] [address] [place] [address] PCP - General Internal Medicine 06/27/24
--- OUTSIDE RECORDS SUMMARY | 2024-08-08 11:27 | XMS_ITS | Encounter Summary ---
Author Organization [facility] Address [address] [place] [address] Phone Care Team Providers Care Human Resources Project Coordinator Name Role Phone Denise Blancas MD Primary Care Provider [phone] Encounter Details Date Type Department Care Team (Latest Contact Info) Description 03/17/2023 Orders Only [facility] [address] [place] [address] Jovanna Schaeffer MD SLE glomerulonephritis [...] Visit [facility] [address] [place] [address] Breonna Le MD [address] [place] [address] [place] [address] documented as of this encounter Visit Diagnoses Diagnosis SLE glomerulonephritis syndrome, 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HCC) documented in this encounter Care Teams Human Resources Project Coordinator Relationship Specialty Start Date End Date Denise Blancas MD 140 [facility] [place] [address] PCP - General Internal Medicine 06/27/24 documented as of this encounter
--- OUTSIDE RECORDS SUMMARY | 2024-08-08 11:27 | XMS_ITS | Encounter Summary ---
Author Organization [facility] Of [facility] Address [address] [place] [address] Phone Care Team Providers Care Transfer And Line Up Worker Name Role Phone Denise Blancas MD Primary Care Provider [phone] Encounter Details Date Type Department Care Team (Late st Contact Info) Description 07/30/2024 Telephone [facility] [place], [address] [place] [address] [place] [address] [place] [address] Social History Tobacco Use Types Packs/Day [...] Visit [facility] [place], [address] [place] [address] Breonna Le MD [address] [place] [address] documented as of this encounter Visit Diagnoses Not on filedocumented in this encounter Care Teams Transfer And Line Up Worker Relationship Specialty Start Date End Date Denise Blancas MD [address] [place] [address] PCP - General Internal Medicine 06/27/24 documented as of this encounter
--- OUTSIDE RECORDS SUMMARY | 2024-08-08 11:28 | XMS_ITS | Encounter Summary ---
Author Organization [email or web address] [facility] Address [address] [place] [address] 7 [place] [address] Care Team Providers Care Checkering Machine Operator Name Role Phone Verena Hardin Primary Care Provider [phone] Encounter Details Date Type Department Care Team (Late st Contact Info) Description 06/01/2022 Orders Only [facility] MEDICINE [address] [place] [address] Norma Reich, RN [address] [place] [address] Social History Tobacco Use Types Packs/Day Years [...] on filedocumented in this encounter Care Teams Checkering Machine Operator Relationship Specialty Start Date End Date Verena Hardin FNP [address] [place] [address] PCP - General Family Medicine 12/14/21 05/29/23 documented as of this encounter
--- OUTSIDE RECORDS SUMMARY | 2024-08-08 11:28 | XMS_ITS | Encounter Summary ---
Author Organization [facility] Of [facility] Address [address] [place] [address] Phone Care Team Providers Care Customs Import Specialist Name Role Phone Denise Blancas MD Primary Care Provider [phone] Encounter Details Date Type Department Care Team (Latest Contact Info) Description 11/10/2023 Orders Only [facility] [address] [place] [address] Jovanna Schaeffer MD SLE glomerulonephritis [...] [facility] [address] [place] [address] Breonna Le MD [address] [place] [address] [place] [address] documented as of this encounter Visit Diagnoses Diagnosis SLE glomerulonephritis syndrome, 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HCC) documented in this encounter Care Teams Customs Import Specialist Relationship Specialty Start Date End Date Denise Blancas MD 140 [place] [address] PCP - General Internal Medicine 06/27/24 documented as of this encounter
--- OUTSIDE RECORDS SUMMARY | 2024-08-08 11:28 | XMS_ITS | Encounter Summary ---
Author Organization [facility] Of [facility] Address [address] [place] [address] Phone Care Team Providers Care Digital Asset Specialist Name Role Phone Denise Blancas MD Primary Care Provider [phone] Encounter Details Date Type Department Care Team (Latest Contact Info) Description 11/03/2023 Orders Only [facility] [address] [place] [address] Jovanna Schaeffer MD SLE glomerulonephritis [...] Visit [facility] [address] [place] [address] Breonna Le MD [address] [place] [address] [place] [address] documented as of this encounter Visit Diagnoses Diagnosis SLE glomerulonephritis syndrome, 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HCC) documented in this encounter Care Teams Digital Asset Specialist Relationship Specialty Start Date End Date Denise Blancas MD 140 [place] [address] PCP - General Internal Medicine 06/27/24 documented as of this encounter
--- OUTSIDE RECORDS SUMMARY | 2024-08-08 11:28 | XMS_ITS | Encounter Summary ---
Author Organization [facility] Of [facility] Address [address] [place] [address] Phone Care Team Providers Care Coding Coordinator Name Role Phone Denise Blancas MD Primary Care Provider [phone] Encounter Details Date Type Department Care Team (Latest Contact Info) Description 07/05/2024 Orders Only [facility] [address] [place] [address] Jovanna Schaeffer MD SLE glomerulonephritis [...] Visit [facility] [address] [place] [address] Breonna Le MD [address] [place] [address] [place] [address] documented as of this encounter Visit Diagnoses Diagnosis SLE glomerulonephritis syndrome, 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HCC) documented in this encounter Care Teams Coding Coordinator Relationship Specialty Start Date End Date Denise Blancas MD 140 [place] [address] PCP - General Internal Medicine 06/27/24 documented as of this encounter
--- OUTSIDE RECORDS SUMMARY | 2024-08-08 11:28 | XMS_ITS | Encounter Summary ---
Author Organization [facility] Of [place], Address [address] [place] [address] Phone Care Team Providers Care Sales Agent Financial Report Service Name Role Phone Denise Blancas MD Primary Care Provider [phone] Encounter Details Date Type Department Care Team (Late st Contact Info) Description 04/21/2022 Documentation Only [facility] [place], [address] [facility] [place] [address] Ahsan [place], [place] [address] [place] [address] Social History Tobacco Use Types [...] Visit [facility] [place], [address] [place] [address] Breonna Le MD [address] [facility] [place] [address] documented as of this encounter Visit Diagnoses Not on filedocumented in this encounter Care Teams Sales Agent Financial Report Service Relationship Specialty Start Date End Date Denise Blancas MD [address] [place] [address] PCP - General Internal Medicine 06/27/24 documented as of this encounter
--- OUTSIDE RECORDS SUMMARY | 2024-08-08 11:28 | XMS_ITS | Clinical Summary ---
Author Organization [employer] Address [address] [facility] 7t [place] [address] Care Team Providers Care Scan Coordinator Name Role Phone Unavailable Primary Care Provider [...] every day Active ergocalciferol (Drisdol) 1.25 MG (42023 UT) capsule take 1 capsule by oral [...] Type Department Care Team Description 05/31/2024 Telephone [facility] MEDICINE [address] [place] [address] Andi Mancera MD New patient [...] ?? Walter SANCHEZ et al. RANDY. 2013;310(19): 7041-8232 ?? (http://education.LifeIMAGE.Avidia/faq/FNU139) Chol/HDLC Ratio 5.0(H) <5.0 (calc) [facility] [...] ?? Walter SANCHEZ et al. RANDY. 2013;310(19): 4272-0872 ?? (http://BOARDZ.LifeIMAGE.Avidia/faq/ZRB008) Chol/HDLC Ratio 5.0(H) <5.0 (calc) [facility] 05/28/2020 10:1 0 AM EST Efraín Lara PULMONARY NURSE PRACTITIONER LAB BLOOD ORDERABLES Final Result [facility] [address] from Last 3 Months or Most Recently Relevant to [place] [address] [place] [address] [place] [address] [place] [address]
--- OUTSIDE RECORDS SUMMARY | 2024-08-08 11:28 | XMS_ITS | Encounter Summary ---
Author Organization [facility] Address [address] [place] [address] Phone Care Team Providers Care Banquet Supervisor Name Role Phone Denise Blancas MD Primary Care Provider [phone] Encounter Details Date Type Department Care Team (Late st Contact Info) Description 07/08/2024 Office Communication [facility] [address] [facility] [address] [facility] [place] [address] Rhianna Castro [address] [place] [address] Social History Tobacco Use Types [...] Visit [facility] [address] [facility] [address] [facility] [place] [address] Breonna Le MD [address] [place] [address] [place] [address] documented as of this encounter Visit Diagnoses Not on filedocumented in this encounter Care Teams Banquet Supervisor Relationship Specialty Start Date End Date Denise Blancas MD 140 [place] [address] PCP - General Internal Medicine 06/27/24 documented as of this encounter
--- OUTSIDE RECORDS SUMMARY | 2024-08-08 11:28 | XMS_ITS | Encounter Summary ---
Author Organization [facility] Of [facility] Address [address] [place] [address] Phone Care Team Providers Care Malt Specifications Control Assistant Name Role Phone Denise Blancas MD Primary Care Provider [phone] Encounter Details Date Type Department Care Team (Latest Contact Info) Description 08/19/2022 Orders Only [facility] [address] [place] [address] Jovanna Schaeffer MD SLE glomerulonephritis [...] Visit [facility] [address] [place] [address] Breonna Le MD [address] [place] [address] [place] [address] documented as of this encounter Visit Diagnoses Diagnosis SLE glomerulonephritis syndrome, 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HCC) documented in this encounter Care Teams Malt Specifications Control Assistant Relationship Specialty Start Date End Date Denise Blancas MD 140 [facility] [address] PCP - General Internal Medicine 06/27/24 documented as of this encounter
--- OUTSIDE RECORDS SUMMARY | 2024-08-08 11:28 | XMS_ITS | Encounter Summary ---
Author Organization [facility] Of [facility] Address [address] [place] [address] Phone Care Team Providers Care Safe And Vault Installer Name Role Phone Denise Blancas MD Primary Care Provider [phone] Encounter Details Date Type Department Care Team (Latest Contact Info) Description 12/08/2023 Orders Only [facility] [address] [place] [address] Jovanna Schaeffer MD SLE glomerulonephritis [...] Visit [facility] [address] [place] [address] Breonna Le MD [address] [place] [address] [place] [address] documented as of this encounter Visit Diagnoses Diagnosis SLE glomerulonephritis syndrome, 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HCC) documented in this encounter Care Teams Safe And Vault Installer Relationship Specialty Start Date End Date Denise Blancas MD 140 [facility] [place] [address] PCP - General Internal Medicine 06/27/24 documented as of this encounter
--- OUTSIDE RECORDS SUMMARY | 2024-08-08 11:28 | XMS_ITS | Encounter Summary ---
Author Organization [facility] Of [facility] Address [address] [place] [address] Phone Care Team Providers Care Drama Director Name Role Phone Denise Blancas MD Primary Care Provider [phone] Encounter Details Date Type Department Care Team (Latest Contact Info) Description 12/01/2023 Orders Only [facility] [address] [place] [address] Jovanna Schaeffer MD SLE glomerulonephritis [...] [facility] [address] [place] [address] Breonna Le MD [address] [place] [address] [place] [address] documented as of this encounter Visit Diagnoses Diagnosis SLE glomerulonephritis syndrome, 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HCC) documented in this encounter Care Teams Drama Director Relationship Specialty Start Date End Date Denise Blancas MD 140 [place] [address] PCP - General Internal Medicine 06/27/24 documented as of this encounter
--- OUTSIDE RECORDS SUMMARY | 2024-08-08 11:28 | XMS_ITS | Encounter Summary ---
Author Organization [facility] Of [facility] Address [address] [place] [address] Phone Care Team Providers Care Switchboard Wire Worker Helper Name Role Phone Denise Blancas MD Primary Care Provider [phone] Encounter Details Date Type Department Care Team (Latest Contact Info) Description 11/17/2023 Orders Only [facility] [address] [place] [address] Jovanna Schaeffer MD SLE glomerulonephritis [...] [facility] [address] [place] [address] Breonna Le MD [address] [place] [address] [place] [address] documented as of this encounter Visit Diagnoses Diagnosis SLE glomerulonephritis syndrome, 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HCC) documented in this encounter Care Teams Switchboard Wire Worker Helper Relationship Specialty Start Date End Date Denise Blancas MD [address] [place] [address] PCP - General Internal Medicine 06/27/24 documented as of this encounter
--- OUTSIDE RECORDS SUMMARY | 2024-08-08 11:28 | XMS_ITS | Encounter Summary ---
Author Organization [facility] Of [facility] Address [address] [place] [address] Phone Care Team Providers Care Sterile Proc Tech Name Role Phone Denise Blancas MD Primary Care Provider [phone] Encounter Details Date Type Department Care Team (Latest Contact Info) Description 11/24/2023 Orders Only [facility] [address] [place] [address] Jovanna Schaeffer MD SLE glomerulonephritis [...] Visit [facility] [address] [place] [address] Breonna Le MD [address] [place] [address] [place] [address] documented as of this encounter Visit Diagnoses Diagnosis SLE glomerulonephritis syndrome, 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HCC) documented in this encounter Care Teams Sterile Proc Tech Relationship Specialty Start Date End Date Denise Blancas MD 140 [place] [address] PCP - General Internal Medicine 06/27/24 documented as of this encounter
--- OUTSIDE RECORDS SUMMARY | 2024-08-08 11:28 | XMS_ITS | Encounter Summary ---
Author Organization [facility] [place], Address [address] [place] [address] Phone Care Team Providers Care Surgical Territory Manager Name Role Phone Denise Blancas MD Primary Care Provider [phone] Encounter Details Date Type Department Care Team (Late st Contact Info) Description 10/26/2023 Documentation Only [facility] [place], [address] [place] [address] Rhianna Castro [address] [place] [address] Social History Tobacco Use Types [...] [facility] [address] [address] Breonna Le MD [address] [place] [address] [place] [address] documented as of this encounter Visit Diagnoses Not on filedocumented in this encounter Care Teams Surgical Territory Manager Relationship Specialty Start Date End Date Denise Blancas MD 140 [place] [address] PCP - General Internal Medicine 06/27/24 documented as of this encounter
--- OUTSIDE RECORDS SUMMARY | 2024-08-08 11:28 | XMS_ITS | Encounter Summary ---
Author Organization [facility] Address [address] [place] [address] Phone Care Team Providers Care Magnetic Prospector Name Role Phone Denise Blancas MD Primary Care Provider [phone] Encounter Details Date Type Department Care Team (Latest Contact Info) Description 09/16/2022 Orders Only [facility] [address] [place] [address] Jovanna Schaeffer MD SLE glomerulonephritis [...] [facility] [address] [place] [address] Breonna Le MD [address] [place] [address] [place] [address] documented as of this encounter Visit Diagnoses Diagnosis SLE glomerulonephritis syndrome, 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HCC) documented in this encounter Care Teams Magnetic Prospector Relationship Specialty Start Date End Date Denise Blancas MD 140 [place] [address] PCP - General Internal Medicine 06/27/24 documented as of this encounter
--- OUTSIDE RECORDS SUMMARY | 2024-08-08 11:28 | XMS_ITS | Encounter Summary ---
Author Organization [facility] Of [place], Address [address] [place] [address] Phone Care Team Providers Care Rodding Anode Worker Name Role Phone Denise Blancas MD Primary Care Provider [phone] Encounter Details Date Type Department Care Team (Late st Contact Info) Description 10/26/2023 Documentation Only [facility] [place], [address] [facility] [place] [address] Rhianna Castro [address] [place] [address] Social History Tobacco Use Types [...] Visit [facility] [address] [facility] [place] [address] Breonna Le MD [address] [place] [address] [place] [address] documented as of this encounter Visit Diagnoses Not on filedocumented in this encounter Care Teams Rodding Anode Worker Relationship Specialty Start Date End Date Denise Blancas MD [address] [place] [address] PCP - General Internal Medicine 06/27/24 documented as of this encounter
--- OUTSIDE RECORDS SUMMARY | 2024-08-08 11:28 | XMS_ITS | Encounter Summary ---
Author Organization [facility] Address [address] [place] [address] Phone Care Team Providers Care Certified Nurse Operating Room Name Role Phone Denise Blancas MD Primary Care Provider [phone] Encounter Details Date Type Department Care Team (Latest Contact Info) Description 09/02/2022 Orders Only [facility] [address] [place] [address] Jovanna Schaeffer MD SLE glomerulonephritis [...] Visit [facility] [address] [place] [address] Breonna Le MD [address] [place] [address] [place] [address] documented as of this encounter [...] AM EDT) C3 Complement 118 (90-180) MG/DL [facility] Comment: Testing performed or reported by [facility], a Service of [facility], [address] [place] [address] Cherri Lucas MD, Brim Flexer [facility]# [id number] Blood (Blood, Venous) 10/03/2022 11:04 AM EDT 10/03/2022 11:12 AM EDT us Jovanna Schaeffer MD LAB BLOOD ORDERABLES Final Resul t [facility] * C4 Complement (10/03/2022 11:04 AM EDT) Pathologist [facility] C4 Complement 22 (10-40) MG/DL [facility] Comment: Testing performed or reported by [facility], a Service of [facility], [address] [place] [address] Cherri Lucas MD, Brim Flexer CLIA# [id number] Blood (Blood, Venous) 10/03/2022 11:04 AM EDT 10/03/2022 11:12 AM EDT Result [facility] Jovanna Schaeffer MD LAB BLOOD ORDERABLES Final Resul t Performing Organization Address City/[facility]/ZIP Co de Phone Number [facility] * (ABNORMAL) DANNIE Panel (10/03/2022 11:04 AM EDT) [facility] DANNIE Screen POSITIVE(A ) [facility] Comment: (NOTE) ?Negative ?? <1:80 ?Borderline ??1:80 ?Positive ?? >1:80 Test performed by [facility], [address] [place] [address] Testing performed or reported by [facility], a Service of [facility], [address] [place] [address] Robbie Cardona MD, Brim Flexer [facility]# [id number] Blood (Blood, Venous) 10/03/2022 11:04 AM EDT 10/03/2022 11:13 AM EDT Result [facility] Jovanna Schaeffer MD LAB BLOOD ORDERABLES Final Resul t Performing Organization Address [facility] de Phone Number [facility] * Anti-DNA antibody, double-stranded (10/03/2022 11:04 AM EDT) Pathologist [facility] Anti DNA, [place] [address] [address] [facility] Comment: Reference range: 0 to 9 Unit: IU/mL (NOTE) ?Negative ?<5 ?Equivocal ??5 - 9 ?Positive ?>9 Test performed by [facility], [address] [place] [address] Testing performed or reported by [facility], a Service of [facility], [address] [place] [address] Robbie Cardona MD, Brim Flexer CLIA# [id number] Blood (Blood, Venous) 10/03/2022 11:04 AM EDT 10/03/2022 11:13 AM EDT Jovanna Schaeffer MD LAB BLOOD ORDERABLES Final Resul t Performing Organization Address [facility] de Phone Number [facility] * C-Reactive Protein (10/03/2022 11:04 AM EDT) [facility] CRP <0.3 (0-0.5) MG/DL [facility] Comment: Testing performed or reported by [facility], a Service of [facility], [address] [place] [address] Cherri Lucas MD, Brim Flexer CLIA# [id number] Blood (Blood, Venous) 10/03/2022 11:04 AM EDT 10/03/2022 11:12 AM EDT us Jovanna Schaeffer MD LAB BLOOD ORDERABLES Final Resul t Performing Organization Address [facility] de Phone Number [facility] * (ABNORMAL) Sedimentation Rate (10/03/2022 11:04 AM EDT) Pathologist [facility] Sed Rate 47(H) (0-20) MM/HR [facility] Comment: Testing performed or reported by [facility], [place] [address] Cherri Lucas MD, Brim Flexer [place]# [id number] Blood (Blood, Venous) 10/03/2022 11:04 AM EDT 10/03/2022 11:13 AM EDT Result [facility] Jovanna Schafefer MD LAB BLOOD ORDERABLES Final Resul t Performing Organization Address [facility] Phone Number [facility] * (ABNORMAL) Urine Albumin / Creatinine Ratio (10/03/2022 11:04 AM EDT) Pathologist [facility] Urine Microalbumin 576.4(H) (<20) MG/L [facility] Comment: The urine microalbumin test is designed to monitor renal function. When screening for [place] proteinuria, urine electrophoresis is recommended. Microalbumin/Creati nine Ratio 2,088.4(H ) (0-20) MG/GM [facility] Microalb/Creat Ratio 27.6 MG/DL [facility] Comment: Testing performed or reported by [facility], a Service of [facility], [address] [place] [address] Cherri Lucas MD, Brim Flexer [place]# [id number] Urine (Urine, Clean Catch) 10/03/2022 11:04 AM EDT 10/03/2022 11:12 AM EDT Result [facility] Jovanna Schaeffer MD LAB URINE ORDERABLES Final Resul t Performing Organization Address [facility] de Phone Number [facility] * (ABNORMAL) Protein, Total, Random Urine w/Creatinine (Protein/Creat Ratio) (10/03/2022 11:04 AM EDT) [facility] Protein/Creatine Ratio 2.73(H) (0-0.2) [facility] Protein, Urine 75 MG/DL [facility] Comment: The urine microalbumin test is designed to monitor renal function. When screening for [place] proteinuria, urine electrophoresis is recommended. Creatinine, Urine 27.6 MG/DL [facility] Comment: Testing performed or reported by [facility], [place] [address] Cherri Lucas MD, Brim Flexer [facility]# [id number] Urine (Urine, Clean Catch) 10/03/2022 11:04 AM EDT 10/03/2022 11:12 AM EDT us Jovanna Schaeffer MD LAB URINE ORDERABLES Final Resul t [facility] * (ABNORMAL) Urinalysis with microscopic (10/03/2022 11:04 AM EDT) [facility] Appearance COLORLESS [facility] Comment:CLEAR Specific [place] 1.009 (1.002-1. 030) [facility] pH Urine 6.0 (5.0-8.0) [facility] Albumin, Urine 2+(A) (NEG) [facility] Glucose, Ur NEGATIVE (NEG) [facility] Ketones, Urine NEGATIVE (NEG) [facility] Bilirubin Urine NEGATIVE (NEG) [facility] Hemoglobin Presence in Urine NEGATIVE (NEG) [facility] Nitrite, Urine NEGATIVE (NEG) [facility] Leukocyte Esterase Urine NEGATIVE (NEG) [facility] Urobilinogen Urine NORMAL (NORM) MG/DL [facility] WBC, Urine <1 (0-5) /HPF [facility] RBC, Urine 1 (0-3) /HPF [facility] Bacteria SLIGHT(A) (NEG) HPF [facility] Mucus, Urine SLIGHT /LPF [facility] Squamous Epithelial, Urine <1 (0-8) /HPF [facility] Hyaline Casts, Urine 1 (0-2) LPF [facility] Comment: Testing performed or reported by [facility], a Service of [address] [address] Cherri Lucas MD, Brim Flexer [facility]# [id number] Urine (Urine, Clean Catch) 10/03/2022 11:04 AM EDT 10/03/2022 11:12 AM EDT Jovanna Schaeffer MD LAB URINE ORDERABLES Final Resul t Performing Organization Address [facility] Co de Phone Number [facility] * (ABNORMAL) Renal Function Panel (10/03/2022 11:04 AM EDT) Glucose 87 (70-99) MG/DL [facility] BUN 23(H) (6-20) MG/DL [facility] Creatinine 1.0 (0.5-1.0) MG/DL [facility] Sodium 140 (133-145) MMOL/L [facility] Potassium 3.9 (3.6-5.2) MMOL/L [facility] Chloride 105 (98-107) MMOL/L [facility] Bicarbonate (CO2) 24 (22-29) MMOL/L [facility] Anion Gap 11 (4-17) [facility] Albumin 3.7 (3.4-4.8) GM/DL [facility] Calcium 9.2 (8.6-10.5) MG/DL [facility] Phosphorus, Serum 4.8(H) (2.5-4.5) MG/DL [facility] Est GFR Non 82 ML/MIN/1.7 3 M2 [facility] Comment: Creatinine based estimated glomerular filtration (eGFR) in adults is calculated using the National Kidney Foundation recommended 2020 CKD-EPI equation. Estimates GFR from serum creatinine, age and sex. Testing performed or reported by [facility], a Service of [facility], [address] [place] [address] Cherri Lucas MD, Brim Flexer [facility]# [id number] Blood (Blood, Venous) 10/03/2022 11:04 AM EDT 10/03/2022 11:12 AM EDT Result [facility] Jovanna Schaeffer MD LAB BLOOD ORDERABLES Final Resul t Performing Organization Address [facility] Co de Phone Number [facility] documented in this encounter Visit Diagnoses Diagnosis SLE glomerulonephritis syndrome, 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HCC) documented in this encounter Care Teams Certified Nurse Operating Room Relationship Specialty Start Date End Date Denise Blancas MD [address] [facility] [place] [address] PCP - General Internal Medicine 06/27/24 documented as of this encounter
--- OUTSIDE RECORDS SUMMARY | 2024-08-08 11:28 | XMS_ITS | Encounter Summary ---
Author Organization [facility] Address [address] [place] [address] Phone Care Team Providers Care Sales Representative Health Insurance Name Role Phone Denise Blancas MD Primary Care Provider [phone] Encounter Details Date Type Department Care Team (Latest Contact Info) Description 12/15/2023 Orders Only [facility] [address] [place] [address] Jovanna Schaeffer MD SLE glomerulonephritis syndrome, [...] Visit [facility] [address] [place] [address] Breonna Le MD [address] [place] [address] [place] [address] documented as of this encounter Visit Diagnoses Diagnosis SLE glomerulonephritis syndrome, 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HCC) documented in this encounter Care Teams Sales Representative Health Insurance Relationship Specialty Start Date End Date Denise Blancas MD [address] [facility] [place] [address] PCP - General Internal Medicine 06/27/24 documented as of this encounter
== END 2024-08-08 12:04 | disposition home or self-care (01) ==
PROVIDERS: PCP Physician Assistant; Visit Provider Physician Assistant
DX: M32.14 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 lupus erythematosus (principal); E55.9 Vitamin D deficiency, unspecified; R10.10 Upper abdominal pain, unspecified; R11.2 Nausea with vomiting, unspecified; N91.2 Amenorrhea, unspecified

== ENCOUNTER → 2024-08-08 08:42 | Outpatient (BNVA) | payer MEDICARE, SELFPAY | PROVIDERS: PCP Physician Assistant; Visit Provider Physician Assistant | DX: M32.14 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 lupus erythematosus (principal); E55.9 Vitamin D deficiency, unspecified; R10.10 Upper abdominal pain, unspecified; R11.2 Nausea with vomiting, unspecified; N91.2 Amenorrhea, unspecified | CPT/HCPCS: 99212 ==

== ENCOUNTER 2024-10-07 10:10 | Outpatient (AMB) | payer MEDICARE, MEDICAID, SELFPAY ==
--- OUTSIDE RECORDS SUMMARY | 2024-10-07 11:18 | XMS_ITS | Encounter Summary ---
Author Organization [facility] [place], Address [address] [place] [address] Phone Care Team Providers Care Continuous Miner Operator Name Role Phone Denise Blancas MD Primary Care Provider [phone] Encounter Details Date Type Department Care Team (Late st Contact Info) Description 08/22/2024 Documentation Only [facility] [place], [address] [place] [address] Rhianna Castro [address] [place] [address] Social History Tobacco Use Types [...] Care Team (Late st Contact Info) Description 10/24/2024 2:30 PM EDT Office Visit [facility] [address] [place] [address] Breonna Le MD [address] [place] [address] documented as of this encounter Visit Diagnoses Not on filedocumented in this encounter Care Teams Continuous Miner Operator Relationship Specialty Start Date End Date Denise Blancas MD [address] [place] [address] PCP - General Internal Medicine 06/27/24 documented as of this encounter
--- OUTSIDE RECORDS SUMMARY | 2024-10-07 11:18 | XMS_ITS | Encounter Summary ---
Author Organization [facility] Address [address] [place] [address] Phone Care Team Providers Care Cardiovascular Rn Name Role Phone Denise Blancas MD Primary Care Provider [phone] Encounter Details Date Type Department Care Team (Latest Contact Info) Description 09/16/2022 Orders Only [facility] [address] [place] [address] Jovanna Schaeffer MD SLE glomerulonephritis [...] Visit [facility] [address] [place] [address] Breonna Le MD [address] [place] [address] [place] [address] documented as of this encounter Visit Diagnoses Diagnosis SLE glomerulonephritis syndrome, 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HCC) documented in this encounter Care Teams Cardiovascular Rn Relationship Specialty Start Date End Date Denise Blancas MD [address] [place] [address] PCP - General Internal Medicine 06/27/24 documented as of this encounter
--- OUTSIDE RECORDS SUMMARY | 2024-10-07 11:18 | XMS_ITS | Encounter Summary ---
Author Organization [facility] [place], Address [address] [place] [address] Phone Care Team Providers Care Golf Coach Name Role Phone Denise Blancas MD Primary Care Provider [phone] Encounter Details Date Type Department Care Team (Late st Contact Info) Description 07/17/2024 Documentation Only [facility] [place], [address] [place] [address] Rhianna Castro [address] [place] [address] Social History Tobacco Use Types [...] Visit [facility] [address] [place] [address] Breonna Le MD [address] [place] [address] documented as of this encounter Visit Diagnoses Not on filedocumented in this encounter Care Teams Golf Coach Relationship Specialty Start Date End Date Denise Blancas MD [address] [place] [address] PCP - General Internal Medicine 06/27/24 documented as of this encounter
--- OUTSIDE RECORDS SUMMARY | 2024-10-07 11:18 | XMS_ITS | Encounter Summary ---
Author Organization [facility] Address [address] [place] [address] Phone Care Team Providers Care Cam Specialist Name Role Phone Denise Blancas MD Primary Care Provider [phone] Encounter Details Date Type Department Care Team (Latest Contact Info) Description 01/19/2024 Orders Only [facility] [address] [place] [address] Jovanna Schaeffer MD SLE glomerulonephritis [...] Visit [facility] [address] [place] [address] Breonna Le MD [address] [place] [address] [place] [address] documented as of this encounter Procedures Procedure Name Priority Date/Time Associated Diagnosis Comments ANTI-DNA ANTIBODY, DOUBLE-STRANDED Routine 02/06/2024 3:02 PM EDT SLE glomerulonephritis syndrome, 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HCC) documented in this encounter Results * Anti-DNA antibody, double-stranded (02/06/2024 3:02 PM EDT) DS DNA Ab 2 0 - 9 IU/mL [facility] Comment: ? Negative ?<5 ? Equivocal ??5 - 9 ? Positive ?>9 Blood (Blood, Venous) 02/06/2024 3:02 PM EDT 02/06/2024 us Jovanna Schaeffer MD LAB BLOOD ORDERABLES Final Resul t [facility] Christiano [address] [place] [address] documented in this encounter Visit Diagnoses Diagnosis SLE glomerulonephritis syndrome, 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HCC) documented in this encounter Care Teams Cam Specialist Relationship Specialty Start Date End Date Denise Blancas MD [address] [place] [address] PCP - General Internal Medicine 06/27/24 documented as of this encounter
--- OUTSIDE RECORDS SUMMARY | 2024-10-07 11:18 | XMS_ITS | Encounter Summary ---
Author Organization [facility] Of [facility] Address [address] [place] [address] Phone Care Team Providers Care Greaser Helper Name Role Phone Denise Blancas MD Primary Care Provider [phone] Encounter Details Date Type Department Care Team (Latest Contact Info) Description 08/05/2022 Orders Only [facility] [address] [place] [address] Jovanna Schaeffer MD SLE glomerulonephritis [...] Visit [facility] [address] [place] [address] Breonna Le MD [address] [place] [address] [place] [address] documented as of this encounter Visit Diagnoses Diagnosis SLE glomerulonephritis syndrome, 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HCC) documented in this encounter Care Teams Greaser Helper Relationship Specialty Start Date End Date Denise Blancas MD [address] [place] [address] PCP - General Internal Medicine 06/27/24 documented as of this encounter
--- OUTSIDE RECORDS SUMMARY | 2024-10-07 11:18 | XMS_ITS | Encounter Summary ---
Author Organization [facility] Address [address] [place] [address] 7 [place] [address] Care Team Providers Care Ui Developer Designer Name Role Phone Verena Hardin Primary Care Provider Encounter Details Date Type Department Care Team (Late st Contact Info) Description 06/01/2022 Orders Only [facility] [address] [place] [address] Norma Reich, RN [address] [place] [address] Social History Tobacco Use Types Packs/Day Years [...] on filedocumented in this encounter Care Teams Ui Developer Designer Relationship Specialty Start Date End Date Verena Hardin FNP [address] [place] [address] PCP - General Family Medicine 12/14/21 05/29/23 documented as of this encounter
--- OUTSIDE RECORDS SUMMARY | 2024-10-07 11:18 | XMS_ITS | Encounter Summary ---
Author Organization [facility] Address [address] [place] [address] Phone Care Team Providers Care Test Borer Helper Name Role Phone Denise Blancas MD Primary Care Provider [phone] Encounter Details Date Type Department Care Team (Latest Contact Info) Description 11/10/2023 Orders Only [facility] [address] [place] [address] Jovanna Schaeffer MD SLE glomerulonephritis [...] [facility] [address] [place] [address] Breonna Le MD [address] [place] [address] [place] [address] documented as of this encounter Visit Diagnoses Diagnosis SLE glomerulonephritis syndrome, 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HCC) documented in this encounter Care Teams Test Borer Helper Relationship Specialty Start Date End Date Denise Blancas MD [address] [place] [address] PCP - General Internal Medicine 06/27/24 documented as of this encounter
--- OUTSIDE RECORDS SUMMARY | 2024-10-07 11:18 | XMS_ITS | Encounter Summary ---
Author Organization [facility] [place], Address [address] [place] [address] Phone Care Team Providers Care Pad Machine Feeder Name Role Phone Denise Blancas MD Primary Care Provider [phone] Encounter Details Date Type Department Care Team (Late st Contact Info) Description 10/26/2023 Documentation Only [facility] [place], [address] [place] [address] Rhianna Castro [address] [place] [address] Social History Tobacco Use Types [...] Visit [facility] [address] [place] [address] Breonna Le MD [address] [place] [address] documented as of this encounter Visit Diagnoses Not on filedocumented in this encounter Care Teams Pad Machine Feeder Relationship Specialty Start Date End Date Denise Blancas MD [address] [place] [address] PCP - General Internal Medicine 06/27/24 documented as of this encounter
--- OUTSIDE RECORDS SUMMARY | 2024-10-07 11:18 | XMS_ITS | Encounter Summary ---
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
--- OUTSIDE RECORDS SUMMARY | 2024-10-07 11:18 | XMS_ITS | Encounter Summary ---
Author Organization [facility] [place], Address [address] [place] [address] Phone Care Team Providers Care Biomaterials Engineer Name Role Phone Denise Blancas MD Primary Care Provider [phone] Encounter Details Date Type Department Care Team (Late st Contact Info) Description 09/26/2024 Documentation Only [facility] [place], [address] [place] [address] Rhianna Castro [address] [place] [address] Social History Tobacco Use Types [...] Visit [facility] [address] [place] [address] Breonna Le MD [address] [place] [address] documented as of this encounter Visit Diagnoses Not on filedocumented in this encounter Care Teams Biomaterials Engineer Relationship Specialty Start Date End Date Denise Blancas MD [address] [place] [address] PCP - General Internal Medicine 06/27/24 documented as of this encounter
--- OUTSIDE RECORDS SUMMARY | 2024-10-07 11:18 | XMS_ITS | Encounter Summary ---
Author Organization [facility] [place], Address [address] [place] [address] Phone Care Team Providers Care Campaign Manager Name Role Phone Denise Blancas MD Primary Care Provider [phone] Encounter Details Date Type Department Care Team (Late st Contact Info) Description 08/01/2024 Documentation Only [facility] [place], [address] [place] [address] [place], [place] [address] [place] [address] Social History Tobacco Use Types [...] Visit [facility] [place], [address] [place] [address] Breonna Le MD [address] [place] [address] documented as of this encounter Visit Diagnoses Not on filedocumented in this encounter Care Teams Campaign Manager Relationship Specialty Start Date End Date Denise Blancas MD [address] [place] [address] PCP - General Internal Medicine 06/27/24 documented as of this encounter
--- OUTSIDE RECORDS SUMMARY | 2024-10-07 11:18 | XMS_ITS | Encounter Summary ---
Author Organization [facility] [place], Address [address] [place] [address] Phone Care Team Providers Care Records And Information Manager Name Role Phone Denise Blancas MD Primary Care Provider [phone] Encounter Details Date Type Department Care Team (Late st Contact Info) Description 08/22/2024 Documentation Only [facility] [place], [address] [place] [address] Rhianna Castro [address] [place] [address] Social History Tobacco Use Types [...] Visit [facility] [address] [place] [address] Breonna Le MD [address] [place] [address] documented as of this encounter Visit Diagnoses Not on filedocumented in this encounter Care Teams Records And Information Manager Relationship Specialty Start Date End Date Denise Blancas MD [address] [place] [address] PCP - General Internal Medicine 06/27/24 documented as of this encounter
--- OUTSIDE RECORDS SUMMARY | 2024-10-07 11:18 | XMS_ITS | Encounter Summary ---
Author Organization [facility] Address [address] [place] [address] Phone Care Team Providers Care Platform Consultant Name Role Phone Denise Blancas MD Primary Care Provider [phone] Encounter Details Date Type Department Care Team (Latest Contact Info) Description 09/27/2024 Orders Only [facility] [address] [place] [address] Rhianna Castro [address] [place] [address] 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); Other proteinuria; SLE glomerulonephritis syndrome, 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HCC); Anemia in chronic kidney disease; Nephrotic syndrome; Fluid overload, not otherwise specified; Chronic kidney disease stage 3A ([facility]) Social History Tobacco Use Types Packs/Day [...] Visit [facility] [address] [place] [address] Breonna Le MD [address] [place] [address] documented as of this encounter Visit Diagnoses Diagnosis 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) Other proteinuria SLE glomerulonephritis syndrome, 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HCC) Anemia in chronic kidney disease Nephrotic syndrome Fluid overload, not otherwise specified Chronic kidney disease stage 3A (HCC) documented in this encounter Care Teams Platform Consultant Relationship Specialty Start Date End Date Denise Blancas MD [address] [place] [address] PCP - General Internal Medicine 06/27/24 documented as of this encounter
--- OUTSIDE RECORDS SUMMARY | 2024-10-07 11:18 | XMS_ITS | Clinical Summary ---
Author Organization [employer] Address [address] [facility] 7[address] [place] [address] Care Team Providers Care Consulting It Architect Name Role Phone Unavailable Primary Care [...] every day Active ergocalciferol (Drisdol) 1.25 MG (74538 UT) capsule take 1 capsule by oral [...] of spine 06/17/2016 Gastroesophageal reflux disease 05/08/2015 Immunizations Name Administration Dates Next Due DTaP [...] to 49) Years) (2 of 2 - PPSV23) 09/12/2019 07/18/2019, 05/10/2001, 02/05/2001, Additional history exists [...] in the ?? estimation of LDL-C. ?? aWlter SANCHEZ et al. RANDY. 2013;310(19): 4510-3624 ?? (http://education.[employer].Socratic/faq/MQJ203) Chol/HDLC Ratio 5.0(H) <5.0 (calc) [facility] [...] ?? Walter SANCHEZ et al. RANDY. 2013;310(19): 5725-2241 ?? (http://[employer].Specle/faq/SQK061) Chol/HDLC Ratio 5.0(H) <5.0 (calc) [facility] 05/28/2020 10:1 0 AM EST Efraín Lara FLIGHT SERVICE AGENT LAB BLOOD ORDERABLES Final Result Performing Organization Address City/State/[facility] Co de Phone Number [facility] [address] from Last 3 Months or Most Recently Relevant [place] [address] [place] [address] [place] [address] [place] [address] [place] [id number] [place] [id number]
--- OUTSIDE RECORDS SUMMARY | 2024-10-07 11:18 | XMS_ITS | Clinical Summary ---
Author Organization [facility], Address [address] [place] [address] [place] [address] Phone Care Team Providers Care Saddle And Harness Maker Name Role Phone Denise Blancas MD Primary Care Provider [phone] Allergies Active Allergy Reactions Criticality Noted Date Comments Amoxicillin Other (see comments) 06/20/2019 Ferumoxytol 09/29/2020 NAUSEA VOMITING AND ABDOMINAL PAIN ON 09/25 INFUSION Gluten Meal 05/05/2022 Medications * This document contains information received from the source organization and may not represent a complete record from that organization. traZODone (DESYREL) 50 MG tablet Take 50 [...] in the evening. 270 tablet 4 Active Dapagliflozin Propanediol (Farxiga) 10 MG tablet [...] EVERY DAY 90 tablet 1 4 Active aspirin (ST GEMMA) 81 MG EC tablet Take 1 tablet (81 mg total) by mouth 1 (one) time each day 30 tablet 11 5 08/08/19 26 Active NIFEdipine XL (PROCARDIA XL) 60 MG 24 hr tablet Take 1 tablet (60 mg total) by mouth 1 (one) time each day Do not crush, chew, or split. 30 tablet 5 08/08/19 26 Active tacrolimus (PROGRAF) 1 MG capsule Take 1 capsule (1 mg total) by mouth in the morning and 1 capsule (1 mg total) in the evening. 60 capsule 2 5 11/07/19 25 Active folic acid (FOLVITE) 1 MG tablet Take 1 tablet (1 mg total) by mouth 1 (one) time each day 30 tablet 11 5 08/08/19 26 Active omeprazole OTC (PriLOSEC OTC) 20 MG EC tablet Take 1 tablet (20 mg total) by mouth 1 (one) time each day Do not crush, chew, or split. 30 tablet 11 4 09/28/19 25 Active Problems Problem Noted Date Diagnosed [...] organization. 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); Other proteinuria; SLE glomerulonephritis syndrome, 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[facility]); Anemia in chronic kidney disease; Nephrotic syndrome; Fluid overload, not otherwise specified; Chronic kidney disease stage 3A (HCC) 09/26/2024 2:30 PM EDT Office Visit [facility] [address] [place] [address] Breonna Le MD (Primary Dx); Chronic kidney disease stage 3A (HCC); Nephrotic syndrome; 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) 09/26/2024 Documentation Only [facility] [address] [place] [address] Rhianna Castro 09/13/2024 Orders Only [facility] [address] [place] [address] Rhianna Castro 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); Other proteinuria; SLE glomerulonephritis syndrome, 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HCC); Anemia in chronic kidney disease; Nephrotic syndrome; Fluid overload, not otherwise specified; Chronic kidney disease stage 3A (HCC) 08/30/2024 Orders Only [facility] [address] [place] [address] MatthewEmigdio turnerica 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); Other proteinuria; SLE glomerulonephritis syndrome, 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HCC); Anemia in chronic kidney disease; Nephrotic syndrome; Fluid overload, not otherwise specified; Chronic kidney disease stage 3A (HCC) 08/22/2024 Documentation Only [facility] [address] [place] [address] Matthew, Rhianna 08/22/2024 Documentation Only [facility] [address] [place] [address] Matthew, Rhianna 08/22/2024 Documentation Only [facility] [address] [place] [address] Matthew, Rhianna 08/16/2024 Orders Only [facility] [address] [place] [address] Matthew, Rhianna 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); Other proteinuria; SLE glomerulonephritis syndrome, 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HCC); Anemia in chronic kidney disease; Nephrotic syndrome; Fluid overload, not otherwise specified; Chronic kidney disease stage 3A (HCC) 08/08/2024 2:30 PM EST Office Visit [facility] [address] [place] [address] Breonna Le MD 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) (Primary Dx); 08/02/2024 Telephone [facility] [address] [place] [address] Matthew, Rhianna 08/01/2024 Documentation Only [facility] [address] [place] [address] Shauna Foreman MA 07/30/2024 Telephone [facility] [address] [place] [address] Shauna Foreman MA 07/17/2024 Documentation Only [facility] [address] [place] [address] Rhianna Castro 07/11/2024 2:15 PM EST Office Visit [facility] [address] [place] [address] Omar Garcia MD 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 [...] Sign Reading Time Taken Comments Blood Pressure 138/111 08/08/2024 7:21 PM EST Pulse 76 07/11/2024 2:14 PM [...] Visit [facility], [address] [place] [address] Breonna Le MD [address] [place] [address] Health Maintenance Due Date Last [...] Procedure Name Priority Date/Time Associated Diagnosis Comments COMPREHENSIVE METABOLIC PANEL Routine 09/16/2024 3:58 PM EDT 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) Other proteinuria SLE glomerulonephritis syndrome, 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HCC) Anemia in chronic kidney disease Nephrotic syndrome Fluid overload, not otherwise specified Chronic kidney disease stage 3A (HCC) PROTEIN / CREATININE RATIO, URINE Routine 09/16/2024 3:58 PM EDT 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) Other proteinuria SLE glomerulonephritis syndrome, 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HCC) Anemia in chronic kidney disease Nephrotic syndrome Fluid overload, not otherwise specified Chronic kidney disease stage 3A (HCC) C-REACTIVE PROTEIN Routine 09/16/2024 3: 58 PM EDT 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) Other proteinuria SLE glomerulonephritis syndrome, 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HCC) Anemia in chronic kidney disease Nephrotic syndrome Fluid overload, not otherwise specified Chronic kidney disease stage 3A (HCC) SEDIMENTATION RATE, AUTOMATED Routine 09/16/2024 3:58 PM EDT 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) Other proteinuria SLE glomerulonephritis syndrome, 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HCC) Anemia in chronic kidney disease Nephrotic syndrome Fluid overload, not otherwise specified Chronic kidney disease stage 3A (HCC) URINALYSIS WITH MICROSCOPIC Routine 09/16/2024 3:58 PM EDT 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) Other proteinuria SLE glomerulonephritis syndrome, 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HCC) Anemia in chronic kidney disease Nephrotic syndrome Fluid overload, not otherwise specified Chronic kidney disease stage 3A (HCC) CBC AND DIFFERENTIAL Routine 09/16/2024 3:58 PM EDT 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) Other proteinuria SLE glomerulonephritis syndrome, 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HCC) Anemia in chronic kidney disease Nephrotic syndrome Fluid overload, not otherwise specified Chronic kidney disease stage 3A (HCC) MICROSCOPIC EXAMINATION - DO NOT USE Routine 09/16/2024 3:58 PM EDT HEMOGLOBIN A1C Routine 12/20/2023 11:47 AM EDT SLE glomerulonephritis syndrome, 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HCC) from Last 3 Months or Most Recently Relevant to Health Maintenance Results * (ABNORMAL) Microscopic Examination (09/16/2024 3:58 PM EDT) WBC, Urine 0-5 0 - 5 /hpf [facility] RBC, Urine 3-10(A) 0 - 2 /hpf [facility] Squamous Epithelial, Urine 0-10 0 - 10 /hpf [facility] Casts None seen None seen /lpf [facility] Bacteria, Urine None seen None seen/Few [facility] 09/16/2024 3:58 PM EDT 09/16/2024 Omar Garcia MD LAB MICROBIOLOGY - GENERAL OR DERABLES Final Result [facility] [address] [place] [address] * (ABNORMAL) Urine Protein / creatinine ratio (09/16/2024 3:58 PM EDT) Creatinine, Ur 203.5 Not Estab. mg/dL [facility] Protein, Ur 1,539.0 Not Estab. mg/dL [facility] Comment: Results confirmed on dilution. Urine Protein/Creati nine Ratio 7,563(H) 0 - 200 mg/g creat [facility] Urine (Urine, Clean Catch) 09/16/2024 3:58 PM EDT 09/16/2024 Omar Garcia MD LAB URINE ORDERABLES Final Re sult [facility] [address] [place] [address] * (ABNORMAL) Urinalysis with microscopic (09/16/2024 3:58 PM EDT) Specific [place], Urine 1.029 1.005 - 1.030 [facility] pH Urine 6.0 5.0 - 7.5 [facility] Color, Urine Yellow Yellow [facility] [phone] Appearance Urine Clear Clear [facility] WBC Esterase Urine Negative Negative [facility] Protein, Ur 4+(A) Negative/Tra ce [facility] Glucose, Ur Trace(A) Negative [facility] Ketones, Urine Negative Negative [facility] [phone] Blood Urine 1+(A) Negative [facility] Bilirubin Urine Negative Negative [facility] Urobilinogen Urine 0.2 0.2 - 1.0 mg/dL [facility] [phone] Nitrite, Urine Negative Negative [facility] [phone] Microscopic Examination See below: [facility] Comment:Microscopic was shashi cated and was performed. Urine (Urine, Clean Catch) 09/16/2024 3:58 PM EDT 09/16/2024 Omar Garcia MD LAB URINE ORDERABLES Final Re sult [facility] [address] [place] [address] * (ABNORMAL) Sedimentation Rate (09/16/2024 3:58 PM EDT) Pathologist [facility] Sed Rate 59(H) 0 - 32 mm/hr [facility] Blood (Blood, Venous) 09/16/2024 3:58 PM EDT 09/16/2024 us Omar Garcia MD LAB BLOOD ORDERABLES Final Re sult [facility] [address] [place] [address] * (ABNORMAL) CBC and differential (09/16/2024 3:58 PM EDT) [facility] WBC 13.0(H) 3.4 - 10.8 x10E3/uL [facility] RBC 4.96 3.77 - 5.28 x10E6/uL [facility] Hemoglobin 13.0 11.1 - 15.9 g/dL [facility] Hematocrit 39.1 34.0 - 46.6 % [facility] MCV 79 79 - 97 fL [facility] MCH 26.2(L) 26.6 - 33.0 pg [facility] MCHC 33.2 31.5 - 35.7 g/dL [facility] RDW 15.6(H) 11.7 - 15.4 % [facility] Platelets 394 150 - 450 x10E3/uL [facility] Neutrophils Relative 75 Not Estab. % [facility] Lymphocytes Relative 17 Not Estab. % [facility] Monocytes 5 Not Estab. % [facility] Eosinophils Relative 2 Not Estab. % [facility] Basophils Relative 0 Not Estab. % [facility] Neutrophils Absolute 9.8(H) 1.4 - 7.0 x10E3/uL [facility] Lymphocytes Absolute 2.2 0.7 - 3.1 x10E3/uL [facility] Monocytes Absolute 0.7 0.1 - 0.9 x10E3/uL [facility] Eosinophils Absolute 0.2 0.0 - 0.4 x10E3/uL [facility] Basophils Absolute 0.1 0.0 - 0.2 x10E3/uL [facility] Immature Granulocytes 1 Not Estab. % [facility] Immature Grans (Absolute) 0.1 0.0 - 0.1 x10E3/uL [facility] Blood (Blood, Venous) 09/16/2024 3:58 PM EDT 09/16/2024 Omar Garcia MD LAB BLOOD ORDERABLES Final Re sult [facility] [address] [place] [address] * C-Reactive Protein (09/16/2024 3:58 PM EDT) Pathologist [facility] C-Reactive Protein Quant <1 0 - 10 mg/L [facility] Blood (Blood, Venous) 09/16/2024 3:58 PM EDT 09/16/2024 Omar Garcia MD LAB BLOOD ORDERABLES Final Re sult Performing Organization Address City/[facility]/ZIP Co de Phone Number [facility] [address] [place] [address] * (ABNORMAL) Comprehensive metabolic panel (09/16/2024 3:58 PM EDT) [facility] Glucose 97 70 - 99 mg/dL [facility] BUN 14 6 - 20 mg/dL [facility] Creatinine 0.93 0.57 - 1.00 mg/dL [facility] eGFR CKD-EPI CR 2020 88 >59 mL/min/1.7 3 [facility] BUN/Creatinine Ratio 15 9 - 23 [facility] Sodium 139 134 - 144 mmol/L [facility] Potassium 4.2 3.5 - 5.2 mmol/L [facility] Chloride 111(H) 96 - 106 mmol/L [facility] Bicarbonate (CO2) 16(L) 20 - 29 mmol/L [facility] Calcium 8.0(L) 8.7 - 10.2 mg/dL [facility] Total Protein 4.3(LL) 6.0 - 8.5 g/dL [facility] Albumin 2.5(L) 4.0 - 5.0 g/dL [facility] Globulin 1.8 1.5 - 4.5 g/dL [facility] Total Bilirubin <0.2 0.0 - 1.2 mg/dL [facility] Alkaline Phosphatase 63 44 - 121 IU/L [facility] AST (SGOT) 11 0 - 40 IU/L [facility] ALT (SGPT) 10 0 - 32 IU/L [facility] Blood (Blood, Venous) 09/16/2024 3:58 PM EDT 09/16/2024 us Omar Garcia MD LAB BLOOD ORDERABLES Final Re sult [facility] [address] [place] [address] * (ABNORMAL) Hemoglobin A1c (12/20/2023 11:47 AM EDT) Hemoglobin A1C 5.9(H) 4.8 - 5.6 % See order comments Comment: ? Prediabetes: 5.7 - 6.4 ? Diabetes: >6.4 ? Glycemic control for adults with diabetes: <7.0 Blood (Blood, Venous) 12/20/2023 11:47 AM EDT 12/20/2023 Narrative [facility] - 12/21/2023 4:08 PM EDT Performed at: ??01 - [facility] [address] [place], [place] [id number] Warehouse Consultant: Mitzy Knutson MD, Phone: ??[phone] us Omar Garcia MD LAB BLOOD ORDERABLES Final Re sult Performing Organization Address City/[facility]/ZIP Co de Phone Number [facility] See order [place] [address] from Last 3 Months or Most Recently Relevant to Health Maintenance Insurance [place] Care Teams Saddle And Harness Maker Relationship Specialty Start Date End Date Denise Blancas MD [address] [place] [address] PCP - General Internal Medicine 06/27/24
--- OUTSIDE RECORDS SUMMARY | 2024-10-07 11:18 | XMS_ITS | Encounter Summary ---
Author Organization [facility] Address [address] [place] [address] Phone Care Team Providers Care Shuttle Bus Driver Name Role Phone Denise Blancas MD Primary Care Provider [phone] Encounter Details Date Type Department Care Team (Latest Contact Info) Description 08/19/2022 Orders Only [facility] [address] [place] [address] Jovanna Schaeffer MD SLE glomerulonephritis [...] [facility] [address] [place] [address] Breonna Le MD [address] [place] [address] [place] [address] documented as of this encounter Visit Diagnoses Diagnosis SLE glomerulonephritis syndrome, 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HCC) documented in this encounter Care Teams Shuttle Bus Driver Relationship Specialty Start Date End Date Denise Blancas MD [address] [place] [address] PCP - General Internal Medicine 06/27/24 documented as of this encounter
--- OUTSIDE RECORDS SUMMARY | 2024-10-07 11:18 | XMS_ITS | Encounter Summary ---
Author Organization [facility] [place], Address [address] [place] [address] Phone Care Team Providers Care Position Classification Specialist Name Role Phone Denise Blancas MD Primary Care Provider [phone] Encounter Details Date Type Department Care Team (Late st Contact Info) Description 08/22/2024 Documentation Only [facility] [place], [address] [place] [address] Rhianna Castro [address] [place] [address] Social History Tobacco Use Types [...] Visit [facility] [address] [place] [address] Breonna Le MD [address] [place] [address] documented as of this encounter Visit Diagnoses Not on filedocumented in this encounter Care Teams Position Classification Specialist Relationship Specialty Start Date End Date Denise Blancas MD [address] [place] [address] PCP - General Internal Medicine 06/27/24 documented as of this encounter
--- OUTSIDE RECORDS SUMMARY | 2024-10-07 11:18 | XMS_ITS | Encounter Summary ---
Author Organization [facility] Address [address] [place] [address] Phone Care Team Providers Care Epic Application Coordinator Name Role Phone Denise Blancas MD Primary Care Provider [phone] Encounter Details Date Type Department Care Team (Latest Contact Info) Description 04/12/2024 Orders Only [facility] [address] [place] [address] Jovanna Schaeffer MD SLE glomerulonephritis [...] Visit [facility] [address] [address] Breonna Le MD [address] [place] [address] [place] [address] documented as of this encounter Procedures Procedure Name Priority Date/Time Associated Diagnosis Comments ANTI-DNA ANTIBODY, DOUBLE-STRANDED Routine 05/15/2024 3:08 PM EST SLE glomerulonephritis syndrome, 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HCC) documented in this encounter Results * Anti-DNA antibody, double-stranded (05/15/2024 3:08 PM EST) DS DNA Ab 2 0 - 9 IU/mL [facility] Comment: ? Negative ?<5 ? Equivocal ??5 - 9 ? Positive ?>9 Blood (Blood, Venous) 05/15/2024 3:08 PM EST 05/15/2024 us Jovanna Schaeffer MD LAB BLOOD ORDERABLES Final Resul t [facility] [address] [place] [address] documented in this encounter Visit Diagnoses Diagnosis SLE glomerulonephritis syndrome, 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HCC) documented in this encounter Care Teams Epic Application Coordinator Relationship Specialty Start Date End Date Denise Blancas MD [address] [place] [address] PCP - General Internal Medicine 06/27/24 documented as of this encounter
--- OUTSIDE RECORDS SUMMARY | 2024-10-07 11:18 | XMS_ITS | Encounter Summary ---
Author Organization [facility] Address [address] [place] [address] Phone Care Team Providers Care Outboard Motorboat Operator Name Role Phone Denise Blancas MD Primary Care Provider [phone] Encounter Details Date Type Department Care Team (Latest Contact Info) Description 09/13/2024 Orders Only [facility] [address] [place] [address] Rhianna Castro [address] [place] [address] 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); Other proteinuria; SLE glomerulonephritis syndrome, 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HCC); Anemia in chronic kidney disease; Nephrotic syndrome; Fluid overload, not otherwise specified; Chronic kidney disease stage 3A ([facility]) Social History Tobacco Use Types Packs/Day [...] [facility] [address] [place] [address] Breonna Le MD [address] [place] [address] documented as of this encounter Procedures Procedure Name Priority Date/Time Associated Diagnosis Comments MICROSCOPIC EXAMINATION - DO NOT USE Routine 09/16/2024 3:58 PM EDT PROTEIN / CREATININE RATIO, URINE Routine 09/16/2024 [...] specified Chronic kidney disease stage 3A (HCC) COMPREHENSIVE METABOLIC PANEL Routine 09/16/2024 3:58 PM EDT 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) Other proteinuria SLE glomerulonephritis syndrome, 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HCC) Anemia in chronic kidney disease Nephrotic syndrome Fluid overload, not otherwise specified Chronic kidney disease stage 3A (HCC) documented in this encounter Results * (ABNORMAL) Microscopic Examination (09/16/2024 3:58 PM EDT) WBC, Urine 0-5 0 - 5 /hpf [facility] RBC, Urine 3-10(A) 0 - 2 /hpf [facility] Squamous Epithelial, Urine 0-10 0 - 10 /hpf [facility] Casts None seen None seen /lpf [facility] Bacteria, Urine None seen None seen/Few [facility] 09/16/2024 3:58 PM EDT 09/16/2024 us Omar Garcia MD LAB MICROBIOLOGY - GENERAL OR DERABLES Final Result [facility] [place] [address] [place] [address] * (ABNORMAL) Comprehensive metabolic panel (09/16/2024 3:58 PM EDT) Glucose 97 70 - 99 mg/dL [facility] BUN 14 6 - 20 mg/dL [facility] Creatinine 0.93 0.57 - 1.00 mg/dL [facility] [place] eGFR CKD-EPI CR 2020 88 >59 mL/min/1.7 3 [facility] BUN/Creatinine Ratio 15 9 - 23 [facility] Sodium 139 134 - 144 mmol/L [facility] Potassium 4.2 3.5 - 5.2 mmol/L [facility] Chloride 111(H) 96 - 106 mmol/L [facility] Bicarbonate (CO2) 16(L) 20 - 29 mmol/L [facility] Calcium 8.0(L) 8.7 - 10.2 mg/dL [facility] Total Protein 4.3(LL) 6.0 - 8.5 g/dL [facility] Albumin 2.5(L) 4.0 - 5.0 g/dL [facility] Globulin 1.8 1.5 - 4.5 g/dL [facility] Total Bilirubin <0.2 0.0 - 1.2 mg/dL [facility] Alkaline Phosphatase 63 44 - 121 IU/L [facility] AST (SGOT) 11 0 - 40 IU/L [facility] ALT (SGPT) 10 0 - 32 IU/L [facility] Blood (Blood, Venous) 09/16/2024 3:58 PM EDT 09/16/2024 Omar Garcia MD LAB BLOOD ORDERABLES Final Re sult [facility] [place] [address] [place] [address] * (ABNORMAL) Urine Protein / creatinine ratio (09/16/2024 3:58 PM EDT) Creatinine, Ur 203.5 Not Estab. mg/dL [facility] Protein, Ur 1,539.0 Not Estab. mg/dL [facility] Comment: Results confirmed on dilution. Urine Protein/Creati nine Ratio 7,563(H) 0 - 200 mg/g creat [facility] Urine (Urine, Clean Catch) 09/16/2024 3:58 PM EDT 09/16/2024 Omar Garcia MD LAB URINE ORDERABLES Final Re sult Performing Organization Address [facility]/ZIP Co de Phone Number [facility] [address] [place] [address] * C-Reactive Protein (09/16/2024 3:58 PM EDT) [facility] C-Reactive Protein Quant <1 0 - 10 mg/L [facility] Blood (Blood, Venous) 09/16/2024 3:58 PM EDT 09/16/2024 Omar Garcia MD LAB BLOOD ORDERABLES Final Re sult Performing Organization Address [facility] Co de Phone Number [facility] [address] [place] [address] * (ABNORMAL) Sedimentation Rate (09/16/2024 3:58 PM EDT) [facility] Sed Rate 59(H) 0 - 32 mm/hr [facility] Blood (Blood, Venous) 09/16/2024 3:58 PM EDT 09/16/2024 Omar Garcia MD LAB BLOOD ORDERABLES Final Re sult Performing Organization Address [facility]/ZIP Co de Phone Number [facility] [place] [address] [place] [address] * (ABNORMAL) Urinalysis with microscopic (09/16/2024 3:58 PM EDT) [facility] Specific [place], Urine 1.029 1.005 - 1.030 [facility] [phone] pH Urine 6.0 5.0 - 7.5 [facility] [phone] Color, Urine Yellow Yellow [facility] [phone] Appearance Urine Clear Clear [facility] [place] [phone] WBC Esterase Urine Negative Negative [facility] [place] [phone] Protein, Ur 4+(A) Negative/Tra ce [facility] Glucose, Ur Trace(A) Negative [facility] Ketones, Urine Negative Negative [facility] [place] Blood Urine 1+(A) Negative [facility] Bilirubin Urine Negative Negative [facility] [place] Urobilinogen Urine 0.2 0.2 - 1.0 mg/dL [facility] Nitrite, Urine Negative Negative [facility] [place] Microscopic Examination See below: [facility] Comment:Microscopic was shashi cated and was performed. Urine (Urine, Clean Catch) 09/16/2024 3:58 PM EDT 09/16/2024 us Omar Garcia MD LAB URINE ORDERABLES Final Re sult [facility] [place] [address] [place] [address] * (ABNORMAL) CBC and differential (09/16/2024 3:58 PM EDT) WBC 13.0(H) 3.4 - 10.8 x10E3/uL [facility] RBC 4.96 3.77 - 5.28 x10E6/uL [facility] Hemoglobin 13.0 11.1 - 15.9 g/dL [facility] Hematocrit 39.1 34.0 - 46.6 % [facility] MCV 79 79 - 97 fL [facility] MCH 26.2(L) 26.6 - 33.0 pg [facility] MCHC 33.2 31.5 - 35.7 g/dL [facility] RDW 15.6(H) 11.7 - 15.4 % [facility] Platelets 394 150 - 450 x10E3/uL [facility] Neutrophils Relative 75 Not Estab. % [facility] Lymphocytes Relative 17 Not Estab. % [facility] Monocytes 5 Not Estab. % [facility] Eosinophils Relative 2 Not Estab. % [facility] Basophils Relative 0 Not Estab. % [facility] Neutrophils Absolute 9.8(H) 1.4 - 7.0 x10E3/uL [facility] Lymphocytes Absolute 2.2 0.7 - 3.1 x10E3/uL [facility] Monocytes Absolute 0.7 0.1 - 0.9 x10E3/uL [facility] Eosinophils Absolute 0.2 0.0 - 0.4 x10E3/uL [facility] Basophils Absolute 0.1 0.0 - 0.2 x10E3/uL [facility] Immature Granulocytes 1 Not Estab. % [facility] Immature Grans (Absolute) 0.1 0.0 - 0.1 x10E3/uL [facility] Blood (Blood, Venous) 09/16/2024 3:58 PM EDT 09/16/2024 us Omar Garcia MD LAB BLOOD ORDERABLES Final Re sult [facility] [place] [address] [place] [address] documented in this encounter Visit Diagnoses Diagnosis 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) Other proteinuria SLE glomerulonephritis syndrome, 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HCC) Anemia in chronic kidney disease Nephrotic syndrome Fluid overload, not otherwise specified Chronic kidney disease stage 3A (HCC) documented in this encounter Care Teams Outboard Motorboat Operator Relationship Specialty Start Date End Date Denise Blancas MD [address] [place] [address] PCP - General Internal Medicine 06/27/24 documented as of this encounter
--- OUTSIDE RECORDS SUMMARY | 2024-10-07 11:18 | XMS_ITS | Encounter Summary ---
Author Organization [facility] Address [address] [place] [address] Phone Care Team Providers Care Candy Department Manager Name Role Phone Denise Blancas MD Primary Care Provider [phone] Encounter Details Date Type Department Care Team (Latest Contact Info) Description 08/16/2024 Orders Only [facility] [address] [place] [address] Rhianna Castro [address] [place] [address] 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); Other proteinuria; SLE glomerulonephritis syndrome, 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HCC); Anemia in chronic kidney disease; Nephrotic syndrome; Fluid overload, not otherwise specified; Chronic kidney disease stage 3A [facility] Social History Tobacco Use Types Packs/Day Years [...] Visit [facility] [address] [place] [address] Breonna Le MD [address] [place] [address] documented as of this encounter Visit Diagnoses Diagnosis 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) Other proteinuria SLE glomerulonephritis syndrome, 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HCC) Anemia in chronic kidney disease Nephrotic syndrome Fluid overload, not otherwise specified Chronic kidney disease stage 3A (HCC) documented in this encounter Care Teams Candy Department Manager Relationship Specialty Start Date End Date Denise Blancas MD [address] [place] [address] PCP - General Internal Medicine 06/27/24 documented as of this encounter
--- OUTSIDE RECORDS SUMMARY | 2024-10-07 11:18 | XMS_ITS | Encounter Summary ---
Author Organization [facility] Address [address] [place] [address] Phone Care Team Providers Care Mapping Specialist Name Role Phone Denise Blancas MD Primary Care Provider [phone] Encounter Details Date Type Department Care Team (Latest Contact Info) Description 09/02/2022 Orders Only [facility] [address] [place] [address] Jovanna Schaeffer MD SLE glomerulonephritis [...] Visit [facility] [address] [place] [address] Breonna Le MD [address] [place] [address] [place] [address] documented as of this encounter [...] AM EDT) C3 Complement 118 (90-180) MG/DL [facility] Comment: Testing performed or reported by [facility], a Service of [facility], [address] [place] [address] Cherri Lucas MD, Backfiller IA# [id number] Blood (Blood, Venous) 10/03/2022 11:04 AM EDT 10/03/2022 11:12 AM EDT Result [facility] Jovanna Schaeffer MD LAB BLOOD ORDERABLES Final Resul t [facility] * C4 Complement (10/03/2022 11:04 AM EDT) Pathologist [facility] C4 Complement 22 (10-40) MG/DL [facility] Comment: Testing performed or reported by [facility], a Service of [facility], [address] [place] [address] Cherri Lucas MD, Backfiller CLIA# [id number] Blood (Blood, Venous) 10/03/2022 11:04 AM EDT 10/03/2022 11:12 AM EDT Result [facility] Jovanna Schaeffer MD LAB BLOOD ORDERABLES Final Resul t Performing Organization Address City/[facility] Co de Phone Number [facility] * (ABNORMAL) DANNIE Panel (10/03/2022 11:04 AM EDT) Pathologist [facility] DANNIE Screen POSITIVE(A ) [facility] Comment: (NOTE) ?Negative ?? <1:80 ?Borderline ??1:80 ?Positive ?? >1:80 Test performed by [facility], [address] [place] [address] Testing performed or reported by [facility], a Service of [facility], [address] [place] [address] Robbie Cardona MD, Backfiller JAME# [id number] Blood (Blood, Venous) 10/03/2022 11:04 AM EDT 10/03/2022 11:13 AM EDT Result [facility] Jovanna Schaeffer MD LAB BLOOD ORDERABLES Final Resul t Performing Organization Address [facility] de Phone Number [facility] * Anti-DNA antibody, double-stranded (10/03/2022 11:04 AM EDT) Pathologist [facility] Anti DNA, [place] [address] [facility] Comment: Reference range: 0 to 9 Unit: IU/mL (NOTE) ?Negative ?<5 ?Equivocal ??5 - 9 ?Positive ?>9 Test performed by [facility], [address] [place] [address] Testing performed or reported by [facility], a Service of [facility], [address] [place] [address] Robbie Cardona MD, Backfiller CLIA# [id number] Blood (Blood, Venous) 10/03/2022 11:04 AM EDT 10/03/2022 11:13 AM EDT Jovanna Schaeffer MD LAB BLOOD ORDERABLES Final Resul t Performing Organization Address [facility] de Phone Number [facility] * C-Reactive Protein (10/03/2022 11:04 AM EDT) [facility] CRP <0.3 (0-0.5) MG/DL [facility] Comment: Testing performed or reported by [facility], a Service of [facility], [address] [place] [address] Cherri Lucas MD, Backfiller CLIA# [id number] Blood (Blood, Venous) 10/03/2022 11:04 AM EDT 10/03/2022 11:12 AM EDT Jovanna Schaeffer MD LAB BLOOD ORDERABLES Final Resul t Performing Organization Address [facility] de Phone Number [facility] * (ABNORMAL) Sedimentation Rate (10/03/2022 11:04 AM EDT) Sed Rate 47(H) (0-20) MM/HR [facility] Comment: Testing performed or reported by [facility], [place] [address] Cherri Lucas MD, Backfiller IA# [id number] Blood (Blood, Venous) 10/03/2022 11:04 AM EDT 10/03/2022 11:13 AM EDT Result [facility] Jovanna Schaeffer MD LAB BLOOD ORDERABLES Final Resul t Performing Organization Address [facility] Phone Number [facility] * (ABNORMAL) Urine Albumin / Creatinine Ratio (10/03/2022 11:04 AM EDT) Pathologist [facility] Urine Microalbumin 576.4(H) (<20) MG/L [facility] Comment: The urine microalbumin test is designed to monitor renal function. When screening for Bence Lynne proteinuria, urine electrophoresis is recommended. Microalbumin/Creati nine Ratio 2,088.4(H ) (0-20) MG/GM [facility] Microalb/Creat Ratio 27.6 MG/DL [facility] Comment: Testing performed or reported by [facility], a Service of [place] [id number] Cherri Lucas MD, Backfiller [facility]# [id number] Urine (Urine, Clean Catch) 10/03/2022 11:04 AM EDT 10/03/2022 11:12 AM EDT Result [facility] Jovanna Schaeffer MD LAB URINE ORDERABLES Final Resul t Performing Organization Address [facility] de Phone Number [facility] * (ABNORMAL) Protein, Total, Random Urine w/Creatinine (Protein/Creat Ratio) (10/03/2022 11:04 AM EDT) [facility] Protein/Creatine Ratio 2.73(H) (0-0.2) [facility] Protein, Urine 75 MG/DL [facility] Comment: The urine microalbumin test is designed to monitor renal function. When screening for Bence Lynne proteinuria, urine electrophoresis is recommended. Creatinine, Urine 27.6 MG/DL [facility] Comment: Testing performed or reported by [facility], a Service of [facility], [address] [place] [address] Cherri Lucas MD, Backfiller [facility]# [id number] Urine (Urine, Clean Catch) 10/03/2022 11:04 AM EDT 10/03/2022 11:12 AM EDT us Jovanna Schaeffer MD LAB URINE ORDERABLES Final Resul t [facility] * (ABNORMAL) Urinalysis with microscopic (10/03/2022 11:04 AM EDT) [facility] Appearance COLORLESS [facility] Comment:CLEAR Specific [place] 1.009 (1.002-1. 030) [facility] pH Urine 6.0 (5.0-8.0) [facility] Albumin, Urine 2+(A) (NEG) [facility] Glucose, Ur NEGATIVE (NEG) [facility] Ketones, Urine NEGATIVE (NEG) [facility] Bilirubin Urine NEGATIVE (NEG) [facility] Hemoglobin Presence in Urine NEGATIVE (NEG) [facility] Nitrite, Urine NEGATIVE (NEG) [facility] Leukocyte Esterase Urine NEGATIVE (NEG) [facility] Urobilinogen Urine NORMAL (NORM) MG/DL [facility] WBC, Urine <1 (0-5) /HPF [facility] RBC, Urine 1 (0-3) /HPF [facility] Bacteria SLIGHT(A) (NEG) HPF [facility] Mucus, Urine SLIGHT /LPF [facility] Squamous Epithelial, Urine <1 (0-8) /HPF [facility] Hyaline Casts, Urine 1 (0-2) LPF [facility] Comment: Testing performed or reported by [facility], a Service of [facility], [address] [place] [address] Cherri Lucas MD, Backfiller [facility]# [id number] Urine (Urine, Clean Catch) 10/03/2022 11:04 AM EDT 10/03/2022 11:12 AM EDT Jovanna Schaeffer MD LAB URINE ORDERABLES Final Resul t Performing Organization Address [facility] Co de Phone Number [facility] * (ABNORMAL) Renal Function Panel (10/03/2022 11:04 AM EDT) Glucose 87 (70-99) MG/DL [facility] BUN 23(H) (6-20) MG/DL [facility] Creatinine 1.0 (0.5-1.0) MG/DL [facility] Sodium 140 (133-145) MMOL/L [facility] Potassium 3.9 (3.6-5.2) MMOL/L [facility] Chloride 105 (98-107) MMOL/L [facility] Bicarbonate (CO2) 24 (22-29) MMOL/L [facility] Anion Gap 11 (4-17) [facility] Albumin 3.7 (3.4-4.8) GM/DL [facility] Calcium 9.2 (8.6-10.5) MG/DL [facility] Phosphorus, Serum 4.8(H) (2.5-4.5) MG/DL [facility] Est GFR Non 82 ML/MIN/1.7 3 M2 [facility] Comment: Creatinine based estimated glomerular filtration (eGFR) in adults is calculated using the National [employer] recommended 2020 CKD-EPI equation. Estimates GFR from serum creatinine, age and sex. Testing performed or reported by [facility], a Service of [facility], [address] [place] [address] Cherri Lucas MD, Backfiller [facility]# [id number] Blood (Blood, Venous) 10/03/2022 11:04 AM EDT 10/03/2022 11:12 AM EDT Jovanna Schaeffer MD LAB BLOOD ORDERABLES Final Resul t Performing Organization Address [facility] Co de Phone Number [facility] documented in this encounter Visit Diagnoses Diagnosis SLE glomerulonephritis syndrome, 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HCC) documented in this encounter Care Teams Mapping Specialist Relationship Specialty Start Date End Date Denise Blancas MD [address] [facility] [place] [address] PCP - General Internal Medicine 06/27/24 documented as of this encounter
--- OUTSIDE RECORDS SUMMARY | 2024-10-07 11:18 | XMS_ITS | Encounter Summary ---
Author Organization [facility] [place], Address [address] [place] [address] Phone Care Team Providers Care Custom Wood Stair Builder Name Role Phone Denise Blancas MD Primary Care Provider [phone] Encounter Details Date Type Department Care Team (Late st Contact Info) Description 10/26/2023 Documentation Only [facility] [place], [address] [place] [address] Rhianna Castro [address] [place] [address] Social History Tobacco Use Types [...] Visit [facility] [address] [place] [address] Breonna Le MD [address] [place] [address] documented as of this encounter Visit Diagnoses Not on filedocumented in this encounter Care Teams Custom Wood Stair Builder Relationship Specialty Start Date End Date Denise Blancas MD [address] [place] [address] PCP - General Internal Medicine 06/27/24 documented as of this encounter
--- OUTSIDE RECORDS SUMMARY | 2024-10-07 11:18 | XMS_ITS | Encounter Summary ---
Author Organization [facility] Address [address] [place] [address] Phone Care Team Providers Care Cardiac Cath Lab Radiology Technologist Name Role Phone Denise Blancas MD Primary Care Provider [phone] Encounter Details Date Type Department Care Team (Latest Contact Info) Description 06/09/2023 Orders Only [facility] [address] [place] [address] Jovanna Schaeffer MD SLE glomerulonephritis [...] [facility] [address] [place] [address] Breonna Le MD [address] [place] [address] [place] [address] documented as of this encounter Visit Diagnoses Diagnosis SLE glomerulonephritis syndrome, 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HCC) documented in this encounter Care Teams Cardiac Cath Lab Radiology Technologist Relationship Specialty Start Date End Date Denise Blancas MD [address] [place] [address] PCP - General Internal Medicine 06/27/24 documented as of this encounter
--- OUTSIDE RECORDS SUMMARY | 2024-10-07 11:18 | XMS_ITS | Encounter Summary ---
Author Organization [facility] Address [address] [place] [address] Phone Care Team Providers Care Donor Recruitment Manager Name Role Phone Denise Blancas MD Primary Care Provider [phone] Encounter Details Date Type Department Care Team (Latest Contact Info) Description 12/23/2022 Orders Only [facility] Of [address] [place] [address] Jovanna Schaeffer MD SLE glomerulonephritis [...] Visit [facility] Of [address] [place] [address] Breonna Le MD [address] [place] [address] [place] [address] documented as of this encounter [...] PM EDT Performed at: ??01 - [facility] [address] ??[id number] Road Supervisor Of Engines: Mitzy Knutson MD, Phone: ??[phone] us Jovanna Schaeffer MD LAB [id number] ICITED RESULTS Final Result [facility] See order comments [place] [address] documented in this encounter Visit Diagnoses Diagnosis SLE glomerulonephritis syndrome, 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HCC) documented in this encounter Care Teams Donor Recruitment Manager Relationship Specialty Start Date End Date Denise Blancas MD [address] [place] [address] PCP - General Internal Medicine 06/27/24 documented as of this encounter
--- OUTSIDE RECORDS SUMMARY | 2024-10-07 11:18 | XMS_ITS | Encounter Summary ---
Author Organization [facility], Address [address] [place] [address] Phone Care Team Providers Care Business Management Intern Name Role Phone Denise Blancas MD Primary Care Provider [phone] Encounter Details Date Type Department Care Team (Late st Contact Info) Description 09/05/2023 Documentation Only [facility], [address] [place] [address] Rhianna Castro [address] [place] [address] Social History Tobacco Use Types [...] Visit [facility] [address] [place] [address] Breonna Le MD [address] [place] [address] documented as of this encounter Visit Diagnoses Not on filedocumented in this encounter Care Teams Business Management Intern Relationship Specialty Start Date End Date Denise Blancas MD [address] [place] [address] PCP - General Internal Medicine 06/27/24 documented as of this encounter
--- OUTSIDE RECORDS SUMMARY | 2024-10-07 11:18 | XMS_ITS | Encounter Summary ---
Author Organization [facility] Address [address] [place] [address] Phone Care Team Providers Care Medical Delivery Driver Name Role Phone Denise Blancas MD Primary Care Provider [phone] Encounter Details Date Type Department Care Team (Latest Contact Info) Description 11/03/2023 Orders Only [facility] [address] [place] [address] Jovanna Schaeffer MD SLE glomerulonephritis [...] [facility] [address] [place] [address] Breonna Le MD [address] [place] [address] [place] [address] documented as of this encounter Visit Diagnoses Diagnosis SLE glomerulonephritis syndrome, 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HCC) documented in this encounter Care Teams Medical Delivery Driver Relationship Specialty Start Date End Date Denise Blancas MD [address] [place] [address] PCP - General Internal Medicine 06/27/24 documented as of this encounter
--- OUTSIDE RECORDS SUMMARY | 2024-10-07 11:18 | XMS_ITS | Encounter Summary ---
Author Organization [facility] Address [address] [place] [address] Phone Care Team Providers Care Medical Sales Consultant Name Role Phone Denise Blancas MD Primary Care Provider [phone] Encounter Details Date Type Department Care Team (Latest Contact Info) Description 03/17/2023 Orders Only [facility] [address] [place] [address] Jovanna Schaeffer MD SLE glomerulonephritis [...] [facility] [address] [place] [address] Breonna Le MD [address] [place] [address] [place] [address] documented as of this encounter Visit Diagnoses Diagnosis SLE glomerulonephritis syndrome, 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HCC) documented in this encounter Care Teams Medical Sales Consultant Relationship Specialty Start Date End Date Denise Blancas MD [address] [place] [address] PCP - General Internal Medicine 06/27/24 documented as of this encounter
--- OUTSIDE RECORDS SUMMARY | 2024-10-07 11:18 | XMS_ITS | Encounter Summary ---
Author Organization [facility], Address [address] [place] [address] Phone Care Team Providers Care Reproduction Artist Name Role Phone Denise Blancas MD Primary Care Provider [phone] Encounter Details Date Type Department Care Team (Late st Contact Info) Description 09/01/2023 Documentation Only [facility], [address] [place] [address] Omar Garcia MD [address] [place] [address] [place] [address] Social History Tobacco Use Types [...] [facility] [address] [place] [place] [address] Breonna Le MD [address] [place] [address] documented as of this encounter Visit Diagnoses Not on filedocumented in this encounter Care Teams Reproduction Artist Relationship Specialty Start Date End Date O'Vazquez, Denise M, MD [address] [place] [address] PCP - General Internal Medicine 06/27/24 documented as of this encounter
--- OUTSIDE RECORDS SUMMARY | 2024-10-07 11:18 | XMS_ITS | Encounter Summary ---
Author Organization [facility], Address [address] [place] [address] Phone Care Team Providers Care Language Interpreter Name Role Phone Denise Blancas MD Primary Care Provider [phone] Encounter Details Date Type Department Care Team (Late st Contact Info) Description 09/05/2023 Documentation Only [facility], [address] [place] [address] Rhianna Castor [address] [place] [address] Social History Tobacco Use Types [...] Visit [facility] [address] [place] [address] Breonna Le MD [address] [place] [address] documented as of this encounter Visit Diagnoses Not on filedocumented in this encounter Care Teams Language Interpreter Relationship Specialty Start Date End Date Denise Blancas MD [address] [place] [address] PCP - General Internal Medicine 06/27/24 documented as of this encounter
--- OUTSIDE RECORDS SUMMARY | 2024-10-07 11:19 | XMS_ITS | Encounter Summary ---
Author Organization [facility] Address [address] [place] [address] Phone Care Team Providers Care Residential Door Unit Installer Name Role Phone Denise Blancas MD Primary Care Provider [phone] Encounter Details Date Type Department Care Team (Latest Contact Info) Description 12/15/2023 Orders Only [facility] [address] [place] [address] Jovanna Scheaffer MD SLE glomerulonephritis syndrome, WHO class V [...] [facility] [address] [place] [address] Breonna Le MD [address] [place] [address] [place] [address] documented as of this encounter Visit Diagnoses Diagnosis SLE glomerulonephritis syndrome, 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HCC) documented in this encounter Care Teams Residential Door Unit Installer Relationship Specialty Start Date End Date Denise Blancas MD [address] [place] [address] PCP - General Internal Medicine 06/27/24 documented as of this encounter
--- OUTSIDE RECORDS SUMMARY | 2024-10-07 11:19 | XMS_ITS | Encounter Summary ---
Author Organization [facility] Address [address] [place] [address] Phone Care Team Providers Care Skidder Runner Name Role Phone Denise Blancas MD Primary Care Provider [phone] Encounter Details Date Type Department Care Team (Latest Contact Info) Description 12/01/2023 Orders Only [facility] [address] [place] [address] Jovanna Schaeffer MD SLE glomerulonephritis [...] Visit [facility] [address] [place] [address] Breonna Le MD [address] [place] [address] [place] [address] documented as of this encounter Visit Diagnoses Diagnosis SLE glomerulonephritis syndrome, 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HCC) documented in this encounter Care Teams Skidder Runner Relationship Specialty Start Date End Date Denise Blancas MD [address] [place] [address] PCP - General Internal Medicine 06/27/24 documented as of this encounter
--- OUTSIDE RECORDS SUMMARY | 2024-10-07 11:19 | XMS_ITS | Encounter Summary ---
Author Organization [facility] Address [address] [place] [address] Phone Care Team Providers Care Career Guidance Technician Name Role Phone Denise Blancas MD Primary Care Provider Encounter Details Date Type Department Care Team (Latest Contact Info) Description 12/08/2023 Orders Only [facility] [address] [place] [address] Jovanna Schaeffer MD SLE glomerulonephritis [...] Visit [facility] [address] [place] [address] Breonna Le MD [address] [place] [address] [place] [address] documented as of this encounter Visit Diagnoses Diagnosis SLE glomerulonephritis syndrome, 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HCC) documented in this encounter Care Teams Career Guidance Technician Relationship Specialty Start Date End Date Denise Blancas MD [address] [place] [address] PCP - General Internal Medicine 06/27/24 documented as of this encounter
--- OUTSIDE RECORDS SUMMARY | 2024-10-07 11:19 | XMS_ITS | Encounter Summary ---
Author Organization [facility] Address [address] [place] [address] Phone Care Team Providers Care Clothes Marker Name Role Phone Denise Blancas MD Primary Care Provider [phone] Encounter Details Date Type Department Care Team (Latest Contact Info) Description 11/24/2023 Orders Only [facility] [address] [place] [address] Jovanna Schaeffer MD SLE glomerulonephritis [...] Visit [facility] [address] [place] [address] Breonna Le MD [address] [place] [address] [place] [address] documented as of this encounter Visit Diagnoses Diagnosis SLE glomerulonephritis syndrome, 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HCC) documented in this encounter Care Teams Clothes Marker Relationship Specialty Start Date End Date Denise Blancas MD [address] [place] [address] PCP - General Internal Medicine 06/27/24 documented as of this encounter
--- OUTSIDE RECORDS SUMMARY | 2024-10-07 11:19 | XMS_ITS | Encounter Summary ---
Author Organization [facility] Address [address] [place] [address] Phone Care Team Providers Care Certified Orthotist Name Role Phone Denise Blancas MD Primary Care Provider [phone] Encounter Details Date Type Department Care Team (Latest Contact Info) Description 11/17/2023 Orders Only [facility] [address] [place] [address] Jovanna Schaeffer MD SLE glomerulonephritis [...] [facility] [address] [place] [address] Breonna Le MD [address] [place] [address] [place] [address] documented as of this encounter Visit Diagnoses Diagnosis SLE glomerulonephritis syndrome, 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HCC) documented in this encounter Care Teams Certified Orthotist Relationship Specialty Start Date End Date Denise Blancas MD [address] [place] [address] PCP - General Internal Medicine 06/27/24 documented as of this encounter
--- OUTSIDE RECORDS SUMMARY | 2024-10-07 11:19 | XMS_ITS | Encounter Summary ---
Author Organization [facility], Address [address] [place] [address] Phone Care Team Providers Care Paver Operator Name Role Phone Denise Blancas MD Primary Care Provider [phone] Encounter Details Date Type Department Care Team (Late st Contact Info) Description 04/21/2022 Documentation Only [facility], [address] [place] [address] [place], [place] [address] [place] [address] Social History Tobacco Use Types [...] Visit [facility] [address] [place] [address] Breonna Le MD [address] [place] [address] documented as of this encounter Visit Diagnoses Not on filedocumented in this encounter Care Teams Paver Operator Relationship Specialty Start Date End Date Denise Blancas MD [address] [facility] [place] [address] PCP - General Internal Medicine 06/27/24 documented as of this encounter
--- NOTE | 2024-10-07 11:35 | AM.OFFWIN_ITS ---
Intake Vital Signs 10/07/24 11:38 Weight 256 lb BP 122/80 Blood Pressure Location Rt brachial Position Sitting Pulse 97 Pulse Source Pulse Oximeter Temp 99.1 F Temp Source Oral Pulse Oximetry (%) 98 Oxygen Delivery Method Room Air Intake Visit Reasons: EP-cough Intake Note: Patient here for cough and headaches that has been present for a couple of weeks. Patient Tobacco Use Status: Never used Tobacco Allergies amoxicillin Allergy (Intermediate, Verified 10/07/24 11:35) rash Do you need a note to return to daycare/school/sports/work: No HPI HPI Comments History of Present Illness Details History - The patient is a 24-year-old female pr esenting with cough and chest pain. - The patient reports a persistent cough lasting for the entire month, along with associated chest pain. None of the symptoms have been alleviated by taking acetaminophen (Tylenol). - There is no current use of decongestan ts - due to medical guidance she has not ta louie any NSAIDs like ibuprofen. - Asthma history noted, and the patient' s inhaler is and discarded, thus unavailable for current use. - Presenting shortness of breath and occ asional vomiting triggered by vigorous coughing. - Previous throat inflammation and ear i ssues occurred two weeks prior, but these have since improved. - A history of prior pneumonia is noted, influencing the current consultation. Physical Exam General: Cooperative, healthy appearing, comfortable and no acute distress Orientation/consciousness: Patient oriented x3 Limitations: No limitations Head: Normal to inspection Ears: Hearing grossly normal bilaterally, external ears normal and TM's normal bilaterally Nose: Normal external nose present, Normal nares present and No nasal discharge present Face and sinus: Normal facial exam and Yes sinuses nontender Mouth: Normal oral and palatal mucosa present and moist mucous membranes Throat: Yes tonsils normal, Yes uvula midline. Posterior oropharynx erythema, no exudates noted Eyes: Appearance normal, both eyes and all related structures Neck: Normal visual inspection Respiratory: Clear to auscultation bilaterally. Normal respiratory effort, able to speak in complete sentences, Actively coughing, no respiratory distress, not tachypneic, no tripod positioning and no use of accessory muscles Cardiovascular: Regular rate and rhythm. Normal S1 and S2 Skin: No rashes or lesions noted Neuro: Patient oriented x3 Extremities: Normal to inspection and Yes no clubbing, cyanosis or edema [facility] Medical History (Updated 10/07/24 @ 11:52 by Staci Madrigal PA-C) Migraines Hypertension Kidney disease Diabetes Asthma Denial Lupus (systemic lupus erythematosus) Systemic lupus erythematosus, unspecified Surgical History No pertinent past surgical history Family History Father Diabetes Hypertension Asthma Mother Diabetes Hypertension Maternal Grandmother Cancer Paternal Grandmother Cancer Brother Asthma Social History (Updated 08/08/24 @ 09:24 by Lisa Medel CMA) Household Members: Spouse Both parents involved: No Caregiver staying overnight: No Housing: Apartment Are you a primary hearing care professional to a significant other at home: Yes Do you presently have visiting nurse or other home services: No 75 years or older and lives alone: No Alcohol intake: never Patient Tobacco Use Status: Never used Tobacco e-Cigarette/Vaping Use: Never Used Current occupational status: employed Cognitive needs: No Hearing needs: No Vision needs: No Review of Systems Const All systems reviewed & are unremarkable except as noted in HPI and below Physical Exam Vital Signs: Last Vital Signs Temp 99.1 F 10/07/24 11:38 Pulse 97 10/07/24 11:38 BP 122/80 10/07/24 11:38 Pulse Ox 98 10/07/24 11:38 Oxygen Delivery Method Room Air 10/07/24 11:38 Assessment & Plan Assessment & Plan (1) Lower respiratory infection (e.g., bronchitis, pneumonia, pneumonitis, pulmonitis): Code(s): J22 - Unspecified acute lower respiratory infection Plan: VSS, pt well appearing and PE unremarkable. Due to the length of her symptoms, 3 weeks, will treat as bacterial with abx. The patient will receive a new inhaler to manage asthma symptoms, incorporating its use to control coughing and facilitate easier breathing. A prescription for doxycycline has been provided to address the possibility of a bacterial component to her ongoing symptoms with attention to medical history and medication tolerances. The prescriptions are sent to [facility] on [address]. Prompt initiation of the antibiotic is advised, and the patient is reminded to consult with her primary care physician should symptoms worsen or persist. Patient was informed and verbally consented to the use of an ambient scribe for clinic note documentation during this visit Medications: New doxycycline hyclate 100 mg PO BID 14 tabs 0RF Refilled albuterol sulfate 90 mcg/actuation 2 puffs inhalation Q4-6H PRN 8.5 grams 3RF shortness of breath or wheezing J45.909 - Unspecified asthma, uncomplicated Coding Level of Care Code Est Pt Level 3 (34590) Diagnoses Lower respiratory infection (e.g., bronchitis, pneumonia, pneumonitis, pulmonitis) J22
[2024-10-07 11:38] VITALS: BP 122/80; PULSE 97; TEMP 37.3; O2SAT 98
== END 2024-10-07 13:06 | disposition home or self-care (01) ==
PROVIDERS: PCP Physician Assistant; Visit Provider Physician Assistant
DX: J22 Unspecified acute lower respiratory infection (principal)

== ENCOUNTER → 2024-10-07 10:10 | Outpatient (BNVA) | payer MEDICARE, MEDICAID, SELFPAY | PROVIDERS: PCP Physician Assistant; Visit Provider Physician Assistant | DX: J22 Unspecified acute lower respiratory infection (principal) | CPT/HCPCS: 99212 ==

== ENCOUNTER 2024-10-25 08:42 | Outpatient (AMB) | payer MEDICARE, MEDICAID, SELFPAY ==
--- NOTE | 2024-10-25 08:54 | AM.OFFWIN_ITS ---
Intake Vital Signs 10/25/24 08:55 Height 5 ft 8 in Weight 265 lb 4 oz BMI 40.3 BP 124/92 H Blood Pressure Location Lt brachial Position Sitting Respiration 16 Pulse 88 Pulse Source Pulse Oximeter Temp 98.0 F Temp Source Oral Pulse Oximetry (%) 97 Oxygen Delivery Method Room Air Intake Visit Reasons: EP-cough, vomiting, ribs pain, body ache Intake Note: Pt is here today c/o cough, vomiting and bodyaches xmo. on and off Patient Tobacco Use Status: Never used Tobacco Allergies amoxicillin Allergy (Intermediate, Verified 10/25/24 09:18) rash HPI HPI Comments History of Present Illness Details History - The patient is a 24-year-old female presenting with a persistent cough. - Initial symptoms included cough induce d vomiting, and back/side pain from coughing, addressed with an antibiotic prescription on October 07. - Recurrence of symptoms post-treatment prompted further evaluation. - The cough persists for two to three we eks, accompanied by shortness of breath but absent of fever. - Uses her inhaler daily, sometimes incr easing its usage due to severity, does give symptomatic resolution temporarily. - No baseline asthma or COPD reported, d oes not smoke or vape. - Currently 17 weeks . Physical Exam General: Cooperative, healthy appearing, comfortable and no acute distress Orientation/consciousness: Patient oriented x3 Limitations: No limitations Head: Normal to inspection Ears: Hearing grossly normal bilaterally, external ears normal and TM's normal bilaterally Nose: Normal external nose present, Normal nares present and No nasal discharge present Face and sinus: Normal facial exam and Yes sinuses nontender Mouth: Normal oral and palatal mucosa present and moist mucous membranes Throat: Yes tonsils normal, Yes uvula midline. Posterior oropharynx erythema Eyes: Appearance normal, both eyes and all related structures Neck: Normal visual inspection Respiratory: Clear to auscultation bilaterally. Normal respiratory effort, able to speak in complete sentences, Actively coughing, no respiratory distress, not tachypneic, no tripod positioning and no use of accessory muscles Cardiovascular: Regular rate and rhythm. Normal S1 and S2 Skin: No rashes or lesions noted Neuro: Patient oriented x3 Extremities: Normal to inspection and Yes no clubbing, cyanosis or edema [facility] Medical History (Updated 10/07/24 @ 11:52 by Staci Madrigal PA-C) Migraines Hypertension Kidney disease Diabetes Asthma Denial Lupus (systemic lupus erythematosus) Systemic lupus erythematosus, unspecified Surgical History No pertinent past surgical history Family History Father Diabetes Hypertension Asthma Mother Diabetes Hypertension Maternal Grandmother Cancer Paternal Grandmother Cancer Brother Asthma Social History (Updated 08/08/24 @ 09:24 by Lisa Medel CMA) Household Members: Spouse Both parents involved: No Caregiver staying overnight: No Housing: Apartment Are you a primary manager care to a significant other at home: Yes Do you presently have visiting nurse or other home services: No 75 years or older and lives alone: No Alcohol intake: never Patient Tobacco Use Status: Never used Tobacco e-Cigarette/Vaping Use: Never Used Current occupational status: employed Cognitive needs: No Hearing needs: No Vision needs: No Review of Systems Const All systems reviewed & are unremarkable except as noted in HPI and below Physical Exam Vital Signs: Last Vital Signs Temp 98.0 F 10/25/24 08:55 Pulse 88 10/25/24 08:55 Resp 16 10/25/24 08:55 BP 124/92 H 10/25/24 08:55 Pulse Ox 97 10/25/24 08:55 Oxygen Delivery Method Room Air 10/25/24 08:55 BMI result Body Mass Index 40.3 Assessment & Plan Assessment & Plan (1) Lower respiratory infection (e.g., bronchitis, pneumonia, pneumonitis, pulmonitis): Code(s): J22 - Unspecified acute lower respiratory infection Plan: VSS, pt well appearing and PE unremarkable. A viral upper respiratory tract infection was suspected, unclear if symptoms resolved after abx given on 10/07 or if this is a continued URI that started around 10/07. I have sent an expaneded viral panel test to determine specific viral causes. The patient's cough, and potentially strain-related musculoskeletal pain, was addressed with ordered use of inhalers and topical Voltaren gel to mitigate discomfort. A cautious approach was taken with potential steroid use due to risks, with topical and safe symptomatic relief measures being preferable. Close attention to her and existing CHF influenced management choices, avoiding systemic medications and opting for topical treatments. Viral panel results would guide further treatment and interventions; the patient was counseled on non- pharmacological supportive care and informed of expected symptom resolution. Patient was informed and verbally consented to the use of an ambient scribe for clinic note documentation during this visit Orders: Orders Resp Pathogen Panel - [facility] [place] Today J06.9 - Acute upper respiratory infection, unspecified Coding Level of Care Code Est Pt Level 3 (53986) Diagnoses Lower respiratory infection (e.g., bronchitis, pneumonia, pneumonitis, pulmonitis) J22
[2024-10-25 08:55] VITALS: BP 124/92; PULSE 88; RESP 16; TEMP 36.7; O2SAT 97; BMI 40.3
--- OUTSIDE RECORDS SUMMARY | 2024-10-25 09:06 | XMS_ITS | Clinical Summary ---
Author Organization [employer] Address [address] [facility] [address] [place] [address] Care Team Providers Care Box Cutter Name Role Phone Unavailable Primary Care Provider [...] every day Active ergocalciferol (Drisdol) 1.25 MG (75245 UT) capsule take 1 capsule by oral [...] ?? Walter SANCHEZ et al. RANDY. 2013;310(19): 0145-7305 ?? (http://education.SightCall.Granite Properties/faq/YVX721) Chol/HDLC Ratio 5.0(H) <5.0 (calc) [facility] [...] ?? Walter SANCHEZ et al. RANDY. 2013;310(19): 0103-9718 ?? (http://Handango.JumpIn/faq/HNJ801) Chol/HDLC Ratio 5.0(H) <5.0 (calc) [facility] 05/28/2020 10:1 0 AM EST Efraín Lara BODY WORKER LAB BLOOD ORDERABLES Final Result Performing Organization Address City/State/[facility] Co de Phone Number [facility] [address] from Last 3 Months or Most Recently Relevant [place] [address] [place] [address] [place] [id number] [place] [address] ELISE Rhoades [id number] [place] [id number]
--- OUTSIDE RECORDS SUMMARY | 2024-10-25 09:06 | XMS_ITS | Encounter Summary ---
Author Organization [facility] [place], Address [address] [place] [address] Phone Care Team Providers Care Miller Supervisor Name Role Phone Denise Blancas MD Primary Care Provider [phone] Encounter Details Date Type Department Care Team (Late st Contact Info) Description 09/26/2024 Documentation Only [facility] [place], [address] [place] [address] Rhianna Castro [address] [place] [address] Social History Tobacco Use Types [...] Care Team (Late st Contact Info) Description 11/14/2024 2:00 PM EDT Office Visit [facility] [address] [place] [address] Breonna Le MD [address] [place] [address] documented as of this encounter Visit Diagnoses Not on filedocumented in this encounter Care Teams Miller Supervisor Relationship Specialty Start Date End Date Denise Blancas MD [address] [place] [address] PCP - General Internal Medicine 06/27/24 documented as of this encounter
--- OUTSIDE RECORDS SUMMARY | 2024-10-25 09:06 | XMS_ITS | Encounter Summary ---
Author Organization [facility] Address [address] [place] [address] Phone Care Team Providers Care Managing Attorney Name Role Phone Denise Blancas MD Primary Care Provider [phone] Encounter Details Date Type Department Care Team (Latest Contact Info) Description 03/17/2023 Orders Only [facility] [address] [place] [address] Jovanna Schaeffer MD SLE glomerulonephritis [...] [facility] [address] [place] [address] Breonna Le MD [address] [place] [address] [place] [address] documented as of this encounter Visit Diagnoses Diagnosis SLE glomerulonephritis syndrome, 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HCC) documented in this encounter Care Teams Managing Attorney Relationship Specialty Start Date End Date Denise Blancas MD [address] [place] [address] PCP - General Internal Medicine 06/27/24 documented as of this encounter
--- OUTSIDE RECORDS SUMMARY | 2024-10-25 09:06 | XMS_ITS | Encounter Summary ---
Author Organization [facility] Address [address] [place] [address] Phone Care Team Providers Care Shipping Weigher Name Role Phone Denise Blancas MD Primary Care Provider [phone] Encounter Details Date Type Department Care Team (Latest Contact Info) Description 08/19/2022 Orders Only [facility] [address] [place] [address] Jovanna Schaeffer MD SLE glomerulonephritis [...] Visit [facility] [address] [place] [address] Breonna Le MD [address] [place] [address] [place] [address] documented as of this encounter Visit Diagnoses Diagnosis SLE glomerulonephritis syndrome, 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HCC) documented in this encounter Care Teams Shipping Weigher Relationship Specialty Start Date End Date Denise Blancas MD [address] [place] [address] PCP - General Internal Medicine 06/27/24 documented as of this encounter
--- OUTSIDE RECORDS SUMMARY | 2024-10-25 09:06 | XMS_ITS | Clinical Summary ---
Author Organization [facility] [place], Address [address] [place] [address] [place] [address] Phone Care Team Providers Care Human Resource Statistician Name Role Phone Denise Blancas MD Primary Care Provider [phone] Allergies Active Allergy Reactions Criticality Noted Date [...] 06/20/2019 Systemic lupus erythematosus 06/20/2019 01/25/2021 Encounters Date Type Department Care Team Description 10/24/2024 2:30 PM EDT Office Visit [facility] [address] [place] [id number] Breonna Le MD (Primary Dx); SLE glomerulonephritis syndrome, 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[facility]); Chronic kidney disease stage 3A (HCC); Nephrotic syndrome; 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) 10/24/2024 Documentation Only [facility] [address] [place] [address] Rhianna Castro 10/24/2024 Documentation Only [facility] [address] [place] [address] Rhianna Castro 10/11/2024 Orders Only [facility] [address] [place] [address] Rhianna Castro 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); Other proteinuria; SLE glomerulonephritis syndrome, 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HCC); Anemia in chronic kidney disease; Nephrotic syndrome; Fluid overload, not otherwise specified; Chronic kidney disease stage 3A (HCC) 09/27/2024 Orders Only [facility] [address] [place] [address] Matthew, Rhianna 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); Other proteinuria; SLE glomerulonephritis syndrome, 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HCC); Anemia in chronic kidney disease; Nephrotic syndrome; Fluid overload, not otherwise specified; Chronic kidney disease stage 3A (HCC) 09/26/2024 2:30 PM EDT Office Visit [facility] [address] [place] [address] Breonna Le MD (Primary Dx); Chronic kidney disease stage 3A (HCC); Nephrotic syndrome; 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) 09/26/2024 Documentation Only [facility] [address] [place] [address] Matthew, Rhianna 09/13/2024 Orders Only [facility] [address] [place] [address] Matthew, Rhianna 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); Other proteinuria; SLE glomerulonephritis syndrome, 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HCC); Anemia in chronic kidney disease; Nephrotic syndrome; Fluid overload, not otherwise specified; Chronic kidney disease stage 3A (HCC) 08/30/2024 Orders Only [facility] [address] [place] [address] Matthew, Rhianna 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); Other proteinuria; SLE glomerulonephritis syndrome, 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[facility]); Anemia in chronic kidney disease; Nephrotic syndrome; Fluid overload, not otherwise specified; Chronic kidney disease stage 3A (HCC) 08/22/2024 Documentation Only [facility] [address] [place] [address] Matthew, Rhianna 08/22/2024 Documentation Only [facility] [address] [place] [address] Matthew, Rhianna 08/22/2024 Documentation Only [facility] [address] [place] [address] Matthew, Rhianna 08/16/2024 Orders Only [facility] [address] [place] [address] Rhianna Castro 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 ([facility]); Other proteinuria; SLE glomerulonephritis syndrome, 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[facility]); Anemia in chronic kidney disease; Nephrotic syndrome; Fluid overload, not otherwise specified; Chronic kidney disease stage 3A ([facility]) 08/08/2024 2:30 PM EST Office Visit [facility] [address] [place] [address] Breonna Le MD 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 ([facility]) (Primary Dx); 08/02/2024 Telephone [facility] [address] [place] [address] Rhianna Castro 08/01/2024 Documentation Only [facility] [address] [place] [address] Shauna Foreman MA 07/30/2024 Telephone [facility] [address] [place] [address] Shauna Foreman MA from Last 3 Months Immunizations Immunization Administration Dates Next Due DTaP 04/19/2012, 1,05/25/2000,02/16,1999 [...] Sign Reading Time Taken Comments Blood Pressure 142/107 10/24/2024 3:26 PM EDT Pulse 76 07/11/2024 2:14 PM EST Temperature [...] Visit [facility] [place], [address] [place] [place] [phone] Breonna Le MD [address] [place] [place] [address] Health Maintenance Due Date Last Done Comments Pneumococcal Vaccine: Peds ( 0 to 5 Years) and At-Risk Patients (6 to 49 Years) (2 of 2 - PPSV23) 09/12/2019 07/18/2019, 05/10/2001, 02/05/2001, Additional history exists Diabetes: Ophthalmology Exam 09/05/2023 Diabetes: Pedal Pulse Checked 09/05/2023 Diabetes: Sensory Foot Exam 09/05/2023 Diabetes: Visual Foot Exam 09/05/2023 Diabetes: Hemoglobin A1C 03/21/2024 024, 10/25/2022, 07/14/2022, Additional history exists Influenza Vaccine (Season Ended) 2025 05/28/2020, 05/28/2020, 05/30/2019, Additional history exists Hepatitis B Vaccine Completed 05/25/2000, 1999, 1999 Pneumococcal Vaccine: 50+ Years Discontinued 07/18/2019, 05/10/2001, 02/05/2001, Additional history exists Procedures Procedure Name Priority Date/Time Associated Diagnosis Comments COMPREHENSIVE METABOLIC PANEL Routine 10/22/2024 12:26 PM EDT 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) Other proteinuria SLE glomerulonephritis syndrome, 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HCC) Anemia in chronic kidney disease Nephrotic syndrome Fluid overload, not otherwise specified Chronic kidney disease stage 3A (HCC) PROTEIN / CREATININE RATIO, URINE Routine 10/22/2024 12:26 PM EDT 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) Other proteinuria SLE glomerulonephritis syndrome, 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HCC) Anemia in chronic kidney disease Nephrotic syndrome Fluid overload, not otherwise specified Chronic kidney disease stage 3A (HCC) C-REACTIVE PROTEIN Routine 10/22/2024 12 :26 PM EDT 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) Other proteinuria SLE glomerulonephritis syndrome, 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HCC) Anemia in chronic kidney disease Nephrotic syndrome Fluid overload, not otherwise specified Chronic kidney disease stage 3A (HCC) SEDIMENTATION RATE, AUTOMATED Routine 10/22/2024 12:26 PM EDT 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) Other proteinuria SLE glomerulonephritis syndrome, 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HCC) Anemia in chronic kidney disease Nephrotic syndrome Fluid overload, not otherwise specified Chronic kidney disease stage 3A (HCC) URINALYSIS WITH MICROSCOPIC Routine 10/22/2024 12:26 PM EDT 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) Other proteinuria SLE glomerulonephritis syndrome, 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HCC) Anemia in chronic kidney disease Nephrotic syndrome Fluid overload, not otherwise specified Chronic kidney disease stage 3A (HCC) CBC AND DIFFERENTIAL Routine 10/22/2024 12:26 PM EDT 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) Other proteinuria SLE glomerulonephritis syndrome, 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HCC) Anemia in chronic kidney disease Nephrotic syndrome Fluid overload, not otherwise specified Chronic kidney disease stage 3A (HCC) MICROSCOPIC EXAMINATION - DO NOT USE Routine 10/22/2024 12:26 PM EDT COMPREHENSIVE METABOLIC PANEL Routine 10/11/2024 11:22 AM EDT 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) Other proteinuria SLE glomerulonephritis syndrome, 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HCC) Anemia in chronic kidney disease Nephrotic syndrome Fluid overload, not otherwise specified Chronic kidney disease stage 3A (HCC) PROTEIN / CREATININE RATIO, URINE Routine 10/11/2024 11:22 AM EDT 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) Other proteinuria SLE glomerulonephritis syndrome, 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HCC) Anemia in chronic kidney disease Nephrotic syndrome Fluid overload, not otherwise specified Chronic kidney disease stage 3A (HCC) C-REACTIVE PROTEIN Routine 10/11/2024 11 :22 AM EDT 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) Other proteinuria SLE glomerulonephritis syndrome, 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HCC) Anemia in chronic kidney disease Nephrotic syndrome Fluid overload, not otherwise specified Chronic kidney disease stage 3A (HCC) SEDIMENTATION RATE, AUTOMATED Routine 10/11/2024 11:22 AM EDT 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) Other proteinuria SLE glomerulonephritis syndrome, 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HCC) Anemia in chronic kidney disease Nephrotic syndrome Fluid overload, not otherwise specified Chronic kidney disease stage 3A (HCC) URINALYSIS WITH MICROSCOPIC Routine 10/11/2024 11:22 AM EDT 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) Other proteinuria SLE glomerulonephritis syndrome, 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HCC) Anemia in chronic kidney disease Nephrotic syndrome Fluid overload, not otherwise specified Chronic kidney disease stage 3A (HCC) CBC AND DIFFERENTIAL Routine 10/11/2024 11:22 AM EDT 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 WBC, Urine 0-5 0 - 5 /hpf [facility] RBC, Urine 3-10(A) 0 - 2 /hpf [facility] Squamous Epithelial, Urine 0-10 0 - 10 /hpf [facility] Casts None seen None seen /lpf [facility] Bacteria, Urine None seen None seen/Few [facility] 10/22/2024 12:2 6 PM EDT 10/22/2024 us Omar Garcia MD LAB MICROBIOLOGY - GENERAL OR DERABLES Final Result [facility] [address] [place] [address] * (ABNORMAL) Urine Protein / creatinine ratio (10/22/2024 12:26 PM EDT) Only the most recent of3 resultswithin the time period is included. Creatinine, Ur 167.4 Not Estab. mg/dL [facility] Protein, Ur 1,593.3 Not Estab. mg/dL [facility] Comment: Results confirmed on dilution. Urine Protein/Creati nine Ratio 9,518(H) 0 - 200 mg/g creat [facility] Urine (Urine, Clean Catch) 10/22/2024 12:26 PM EDT 10/22/2024 us Omar Garcia MD LAB URINE ORDERABLES Final Re sult [facility] [address] [place] [address] * (ABNORMAL) Urinalysis with microscopic (10/22/2024 12:26 PM EDT) Only the most recent of3 resultswithin the time period is included. Specific Dora, Urine 1.028 1.005 - 1.030 [facility] pH Urine 6.5 5.0 - 7.5 [facility] Color, Urine Yellow Yellow [facility] Appearance Urine Clear Clear [facility] WBC Esterase Urine Negative Negative [facility] Protein, Ur 4+(A) Negative/Tra ce [facility] Glucose, Ur Trace(A) Negative [facility] [phone] Ketones, Urine Negative Negative [facility] Blood Urine Trace(A) Negative [facility] Bilirubin Urine Negative Negative [facility] Urobilinogen Urine 0.2 0.2 - 1.0 mg/dL [facility] Nitrite, Urine Negative Negative [facility] Microscopic Examination See below: [facility] Comment:Microscopic was shashi cated and was performed. Urine (Urine, Clean Catch) 10/22/2024 12:26 PM EDT 10/22/2024 Omar Garcia MD LAB URINE ORDERABLES Final Re sult Performing Organization Address City/[facility] Co de Phone Number [facility] [address] [place] [address] * (ABNORMAL) Sedimentation Rate (10/22/2024 12:26 PM EDT) Only the most recent of3 resultswithin the time period is included. Sed Rate 77(H) 0 - 32 mm/hr [facility] Blood (Blood, Venous) 10/22/2024 12:26 PM EDT 10/22/2024 Omar Garcia MD LAB BLOOD ORDERABLES Final Re sult Performing Organization Address [facility] de Phone Number [facility] [address] [place] [address] * (ABNORMAL) CBC and differential (10/22/2024 12:26 PM EDT) Only the most recent of3 resultswithin the time period is included. WBC 13.2(H) 3.4 - 10.8 x10E3/uL [facility] RBC 4.53 3.77 - 5.28 x10E6/uL [facility] Hemoglobin 11.9 11.1 - 15.9 g/dL [facility] Hematocrit 36.6 34.0 - 46.6 % [facility] MCV 81 79 - 97 fL [facility] MCH 26.3(L) 26.6 - 33.0 pg [facility] MCHC 32.5 31.5 - 35.7 g/dL [facility] RDW 15.9(H) 11.7 - 15.4 % [facility] Platelets 365 150 - 450 x10E3/uL [facility] Immature Granulocytes 1 Not Estab. % [facility] Immature Grans (Absolute) 0.1 0.0 - 0.1 x10E3/uL [facility] Neutrophils Relative 78 Not Estab. % [facility] Lymphocytes Relative 14 Not Estab. % [facility] Monocytes 6 Not Estab. % [facility] Eosinophils Relative 1 Not Estab. % [facility] Basophils Relative 0 Not Estab. % [facility] Neutrophils Absolute 10.4(H) 1.4 - 7.0 x10E3/uL [facility] Lymphocytes Absolute 1.8 0.7 - 3.1 x10E3/uL [facility] Monocytes Absolute 0.7 0.1 - 0.9 x10E3/uL [facility] Eosinophils Absolute 0.2 0.0 - 0.4 x10E3/uL [facility] Basophils Absolute 0.0 0.0 - 0.2 x10E3/uL [facility] Blood (Blood, Venous) 10/22/2024 12:26 PM EDT 10/22/2024 us Omar Garcia MD LAB BLOOD ORDERABLES Final Re sult [facility] [address] [place] [address] * C-Reactive Protein (10/22/2024 12:26 PM EDT) Only the most recent of3 resultswithin the time period is included. C-Reactive Protein Quant 2 0 - 10 mg/L [facility] Blood (Blood, Venous) 10/22/2024 12:26 PM EDT 10/22/2024 us Omar Garcia MD LAB BLOOD ORDERABLES Final Re sult [facility] [address] [place] [address] * (ABNORMAL) Comprehensive metabolic panel (10/22/2024 12:26 PM EDT) Only the most recent of3 resultswithin the time period is included. Glucose 88 70 - 99 mg/dL [facility] BUN 18 6 - 20 mg/dL [facility] Creatinine 1.09(H) 0.57 - 1.00 mg/dL [facility] eGFR CKD-EPI CR 2020 72 >59 mL/min/1.7 3 [facility] BUN/Creatinine Ratio 17 9 - 23 [facility] Sodium 139 134 - 144 mmol/L [facility] Potassium 4.4 3.5 - 5.2 mmol/L [facility] Chloride 107(H) 96 - 106 mmol/L [facility] Bicarbonate (CO2) 19(L) 20 - 29 mmol/L [facility] Calcium 8.3(L) 8.7 - 10.2 mg/dL [facility] Total Protein 4.7(L) 6.0 - 8.5 g/dL [facility] Albumin 2.5(L) 4.0 - 5.0 g/dL [facility] Globulin 2.2 1.5 - 4.5 g/dL [facility] Total Bilirubin <0.2 0.0 - 1.2 mg/dL [facility] Comment:Verified by repeat analysis Alkaline Phosphatase 68 44 - 121 IU/L [facility] AST (SGOT) 17 0 - 40 IU/L [facility] ALT (SGPT) 13 0 - 32 IU/L [facility] Blood (Blood, Venous) 10/22/2024 12:26 PM EDT 10/22/2024 Omar Garcia MD LAB BLOOD ORDERABLES Final Re sult Performing Organization Address [facility] de Phone Number [facility] [address] [place] [address] * (ABNORMAL) Hemoglobin A1c (12/20/2023 11:47 AM EDT) [facility] Hemoglobin A1C 5.9(H) 4.8 - 5.6 % See order comments Comment: ? Prediabetes: 5.7 - 6.4 ? Diabetes: >6.4 ? Glycemic control for adults with diabetes: <7.0 Blood (Blood, Venous) 12/20/2023 11:47 AM EDT 12/20/2023 Narrative [facility] - 12/21/2023 4:08 PM EDT Performed at: ??01 - [facility] [address] [place], [place] ??[id number] English As A Second Language Instructor: Mitzy Knutson MD, Phone: ??[phone] Omar Garcia MD LAB BLOOD ORDERABLES Final Re sult [facility] See order comments [place] [address] from Last 3 Months or Most Recently Relevant to Health Maintenance Insurance Medicaid [place] Medicare Care Teams Human Resource Statistician Relationship Specialty Start Date End Date Denise Blancas MD [address] [place] [address] PCP - General Internal Medicine 06/27/24
--- OUTSIDE RECORDS SUMMARY | 2024-10-25 09:06 | XMS_ITS | Encounter Summary ---
Author Organization [facility] [place], Address [address] [place] [address] Phone Care Team Providers Care Engraver Hand Soft Metals Name Role Phone Denise Blancas MD Primary Care Provider [phone] Encounter Details Date Type Department Care Team (Late st Contact Info) Description 08/22/2024 Documentation Only [facility] [place], [address] [address] Rhianna Castro [address] [place] [address] Social History Tobacco Use Types [...] Visit [facility] [address] [place] [address] Breonna Le MD [address] [place] [address] documented as of this encounter Visit Diagnoses Not on filedocumented in this encounter Care Teams Engraver Hand Soft Metals Relationship Specialty Start Date End Date Denise Blancas MD [address] [place] [address] PCP - General Internal Medicine 06/27/24 documented as of this encounter
--- OUTSIDE RECORDS SUMMARY | 2024-10-25 09:06 | XMS_ITS | Encounter Summary ---
Author Organization [facility] [place], Address [address] [place] [address] Phone Care Team Providers Care Meat Puller Name Role Phone Denise Blancas MD Primary Care Provider [phone] Encounter Details Date Type Department Care Team (Late st Contact Info) Description 09/01/2023 Documentation Only [facility] [place], [address] [place] [address] Omar Garcia MD [address] [place] [address] [place] [address] Social History Tobacco Use Types [...] Visit [facility] [address] [place] [address] Breonna Le MD [address] [place] [address] documented as of this encounter Visit Diagnoses Not on filedocumented in this encounter Care Teams Meat Puller Relationship Specialty Start Date End Date O'Vazquez, Denise M, MD [address] [place] [address] PCP - General Internal Medicine 06/27/24 documented as of this encounter
--- OUTSIDE RECORDS SUMMARY | 2024-10-25 09:06 | XMS_ITS | Encounter Summary ---
Author Organization [facility] Address [address] [place] [address] Phone Care Team Providers Care System Administrator Name Role Phone Denise Blancas MD Primary Care Provider Encounter Details Date Type Department Care Team (Latest Contact Info) Description 01/19/2024 Orders Only [facility] [address] [place] [address] Jovanna Schaeffer MD SLE glomerulonephritis [...] Visit [facility] [address] [place] [address] Breonna Le MD [address] [place] [address] [place] [address] documented as of this encounter Procedures Procedure Name Priority Date/Time Associated Diagnosis Comments ANTI-DNA ANTIBODY, DOUBLE-STRANDED Routine 02/06/2024 3:02 PM EDT SLE glomerulonephritis syndrome, 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HCC) documented in this encounter Results * Anti-DNA antibody, double-stranded (02/06/2024 3:02 PM EDT) DS DNA Ab 2 0 - 9 IU/mL [facility] Comment: ? Negative ?<5 ? Equivocal ??5 - 9 ? Positive ?>9 Blood (Blood, Venous) 02/06/2024 3:02 PM EDT 02/06/2024 us Jvoanna Schaeffer MD LAB BLOOD ORDERABLES Final Resul t [facility] [address] [place] [address] documented in this encounter Visit Diagnoses Diagnosis SLE glomerulonephritis syndrome, 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HCC) documented in this encounter Care Teams System Administrator Relationship Specialty Start Date End Date Denise Blancas MD [address] [place] [address] PCP - General Internal Medicine 06/27/24 documented as of this encounter
--- OUTSIDE RECORDS SUMMARY | 2024-10-25 09:06 | XMS_ITS | Encounter Summary ---
Author Organization [facility] Address [address] [place] [address] 7 [place] [address] Care Team Providers Care Work Order Clerk Name Role Phone Vreena Hardin Primary Care Provider [phone] Encounter Details Date Type Department Care Team (Late st Contact Info) Description 06/01/2022 Orders Only [facility] [address] [place] [address] Norma Reich, RN [address] [place] [address] Social History Tobacco Use Types Packs/Day Years [...] on filedocumented in this encounter Care Teams Work Order Clerk Relationship Specialty Start Date End Date Verena Hardin FNP [address] [place] [address] PCP - General Family Medicine 12/14/21 05/29/23 documented as of this encounter
--- OUTSIDE RECORDS SUMMARY | 2024-10-25 09:06 | XMS_ITS | Encounter Summary ---
Author Organization [facility] Address [address] [place] [address] Phone Care Team Providers Care Chair Finisher Name Role Phone Denise Blancas MD Primary Care Provider [phone] Encounter Details Date Type Department Care Team (Latest Contact Info) Description 08/16/2024 Orders Only [facility] [address] [place] [address] Rhianna Castro [address] [place] [address] 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 lupus [...] Visit [facility] [address] [place] [address] Breonna Le MD [address] [facility] [place] [address] documented as of this encounter Visit Diagnoses Diagnosis 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
--- OUTSIDE RECORDS SUMMARY | 2024-10-25 09:06 | XMS_ITS | Encounter Summary ---
Author Organization [facility] Address [address] [place] [address] Phone Care Team Providers Care Full Decator Operator Name Role Phone Denise Blancas MD Primary Care Provider [phone] Encounter Details Date Type Department Care Team (Latest Contact Info) Description 09/16/2022 Orders Only [facility] [address] [place] [address] Jovanna Schaeffer MD SLE glomerulonephritis [...] [facility] [address] [place] [address] Breonna Le MD [address] [place] [address] [place] [address] documented as of this encounter Visit Diagnoses Diagnosis SLE glomerulonephritis syndrome, 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HCC) documented in this encounter Care Teams Full Decator Operator Relationship Specialty Start Date End Date Denise Blancas MD [address] [place] [address] PCP - General Internal Medicine 06/27/24 documented as of this encounter
--- OUTSIDE RECORDS SUMMARY | 2024-10-25 09:06 | XMS_ITS | Encounter Summary ---
Author Organization [facility] Address [address] [place] [address] Phone Care Team Providers Care Chief Ultrasound Technologist Name Role Phone Denise Blancas MD Primary Care Provider [phone] Encounter Details Date Type Department Care Team (Latest Contact Info) Description 10/11/2024 Orders Only [facility] [address] [place] [address] Rhianna Castro [address] [place] [address] 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); Other proteinuria; SLE glomerulonephritis syndrome, 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HCC); Anemia in chronic kidney disease; Nephrotic syndrome; Fluid overload, not otherwise specified; Chronic kidney disease stage 3A ([facility]) Social History Tobacco Use Types Packs/Day [...] Visit [facility] [address] [place] [address] Breonna Le MD [address] [place] [address] documented as of this encounter Procedures Procedure Name Priority Date/Time Associated Diagnosis Comments MICROSCOPIC EXAMINATION - DO NOT USE Routine 10/11/2024 11:22 AM EDT PROTEIN / CREATININE RATIO, URINE Routine 10/11/2024 [...] stage 3A (HCC) COMPREHENSIVE METABOLIC PANEL Routine 10/11/2024 11:22 AM EDT 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) Other proteinuria SLE glomerulonephritis syndrome, 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HCC) Anemia in chronic kidney disease Nephrotic syndrome Fluid overload, not otherwise specified Chronic kidney disease stage 3A (HCC) documented in this encounter Results * (ABNORMAL) Microscopic Examination (10/11/2024 11:22 AM EDT) WBC, Urine 0-5 0 - 5 /hpf [facility] RBC, Urine 3-10(A) 0 - 2 /hpf [facility] Squamous Epithelial, Urine 0-10 0 - 10 /hpf [facility] Casts None seen None seen /lpf [facility] Bacteria, Urine None seen None seen/Few [facility] 10/11/2024 11:2 2 AM EDT 10/11/2024 us Omar Garcia MD LAB MICROBIOLOGY - GENERAL OR DERABLES Final Result [facility] [address] [place] [address] * (ABNORMAL) Comprehensive metabolic panel (10/11/2024 11:22 AM EDT) Glucose 99 70 - 99 mg/dL [facility] BUN 20 6 - 20 mg/dL [facility] Creatinine 1.14(H) 0.57 - 1.00 mg/dL [facility] eGFR CKD-EPI CR 2020 69 >59 mL/min/1.7 3 [facility] BUN/Creatinine Ratio 18 9 - 23 [facility] Sodium 140 134 - 144 mmol/L [facility] Potassium 4.1 3.5 - 5.2 mmol/L [facility] Chloride 112(H) 96 - 106 mmol/L [facility] Bicarbonate (CO2) 17(L) 20 - 29 mmol/L [facility] Calcium 8.4(L) 8.7 - 10.2 mg/dL [facility] Total Protein 4.5(L) 6.0 - 8.5 g/dL [facility] Albumin 2.4(L) 4.0 - 5.0 g/dL [facility] Globulin 2.1 1.5 - 4.5 g/dL [facility] Total Bilirubin <0.2 0.0 - 1.2 mg/dL [facility] Alkaline Phosphatase 64 44 - 121 IU/L [facility] AST (SGOT) 16 0 - 40 IU/L [facility] ALT (SGPT) 11 0 - 32 IU/L [facility] Blood (Blood, Venous) 10/11/2024 11:22 AM EDT 10/11/2024 us Omar Garcia MD LAB BLOOD ORDERABLES Final Re sult [facility] [address] [place] [address] * (ABNORMAL) Urine Protein / creatinine ratio (10/11/2024 11:22 AM EDT) Creatinine, Ur 155.8 Not Estab. mg/dL [facility] Protein, Ur 1,350.3 Not Estab. mg/dL [facility] Comment: Results confirmed on dilution. Urine Protein/Creati nine Ratio 8,667(H) 0 - 200 mg/g creat [facility] Urine (Urine, Clean Catch) 10/11/2024 11:22 AM EDT 10/11/2024 Omar Garcia MD LAB URINE ORDERABLES Final Re sult Performing Organization Address City/[facility]/ZIP Co de Phone Number [facility] [address] [place] [address] * C-Reactive Protein (10/11/2024 11:22 AM EDT) Pathologist [facility] C-Reactive Protein Quant 1 0 - 10 mg/L [facility] Blood (Blood, Venous) 10/11/2024 11:22 AM EDT 10/11/2024 Omar Garcia MD LAB BLOOD ORDERABLES Final Re sult Performing Organization Address [facility] Co de Phone Number [facility] [address] [place] [address] * (ABNORMAL) Sedimentation Rate (10/11/2024 11:22 AM EDT) [facility] Sed Rate 72(H) 0 - 32 mm/hr [facility] Blood (Blood, Venous) 10/11/2024 11:22 AM EDT 10/11/2024 Omar Garcia MD LAB BLOOD ORDERABLES Final Re sult Performing Organization Address City/[facility]/ZIP Co de Phone Number [facility] [address] [place] [address] * (ABNORMAL) Urinalysis with microscopic (10/11/2024 11:22 AM EDT) Pathologist [facility] Specific [place], Urine 1.028 1.005 - 1.030 [facility] [phone] pH Urine 6.0 5.0 - 7.5 [facility] [phone] Color, Urine Yellow Yellow [facility] [phone] Appearance Urine Clear Clear [facility] [phone] WBC Esterase Urine Negative Negative [facility] Protein, Ur 4+(A) Negative/Tra ce [facility] Glucose, Ur Trace(A) Negative [facility] Ketones, Urine Negative Negative [facility] Blood Urine Trace(A) Negative [facility] [phone] Bilirubin Urine Negative Negative [facility] Urobilinogen Urine 0.2 0.2 - 1.0 mg/dL [facility] [phone] Nitrite, Urine Negative Negative [facility] Microscopic Examination See below: [facility] Comment:Microscopic was shashi cated and was performed. Urine (Urine, Clean Catch) 10/11/2024 11:22 AM EDT 10/11/2024 us Omar Garcia MD LAB URINE ORDERABLES Final Re sult [facility] [address] [place] [address] * (ABNORMAL) CBC and differential (10/11/2024 11:22 AM EDT) WBC 13.4(H) 3.4 - 10.8 x10E3/uL [facility] RBC 4.60 3.77 - 5.28 x10E6/uL [facility] Hemoglobin 12.2 11.1 - 15.9 g/dL [facility] Hematocrit 36.7 34.0 - 46.6 % [facility] MCV 80 79 - 97 fL [facility] MCH 26.5(L) 26.6 - 33.0 pg [facility] MCHC 33.2 31.5 - 35.7 g/dL [facility] RDW 16.0(H) 11.7 - 15.4 % [facility] Platelets 362 150 - 450 x10E3/uL [facility] Neutrophils Relative 72 Not Estab. % [facility] Lymphocytes Relative 20 Not Estab. % [facility] Monocytes 5 Not Estab. % [facility] Eosinophils Relative 2 Not Estab. % [facility] Basophils Relative 0 Not Estab. % [facility] Neutrophils Absolute 9.7(H) 1.4 - 7.0 x10E3/uL [facility] Lymphocytes Absolute 2.6 0.7 - 3.1 x10E3/uL [facility] Monocytes Absolute 0.7 0.1 - 0.9 x10E3/uL [facility] Eosinophils Absolute 0.2 0.0 - 0.4 x10E3/uL [facility] Basophils Absolute 0.1 0.0 - 0.2 x10E3/uL [facility] Immature Granulocytes 1 Not Estab. % [facility] Immature Grans (Absolute) 0.1 0.0 - 0.1 x10E3/uL [facility] Blood (Blood, Venous) 10/11/2024 11:22 AM EDT 10/11/2024 us Omar Garcia MD LAB BLOOD ORDERABLES Final Re sult [facility] [address] [place] [address] documented in this encounter Visit Diagnoses Diagnosis 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) Other proteinuria SLE glomerulonephritis syndrome, 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HCC) Anemia in chronic kidney disease Nephrotic syndrome Fluid overload, not otherwise specified Chronic kidney disease stage 3A (HCC) documented in this encounter Care Teams Chief Ultrasound Technologist Relationship Specialty Start Date End Date Denise Blancas MD [address] [facility] [place] [address] PCP - General Internal Medicine 06/27/24 documented as of this encounter
--- OUTSIDE RECORDS SUMMARY | 2024-10-25 09:06 | XMS_ITS | Encounter Summary ---
Author Organization [facility] [place], Address [address] [place] [address] Phone Care Team Providers Care Blasting Contract Miner Name Role Phone Denise Blancas MD Primary Care Provider [phone] Encounter Details Date Type Department Care Team (Late st Contact Info) Description 08/01/2024 Documentation Only [facility] [place], [address] [facility] [place] [address] [place], [place] [address] [place] [address] Social History Tobacco Use Types [...] Visit [facility] [place], [address] [facility] [place] [address] Breonna Le MD [address] [place] [address] [place] [address] documented as of this encounter Visit Diagnoses Not on filedocumented in this encounter Care Teams Blasting Contract Miner Relationship Specialty Start Date End Date Denise Blancas MD [address] [place] [address] PCP - General Internal Medicine 06/27/24 documented as of this encounter
--- OUTSIDE RECORDS SUMMARY | 2024-10-25 09:06 | XMS_ITS | Encounter Summary ---
Author Organization [facility] [place], Address [address] [place] [address] Phone Care Team Providers Care Water Main Installer Helper Name Role Phone Denise Blancas MD Primary Care Provider [phone] Encounter Details Date Type Department Care Team (Late st Contact Info) Description 08/22/2024 Documentation Only [facility] [place], [address] [facility] [place] [address] Rhianna Castro [address] [place] [address] Social History Tobacco Use Types [...] Visit [facility] [address] [facility] [place] [address] Breonna Le MD [address] [facility] [place] [address] documented as of this encounter Visit Diagnoses Not on filedocumented in this encounter Care Teams Water Main Installer Helper Relationship Specialty Start Date End Date Denise Blancas MD [address] [place] [address] PCP - General Internal Medicine 06/27/24 documented as of this encounter
--- OUTSIDE RECORDS SUMMARY | 2024-10-25 09:06 | XMS_ITS | Encounter Summary ---
Author Organization [facility] Address [address] [place] [address] Phone Care Team Providers Care Recording Engineer Name Role Phone Denise Blancas MD Primary Care Provider [phone] Encounter Details Date Type Department Care Team (Latest Contact Info) Description 10/24/2024 2:30 PM EDT Office Visit [facility] [place], [address] [place] [address] Breonna Le MD [address] [place] [address] (Primary Dx); SLE glomerulonephritis syndrome, 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HCC); Chronic kidney disease stage 3A (HCC); Nephrotic syndrome; 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) Social History Tobacco Use Types Packs/Day [...] Pressure 142/107 10/24/2024 3:26 PM EDT Pulse - - Temperature - - Respiratory Rate - - Oxygen Saturation - - Inhaled Oxygen Concentration - - Weight - - Height - - Body Mass Index - - documented in this encounter Plan of Treatment Upcoming Encounters Date Type Department Care Team (Late st Contact Info) Description 11/14/2024 2:00 PM EDT Office Visit [facility] [place], [address] [address] Breonna Le MD [address] [place] [address] Scheduled Orders Name Type Priority Associated Diagnoses Orde r Schedule Tacrolimus level Lab Routine SLE glomerulonephritis syndrome, 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HCC) Chronic kidney disease stage 3A (HCC) Nephrotic syndrome 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) Expected: 10/24/2024, Expires: 11/23/2025 documented as of this encounter Visit Diagnoses Diagnosis - Primary SLE glomerulonephritis syndrome, 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HCC) Chronic kidney disease stage 3A (HCC) Nephrotic syndrome 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) documented in this encounter Care Teams Recording Engineer Relationship Specialty Start Date End Date Denise Blancas MD [address] [place] [address] PCP - General Internal Medicine 06/27/24 documented as of this encounter
--- OUTSIDE RECORDS SUMMARY | 2024-10-25 09:06 | XMS_ITS | Encounter Summary ---
Author Organization [facility] Address [address] [place] [address] Phone Care Team Providers Care Web Services Manager Name Role Phone Denise Blancas MD Primary Care Provider [phone] Encounter Details Date Type Department Care Team (Latest Contact Info) Description 08/05/2022 Orders Only [facility] [address] [place] [address] Jovanna Schaeffer MD SLE glomerulonephritis [...] Visit [facility] [address] [place] [address] Breonna Le MD [address] [place] [address] [place] [address] documented as of this encounter Visit Diagnoses Diagnosis SLE glomerulonephritis syndrome, 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HCC) documented in this encounter Care Teams Web Services Manager Relationship Specialty Start Date End Date Denise Blancas MD [address] [place] [address] PCP - General Internal Medicine 06/27/24 documented as of this encounter
--- OUTSIDE RECORDS SUMMARY | 2024-10-25 09:06 | XMS_ITS | Encounter Summary ---
Author Organization [facility] [place], Address [address] [place] [address] Phone Care Team Providers Care Rodbuster Name Role Phone Denise Blancas MD Primary Care Provider [phone] Encounter Details Date Type Department Care Team (Late st Contact Info) Description 07/17/2024 Documentation Only [facility] [place], [address] [facility] [place] [address] Rhianna Castro [address] [place], [place] [...] Visit [facility] [address] [facility] [address] [facility] [place] [address] Breonna Le MD [address] [facility] [place] [address] documented as of this encounter Visit Diagnoses Not on filedocumented in this encounter Care Teams Rodbuster Relationship Specialty Start Date End Date Denise Blancas MD [address] [place] [address] PCP - General Internal Medicine 06/27/24 documented as of this encounter
--- OUTSIDE RECORDS SUMMARY | 2024-10-25 09:06 | XMS_ITS | Encounter Summary ---
Author Organization [facility] Address [address] [place] [address] Phone Care Team Providers Care Rn Cvor Name Role Phone Denise Blancas MD Primary Care Provider [phone] Encounter Details Date Type Department Care Team (Latest Contact Info) Description 09/02/2022 Orders Only [facility] [address] [place] [address] Jovanna Schaeffer MD SLE glomerulonephritis [...] Visit [facility] [address] [place] [address] Breonna Le MD [address] [place] [address] [place] [address] documented as of this encounter [...] AM EDT) C3 Complement 118 (90-180) MG/DL [facility] Comment: Testing performed or reported by [facility], a Service of [facility], [address] [place] [address] Cherri Lucas MD, Hose Tubing Backer IA# [id number] Blood (Blood, Venous) 10/03/2022 11:04 AM EDT 10/03/2022 11:12 AM EDT Result [facility] Jovanna Schaeffer MD LAB BLOOD ORDERABLES Final Resul t [facility] * C4 Complement (10/03/2022 11:04 AM EDT) Pathologist [facility] [place] C4 Complement 22 (10-40) MG/DL [facility] Comment: Testing performed or reported by [facility], a Service of [facility], [address] [place] [address] Cherri Lucas MD, Hose Tubing Backer CLIA# [id number] Blood (Blood, Venous) 10/03/2022 11:04 AM EDT 10/03/2022 11:12 AM EDT Result [facility] Jovanna Schaeffer MD LAB BLOOD ORDERABLES Final Resul t Performing Organization Address City/[facility] Co de Phone Number [facility] * (ABNORMAL) DANNIE Panel (10/03/2022 11:04 AM EDT) Pathologist [facility] [place] DANNIE Screen POSITIVE(A ) [facility] Comment: (NOTE) ?Negative ?? <1:80 ?Borderline ??1:80 ?Positive ?? >1:80 Test performed [facility], [address] [place] [address] Testing performed or reported by [facility], a Service of [facility], [address] [place] [address] Robbie Cardona MD, Hose Tubing Backer JAME# [id number] Blood (Blood, Venous) 10/03/2022 11:04 AM EDT 10/03/2022 11:13 AM EDT Result [facility] Jovanna Schaeffer MD LAB BLOOD ORDERABLES Final Resul t Performing Organization Address [facility] de Phone Number [facility] * Anti-DNA antibody, double-stranded (10/03/2022 11:04 AM EDT) Pathologist [facility] Anti DNA, [place] [address] [facility] Comment: Reference range: 0 to 9 Unit: IU/mL (NOTE) ?Negative ?<5 ?Equivocal ??5 - 9 ?Positive ?>9 Test performed by [facility], [address] [place] [address] Testing performed or reported by [facility], a Service of [facility], [address] [place] [address] Robbie Cardona MD, Hose Tubing Backer CLIA# [id number] Blood (Blood, Venous) 10/03/2022 11:04 AM EDT 10/03/2022 11:13 AM EDT Jovanna Schaeffer MD LAB BLOOD ORDERABLES Final Resul t Performing Organization Address [facility] de Phone Number [facility] * C-Reactive Protein (10/03/2022 11:04 AM EDT) [facility] CRP <0.3 (0-0.5) MG/DL [facility] Comment: Testing performed or reported by [facility], a Service of [facility], [address] [place] [address] Cherri Lucas MD, Hose Tubing Backer CLIA# [id number] Blood (Blood, Venous) 10/03/2022 11:04 AM EDT 10/03/2022 11:12 AM EDT Jovanna Schaeffer MD LAB BLOOD ORDERABLES Final Resul t Performing Organization Address [facility] de Phone Number [facility] * (ABNORMAL) Sedimentation Rate (10/03/2022 11:04 AM EDT) Sed Rate 47(H) (0-20) MM/HR [facility] Comment: Testing performed or reported by [facility], [place] [address] Cherri Lucas MD, Hose Tubing Backer IA# [id number] Blood (Blood, Venous) 10/03/2022 11:04 AM EDT 10/03/2022 11:13 AM EDT Result [facility] Jovanna Schaeffer MD LAB BLOOD ORDERABLES Final Resul t Performing Organization Address [facility] Phone Number [facility] * (ABNORMAL) Urine Albumin / Creatinine Ratio (10/03/2022 11:04 AM EDT) Pathologist [facility] Urine Microalbumin 576.4(H) (<20) MG/L [facility] Comment: The urine microalbumin test is designed to monitor renal function. When screening for [place]ne proteinuria, urine electrophoresis is recommended. Microalbumin/Creati nine Ratio 2,088.4(H ) (0-20) MG/GM [facility] Microalb/Creat Ratio 27.6 MG/DL [facility] Comment: Testing performed or reported by [facility], a Service of [place] [id number] Cherri Lucas MD, Hose Tubing Backer [facility]# [id number] Urine (Urine, Clean Catch) 10/03/2022 11:04 AM EDT 10/03/2022 11:12 AM EDT Result [facility] Jovanna Schaeffer MD LAB URINE ORDERABLES Final Resul t Performing Organization Address [facility] de Phone Number [facility] * (ABNORMAL) Protein, Total, Random Urine w/Creatinine (Protein/Creat Ratio) (10/03/2022 11:04 AM EDT) [facility] Protein/Creatine Ratio 2.73(H) (0-0.2) [facility] Protein, Urine 75 MG/DL [facility] Comment: The urine microalbumin test is designed to monitor renal function. When screening for [place] proteinuria, urine electrophoresis is recommended. Creatinine, Urine 27.6 MG/DL [facility] Comment: Testing performed or reported by [facility], a Service of [facility], [address] [place] [address] Cherri Lucas MD, Hose Tubing Backer [facility]# [id number] Urine (Urine, Clean Catch) 10/03/2022 11:04 AM EDT 10/03/2022 11:12 AM EDT us Jovanna Schaeffer MD LAB URINE ORDERABLES Final Resul t [facility] * (ABNORMAL) Urinalysis with microscopic (10/03/2022 11:04 AM EDT) [facility] Appearance COLORLESS [facility] Comment:CLEAR Specific [place] 1.009 (1.002-1. 030) [facility] pH Urine 6.0 (5.0-8.0) [facility] Albumin, Urine 2+(A) (NEG) [facility] Glucose, Ur NEGATIVE (NEG) [facility] Ketones, Urine NEGATIVE (NEG) [facility] Bilirubin Urine NEGATIVE (NEG) [facility] Hemoglobin Presence in Urine NEGATIVE (NEG) [facility] Nitrite, Urine NEGATIVE (NEG) [facility] Leukocyte Esterase Urine NEGATIVE (NEG) [facility] Urobilinogen Urine NORMAL (NORM) MG/DL [facility] WBC, Urine <1 (0-5) /HPF [facility] RBC, Urine 1 (0-3) /HPF [facility] Bacteria SLIGHT(A) (NEG) HPF [facility] Mucus, Urine SLIGHT /LPF [facility] Squamous Epithelial, Urine <1 (0-8) /HPF [facility] Hyaline Casts, Urine 1 (0-2) LPF [facility] Comment: Testing performed or reported by [facility], a Service of [facility], [address] [place] [address] Cherri Lucas MD, Hose Tubing Backer [facility]# [id number] Urine (Urine, Clean Catch) 10/03/2022 11:04 AM EDT 10/03/2022 11:12 AM EDT Jovanna Schaeffer MD LAB URINE ORDERABLES Final Resul t Performing Organization Address [facility] Co de Phone Number [facility] * (ABNORMAL) Renal Function Panel (10/03/2022 11:04 AM EDT) Glucose 87 (70-99) MG/DL [facility] BUN 23(H) (6-20) MG/DL [facility] Creatinine 1.0 (0.5-1.0) MG/DL [facility] Sodium 140 (133-145) MMOL/L [facility] Potassium 3.9 (3.6-5.2) MMOL/L [facility] Chloride 105 (98-107) MMOL/L [facility] Bicarbonate (CO2) 24 (22-29) MMOL/L [facility] Anion Gap 11 (4-17) [facility] Albumin 3.7 (3.4-4.8) GM/DL [facility] Calcium 9.2 (8.6-10.5) MG/DL [facility] Phosphorus, Serum 4.8(H) (2.5-4.5) MG/DL [facility] Est GFR Non 82 ML/MIN/1.7 3 M2 [facility] Comment: Creatinine based estimated glomerular filtration (eGFR) in adults is calculated using the National Kid[employer] recommended 2020 CKD-EPI equation. Estimates GFR from serum creatinine, age and sex. Testing performed or reported by [facility], a Service of [facility], [address] [place] [address] Cherri Lucas MD, Hose Tubing Backer [facility]# [id number] Blood (Blood, Venous) 10/03/2022 11:04 AM EDT 10/03/2022 11:12 AM EDT Jovanna Schaeffer MD LAB BLOOD ORDERABLES Final Resul t Performing Organization Address [facility] Co de Phone Number [facility] documented in this encounter Visit Diagnoses Diagnosis SLE glomerulonephritis syndrome, 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HCC) documented in this encounter Care Teams Rn Cvor Relationship Specialty Start Date End Date Denise Blancas MD [address] [facility] [place] [address] PCP - General Internal Medicine 06/27/24 documented as of this encounter
--- OUTSIDE RECORDS SUMMARY | 2024-10-25 09:06 | XMS_ITS | Encounter Summary ---
Author Organization [facility] [place], Address [address] [place] [address] Phone Care Team Providers Care Health Safety Coordinator Name Role Phone Denise Blancas MD Primary Care Provider [phone] Encounter Details Date Type Department Care Team (Late st Contact Info) Description 04/21/2022 Documentation Only [facility] [place], [address] [address] [place], [place] [address] [place] [address] Social History Tobacco Use Types [...] Visit [facility] [place], [address] [place] [address] Breonna Le MD [address] [place] [address] [place] [address] documented as of this encounter Visit Diagnoses Not on filedocumented in this encounter Care Teams Health Safety Coordinator Relationship Specialty Start Date End Date Denise Blancas MD [address] [facility] [place] [address] PCP - General Internal Medicine 06/27/24 documented as of this encounter
--- OUTSIDE RECORDS SUMMARY | 2024-10-25 09:06 | XMS_ITS | Encounter Summary ---
Author Organization [facility] Address [address] [place] [address] Phone Care Team Providers Care Rn Geriatric Name Role Phone Denise Blancas MD Primary Care Provider [phone] Encounter Details Date Type Department Care Team (Latest Contact Info) Description 12/23/2022 Orders Only [facility] [address] [place] [address] Jovanna Schaeffer MD SLE glomerulonephritis [...] [facility] [address] [place] [place] [address] Breonna Le MD [address] [place] [address] [place] [address] documented as of this encounter [...] PM EDT Performed at: ??01 - [facility] [address] ??[id number] Caster Operator: Mitzy Knutson MD, Phone: ??[phone] us Jovanna Schaeffer MD LAB [id number] ICITED RESULTS Final Result [facility] See order comments [place] [address] documented in this encounter Visit Diagnoses Diagnosis SLE glomerulonephritis syndrome, 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HCC) documented in this encounter Care Teams Rn Geriatric Relationship Specialty Start Date End Date Denise Blancas MD [address] [place] [address] PCP - General Internal Medicine 06/27/24 documented as of this encounter
--- OUTSIDE RECORDS SUMMARY | 2024-10-25 09:06 | XMS_ITS | Encounter Summary ---
Author Organization [facility] [place], Address [address] [place] [address] Phone Care Team Providers Care Enterprise Architect Name Role Phone Denise Blancas MD Primary Care Provider [phone] Encounter Details Date Type Department Care Team (Late st Contact Info) Description 08/22/2024 Documentation Only [facility] [place], [address] [facility] [place] [address] Rhianna Castro [address] [place] [address] Social History Tobacco Use Types [...] Visit [facility] [address] [facility] [facility] [place] [address] Breonna Le MD [address] [facility] [address] [place] [address] documented as of this encounter Visit Diagnoses Not on filedocumented in this encounter Care Teams Enterprise Architect Relationship Specialty Start Date End Date Denise Blancas MD [address] [place] [address] PCP - General Internal Medicine 06/27/24 documented as of this encounter
--- OUTSIDE RECORDS SUMMARY | 2024-10-25 09:06 | XMS_ITS | Encounter Summary ---
Author Organization [facility] [place], Address [address] [place] [address] Phone Care Team Providers Care Resource Specialist Name Role Phone Denise Blancas MD Primary Care Provider [phone] Encounter Details Date Type Department Care Team (Late st Contact Info) Description 10/24/2024 Documentation Only [facility] [place], [address] [facility] [facility] [place] [address] Rhianna Castro [address] [place] [address] Social History Tobacco Use Types [...] Visit [facility] [address] [facility] [place] [address] Breonna Le MD [address] [facility] [place] [address] documented as of this encounter Visit Diagnoses Not on filedocumented in this encounter Care Teams Resource Specialist Relationship Specialty Start Date End Date Denise Blancas MD [address] [place] [address] PCP - General Internal Medicine 06/27/24 documented as of this encounter
--- OUTSIDE RECORDS SUMMARY | 2024-10-25 09:06 | XMS_ITS | Encounter Summary ---
Author Organization [facility] Address [address] [place] [address] Phone Care Team Providers Care Resident Doctor Name Role Phone Denise Blancas MD Primary Care Provider [phone] Encounter Details Date Type Department Care Team (Latest Contact Info) Description 08/30/2024 Orders Only [facility] [address] [place] [address] Rhianna Castro [address] [place] [address] 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); Other proteinuria; SLE glomerulonephritis syndrome, 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HCC); Anemia in chronic kidney disease; Nephrotic syndrome; Fluid overload, not otherwise specified; Chronic kidney disease stage 3A ([facility]) Social History Tobacco Use Types [...] Visit [facility] [address] [place] [address] Breonna Le MD [address] [facility] [place] [address] documented as of this encounter Visit Diagnoses Diagnosis 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) Other proteinuria SLE glomerulonephritis syndrome, 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HCC) Anemia in chronic kidney disease Nephrotic syndrome Fluid overload, not otherwise specified Chronic kidney disease stage 3A (HCC) documented in this encounter Care Teams Resident Doctor Relationship Specialty Start Date End Date Denise Blancas MD [address] [place] [address] PCP - General Internal Medicine 06/27/24 documented as of this encounter
--- OUTSIDE RECORDS SUMMARY | 2024-10-25 09:06 | XMS_ITS | Encounter Summary ---
Author Organization [facility] Address [address] [place] [address] Phone Care Team Providers Care Facing Cutting Machine Operator Name Role Phone Denise Blancas MD Primary Care Provider [phone] Encounter Details Date Type Department Care Team (Latest Contact Info) Description 09/27/2024 Orders Only [facility] [address] [place] [address] Rhianna Castro [address] [place] [address] 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 lupus [...] Visit [facility] [address] [place] [address] Breonna Le MD [address] [facility] [place] [address] documented as of this encounter Procedures Procedure Name Priority Date/Time Associated Diagnosis Comments MICROSCOPIC EXAMINATION - DO NOT USE Routine 10/22/2024 12:26 PM EDT PROTEIN / CREATININE RATIO, URINE Routine 10/22/2024 [...] stage 3A (HCC) COMPREHENSIVE METABOLIC PANEL Routine 10/22/2024 12:26 PM EDT 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) Other proteinuria SLE glomerulonephritis syndrome, 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HCC) Anemia in chronic kidney disease Nephrotic syndrome Fluid overload, not otherwise specified Chronic kidney disease stage 3A (HCC) documented in this encounter Results * (ABNORMAL) Microscopic Examination (10/22/2024 12:26 PM EDT) WBC, Urine 0-5 0 - 5 /hpf [facility] RBC, Urine 3-10(A) 0 - 2 /hpf [facility] Squamous Epithelial, Urine 0-10 0 - 10 /hpf [facility] Casts None seen None seen /lpf [facility] Bacteria, Urine None seen None seen/Few [facility] 10/22/2024 12:2 6 PM EDT 10/22/2024 us Omar Garcia MD LAB MICROBIOLOGY - GENERAL OR DERABLES Final Result [facility] [address] [place] [address] * (ABNORMAL) Comprehensive metabolic panel (10/22/2024 12:26 PM EDT) Glucose 88 70 - 99 mg/dL [facility] BUN 18 6 - 20 mg/dL [facility] Creatinine 1.09(H) 0.57 - 1.00 mg/dL [facility] eGFR CKD-EPI CR 2020 72 >59 mL/min/1.7 3 [facility] BUN/Creatinine Ratio 17 9 - 23 [facility] Sodium 139 134 - 144 mmol/L [facility] Potassium 4.4 3.5 - 5.2 mmol/L [facility] Chloride 107(H) 96 - 106 mmol/L [facility] Bicarbonate (CO2) 19(L) 20 - 29 mmol/L [facility] Calcium 8.3(L) 8.7 - 10.2 mg/dL [facility] Total Protein 4.7(L) 6.0 - 8.5 g/dL [facility] Albumin 2.5(L) 4.0 - 5.0 g/dL [facility] Globulin 2.2 1.5 - 4.5 g/dL [facility] Total Bilirubin <0.2 0.0 - 1.2 mg/dL [facility] Comment:Verified by repeat analysis Alkaline Phosphatase 68 44 - 121 IU/L [facility] AST (SGOT) 17 0 - 40 IU/L [facility] ALT (SGPT) 13 0 - 32 IU/L [facility] Blood (Blood, Venous) 10/22/2024 12:26 PM EDT 10/22/2024 us Omar Garcia MD LAB BLOOD ORDERABLES Final Re sult [facility] [address] [place] [address] * (ABNORMAL) Urine Protein / creatinine ratio (10/22/2024 12:26 PM EDT) Creatinine, Ur 167.4 Not Estab. mg/dL [facility] Protein, Ur 1,593.3 Not Estab. mg/dL [facility] Comment: Results confirmed on dilution. Urine Protein/Creati nine Ratio 9,518(H) 0 - 200 mg/g creat [facility] Urine (Urine, Clean Catch) 10/22/2024 12:26 PM EDT 10/22/2024 Omar Garcia MD LAB URINE ORDERABLES Final Re sult Performing Organization Address [facility]/ZIP Co de Phone Number [facility] [address] [place] [address] * C-Reactive Protein (10/22/2024 12:26 PM EDT) Pathologist [facility] C-Reactive Protein Quant 2 0 - 10 mg/L [facility] Blood (Blood, Venous) 10/22/2024 12:26 PM EDT 10/22/2024 Omar Garcia MD LAB BLOOD ORDERABLES Final Re sult Performing Organization Address [facility] Co de Phone Number [facility] [address] [place] [address] * (ABNORMAL) Sedimentation Rate (10/22/2024 12:26 PM EDT) [facility] Sed Rate 77(H) 0 - 32 mm/hr [facility] Blood (Blood, Venous) 10/22/2024 12:26 PM EDT 10/22/2024 Omar Garcia MD LAB BLOOD ORDERABLES Final Re sult Performing Organization Address [facility] Co de Phone Number [facility] [address] [place] [address] * (ABNORMAL) Urinalysis with microscopic (10/22/2024 12:26 PM EDT) Pathologist [facility] Specific Roy, Urine 1.028 1.005 - 1.030 [facility] [phone] pH Urine 6.5 5.0 - 7.5 [facility] Color, Urine Yellow Yellow [facility] Appearance Urine Clear Clear [facility] WBC Esterase Urine Negative Negative [facility] Protein, Ur 4+(A) Negative/Tra ce [facility] Glucose, Ur Trace(A) Negative [facility] Ketones, Urine Negative Negative [facility] Blood Urine Trace(A) Negative [facility] [phone] Bilirubin Urine Negative Negative [facility] Urobilinogen Urine 0.2 0.2 - 1.0 mg/dL [facility] Nitrite, Urine Negative Negative [facility] Microscopic Examination See below: [facility] Comment:Microscopic was shashi cated and was performed. Urine (Urine, Clean Catch) 10/22/2024 12:26 PM EDT 10/22/2024 us Omar Garcia MD LAB URINE ORDERABLES Final Re sult [facility] [address] [place] [address] * (ABNORMAL) CBC and differential (10/22/2024 12:26 PM EDT) WBC 13.2(H) 3.4 - 10.8 x10E3/uL [facility] RBC 4.53 3.77 - 5.28 x10E6/uL [facility] Hemoglobin 11.9 11.1 - 15.9 g/dL [facility] Hematocrit 36.6 34.0 - 46.6 % [facility] MCV 81 79 - 97 fL [facility] MCH 26.3(L) 26.6 - 33.0 pg [facility] MCHC 32.5 31.5 - 35.7 g/dL [facility] RDW 15.9(H) 11.7 - 15.4 % [facility] Platelets 365 150 - 450 x10E3/uL [facility] Immature Granulocytes 1 Not Estab. % [facility] Immature Grans (Absolute) 0.1 0.0 - 0.1 x10E3/uL [facility] Neutrophils Relative 78 Not Estab. % [facility] Lymphocytes Relative 14 Not Estab. % [facility] Monocytes 6 Not Estab. % [facility] Eosinophils Relative 1 Not Estab. % [facility] Basophils Relative 0 Not Estab. % [facility] Neutrophils Absolute 10.4(H) 1.4 - 7.0 x10E3/uL [facility] Lymphocytes Absolute 1.8 0.7 - 3.1 x10E3/uL [facility] Monocytes Absolute 0.7 0.1 - 0.9 x10E3/uL [facility] Eosinophils Absolute 0.2 0.0 - 0.4 x10E3/uL [facility] Basophils Absolute 0.0 0.0 - 0.2 x10E3/uL [facility] Blood (Blood, Venous) 10/22/2024 12:26 PM EDT 10/22/2024 us Omar Garcia MD LAB BLOOD ORDERABLES Final Re sult [facility] [address] [place] [address] documented in this encounter Visit Diagnoses Diagnosis 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) Other proteinuria SLE glomerulonephritis syndrome, 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HCC) Anemia in chronic kidney disease Nephrotic syndrome Fluid overload, not otherwise specified Chronic kidney disease stage 3A (HCC) documented in this encounter Care Teams Facing Cutting Machine Operator Relationship Specialty Start Date End Date Denise Blancas MD [address] [place] [address] PCP - General Internal Medicine 06/27/24 documented as of this encounter
--- OUTSIDE RECORDS SUMMARY | 2024-10-25 09:06 | XMS_ITS | Encounter Summary ---
Author Organization [facility] [employer] Address [address] [place] [address] Phone Care Team Providers Care Stock And Station Agent Name Role Phone Denise Blancas MD Primary Care Provider [phone] Encounter Details Date Type Department Care Team (Latest Contact Info) Description 04/12/2024 Orders Only [facility] Of [address] [place] [address] Jovanna Schaeffer MD SLE glomerulonephritis [...] [facility] [address] [place] [address] Breonna Le MD [address] [place] [address] [place] [address] documented as of this encounter Procedures Procedure Name Priority Date/Time Associated Diagnosis Comments ANTI-DNA ANTIBODY, DOUBLE-STRANDED Routine 05/15/2024 3:08 PM EST SLE glomerulonephritis syndrome, 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HCC) documented in this encounter Results * Anti-DNA antibody, double-stranded (05/15/2024 3:08 PM EST) DS DNA Ab 2 0 - 9 IU/mL [facility] Comment: ? Negative ?<5 ? Equivocal ??5 - 9 ? Positive ?>9 Blood (Blood, Venous) 05/15/2024 3:08 PM EST 05/15/2024 us Jovanna Schaeffer MD LAB BLOOD ORDERABLES Final Resul t [facility] [address] [place] [address] documented in this encounter Visit Diagnoses Diagnosis SLE glomerulonephritis syndrome, 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HCC) documented in this encounter Care Teams Stock And Station Agent Relationship Specialty Start Date End Date Denise Blancas MD [address] [place] [address] PCP - General Internal Medicine 06/27/24 documented as of this encounter
--- OUTSIDE RECORDS SUMMARY | 2024-10-25 09:06 | XMS_ITS | Encounter Summary ---
Author Organization [facility] [place], Address [address] [place] [address] Phone Care Team Providers Care Telephone Operator Chief Name Role Phone Denise Blancas MD Primary Care Provider [phone] Encounter Details Date Type Department Care Team (Late st Contact Info) Description 10/24/2024 Documentation Only [facility] [place], [address] [place] [address] Rhianna Castro [address] [place] [address] Social History Tobacco Use Types [...] Services Of [facility] [address] [place] [address] Breonna Le MD [address] [place] [place] [address] documented as of this encounter Visit Diagnoses Not on filedocumented in this encounter Care Teams Telephone Operator Chief Relationship Specialty Start Date End Date Denise Blancas MD [address] [place] [address] PCP - General Internal Medicine 06/27/24 documented as of this encounter
--- OUTSIDE RECORDS SUMMARY | 2024-10-25 09:06 | XMS_ITS | Encounter Summary ---
Author Organization [facility] Of [facility] Address [address] [place] [address] Phone Care Team Providers Care Marketing Systems Manager Name Role Phone Denise Blancas MD Primary Care Provider [phone] Encounter Details Date Type Department Care Team (Latest Contact Info) Description 06/09/2023 Orders Only [facility] Of [address] [place] [address] Jovanna Schaeffer MD SLE glomerulonephritis [...] [facility] [address] [place] [address] Breonna Le MD [address] [place] [address] [place] [address] documented as of this encounter Visit Diagnoses Diagnosis SLE glomerulonephritis syndrome, 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HCC) documented in this encounter Care Teams Marketing Systems Manager Relationship Specialty Start Date End Date Denise Blancas MD [address] [place] [address] PCP - General Internal Medicine 06/27/24 documented as of this encounter
--- OUTSIDE RECORDS SUMMARY | 2024-10-25 09:06 | XMS_ITS | Encounter Summary ---
Author Organization [facility] Of [facility] Address [address] [place] [address] Phone Care Team Providers Care Field Operations Coordinator Name Role Phone Denise Blancas MD Primary Care Provider [phone] Encounter Details Date Type Department Care Team (Latest Contact Info) Description 09/13/2024 Orders Only [facility] [address] [place] [address] Rhianna Castro [address] [place] [address] 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); Other proteinuria; SLE glomerulonephritis syndrome, 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HCC); Anemia in chronic kidney disease; Nephrotic syndrome; Fluid overload, not otherwise specified; Chronic kidney disease stage 3A ([facility]) Social History Tobacco Use Types Packs/Day [...] Visit [facility] Of [address] [place] [address] Breonna Le MD [address] [place] [address] documented as of this encounter Procedures Procedure [...] Urine 0-5 0 - 5 /hpf [facility] [place] RBC, Urine 3-10(A) 0 - 2 /hpf [facility] [place] Squamous Epithelial, Urine 0-10 0 - 10 /hpf [facility] Casts None seen None seen /lpf [facility] [place] Bacteria, Urine None seen None seen/Few [facility] [place] 09/16/2024 3:58 PM EDT 09/16/2024 us Omar Garcia MD LAB MICROBIOLOGY - GENERAL OR DERABLES Final Result [facility] [place] [address] [place] [address] * (ABNORMAL) Comprehensive metabolic panel (09/16/2024 3:58 PM EDT) Glucose 97 70 - 99 mg/dL [facility] [place] BUN 14 6 - 20 mg/dL [facility] [place] Creatinine 0.93 0.57 - 1.00 mg/dL [facility] [place] eGFR CKD-EPI CR 2020 88 >59 mL/min/1.7 3 [facility] [place] BUN/Creatinine Ratio 15 9 - 23 [facility] [place] Sodium 139 134 - 144 mmol/L [facility] [place] Potassium 4.2 3.5 - 5.2 mmol/L [facility] [place] Chloride 111(H) 96 - 106 mmol/L [facility] [place] Bicarbonate (CO2) 16(L) 20 - 29 mmol/L [facility] [place] Calcium 8.0(L) 8.7 - 10.2 mg/dL [facility] [place] Total Protein 4.3(LL) 6.0 - 8.5 g/dL [facility] [place] Albumin 2.5(L) 4.0 - 5.0 g/dL [facility] [place] Globulin 1.8 1.5 - 4.5 g/dL [facility] [place] Total Bilirubin <0.2 0.0 - 1.2 mg/dL [facility] [place] Alkaline Phosphatase 63 44 - 121 IU/L [facility] [place] AST (SGOT) 11 0 - 40 IU/L [facility] [place] ALT (SGPT) 10 0 - 32 IU/L [facility] [place] Blood (Blood, Venous) 09/16/2024 3:58 PM EDT 09/16/2024 Omar Garcia MD LAB BLOOD ORDERABLES Final Re sult [facility] [place] [address] [place] [address] * (ABNORMAL) Urine Protein / creatinine ratio (09/16/2024 3:58 PM EDT) Creatinine, Ur 203.5 Not Estab. mg/dL [facility] [place] Protein, Ur 1,539.0 Not Estab. mg/dL [facility] [place] Comment: Results confirmed on dilution. Urine Protein/Creati nine Ratio 7,563(H) 0 - 200 mg/g creat [facility] [place] Urine (Urine, Clean Catch) 09/16/2024 3:58 PM EDT 09/16/2024 Omar Garcia MD LAB URINE ORDERABLES Final Re sult Performing Organization Address [facility]/ZIP Co de Phone Number [facility] [place] [address] [place] [address] * C-Reactive Protein (09/16/2024 3:58 PM EDT) [facility] C-Reactive Protein Quant <1 0 - 10 mg/L [facility] [place] Blood (Blood, Venous) 09/16/2024 3:58 PM EDT 09/16/2024 Omar Garcia MD LAB BLOOD ORDERABLES Final Re sult Performing Organization Address [facility] Co de Phone Number [facility] [place] [address] [place] [address] * (ABNORMAL) Sedimentation Rate (09/16/2024 3:58 PM EDT) [facility] Sed Rate 59(H) 0 - 32 mm/hr [facility] Blood (Blood, Venous) 09/16/2024 3:58 PM EDT 09/16/2024 Omar Garcia MD LAB BLOOD ORDERABLES Final Re sult Performing Organization Address [facility]/ZIP Co de Phone Number [facility] [place] [address] [place] [address] * (ABNORMAL) Urinalysis with microscopic (09/16/2024 3:58 PM EDT) [facility] Specific Harold, Urine 1.029 1.005 - 1.030 [facility] [place] [phone] pH Urine 6.0 5.0 - 7.5 [facility] [place] [phone] Color, Urine Yellow Yellow [facility] [place] [phone] Appearance Urine Clear Clear [facility] [place] [phone] WBC Esterase Urine Negative Negative [facility] [place] Protein, Ur 4+(A) Negative/Tra ce [facility] [place] Glucose, Ur Trace(A) Negative [facility] [place] Ketones, Urine Negative Negative [facility] [place] Blood Urine 1+(A) Negative [facility] [place] Bilirubin Urine Negative Negative [facility] [place] Urobilinogen Urine 0.2 0.2 - 1.0 mg/dL [facility] [place] Nitrite, Urine Negative Negative [facility] [place] Microscopic Examination See below: [facility] [place] [phone] Comment:Microscopic was shashi cated and was performed. Urine (Urine, Clean Catch) 09/16/2024 3:58 PM EDT 09/16/2024 us Omar Garcia MD LAB URINE ORDERABLES Final Re sult [facility] [place] [address] [place] [address] * (ABNORMAL) CBC and differential (09/16/2024 3:58 PM EDT) WBC 13.0(H) 3.4 - 10.8 x10E3/uL [facility] [place] RBC 4.96 3.77 - 5.28 x10E6/uL [facility] Hemoglobin 13.0 11.1 - 15.9 g/dL [facility] [place] Hematocrit 39.1 34.0 - 46.6 % [facility] [place] MCV 79 79 - 97 fL [facility] [place] MCH 26.2(L) 26.6 - 33.0 pg [facility] [place] MCHC 33.2 31.5 - 35.7 g/dL [facility] RDW 15.6(H) 11.7 - 15.4 % [facility] Platelets 394 150 - 450 x10E3/uL [facility] Neutrophils Relative 75 Not Estab. % [facility] Lymphocytes Relative 17 Not Estab. % [facility] Monocytes 5 Not Estab. % [facility] Eosinophils Relative 2 Not Estab. % [facility] Basophils Relative 0 Not Estab. % [facility] Neutrophils Absolute 9.8(H) 1.4 - 7.0 x10E3/uL [facility] Lymphocytes Absolute 2.2 0.7 - 3.1 x10E3/uL [facility] Monocytes Absolute 0.7 0.1 - 0.9 x10E3/uL [facility] Eosinophils Absolute 0.2 0.0 - 0.4 x10E3/uL [facility] Basophils Absolute 0.1 0.0 - 0.2 x10E3/uL [facility] Immature Granulocytes 1 Not Estab. % [facility] Immature Grans (Absolute) 0.1 0.0 - 0.1 x10E3/uL [facility] Blood (Blood, Venous) 09/16/2024 3:58 PM EDT 09/16/2024 us Omar Garcia MD LAB BLOOD ORDERABLES Final Re sult [facility] [place] [address] [place] [address] documented in this encounter Visit Diagnoses Diagnosis 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) Other proteinuria SLE glomerulonephritis syndrome, 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HCC) Anemia in chronic kidney disease Nephrotic syndrome Fluid overload, not otherwise specified Chronic kidney disease stage 3A (HCC) documented in this encounter Care Teams Field Operations Coordinator Relationship Specialty Start Date End Date Denise Blancas MD [address] [place] [address] PCP - General Internal Medicine 06/27/24 documented as of this encounter
--- OUTSIDE RECORDS SUMMARY | 2024-10-25 09:07 | XMS_ITS | Encounter Summary ---
Author Organization [facility] [place], Address [address] [place] [address] Phone Care Team Providers Care Studio Artist Name Role Phone Denise Blancas MD Primary Care Provider [phone] Encounter Details Date Type Department Care Team (Late st Contact Info) Description 09/05/2023 Documentation Only [facility] [place], [address] [place] [address] Rhianna Castro [address] [place] [address] Social History Tobacco Use Types [...] Visit [facility] [address] [address] Breonna Le MD [address] [place] [address] documented as of this encounter Visit Diagnoses Not on filedocumented in this encounter Care Teams Studio Artist Relationship Specialty Start Date End Date Denise Blancas MD [address] [place] [address] PCP - General Internal Medicine 06/27/24 documented as of this encounter
--- OUTSIDE RECORDS SUMMARY | 2024-10-25 09:07 | XMS_ITS | Encounter Summary ---
Author Organization [facility] [place], Address [address] [place] [address] Phone Care Team Providers Care Channel Rougher Name Role Phone Denise Blancas MD Primary Care Provider [phone] Encounter Details Date Type Department Care Team (Late st Contact Info) Description 09/05/2023 Documentation Only [facility] [place], [address] [place] [address] Rhianna Castro [address] [place] [address] Social History Tobacco Use Types [...] Visit [facility] [address] [place] [address] Breonna Le MD [address] [place] [address] documented as of this encounter Visit Diagnoses Not on filedocumented in this encounter Care Teams Channel Rougher Relationship Specialty Start Date End Date Denise Blancas MD [address] [place] [address] PCP - General Internal Medicine 06/27/24 documented as of this encounter
--- OUTSIDE RECORDS SUMMARY | 2024-10-25 09:07 | XMS_ITS | Encounter Summary ---
Author Organization [facility] Address [address] [place] [address] Phone Care Team Providers Care Luster Repairer Name Role Phone Denise Blancas MD Primary Care Provider [phone] Encounter Details Date Type Department Care Team (Latest Contact Info) Description 11/10/2023 Orders Only [facility] [address] [place] [address] Jovanna Schaeffer MD SLE glomerulonephritis [...] Visit [facility] [address] [place] [address] Breonna Le MD [address] [place] [address] [place] [address] documented as of this encounter Visit Diagnoses Diagnosis SLE glomerulonephritis syndrome, 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HCC) documented in this encounter Care Teams Luster Repairer Relationship Specialty Start Date End Date Denise Blancas MD [address] [place] [address] PCP - General Internal Medicine 06/27/24 documented as of this encounter
--- OUTSIDE RECORDS SUMMARY | 2024-10-25 09:07 | XMS_ITS | Encounter Summary ---
Author Organization [facility] Of [facility] Address [address] [place] [address] Phone Care Team Providers Care Web Press Operator Helper Offset Name Role Phone Denise Blancas MD Primary Care Provider [phone] Encounter Details Date Type Department Care Team (Latest Contact Info) Description 12/15/2023 Orders Only [facility] Of [address] [place] [address] Jovanna Schaeffer MD SLE glomerulonephritis [...] Visit [facility] [address] [place] [address] Breonna Le MD [address] [place] [address] [place] [address] documented as of this encounter Visit Diagnoses Diagnosis SLE glomerulonephritis syndrome, 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HCC) documented in this encounter Care Teams Web Press Operator Helper Offset Relationship Specialty Start Date End Date Denise Blancas MD [address] [place] [address] PCP - General Internal Medicine 06/27/24 documented as of this encounter
--- OUTSIDE RECORDS SUMMARY | 2024-10-25 09:07 | XMS_ITS | Encounter Summary ---
Author Organization [facility] Of [facility] Address [address] [place] [address] Phone Care Team Providers Care Desktop Analyst Name Role Phone Denise Blancas MD Primary Care Provider [phone] Encounter Details Date Type Department Care Team (Latest Contact Info) Description 11/03/2023 Orders Only [facility] Of [address] [place] [address] Jovanna Schaeffer MD SLE glomerulonephritis [...] Visit [facility] Of [address] [place] [address] Breonna Le MD [address] [place] [address] [place] [address] documented as of this encounter Visit Diagnoses Diagnosis SLE glomerulonephritis syndrome, 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HCC) documented in this encounter Care Teams Desktop Analyst Relationship Specialty Start Date End Date Denise Blancas MD [address] [place] [address] PCP - General Internal Medicine 06/27/24 documented as of this encounter
--- OUTSIDE RECORDS SUMMARY | 2024-10-25 09:07 | XMS_ITS | Encounter Summary ---
Author Organization [facility] [place], Address [address] [place] [address] Phone Care Team Providers Care Laborer Cement Gun Placing Name Role Phone Denise Blancas MD Primary Care Provider [phone] Encounter Details Date Type Department Care Team (Late st Contact Info) Description 10/26/2023 Documentation Only [facility] [place], [address] [place] [address] Rhianna Castro [address] [place] [address] Social History Tobacco Use Types [...] Services Of [facility] [address] [place] [address] Breonna Le MD [address] [place] [address] documented as of this encounter Visit Diagnoses Not on filedocumented in this encounter Care Teams Laborer Cement Gun Placing Relationship Specialty Start Date End Date Denise Blancas MD [address] [place] [address] PCP - General Internal Medicine 06/27/24 documented as of this encounter
--- OUTSIDE RECORDS SUMMARY | 2024-10-25 09:07 | XMS_ITS | Encounter Summary ---
Author Organization [facility] Of [facility] Address [address] [place] [address] Phone Care Team Providers Care Wood Panel Inspector Name Role Phone Denise Blancas MD Primary Care Provider [phone] Encounter Details Date Type Department Care Team (Latest Contact Info) Description 11/17/2023 Orders Only [facility] Of [address] [place] [address] Jovanna Schaeffer MD SLE glomerulonephritis [...] Visit [facility] Of [address] [place] [address] Breonna Le MD [address] [place] [address] [place] [address] documented as of this encounter Visit Diagnoses Diagnosis SLE glomerulonephritis syndrome, 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HCC) documented in this encounter Care Teams Wood Panel Inspector Relationship Specialty Start Date End Date Denise Blancas MD [address] [place] [address] PCP - General Internal Medicine 06/27/24 documented as of this encounter
--- OUTSIDE RECORDS SUMMARY | 2024-10-25 09:07 | XMS_ITS | Encounter Summary ---
Author Organization [facility] Of [facility] Address [address] [place] [address] Phone Care Team Providers Care Fast Brim Pouncer Name Role Phone Denise Blancas MD Primary Care Provider [phone] Encounter Details Date Type Department Care Team (Latest Contact Info) Description 12/08/2023 Orders Only [facility] Of [address] [place] [address] Jovanna Schaeffer MD SLE glomerulonephritis [...] [facility] Of [address] [place] [address] Breonna Le MD [address] [place] [address] [place] [address] documented as of this encounter Visit Diagnoses Diagnosis SLE glomerulonephritis syndrome, 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HCC) documented in this encounter Care Teams Fast Brim Pouncer Relationship Specialty Start Date End Date Denise Blancas MD [address] [place] [address] PCP - General Internal Medicine 06/27/24 documented as of this encounter
--- OUTSIDE RECORDS SUMMARY | 2024-10-25 09:07 | XMS_ITS | Encounter Summary ---
Author Organization [facility] Of [facility] Address [address] [place] [address] Phone Care Team Providers Care Evp [employer] Multimedia Sales Name Role Phone Denise Blancas MD Primary Care Provider [phone] Encounter Details Date Type Department Care Team (Latest Contact Info) Description 12/01/2023 Orders Only [facility] Of [address] [place] [address] Jovanna Schaeffer MD SLE glomerulonephritis [...] [facility] Of [address] [place] [address] Breonna Le MD [address] [place] [address] [place] [address] documented as of this encounter Visit Diagnoses Diagnosis SLE glomerulonephritis syndrome, 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HCC) documented in this encounter Care Teams [employer] Sales Relationship Specialty Start Date End Date Denise Blancas MD [address] [place] [address] PCP - General Internal Medicine 06/27/24 documented as of this encounter
--- OUTSIDE RECORDS SUMMARY | 2024-10-25 09:07 | XMS_ITS | Encounter Summary ---
Author Organization [facility] Of [place], Address [address] [place] [address] Phone Care Team Providers Care Biomedical Manager Name Role Phone Denise Blancas MD Primary Care Provider [phone] Encounter Details Date Type Department Care Team (Late st Contact Info) Description 10/26/2023 Documentation Only [facility] [place], [address] [place] [address] Rhianna Castro [address] [place] [address] Social History Tobacco Use Types [...] [facility] Of [facility] [address] [place] [address] Breonan Le MD [address] [place] [address] documented as of this encounter Visit Diagnoses Not on filedocumented in this encounter Care Teams Biomedical Manager Relationship Specialty Start Date End Date Denise Blancas MD [address] [place] [address] PCP - General Internal Medicine 06/27/24 documented as of this encounter
--- OUTSIDE RECORDS SUMMARY | 2024-10-25 09:07 | XMS_ITS | Encounter Summary ---
Author Organization [facility] Of [facility] Address [address] [place] [address] Phone Care Team Providers Care Rent And Miscellaneous Remittance Clerk Name Role Phone Denise Blanc[place] MD Primary Care Provider [phone] Encounter Details Date Type Department Care Team (Latest Contact Info) Description 11/24/2023 Orders Only [facility] Of [address] [place] [address] Jovanna Schaeffer MD SLE glomerulonephritis [...] Visit [facility] Of [address] [place] [address] Breonna Le MD [address] [place] [address] [place] [address] documented as of this encounter Visit Diagnoses Diagnosis SLE glomerulonephritis syndrome, 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HCC) documented in this encounter Care Teams Rent And Miscellaneous Remittance Clerk Relationship Specialty Start Date End Date Denise Blancas MD [address] [place] [address] PCP - General Internal Medicine 06/27/24 documented as of this encounter
== END 2024-10-25 09:56 | disposition home or self-care (01) ==
PROVIDERS: PCP Physician Assistant; Visit Provider Physician Assistant
DX: J22 Unspecified acute lower respiratory infection (principal)

== ENCOUNTER 2024-10-25 08:42 | Outpatient (REF) | payer MEDICARE, MEDICAID, SELFPAY ==
--- OUTSIDE RECORDS SUMMARY | 2024-10-25 10:02 | XMS_ITS | Encounter Summary ---
Author Organization [facility] Address [address] [place] [address] Phone Care Team Providers Care Sole Filler Name Role Phone Denise Blancas MD Primary Care Provider [phone] Encounter Details Date Type Department Care Team (Latest Contact Info) Description 10/11/2024 Orders Only [facility] [address] [place] [address] Rhianna Castro [address] [place] [address] 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 lupus [...] [facility] [address] [place] [address] Breonna Le MD [address] [facility] [address] [facility] [place] [address] documented as of this encounter Procedures Procedure [...] Urine 0-5 0 - 5 /hpf [facility] [place] RBC, Urine 3-10(A) 0 - 2 /hpf [facility] [place] Squamous Epithelial, Urine 0-10 0 - 10 /hpf [facility] [place] Casts None seen None seen /lpf [facility] [place] Bacteria, Urine None seen None seen/Few [facility] [place] 10/11/2024 11:2 2 AM EDT 10/11/2024 us Omar Garcia MD LAB MICROBIOLOGY - GENERAL OR DERABLES Final Result [facility] [place] [address] [place] [address] * (ABNORMAL) Comprehensive metabolic panel (10/11/2024 11:22 AM EDT) Glucose 99 70 - 99 mg/dL [facility] [place] BUN 20 6 - 20 mg/dL [facility] [place] Creatinine 1.14(H) 0.57 - 1.00 mg/dL [facility] [place] eGFR CKD-EPI CR 2020 69 >59 mL/min/1.7 3 [facility] [place] BUN/Creatinine Ratio 18 9 - 23 [facility] Sodium 140 134 - 144 mmol/L [facility] Potassium 4.1 3.5 - 5.2 mmol/L [facility] [place] Chloride 112(H) 96 - 106 mmol/L [facility] [place] Bicarbonate (CO2) 17(L) 20 - 29 mmol/L [facility] [place] Calcium 8.4(L) 8.7 - 10.2 mg/dL [facility] [place] Total Protein 4.5(L) 6.0 - 8.5 g/dL [facility] [place] Albumin 2.4(L) 4.0 - 5.0 g/dL [facility] [place] Globulin 2.1 1.5 - 4.5 g/dL [facility] [place] Total Bilirubin <0.2 0.0 - 1.2 mg/dL [facility] [place] Alkaline Phosphatase 64 44 - 121 IU/L [facility] [place] AST (SGOT) 16 0 - 40 IU/L [facility] [place] ALT (SGPT) 11 0 - 32 IU/L [facility] [place] Blood (Blood, Venous) 10/11/2024 11:22 AM EDT 10/11/2024 us Omar Garcia MD LAB BLOOD ORDERABLES Final Re sult [facility] [place] [address] [place] [address] * (ABNORMAL) Urine Protein / creatinine ratio (10/11/2024 11:22 AM EDT) Creatinine, Ur 155.8 Not Estab. mg/dL [facility] [place] Protein, Ur 1,350.3 Not Estab. mg/dL [facility] [place] Comment: Results confirmed on dilution. Urine Protein/Creati nine Ratio 8,667(H) 0 - 200 mg/g creat [facility] [place] Urine (Urine, Clean Catch) 10/11/2024 11:22 AM EDT 10/11/2024 Omar Garcia MD LAB URINE ORDERABLES Final Re sult Performing Organization Address City/[facility]/ZIP Co de Phone Number [facility] [place] [address] [place] [address] * C-Reactive Protein (10/11/2024 11:22 AM EDT) Pathologist [facility] C-Reactive Protein Quant 1 0 - 10 mg/L [facility] [place] Blood (Blood, Venous) 10/11/2024 11:22 AM EDT 10/11/2024 Omar Garcia MD LAB BLOOD ORDERABLES Final Re sult Performing Organization Address [facility] Co de Phone Number [facility] [place] [address] [place] [address] * (ABNORMAL) Sedimentation Rate (10/11/2024 11:22 AM EDT) [facility] Sed Rate 72(H) 0 - 32 mm/hr [facility] [place] Blood (Blood, Venous) 10/11/2024 11:22 AM EDT 10/11/2024 Omar Garcia MD LAB BLOOD ORDERABLES Final Re sult Performing Organization Address City/[facility]/ZIP Co de Phone Number [facility] [place] [address] [place] [address] * (ABNORMAL) Urinalysis with microscopic (10/11/2024 11:22 AM EDT) Pathologist [facility] Specific [place], Urine 1.028 1.005 - 1.030 [facility] [place] [phone] pH Urine 6.0 5.0 - 7.5 [facility] [place] [phone] Color, Urine Yellow Yellow [facility] [place] [phone] Appearance Urine Clear Clear [facility] [place] [phone] WBC Esterase Urine Negative Negative [facility] [place] [phone] Protein, Ur 4+(A) Negative/Tra ce [facility] [place] Glucose, Ur Trace(A) Negative [facility] [place] Ketones, Urine Negative Negative [facility] [place] Blood Urine Trace(A) Negative [facility] [place] [phone] Bilirubin Urine Negative Negative [facility] [place] Urobilinogen Urine 0.2 0.2 - 1.0 mg/dL [facility] [place] [phone] Nitrite, Urine Negative Negative [facility] [place] [phone] Microscopic Examination See below: [facility] [place] Comment:Microscopic was shashi cated and was performed. Urine (Urine, Clean Catch) 10/11/2024 11:22 AM EDT 10/11/2024 us Omar Garcia MD LAB URINE ORDERABLES Final Re sult [facility] [place] [address] [place] [address] * (ABNORMAL) CBC and differential (10/11/2024 11:22 AM EDT) WBC 13.4(H) 3.4 - 10.8 x10E3/uL [facility] [place] RBC 4.60 3.77 - 5.28 x10E6/uL [facility] [place] Hemoglobin 12.2 11.1 - 15.9 g/dL [facility] [place] Hematocrit 36.7 34.0 - 46.6 % [facility] [place] MCV 80 79 - 97 fL [facility] [place] MCH 26.5(L) 26.6 - 33.0 pg [facility] [place] MCHC 33.2 31.5 - 35.7 g/dL [facility] [place] RDW 16.0(H) 11.7 - 15.4 % [facility] [place] Platelets 362 150 - 450 x10E3/uL [facility] [place] Neutrophils Relative 72 Not Estab. % [facility] [place] Lymphocytes Relative 20 Not Estab. % [facility] [place] Monocytes 5 Not Estab. % [facility] [place] Eosinophils Relative 2 Not Estab. % [facility] [place] Basophils Relative 0 Not Estab. % [facility] [place] Neutrophils Absolute 9.7(H) 1.4 - 7.0 x10E3/uL [facility] [place] Lymphocytes Absolute 2.6 0.7 - 3.1 x10E3/uL [facility] [place] Monocytes Absolute 0.7 0.1 - 0.9 x10E3/uL [facility] [place] Eosinophils Absolute 0.2 0.0 - 0.4 x10E3/uL [facility] [place] Basophils Absolute 0.1 0.0 - 0.2 x10E3/uL [facility] [place] Immature Granulocytes 1 Not Estab. 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
--- OUTSIDE RECORDS SUMMARY | 2024-10-25 10:02 | XMS_ITS | Encounter Summary ---
Author Organization [facility] Address [address] [place] [address] Phone Care Team Providers Care Director Recreation Center Name Role Phone Denise Blancas MD Primary Care Provider [phone] Encounter Details Date Type Department Care Team (Latest Contact Info) Description 01/19/2024 Orders Only [facility] [address] [place] [address] Jovanna Schaeffer MD SLE glomerulonephritis [...] [facility] [address] [place] [address] Breonna Le MD [address] [place] [address] [place] [address] documented as of this encounter Procedures Procedure Name Priority Date/Time Associated Diagnosis Comments ANTI-DNA ANTIBODY, DOUBLE-STRANDED Routine 02/06/2024 3:02 PM EDT SLE glomerulonephritis syndrome, 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HCC) documented in this encounter Results * Anti-DNA antibody, double-stranded (02/06/2024 3:02 PM EDT) DS DNA Ab 2 0 - 9 IU/mL [facility] Comment: ? Negative ?<5 ? Equivocal ??5 - 9 ? Positive ?>9 Blood (Blood, Venous) 02/06/2024 3:02 PM EDT 02/06/2024 us Jovanna Schaeffer MD LAB BLOOD ORDERABLES Final Resul t [facility] [address] [place] [address] documented in this encounter Visit Diagnoses Diagnosis SLE glomerulonephritis syndrome, 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HCC) documented in this encounter Care Teams Director Recreation Center Relationship Specialty Start Date End Date Denise Blancas MD [address] [place] [address] PCP - General Internal Medicine 06/27/24 documented as of this encounter
--- OUTSIDE RECORDS SUMMARY | 2024-10-25 10:02 | XMS_ITS | Encounter Summary ---
Author Organization [facility] [place], Address [address] [place] [address] Phone Care Team Providers Care Supervisor Nut Processing Name Role Phone Denise Blancas MD Primary Care Provider Encounter Details Date Type Department Care Team (Late st Contact Info) Description 07/17/2024 Documentation Only [facility] [place], [address] [place] [address] Rhianna Castro [address] [place] [address] Social History Tobacco Use Types [...] Transplant [facility] [address] [place] [address] Breonna Le MD [address] [place] [address] documented as of this encounter Visit Diagnoses Not on filedocumented in this encounter Care Teams Supervisor Nut Processing Relationship Specialty Start Date End Date Denise Blancas MD [address] [place] [address] PCP - General Internal Medicine 06/27/24 documented as of this encounter
--- OUTSIDE RECORDS SUMMARY | 2024-10-25 10:02 | XMS_ITS | Encounter Summary ---
Author Organization [facility] [place], Address [address] [place] [address] Phone Care Team Providers Care Manager Compliance Name Role Phone Denise Blancas MD Primary Care Provider [phone] Encounter Details Date Type Department Care Team (Late st Contact Info) Description 08/01/2024 Documentation Only [facility] [place], [address] [place] [address] [place], [place] [address] [place] [address] Social History Tobacco Use Types [...] Visit [facility] [place], [address] [place] [address] Breonna Le MD [address] [place] [address] [place] [address] documented as of this encounter Visit Diagnoses Not on filedocumented in this encounter Care Teams Manager Compliance Relationship Specialty Start Date End Date Denise Blancas MD [address] [place] [address] PCP - General Internal Medicine 06/27/24 documented as of this encounter
--- OUTSIDE RECORDS SUMMARY | 2024-10-25 10:02 | XMS_ITS | Encounter Summary ---
Author Organization [facility] [place], Address [address] [place] [address] Phone Care Team Providers Care Director Sterile Processing Name Role Phone Denise Blancas MD Primary Care Provider [phone] Encounter Details Date Type Department Care Team (Late st Contact Info) Description 08/22/2024 Documentation Only [facility] [place], [address] [address] Rhianna Castro [address] [place] [address] Social History Tobacco Use [...] [facility] [address] [address] Breonna Le MD [address] [address] documented as of this encounter Visit Diagnoses Not on filedocumented in this encounter Care Teams Director Sterile Processing Relationship Specialty Start Date End Date Denise Blancas MD [address] [place] [address] PCP - General Internal Medicine 06/27/24 documented as of this encounter
--- OUTSIDE RECORDS SUMMARY | 2024-10-25 10:02 | XMS_ITS | Encounter Summary ---
Author Organization [facility] Address [address] [place] [address] Phone Care Team Providers Care Seafood Processor Name Role Phone Denise Blancas MD Primary Care Provider [phone] Encounter Details Date Type Department Care Team (Latest Contact Info) Description 04/12/2024 Orders Only [facility] Of [address] [place] [address] Jovanna Schaeffer MD SLE glomerulonephritis [...] [facility] [address] [place] [address] Breonna Le MD [address] [place] [address] [place] [address] documented as of this encounter Procedures Procedure Name Priority Date/Time Associated Diagnosis Comments ANTI-DNA ANTIBODY, DOUBLE-STRANDED Routine 05/15/2024 3:08 PM EST SLE glomerulonephritis syndrome, 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HCC) documented in this encounter Results * Anti-DNA antibody, double-stranded (05/15/2024 3:08 PM EST) DS DNA Ab 2 0 - 9 IU/[facility] Comment: ? Negative ?<5 ? Equivocal ??5 - 9 ? Positive ?>9 Blood (Blood, Venous) 05/15/2024 3:08 PM EST 05/15/2024 us Jovanna Schaeffer MD LAB BLOOD ORDERABLES Final Resul t [facility] [address] [place] [address] documented in this encounter Visit Diagnoses Diagnosis SLE glomerulonephritis syndrome, 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HCC) documented in this encounter Care Teams Seafood Processor Relationship Specialty Start Date End Date Denise Blancas MD [address] [place] [address] PCP - General Internal Medicine 06/27/24 documented as of this encounter
--- OUTSIDE RECORDS SUMMARY | 2024-10-25 10:02 | XMS_ITS | Encounter Summary ---
Author Organization [facility] Address [address] [place] [address] Phone Care Team Providers Care Gaming Investigator Name Role Phone Denise Blancas MD Primary Care Provider [phone] Encounter Details Date Type Department Care Team (Latest Contact Info) Description 09/13/2024 Orders Only [facility] [address] [place] [address] Rhianna Castro [address] [place] [address] 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); Other proteinuria; SLE glomerulonephritis syndrome, 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HCC); Anemia in chronic kidney disease; Nephrotic syndrome; Fluid overload, not otherwise specified; Chronic kidney disease stage 3A ([facility]) Social History Tobacco Use Types [...] Visit [facility] [address] [place] [address] Breonna Le MD [address] [place] [address] documented as of this encounter Procedures Procedure [...] Urine 0-5 0 - 5 /hpf [facility] RBC, Urine 3-10(A) 0 - 2 /hpf [facility] [place] Squamous Epithelial, Urine 0-10 0 - 10 /hpf [facility] Casts None seen None seen /lpf [facility] [place] Bacteria, Urine None seen None seen/Few [facility] [place] 09/16/2024 3:58 PM EDT 09/16/2024 us Omar Garcia MD LAB MICROBIOLOGY - GENERAL OR DERABLES Final Result [facility] [place] [address] [place] [address] * (ABNORMAL) Comprehensive metabolic panel (09/16/2024 3:58 PM EDT) Glucose 97 70 - 99 mg/dL [facility] BUN 14 6 - 20 mg/dL [facility] Creatinine 0.93 0.57 - 1.00 mg/dL [facility] [place] eGFR CKD-EPI CR 2020 88 >59 mL/min/1.7 3 [facility] BUN/Creatinine Ratio 15 9 - 23 [facility] Sodium 139 134 - 144 mmol/L [facility] Potassium 4.2 3.5 - 5.2 mmol/L [facility] Chloride 111(H) 96 - 106 mmol/L [facility] Bicarbonate (CO2) 16(L) 20 - 29 mmol/L [facility] Calcium 8.0(L) 8.7 - 10.2 mg/dL [facility] Total Protein 4.3(LL) 6.0 - 8.5 g/dL [facility] Albumin 2.5(L) 4.0 - 5.0 g/dL [facility] Globulin 1.8 1.5 - 4.5 g/dL [facility] Total Bilirubin <0.2 0.0 - 1.2 mg/dL [facility] Alkaline Phosphatase 63 44 - 121 IU/L [facility] AST (SGOT) 11 0 - 40 IU/L [facility] ALT (SGPT) 10 0 - 32 IU/L [facility] Blood (Blood, Venous) 09/16/2024 3:58 PM EDT 09/16/2024 Omar Garcia MD LAB BLOOD ORDERABLES Final Re sult [facility] [place] [address] [place] [address] * (ABNORMAL) Urine Protein / creatinine ratio (09/16/2024 3:58 PM EDT) Creatinine, Ur 203.5 Not Estab. mg/dL [facility] Protein, Ur 1,539.0 Not Estab. mg/dL [facility] Comment: Results confirmed on dilution. Urine Protein/Creati nine Ratio 7,563(H) 0 - 200 mg/g creat [facility] [place] Urine (Urine, Clean Catch) 09/16/2024 3:58 PM EDT 09/16/2024 Omar Garcia MD LAB URINE ORDERABLES Final Re sult Performing Organization Address [facility]/ZIP Co de Phone Number [facility] [place] [address] [place] [address] * C-Reactive Protein (09/16/2024 3:58 PM EDT) [facility] C-Reactive Protein Quant <1 0 - 10 mg/L [facility] [place] Blood (Blood, Venous) 09/16/2024 3:58 PM EDT 09/16/2024 Omar Garcia MD LAB BLOOD ORDERABLES Final Re sult Performing Organization Address [facility] Co de Phone Number [facility] [place] [address] [place] [address] * (ABNORMAL) Sedimentation Rate (09/16/2024 3:58 PM EDT) [facility] Sed Rate 59(H) 0 - 32 mm/hr [facility] [place] Blood (Blood, Venous) 09/16/2024 3:58 PM EDT 09/16/2024 Omar Garcia MD LAB BLOOD ORDERABLES Final Re sult Performing Organization Address [facility]/ZIP Co de Phone Number [facility] [place] [address] [place] [address] * (ABNORMAL) Urinalysis with microscopic (09/16/2024 3:58 PM EDT) [facility] Specific [place], Urine 1.029 1.005 - 1.030 [facility] [place] [phone] pH Urine 6.0 5.0 - 7.5 [facility] [place] [phone] Color, Urine Yellow Yellow [facility] [place] [phone] Appearance Urine Clear Clear [facility] [place] [phone] WBC Esterase Urine Negative Negative [facility] [place] Protein, Ur 4+(A) Negative/Tra ce [facility] [place] Glucose, Ur Trace(A) Negative [facility] [place] Ketones, Urine Negative Negative [facility] [place] Blood Urine 1+(A) Negative [facility] [place] Bilirubin Urine Negative Negative [facility] [place] Urobilinogen Urine 0.2 0.2 - 1.0 mg/dL [facility] [place] Nitrite, Urine Negative Negative [facility] [place] Microscopic Examination See below: [facility] [place] Comment:Microscopic was shashi cated and was performed. Urine (Urine, Clean Catch) 09/16/2024 3:58 PM EDT 09/16/2024 us Omar Garcia MD LAB URINE ORDERABLES Final Re sult [facility] [place] [address] [place] [address] * (ABNORMAL) CBC and differential (09/16/2024 3:58 PM EDT) WBC 13.0(H) 3.4 - 10.8 x10E3/uL [facility] [place] RBC 4.96 3.77 - 5.28 x10E6/uL [facility] Hemoglobin 13.0 11.1 - 15.9 g/dL [facility] Hematocrit 39.1 34.0 - 46.6 % [facility] MCV 79 79 - 97 fL [facility] MCH 26.2(L) 26.6 - 33.0 pg [facility] MCHC 33.2 31.5 - 35.7 g/dL [facility] RDW 15.6(H) 11.7 - 15.4 % [facility] Platelets 394 150 - 450 x10E3/uL [facility] Neutrophils Relative 75 Not Estab. % [facility] Lymphocytes Relative 17 Not Estab. % [facility] Monocytes 5 Not Estab. % [facility] Eosinophils Relative 2 Not Estab. % [facility] Basophils Relative 0 Not Estab. % [facility] Neutrophils Absolute 9.8(H) 1.4 - 7.0 x10E3/uL [facility] Lymphocytes Absolute 2.2 0.7 - 3.1 x10E3/uL [facility] Monocytes Absolute 0.7 0.1 - 0.9 x10E3/uL [facility] Eosinophils Absolute 0.2 0.0 - 0.4 x10E3/uL [facility] Basophils Absolute 0.1 0.0 - 0.2 x10E3/uL [facility] Immature Granulocytes 1 Not Estab. % [facility] Immature Grans (Absolute) 0.1 0.0 - 0.1 x10E3/uL [facility] Blood (Blood, Venous) 09/16/2024 3:58 PM EDT 09/16/2024 us Omar Garcia MD LAB BLOOD ORDERABLES Final Re sult [facility] [place] [address] [place] [address] documented in this encounter Visit Diagnoses Diagnosis 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) Other proteinuria SLE glomerulonephritis syndrome, 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HCC) Anemia in chronic kidney disease Nephrotic syndrome Fluid overload, not otherwise specified Chronic kidney disease stage 3A (HCC) documented in this encounter Care Teams Gaming Investigator Relationship Specialty Start Date End Date Denise Blancas MD [address] [place] [address] PCP - General Internal Medicine 06/27/24 documented as of this encounter
--- OUTSIDE RECORDS SUMMARY | 2024-10-25 10:02 | XMS_ITS | Encounter Summary ---
Author Organization [facility] Address [address] [place] [address] Phone Care Team Providers Care Software Quality Tester Name Role Phone Denise Blancas MD Primary Care Provider [phone] Encounter Details Date Type Department Care Team (Latest Contact Info) Description 08/05/2022 Orders Only [facility] [address] [place] [address] Jovanna Schaeffer MD SLE glomerulonephritis [...] [facility] [address] [place] [address] Breonna Le MD [address] [place] [address] [place] [address] documented as of this encounter Visit Diagnoses Diagnosis SLE glomerulonephritis syndrome, 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HCC) documented in this encounter Care Teams Software Quality Tester Relationship Specialty Start Date End Date Denise Blancas MD [address] [place] [address] PCP - General Internal Medicine 06/27/24 documented as of this encounter
--- OUTSIDE RECORDS SUMMARY | 2024-10-25 10:02 | XMS_ITS | Encounter Summary ---
Author Organization [facility] Address [address] [place] [address] Phone Care Team Providers Care Faculty Physician Name Role Phone Denise Blancas MD Primary Care Provider [phone] Encounter Details Date Type Department Care Team (Latest Contact Info) Description 09/16/2022 Orders Only [facility] [address] [place] [address] Jovanna Schaeffer MD SLE glomerulonephritis [...] Visit [facility] [address] [place] [address] Breonna Le MD [address] [place] [address] [place] [address] documented as of this encounter Visit Diagnoses Diagnosis SLE glomerulonephritis syndrome, 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HCC) documented in this encounter Care Teams Faculty Physician Relationship Specialty Start Date End Date Denise Blancas MD [address] [place] [address] PCP - General Internal Medicine 06/27/24 documented as of this encounter
--- OUTSIDE RECORDS SUMMARY | 2024-10-25 10:02 | XMS_ITS | Encounter Summary ---
Author Organization [facility] Address [address] [place] [address] Phone Care Team Providers Care Wharf Builder Name Role Phone Denise Blancas MD Primary Care Provider [phone] Encounter Details Date Type Department Care Team (Latest Contact Info) Description 10/24/2024 2:30 PM EDT Office Visit [facility] [place], [address] [place] [address] Breonna Le MD [address] [place] [address] (Primary Dx); SLE glomerulonephritis syndrome, [...] Visit [facility] [place], [address] [place] [address] Breonna Le MD [address] [place] [address] Scheduled Orders Name Type Priority Associated Diagnoses [...] (HCC) documented in this encounter Care Teams Wharf Builder Relationship Specialty Start Date End Date Denise Blancas MD [address] [place] [address] PCP - General Internal Medicine 06/27/24 documented as of this encounter
--- OUTSIDE RECORDS SUMMARY | 2024-10-25 10:02 | XMS_ITS | Encounter Summary ---
Author Organization [facility] Address [address] [place] [address] Phone Care Team Providers Care Cap Lining Machine Operator Name Role Phone Denise Blancas MD Primary Care Provider [phone] Encounter Details Date Type Department Care Team (Latest Contact Info) Description 09/27/2024 Orders Only [facility] [address] [place] [address] Rhianna Castro [address] [place] [address] 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); Other proteinuria; SLE glomerulonephritis syndrome, 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HCC); Anemia in chronic kidney disease; Nephrotic syndrome; Fluid overload, not otherwise specified; Chronic kidney disease stage 3A ([facility]) Social History Tobacco Use Types [...] [facility] [address] [place] [address] Breonna Le MD [address] [place] [address] documented as of this encounter Procedures Procedure [...] Urine 0-5 0 - 5 /hpf [facility] RBC, Urine 3-10(A) 0 - 2 /hpf [facility] Squamous Epithelial, Urine 0-10 0 - 10 /hpf [facility] Casts None seen None seen /lpf [facility] Bacteria, Urine None seen None seen/Few [facility] 10/22/2024 12:2 6 PM EDT 10/22/2024 us Omar Garcia MD LAB MICROBIOLOGY - GENERAL OR DERABLES Final Result [facility] [address] [place] [address] * (ABNORMAL) Comprehensive metabolic panel (10/22/2024 12:26 PM EDT) Glucose 88 70 - 99 mg/dL [facility] BUN 18 6 - 20 mg/dL [facility] Creatinine 1.09(H) 0.57 - 1.00 mg/dL [facility] eGFR CKD-EPI CR 2020 72 >59 mL/min/1.7 3 [facility] BUN/Creatinine Ratio 17 9 - 23 [facility] Sodium 139 134 - 144 mmol/L [facility] Potassium 4.4 3.5 - 5.2 mmol/L [facility] Chloride 107(H) 96 - 106 mmol/L [facility] Bicarbonate (CO2) 19(L) 20 - 29 mmol/L [facility] Calcium 8.3(L) 8.7 - 10.2 mg/dL [facility] Total Protein 4.7(L) 6.0 - 8.5 g/dL [facility] Albumin 2.5(L) 4.0 - 5.0 g/dL [facility] Globulin 2.2 1.5 - 4.5 g/dL [facility] Total Bilirubin <0.2 0.0 - 1.2 mg/dL [facility] Comment:Verified by repeat analysis Alkaline Phosphatase 68 44 - 121 IU/L [facility] AST (SGOT) 17 0 - 40 IU/L [facility] ALT (SGPT) 13 0 - 32 IU/L [facility] Blood (Blood, Venous) 10/22/2024 12:26 PM EDT 10/22/2024 us Omar Garcia MD LAB BLOOD ORDERABLES Final Re sult [facility] [address] [place] [address] * (ABNORMAL) Urine Protein / creatinine ratio (10/22/2024 12:26 PM EDT) Creatinine, Ur 167.4 Not Estab. mg/dL [facility] Protein, Ur 1,593.3 Not Estab. mg/dL [facility] Comment: Results confirmed on dilution. Urine Protein/Creati nine Ratio 9,518(H) 0 - 200 mg/g creat [facility] Urine (Urine, Clean Catch) 10/22/2024 12:26 PM EDT 10/22/2024 Omar Garcia MD LAB URINE ORDERABLES Final Re sult Performing Organization Address [facility]/ZIP Co de Phone Number [facility] [address] [place] [address] * C-Reactive Protein (10/22/2024 12:26 PM EDT) Pathologist [facility] C-Reactive Protein Quant 2 0 - 10 mg/L [facility] Blood (Blood, Venous) 10/22/2024 12:26 PM EDT 10/22/2024 Omar Garcia MD LAB BLOOD ORDERABLES Final Re sult Performing Organization Address [facility] Co de Phone Number [facility] [address] [place] [address] * (ABNORMAL) Sedimentation Rate (10/22/2024 12:26 PM EDT) [facility] Sed Rate 77(H) 0 - 32 mm/hr [facility] Blood (Blood, Venous) 10/22/2024 12:26 PM EDT 10/22/2024 Omar Garcia MD LAB BLOOD ORDERABLES Final Re sult Performing Organization Address [facility] Co de Phone Number [facility] [address] [place] [address] * (ABNORMAL) Urinalysis with microscopic (10/22/2024 12:26 PM EDT) Pathologist [facility] Specific [place], Urine 1.028 1.005 - 1.030 [facility] pH Urine 6.5 5.0 - 7.5 [facility] Color, Urine Yellow Yellow [facility] [phone] Appearance Urine Clear Clear [facility] [place] WBC Esterase Urine Negative Negative [facility] Protein, Ur 4+(A) Negative/Tra ce [facility] Glucose, Ur Trace(A) Negative [facility] Ketones, Urine Negative Negative [facility] [place] Blood Urine Trace(A) Negative [facility] Bilirubin Urine Negative Negative [facility] [place] Urobilinogen Urine 0.2 0.2 - 1.0 mg/dL [facility] Nitrite, Urine Negative Negative [facility] Microscopic Examination See below: [facility] Comment:Microscopic was shashi cated and was performed. Urine (Urine, Clean Catch) 10/22/2024 12:26 PM EDT 10/22/2024 us Omar Garcia MD LAB URINE ORDERABLES Final Re sult [facility] [address] [place] [address] * (ABNORMAL) CBC and differential (10/22/2024 12:26 PM EDT) WBC 13.2(H) 3.4 - 10.8 x10E3/uL [facility] RBC 4.53 3.77 - 5.28 x10E6/uL [facility] Hemoglobin 11.9 11.1 - 15.9 g/dL [facility] Hematocrit 36.6 34.0 - 46.6 % [facility] MCV 81 79 - 97 fL [facility] MCH 26.3(L) 26.6 - 33.0 pg [facility] MCHC 32.5 31.5 - 35.7 g/dL [facility] RDW 15.9(H) 11.7 - 15.4 % [facility] Platelets 365 150 - 450 x10E3/uL [facility] Immature Granulocytes 1 Not Estab. % [facility] Immature Grans (Absolute) 0.1 0.0 - 0.1 x10E3/uL [facility] Neutrophils Relative 78 Not Estab. % [facility] Lymphocytes Relative 14 Not Estab. % [facility] Monocytes 6 Not Estab. % [facility] Eosinophils Relative 1 Not Estab. % [facility] Basophils Relative 0 Not Estab. % [facility] Neutrophils Absolute 10.4(H) 1.4 - 7.0 x10E3/uL [facility] Lymphocytes Absolute 1.8 0.7 - 3.1 x10E3/uL [facility] Monocytes Absolute 0.7 0.1 - 0.9 x10E3/uL [facility] Eosinophils Absolute 0.2 0.0 - 0.4 x10E3/uL [facility] Basophils Absolute 0.0 0.0 - 0.2 x10E3/uL [facility] Blood (Blood, Venous) 10/22/2024 12:26 PM EDT 10/22/2024 us Omar Garcia MD LAB BLOOD ORDERABLES Final Re sult [facility] [address] [place] [address] documented in this encounter Visit Diagnoses Diagnosis 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) Other proteinuria SLE glomerulonephritis syndrome, 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HCC) Anemia in chronic kidney disease Nephrotic syndrome Fluid overload, not otherwise specified Chronic kidney disease stage 3A (HCC) documented in this encounter Care Teams Cap Lining Machine Operator Relationship Specialty Start Date End Date Denise Blancas MD [address] [place] [address] PCP - General Internal Medicine 06/27/24 documented as of this encounter
--- OUTSIDE RECORDS SUMMARY | 2024-10-25 10:02 | XMS_ITS | Encounter Summary ---
Author Organization [facility] Address [address] [place] [address] 7 [place] [address] Care Team Providers Care Artist'S Representative Name Role Phone Verena Hardin Primary Care Provider [phone] Encounter Details Date Type Department Care Team (Late st Contact Info) Description 06/01/2022 Orders Only [facility] [address] [place] [address] Norma Reich, RN [address] [place] [address] Social History Tobacco Use Types Packs/Day Years [...] on filedocumented in this encounter Care Teams Artist'S Representative Relationship Specialty Start Date End Date Verena Hardin FNP [address] [place] [address] PCP - General Family Medicine 12/14/21 05/29/23 documented as of this encounter
--- OUTSIDE RECORDS SUMMARY | 2024-10-25 10:02 | XMS_ITS | Encounter Summary ---
Author Organization [facility] [place], Address [address] [place] [address] Phone Care Team Providers Care Photo Manager Name Role Phone Denise Blancas MD Primary Care Provider [phone] Encounter Details Date Type Department Care Team (Late st Contact Info) Description 09/26/2024 Documentation Only [facility] [place], [address] [place] [address] Rhianna Castro [address] [place] [address] Social History Tobacco Use Types [...] Of [facility] [address] [place] [address] Breonna Le MD [address] [place] [place] [address] documented as of this encounter Visit Diagnoses Not on filedocumented in this encounter Care Teams Photo Manager Relationship Specialty Start Date End Date Denise Blancas MD [address] [place] [address] PCP - General Internal Medicine 06/27/24 documented as of this encounter
--- OUTSIDE RECORDS SUMMARY | 2024-10-25 10:02 | XMS_ITS | Clinical Summary ---
Author Organization [facility] [place], Address [address] [place] [address] [place] [address] Phone Care Team Providers Care Process Artist Name Role Phone Denise Blancas MD Primary Care Provider [phone] Allergies Active Allergy Reactions Criticality Noted Date [...] [facility] [address] [place] [address] Breonna Le MD (Primary Dx); SLE glomerulonephritis syndrome, 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); Chronic kidney disease stage 3A (HCC); Nephrotic syndrome; 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) 10/24/2024 Documentation Only [facility] [address] [place] [address] Rhianna Castro 10/24/2024 Documentation Only [facility] [address] [place] [address] Rhianna Castro 10/11/2024 Orders Only [facility] [address] [place] [address] Rhianna Castro 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); Other proteinuria; SLE glomerulonephritis syndrome, 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HCC); Anemia in chronic kidney disease; Nephrotic syndrome; Fluid overload, not otherwise specified; Chronic kidney disease stage 3A (HCC) 09/27/2024 Orders Only [facility] [address] [place] [address] Matthew, Rhianna 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); Other proteinuria; SLE glomerulonephritis syndrome, 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HCC); Anemia in chronic kidney disease; Nephrotic syndrome; Fluid overload, not otherwise specified; Chronic kidney disease stage 3A (HCC) 09/26/2024 2:30 PM EDT Office Visit [facility] [address] [place] [address] Breonna Le MD (Primary Dx); Chronic kidney disease stage 3A (HCC); Nephrotic syndrome; 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) 09/26/2024 Documentation Only [facility] [address] [place] [address] Matthew, Rhianna 09/13/2024 Orders Only [facility] [address] [place] [address] Matthew, Rhianna 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); Other proteinuria; SLE glomerulonephritis syndrome, 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HCC); Anemia in chronic kidney disease; Nephrotic syndrome; Fluid overload, not otherwise specified; Chronic kidney disease stage 3A (HCC) 08/30/2024 Orders Only [facility] [address] [place] [address] Matthew, Rhianna 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); Other proteinuria; SLE glomerulonephritis syndrome, 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); Anemia in chronic kidney disease; Nephrotic syndrome; Fluid overload, not otherwise specified; Chronic kidney disease stage 3A (HCC) 08/22/2024 Documentation Only [facility] [address] [place] [address] Matthew, Rhianna 08/22/2024 Documentation Only [facility] [address] [place] [address] Matthew, Rhianna 08/22/2024 Documentation Only [facility] [address] [place] [address] Matthew, Rhianna 08/16/2024 Orders Only [facility] [address] [place] [address] Rhianna Castro 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 ([facility]); Other proteinuria; SLE glomerulonephritis syndrome, 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); Anemia in chronic kidney disease; Nephrotic syndrome; Fluid overload, not otherwise specified; Chronic kidney disease stage 3A ([facility]) 08/08/2024 2:30 PM EST Office Visit [facility] [address] [place] [address] Breonna Le MD 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 ([facility]) (Primary Dx); 08/02/2024 Telephone [facility] [address] [place] [address] Rhianna Castro 08/01/2024 Documentation Only [facility] [address] [place] [address] Shauna Foreman MA 07/30/2024 Telephone [facility] [address] [place] [address] Shauna Foreman MA from Last 3 Months [...] Visit [facility] [place], [address] [place] [address] Breonna Le MD [address] [place] [place] [address] Health Maintenance Due Date Last Done Comments [...] Urine 0-5 0 - 5 /hpf [facility] RBC, Urine 3-10(A) 0 - 2 /hpf [facility] Squamous Epithelial, Urine 0-10 0 - 10 /hpf [facility] Casts None seen None seen /lpf [facility] Bacteria, Urine None seen None seen/Few [facility] 10/22/2024 12:2 6 PM EDT 10/22/2024 us Omar Garcia MD LAB MICROBIOLOGY - GENERAL OR DERABLES Final Result [facility] [address] [place] [address] * (ABNORMAL) Urine Protein / creatinine ratio (10/22/2024 12:26 PM EDT) Only the most recent of3 resultswithin the time period is included. Creatinine, Ur 167.4 Not Estab. mg/dL [facility] Protein, Ur 1,593.3 Not Estab. mg/dL [facility] Comment: Results confirmed on dilution. Urine Protein/Creati nine Ratio 9,518(H) 0 - 200 mg/g creat [facility] Urine (Urine, Clean Catch) 10/22/2024 12:26 PM EDT 10/22/2024 us Omar Garcia MD LAB URINE ORDERABLES Final Re sult [facility] [address] [place] [address] * (ABNORMAL) Urinalysis with microscopic (10/22/2024 12:26 PM EDT) Only the most recent of3 resultswithin the time period is included. Specific [place], Urine 1.028 1.005 - 1.030 [facility] pH Urine 6.5 5.0 - 7.5 [facility] Color, Urine Yellow Yellow [facility] Appearance Urine Clear Clear [facility] [place] WBC Esterase Urine Negative Negative [facility] Protein, Ur 4+(A) Negative/Tra ce [facility] Glucose, Ur Trace(A) Negative [facility] [phone] Ketones, Urine Negative Negative [facility] Blood Urine Trace(A) Negative [facility] Bilirubin Urine Negative Negative [facility] Urobilinogen Urine 0.2 0.2 - 1.0 mg/dL [facility] Nitrite, Urine Negative Negative [facility] Microscopic Examination See below: [facility] Comment:Microscopic was shashi cated and was performed. Urine (Urine, Clean Catch) 10/22/2024 12:26 PM EDT 10/22/2024 Omar Garcia MD LAB URINE ORDERABLES Final Re sult Performing Organization Address City/[facility] Co de Phone Number [facility] [address] [place] [address] * (ABNORMAL) Sedimentation Rate (10/22/2024 12:26 PM EDT) Only the most recent of3 resultswithin the time period is included. Sed Rate 77(H) 0 - 32 mm/hr [facility] Blood (Blood, Venous) 10/22/2024 12:26 PM EDT 10/22/2024 Omar Garcia MD LAB BLOOD ORDERABLES Final Re sult Performing Organization Address [facility] de Phone Number [facility] [address] [place] [address] * (ABNORMAL) CBC and differential (10/22/2024 12:26 PM EDT) Only the most recent of3 resultswithin the time period is included. WBC 13.2(H) 3.4 - 10.8 x10E3/uL [facility] RBC 4.53 3.77 - 5.28 x10E6/uL [facility] Hemoglobin 11.9 11.1 - 15.9 g/dL [facility] Hematocrit 36.6 34.0 - 46.6 % [facility] MCV 81 79 - 97 fL [facility] MCH 26.3(L) 26.6 - 33.0 pg [facility] MCHC 32.5 31.5 - 35.7 g/dL [facility] RDW 15.9(H) 11.7 - 15.4 % [facility] Platelets 365 150 - 450 x10E3/uL [facility] Immature Granulocytes 1 Not Estab. % [facility] Immature Grans (Absolute) 0.1 0.0 - 0.1 x10E3/uL [facility] Neutrophils Relative 78 Not Estab. % [facility] Lymphocytes Relative 14 Not Estab. % [facility] Monocytes 6 Not Estab. % [facility] Eosinophils Relative 1 Not Estab. % [facility] Basophils Relative 0 Not Estab. % [facility] Neutrophils Absolute 10.4(H) 1.4 - 7.0 x10E3/uL [facility] Lymphocytes Absolute 1.8 0.7 - 3.1 x10E3/uL [facility] Monocytes Absolute 0.7 0.1 - 0.9 x10E3/uL [facility] Eosinophils Absolute 0.2 0.0 - 0.4 x10E3/uL [facility] Basophils Absolute 0.0 0.0 - 0.2 x10E3/uL [facility] Blood (Blood, Venous) 10/22/2024 12:26 PM EDT 10/22/2024 us Omar Garcia MD LAB BLOOD ORDERABLES Final Re sult [facility] [address] [place] [address] * C-Reactive Protein (10/22/2024 12:26 PM EDT) Only the most recent of3 resultswithin the time period is included. C-Reactive Protein Quant 2 0 - 10 mg/L [facility] Blood (Blood, Venous) 10/22/2024 12:26 PM EDT 10/22/2024 us Omar Garcia MD LAB BLOOD ORDERABLES Final Re sult [facility] [address] [place] [address] * (ABNORMAL) Comprehensive metabolic panel (10/22/2024 12:26 PM EDT) Only the most recent of3 resultswithin the time period is included. Glucose 88 70 - 99 mg/dL [facility] BUN 18 6 - 20 mg/dL [facility] Creatinine 1.09(H) 0.57 - 1.00 mg/dL [facility] eGFR CKD-EPI CR 2020 72 >59 mL/min/1.7 3 [facility] BUN/Creatinine Ratio 17 9 - 23 [facility] Sodium 139 134 - 144 mmol/L [facility] Potassium 4.4 3.5 - 5.2 mmol/L [facility] Chloride 107(H) 96 - 106 mmol/L [facility] Bicarbonate (CO2) 19(L) 20 - 29 mmol/L [facility] Calcium 8.3(L) 8.7 - 10.2 mg/dL [facility] Total Protein 4.7(L) 6.0 - 8.5 g/dL [facility] Albumin 2.5(L) 4.0 - 5.0 g/dL [facility] Globulin 2.2 1.5 - 4.5 g/dL [facility] Total Bilirubin <0.2 0.0 - 1.2 mg/dL [facility] Comment:Verified by repeat analysis Alkaline Phosphatase 68 44 - 121 IU/L [facility] AST (SGOT) 17 0 - 40 IU/L [facility] ALT (SGPT) 13 0 - 32 IU/L [facility] Blood (Blood, Venous) 10/22/2024 12:26 PM EDT 10/22/2024 Omar Garcia MD LAB BLOOD ORDERABLES Final Re sult Performing Organization Address [facility] de Phone Number [facility] [address] [place] [address] * (ABNORMAL) Hemoglobin A1c (12/20/2023 11:47 AM EDT) [facility] Hemoglobin A1C 5.9(H) 4.8 - 5.6 % See order comments Comment: ? Prediabetes: 5.7 - 6.4 ? Diabetes: >6.4 ? Glycemic control for adults with diabetes: <7.0 Blood (Blood, Venous) 12/20/2023 11:47 AM EDT 12/20/2023 Narrative [facility] - 12/21/2023 4:08 PM EDT Performed at: ??01 - [facility] [address] [place], [place] ??[id number] Sausage Stuffer: Mitzy Knutson MD, Phone: ??[phone] Omar Garcia MD LAB BLOOD ORDERABLES Final Re sult [facility] See order comments [place] [address] from Last 3 Months or Most Recently Relevant to Health Maintenance Insurance Medicaid [place] Medicare Care Teams Process Artist Relationship Specialty Start Date End Date Denise Blancas MD [address] [place] [address] PCP - General Internal Medicine 06/27/24
--- OUTSIDE RECORDS SUMMARY | 2024-10-25 10:02 | XMS_ITS | Encounter Summary ---
Author Organization [facility] [place], Address [address] [place] [address] Phone Care Team Providers Care Automotive Engineering Technician Name Role Phone Denise Blancas MD Primary Care Provider [phone] Encounter Details Date Type Department Care Team (Late st Contact Info) Description 08/22/2024 Documentation Only [facility] [place], [address] [place] [address] Rhianna Castro [address] [place] [address] Social History Tobacco Use Types [...] Visit [facility] [address] [place] [address] Breonna Le MD [address] [place] [address] documented as of this encounter Visit Diagnoses Not on filedocumented in this encounter Care Teams Automotive Engineering Technician Relationship Specialty Start Date End Date Denise Blancas MD [address] [place] [address] PCP - General Internal Medicine 06/27/24 documented as of this encounter
--- OUTSIDE RECORDS SUMMARY | 2024-10-25 10:02 | XMS_ITS | Clinical Summary ---
Author Organization [facility] Address [address] [facility] [address] [place] [address] Care Team Providers Care Woodworking Bench Carpenter Name Role Phone Unavailable Primary Care Provider [...] every day Active ergocalciferol (Drisdol) 1.25 MG (57287 UT) capsule take 1 capsule by oral [...] ?? Walter SANCHEZ et al. RANDY. 2013;310(19): 4174-7677 ?? (http://education.ZALORA.Doorman/faq/CQJ149) Chol/HDLC Ratio 5.0(H) <5.0 (calc) [facility] ?? Walter SANCHEZ et al. RANDY. 2013;310(19): 8963-8684 ?? (http://Cherry.[employer]/faq/IUU433) Chol/HDLC Ratio 5.0(H) <5.0 (calc) [facility] 05/28/2020 10:1 0 AM EST Efraín Lara BRACE MAKER LAB BLOOD ORDERABLES Final Result Performing Organization Address City/State/[facility] Co de Phone Number [facility] [address] from Last 3 Months or Most Recently Relevant [place] [id number] [place] [address] [place] [address] [place] [id number] ELISE Rhoades [id number] EL[place]es [id number]
--- OUTSIDE RECORDS SUMMARY | 2024-10-25 10:02 | XMS_ITS | Encounter Summary ---
Author Organization [facility] [place], Address [address] [place] [address] Phone Care Team Providers Care Engraving Operator Name Role Phone Denise Blancas MD Primary Care Provider [phone] Encounter Details Date Type Department Care Team (Late st Contact Info) Description 10/24/2024 Documentation Only [facility] [place], [address] [address] Rhianna aCstro [address] [place] [address] Social History Tobacco Use Types [...] Of [facility] [address] [place] [address] Breonna Le MD [address] [place] [address] documented as of this encounter Visit Diagnoses Not on filedocumented in this encounter Care Teams Engraving Operator Relationship Specialty Start Date End Date Denise Blancas MD [address] [place] [address] PCP - General Internal Medicine 06/27/24 documented as of this encounter
--- OUTSIDE RECORDS SUMMARY | 2024-10-25 10:02 | XMS_ITS | Encounter Summary ---
Author Organization [facility] [place], Address [address] [place] [address] Phone Care Team Providers Care Manager Development Name Role Phone Denise Blancas MD Primary Care Provider Encounter Details Date Type Department Care Team (Late st Contact Info) Description 08/22/2024 Documentation Only [facility] [place], [address] [place] [address] Rhianna Castro [address] [place] [address] Social History Tobacco Use Types [...] And Transplant [facility] [address] [place] [address] Breonna Le MD [address] [address] documented as of this encounter Visit Diagnoses Not on filedocumented in this encounter Care Teams Manager Development Relationship Specialty Start Date End Date Denise Blancas MD [address] [place] [address] PCP - General Internal Medicine 06/27/24 documented as of this encounter
--- OUTSIDE RECORDS SUMMARY | 2024-10-25 10:02 | XMS_ITS | Encounter Summary ---
Author Organization [facility] Address [address] [place] [address] Phone Care Team Providers Care Lubrication Servicer Name Role Phone Denise Blancas MD Primary Care Provider [phone] Encounter Details Date Type Department Care Team (Latest Contact Info) Description 08/30/2024 Orders Only [facility] [address] [place] [address] Rhianna Castro [address] [place] [address] 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); Other proteinuria; SLE glomerulonephritis syndrome, 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HCC); Anemia in chronic kidney disease; Nephrotic syndrome; Fluid overload, not otherwise specified; Chronic kidney disease stage 3A ([facility]) Social History Tobacco Use Types Packs/Day Years [...] Of [facility] [address] [place] [address] Breonna Le MD [address] [place] [address] documented as of this encounter Visit Diagnoses Diagnosis 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) Other proteinuria SLE glomerulonephritis syndrome, 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HCC) Anemia in chronic kidney disease Nephrotic syndrome Fluid overload, not otherwise specified Chronic kidney disease stage 3A (HCC) documented in this encounter Care Teams Lubrication Servicer Relationship Specialty Start Date End Date Denise Blancas MD [address] [place] [address] PCP - General Internal Medicine 06/27/24 documented as of this encounter
--- OUTSIDE RECORDS SUMMARY | 2024-10-25 10:02 | XMS_ITS | Encounter Summary ---
Author Organization [facility] [place], Address [address] [place] [address] Phone Care Team Providers Care Grounds And Nursery Specialist Name Role Phone Denise Blancas MD Primary Care Provider [phone] Encounter Details Date Type Department Care Team (Late st Contact Info) Description 10/24/2024 Documentation Only [facility] [place], [address] [place] [address] Rhianna Castro [address] [place] [address] Social History Tobacco Use Types [...] And Transplant Services Of [facility] [address] [place] [address] Breonna Le MD [address] [place] [address] documented as of this encounter Visit Diagnoses Not on filedocumented in this encounter Care Teams Grounds And Nursery Specialist Relationship Specialty Start Date End Date Denise Blancas MD [address] [place] [address] PCP - General Internal Medicine 06/27/24 documented as of this encounter
--- OUTSIDE RECORDS SUMMARY | 2024-10-25 10:02 | XMS_ITS | Encounter Summary ---
Author Organization [facility] Address [address] [place] [address] Phone Care Team Providers Care Lithographic Stripper Name Role Phone Denise Blancas MD Primary Care Provider [phone] Encounter Details Date Type Department Care Team (Latest Contact Info) Description 09/02/2022 Orders Only [facility] [address] [place] [place] [address] Jovanna Schaeffer MD SLE [...] Visit [facility] [address] [place] [address] Breonna Le MD [address] [place] [address] [place] [address] documented as of this encounter [...] AM EDT) C3 Complement 118 (90-180) MG/DL [facility] Comment: Testing performed or reported by [facility], [facility], [address] [place] [address] Cherri Lucas MD, Manager Distribution [place]# [id number] Blood (Blood, Venous) 10/03/2022 11:04 AM EDT 10/03/2022 11:12 AM EDT Result [facility] Jovanna Schaeffer MD LAB BLOOD ORDERABLES Final Resul t [facility] * C4 Complement (10/03/2022 11:04 AM EDT) Pathologist [facility] C4 Complement 22 (10-40) MG/DL [facility] Comment: Testing performed or reported by [facility], [facility], [address] [place] [address] Cherri Lucas MD, Manager Distribution CLIA# [id number] Blood (Blood, Venous) 10/03/2022 11:04 AM EDT 10/03/2022 11:12 AM EDT Result [facility] Jovanna Schaeffer MD LAB BLOOD ORDERABLES Final Resul t Performing Organization Address City/[facility] Co de Phone Number [facility] * (ABNORMAL) DANNIE Panel (10/03/2022 11:04 AM EDT) Pathologist [facility] DANNIE Screen POSITIVE(A ) [facility] Comment: (NOTE) ?Negative ?? <1:80 ?Borderline ??1:80 ?Positive ?? >1:80 Test performed by [facility], [address] [place] [address] Testing performed or reported by [facility], [facility], [address] [place] [address] Robbie Cardona MD, Manager Distribution JAME# [id number] Blood (Blood, Venous) 10/03/2022 11:04 AM EDT 10/03/2022 11:13 AM EDT Result [facility] Jovanna Schaeffer MD LAB BLOOD ORDERABLES Final Resul t Performing Organization Address [facility] [place]/[facility] de Phone Number [facility] * Anti-DNA antibody, double-stranded (10/03/2022 11:04 AM EDT) Pathologist [facility] Anti DNA, [place] [address] [facility] Comment: Reference range: 0 to 9 Unit: IU/mL (NOTE) ?Negative ?<5 ?Equivocal ??5 - 9 ?Positive ?>9 Test performed by [facility], [address] [place] [address] Testing performed or reported by [facility], [address] [facility] [place] [address] Robbie Cardona MD, Manager Distribution CLIA# [id number] Blood (Blood, Venous) 10/03/2022 11:04 AM EDT 10/03/2022 11:13 AM EDT Jovanna Schaeffer MD LAB BLOOD ORDERABLES Final Resul t Performing Organization Address [facility] [place]/[facility] de Phone Number [facility] * C-Reactive Protein (10/03/2022 11:04 AM EDT) [facility] CRP <0.3 (0-0.5) MG/DL [facility] Comment: Testing performed or reported by [facility], [facility], [address] [place] [address] Cherri Lucas MD, Manager Distribution CLIA# [id number] Blood (Blood, Venous) 10/03/2022 11:04 AM EDT 10/03/2022 11:12 AM EDT Jovanna Schaeffer MD LAB BLOOD ORDERABLES Final Resul t Performing Organization Address [facility] de Phone Number [facility] * (ABNORMAL) Sedimentation Rate (10/03/2022 11:04 AM EDT) Sed Rate 47(H) (0-20) MM/HR [facility] Comment: Testing performed or reported by [facility], [place] [address] Cherri Lucas MD, Manager Distribution IA# [id number] Blood (Blood, Venous) 10/03/2022 11:04 AM EDT 10/03/2022 11:13 AM EDT Result [facility] Jovanna Schaeffer MD LAB BLOOD ORDERABLES Final Resul t Performing Organization Address [facility] Phone Number [facility] * (ABNORMAL) Urine Albumin / Creatinine Ratio (10/03/2022 11:04 AM EDT) Pathologist [facility] Urine Microalbumin 576.4(H) (<20) MG/L [facility] Comment: The urine microalbumin test is designed to monitor renal function. When screening for Bence Lynne proteinuria, urine electrophoresis is recommended. Microalbumin/Creati nine Ratio 2,088.4(H ) (0-20) MG/GM [facility] Microalb/Creat Ratio 27.6 MG/DL [facility] Comment: Testing performed or reported by [facility], a Service of [place] [id number] Cherri Lucas MD, Manager Distribution [facility]# [id number] Urine (Urine, Clean Catch) 10/03/2022 11:04 AM EDT 10/03/2022 11:12 AM EDT Result [facility] Jovanna Schaeffer MD LAB URINE ORDERABLES Final Resul t Performing Organization Address [facility] de Phone Number [facility] * (ABNORMAL) Protein, Total, Random Urine w/Creatinine (Protein/Creat Ratio) (10/03/2022 11:04 AM EDT) [facility] Protein/Creatine Ratio 2.73(H) (0-0.2) [facility] Protein, Urine 75 MG/DL [facility] Comment: The urine microalbumin test is designed to monitor renal function. When screening for Bence Lynne proteinuria, urine electrophoresis is recommended. Creatinine, Urine 27.6 MG/DL [facility] Comment: Testing performed or reported by [facility], [facility], [address] [place] [address] Cherri Lucas MD, Manager Distribution [facility]# [id number] Urine (Urine, Clean Catch) 10/03/2022 11:04 AM EDT 10/03/2022 11:12 AM EDT us Jovanna Schaeffer MD LAB URINE ORDERABLES Final Resul t [facility] * (ABNORMAL) Urinalysis with microscopic (10/03/2022 11:04 AM EDT) [facility] Appearance COLORLESS [facility] Comment:CLEAR Specific [place] 1.009 (1.002-1. 030) [facility] pH Urine 6.0 (5.0-8.0) [facility] Albumin, Urine 2+(A) (NEG) [facility] Glucose, Ur NEGATIVE (NEG) [facility] Ketones, Urine NEGATIVE (NEG) [facility] Bilirubin Urine NEGATIVE (NEG) [facility] Hemoglobin Presence in Urine NEGATIVE (NEG) [facility] Nitrite, Urine NEGATIVE (NEG) [facility] Leukocyte Esterase Urine NEGATIVE (NEG) [facility] Urobilinogen Urine NORMAL (NORM) MG/DL [facility] WBC, Urine <1 (0-5) /HPF [facility] RBC, Urine 1 (0-3) /HPF [facility] Bacteria SLIGHT(A) (NEG) HPF [facility] Mucus, Urine SLIGHT /LPF [facility] Squamous Epithelial, Urine <1 (0-8) /HPF [facility] Hyaline Casts, Urine 1 (0-2) LPF [facility] Comment: Testing performed or reported by [facility], [facility], [address] [place] [address] Cherri Lucas MD, Manager Distribution [facility]# [id number] Urine (Urine, Clean Catch) 10/03/2022 11:04 AM EDT 10/03/2022 11:12 AM EDT Jovanna Schaeffer MD LAB URINE ORDERABLES Final Resul t Performing Organization Address [facility] [place]/[facility] Co de Phone Number [facility] * (ABNORMAL) Renal Function Panel (10/03/2022 11:04 AM EDT) Glucose 87 (70-99) MG/DL [facility] BUN 23(H) (6-20) MG/DL [facility] Creatinine 1.0 (0.5-1.0) MG/DL [facility] Sodium 140 (133-145) MMOL/L [facility] Potassium 3.9 (3.6-5.2) MMOL/L [facility] Chloride 105 (98-107) MMOL/L [facility] Bicarbonate (CO2) 24 (22-29) MMOL/L [facility] Anion Gap 11 (4-17) [facility] Albumin 3.7 (3.4-4.8) GM/DL [facility] Calcium 9.2 (8.6-10.5) MG/DL [facility] Phosphorus, Serum 4.8(H) (2.5-4.5) MG/DL [facility] Est GFR Non 82 ML/MIN/1.7 3 M2 [facility] Comment: Creatinine based estimated glomerular filtration (eGFR) in adults is calculated using the National Kid[employer] recommended 2020 CKD-EPI equation. Estimates GFR from serum creatinine, age and sex. Testing performed or reported by [facility], [facility], [address] [place] [address] Cherri Lucas MD, Manager Distribution [facility]# [id number] Blood (Blood, Venous) 10/03/2022 11:04 AM EDT 10/03/2022 11:12 AM EDT Jovanna Schaeffer MD LAB BLOOD ORDERABLES Final Resul t Performing Organization Address [facility] Co de Phone Number [facility] documented in this encounter Visit Diagnoses Diagnosis SLE glomerulonephritis syndrome, 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HCC) documented in this encounter Care Teams Lithographic Stripper Relationship Specialty Start Date End Date Denise Blancas MD [address] [facility] [place] [address] PCP - General Internal Medicine 06/27/24 documented as of this encounter
--- OUTSIDE RECORDS SUMMARY | 2024-10-25 10:03 | XMS_ITS | Encounter Summary ---
Author Organization [facility] Address [address] [place] [address] Phone Care Team Providers Care Roller Man Name Role Phone Denise Blancas MD Primary Care Provider [phone] Encounter Details Date Type Department Care Team (Latest Contact Info) Description 11/03/2023 Orders Only [facility] [address] [address] Jovanna Schaeffer MD SLE glomerulonephritis [...] [facility] [address] [address] Breonna Le MD [address] [place] [address] [place] [address] documented as of this encounter Visit Diagnoses Diagnosis SLE glomerulonephritis syndrome, 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HCC) documented in this encounter Care Teams Roller Man Relationship Specialty Start Date End Date Denise Blancas MD [address] [place] [address] PCP - General Internal Medicine 06/27/24 documented as of this encounter
--- OUTSIDE RECORDS SUMMARY | 2024-10-25 10:03 | XMS_ITS | Encounter Summary ---
Author Organization [facility] [place], Address [address] [place] [address] Phone Care Team Providers Care Retail Consultant Name Role Phone Denise Blancas MD Primary Care Provider [phone] Encounter Details Date Type Department Care Team (Late st Contact Info) Description 10/26/2023 Documentation Only [facility] [place], [address] [place] [address] Rhianna Castro [address] [place] [address] Social History Tobacco Use Types [...] Transplant Services Of [facility] [address] [place] [address] Breonna Le MD [address] [place] [address] documented as of this encounter Visit Diagnoses Not on filedocumented in this encounter Care Teams Retail Consultant Relationship Specialty Start Date End Date Denise Blancas MD [address] [place] [address] PCP - General Internal Medicine 06/27/24 documented as of this encounter
--- OUTSIDE RECORDS SUMMARY | 2024-10-25 10:03 | XMS_ITS | Encounter Summary ---
Author Organization [facility] [place], Address [address] [place] [address] Phone Care Team Providers Care Topology Professor Name Role Phone Denise Blancas MD Primary Care Provider [phone] Encounter Details Date Type Department Care Team (Late st Contact Info) Description 09/05/2023 Documentation Only [facility] [place], [address] [place] [address] Rhianna Castro [address] [place] [address] Social History Tobacco Use Types [...] Transplant Services [facility] [address] [place] [address] Breonna Le MD [address] [place] [address] documented as of this encounter Visit Diagnoses Not on filedocumented in this encounter Care Teams Topology Professor Relationship Specialty Start Date End Date Denise Blancas MD [address] [place] [address] PCP - General Internal Medicine 06/27/24 documented as of this encounter
--- OUTSIDE RECORDS SUMMARY | 2024-10-25 10:03 | XMS_ITS | Encounter Summary ---
Author Organization [facility] Address [address] [place] [address] Phone Care Team Providers Care Prefitter Doors Name Role Phone Denise Blancas MD Primary Care Provider [phone] Encounter Details Date Type Department Care Team (Latest Contact Info) Description 11/10/2023 Orders Only [facility] [address] [place] [address] Jovanna cShaeffer MD SLE glomerulonephritis syndrome, WHO class V [...] [facility] [address] [place] [address] Breonna Le MD [address] [place] [address] [place] [address] documented as of this encounter Visit Diagnoses Diagnosis SLE glomerulonephritis syndrome, 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HCC) documented in this encounter Care Teams Prefitter Doors Relationship Specialty Start Date End Date Denise Blancas MD [address] [place] [address] PCP - General Internal Medicine 06/27/24 documented as of this encounter
--- OUTSIDE RECORDS SUMMARY | 2024-10-25 10:03 | XMS_ITS | Encounter Summary ---
Author Organization [facility] Address [address] [place] [address] Phone Care Team Providers Care Psychological Science Professor Name Role Phone Denise Blancas MD Primary Care Provider [phone] Encounter Details Date Type Department Care Team (Latest Contact Info) Description 08/19/2022 Orders Only [facility] [address] [place] [address] Jovanna Schaeffer MD SLE glomerulonephritis [...] Visit [facility] [address] [place] [address] Breonna Le MD [address] [place] [address] [place] [address] documented as of this encounter Visit Diagnoses Diagnosis SLE glomerulonephritis syndrome, 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HCC) documented in this encounter Care Teams Psychological Science Professor Relationship Specialty Start Date End Date Denise Blancas MD [address] [place] [address] PCP - General Internal Medicine 06/27/24 documented as of this encounter
--- OUTSIDE RECORDS SUMMARY | 2024-10-25 10:03 | XMS_ITS | Encounter Summary ---
Author Organization [facility] Address [address] [place] [address] Phone Care Team Providers Care Union Representative Name Role Phone Denise Blancas MD Primary Care Provider [phone] Encounter Details Date Type Department Care Team (Latest Contact Info) Description 12/01/2023 Orders Only [facility] [address] [place] [address] Jovanna Schaeffer MD SLE glomerulonephritis [...] [facility] [address] [place] [address] Breonna Le MD [address] [place] [address] [place] [address] documented as of this encounter Visit Diagnoses Diagnosis SLE glomerulonephritis syndrome, 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HCC) documented in this encounter Care Teams Union Representative Relationship Specialty Start Date End Date Denise Blancas MD [address] [place] [address] PCP - General Internal Medicine 06/27/24 documented as of this encounter
--- OUTSIDE RECORDS SUMMARY | 2024-10-25 10:03 | XMS_ITS | Encounter Summary ---
Author Organization [facility] [place], Address [address] [place] [address] Phone Care Team Providers Care Industrial Laborer Name Role Phone Denise Blancas MD Primary Care Provider [phone] Encounter Details Date Type Department Care Team (Late st Contact Info) Description 09/05/2023 Documentation Only [facility] [place], [address] [place] [address] Rhianna Castro [address] [place] [address] Social History Tobacco Use Types [...] Visit [facility] [address] [place] [address] Breonna Le MD [address] [place] [address] documented as of this encounter Visit Diagnoses Not on filedocumented in this encounter Care Teams Industrial Laborer Relationship Specialty Start Date End Date Denise Blancas MD [address] [place] [address] PCP - General Internal Medicine 06/27/24 documented as of this encounter
--- OUTSIDE RECORDS SUMMARY | 2024-10-25 10:03 | XMS_ITS | Encounter Summary ---
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); Other proteinuria; SLE glomerulonephritis syndrome, 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HCC); Anemia in chronic kidney disease; Nephrotic syndrome; Fluid overload, not otherwise specified; Chronic kidney disease stage 3A ([facility]) Social History Tobacco Use Types Packs/Day Years [...] [facility] [address] [place] [address] Breonna Le MD [address] [place] [address] documented as of this encounter Visit Diagnoses Diagnosis 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
--- OUTSIDE RECORDS SUMMARY | 2024-10-25 10:03 | XMS_ITS | Encounter Summary ---
Author Organization [facility] [place], Address [address] [place] [address] Phone Care Team Providers Care Caustic Preparer Name Role Phone Denise Blancas MD Primary Care Provider [phone] Encounter Details Date Type Department Care Team (Late st Contact Info) Description 09/01/2023 Documentation Only [facility] [place], [address] [place] [address] Omar Garcia MD [address] [place] [address] [place] [address] Social History Tobacco Use Types [...] Visit [facility] [address] [place] [address] Breonna Le MD [address] [place] [address] documented as of this encounter Visit Diagnoses Not on filedocumented in this encounter Care Teams Caustic Preparer Relationship Specialty Start Date End Date O'Vazquez, Denise M, MD [address] [place] [address] PCP - General Internal Medicine 06/27/24 documented as of this encounter
--- OUTSIDE RECORDS SUMMARY | 2024-10-25 10:03 | XMS_ITS | Encounter Summary ---
Author Organization [facility] Address [address] [place] [address] Phone Care Team Providers Care Rafter Cutting Machine Operator Name Role Phone Denise Blancas MD Primary Care Provider [phone] Encounter Details Date Type Department Care Team (Latest Contact Info) Description 12/08/2023 Orders Only [facility] [address] [place] [address] Jovanna Schaeffer MD SLE glomerulonephritis [...] Visit [facility] [address] [place] [address] Breonna Le MD [address] [place] [address] [place] [address] documented as of this encounter Visit Diagnoses Diagnosis SLE glomerulonephritis syndrome, 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HCC) documented in this encounter Care Teams Rafter Cutting Machine Operator Relationship Specialty Start Date End Date Denise Blancas MD [address] [place] [address] PCP - General Internal Medicine 06/27/24 documented as of this encounter
--- OUTSIDE RECORDS SUMMARY | 2024-10-25 10:03 | XMS_ITS | Encounter Summary ---
Author Organization [facility] Address [address] [place] [address] Phone Care Team Providers Care Cloth Finishing Range Operator Chief Name Role Phone Denise Blancas MD Primary Care Provider Encounter Details Date Type Department Care Team (Latest Contact Info) Description 03/17/2023 Orders Only [facility] [address] [place] [address] Jovanna Schaeffer MD SLE glomerulonephritis [...] [facility] [address] [place] [address] Breonna Le MD [address] [place] [address] [place] [address] documented as of this encounter Visit Diagnoses Diagnosis SLE glomerulonephritis syndrome, 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HCC) documented in this encounter Care Teams Cloth Finishing Range Operator Chief Relationship Specialty Start Date End Date Denise Blancas MD [address] [place] [address] PCP - General Internal Medicine 06/27/24 documented as of this encounter
--- OUTSIDE RECORDS SUMMARY | 2024-10-25 10:03 | XMS_ITS | Encounter Summary ---
Author Organization [facility] Address [address] [place] [address] Phone Care Team Providers Care Box Toe Cutter Name Role Phone Denise Blancas MD Primary Care Provider [phone] Encounter Details Date Type Department Care Team (Latest Contact Info) Description 11/17/2023 Orders Only [facility] [address] [place] [address] Jovanna Schaeffer MD SLE glomerulonephritis [...] [facility] [address] [place] [address] Breonna Le MD [address] [place] [address] [place] [address] documented as of this encounter Visit Diagnoses Diagnosis SLE glomerulonephritis syndrome, 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HCC) documented in this encounter Care Teams Box Toe Cutter Relationship Specialty Start Date End Date Denise Blancas MD [address] [place] [address] PCP - General Internal Medicine 06/27/24 documented as of this encounter
--- OUTSIDE RECORDS SUMMARY | 2024-10-25 10:03 | XMS_ITS | Encounter Summary ---
Author Organization [facility] Address [address] [place] [address] Phone Care Team Providers Care Siebel Architect Name Role Phone Denise Blancas MD Primary Care Provider [phone] Encounter Details Date Type Department Care Team (Latest Contact Info) Description 12/23/2022 Orders Only [facility] [address] [place] [address] Jovanna Schaeffer MD SLE glomerulonephritis [...] Visit [facility] [address] [place] [address] Breonna Le MD [address] [place] [address] [place] [address] documented as of this encounter [...] PM EDT Performed at: ??01 - [facility] [address] ??[id number] Accounts Collector: Mitzy Knutson MD, Phone: ??[phone] us Jovanna Schaeffer MD LAB [id number] ICITED RESULTS Final Result [facility] See order comments [place] [address] documented in this encounter Visit Diagnoses Diagnosis SLE glomerulonephritis syndrome, 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HCC) documented in this encounter Care Teams Siebel Architect Relationship Specialty Start Date End Date Denise Blancas MD [address] [place] [address] PCP - General Internal Medicine 06/27/24 documented as of this encounter
--- OUTSIDE RECORDS SUMMARY | 2024-10-25 10:03 | XMS_ITS | Encounter Summary ---
Author Organization [facility] [place], Address [address] [place] [address] Phone Care Team Providers Care Detail Maker And Fitter Name Role Phone Denise Blancas MD Primary Care Provider [phone] Encounter Details Date Type Department Care Team (Late st Contact Info) Description 10/26/2023 Documentation Only [facility] [place], [address] [place] [place] [address] Rhianan Castro [address] [place] [address] Social History Tobacco Use Types [...] Visit [facility] [address] [place] [address] Breonna Le MD [address] [place] [place] [address] documented as of this encounter Visit Diagnoses Not on filedocumented in this encounter Care Teams Detail Maker And Fitter Relationship Specialty Start Date End Date Denise Blancas MD [address] [place] [address] PCP - General Internal Medicine 06/27/24 documented as of this encounter
--- OUTSIDE RECORDS SUMMARY | 2024-10-25 10:03 | XMS_ITS | Encounter Summary ---
Author Organization [facility] [place], Address [address] [place] [address] Phone Care Team Providers Care Cell Operator Name Role Phone Denise Blancas MD Primary Care Provider [phone] Encounter Details Date Type Department Care Team (Late st Contact Info) Description 04/21/2022 Documentation Only [facility] [place], [address] [place] [address] [place] [address] [place] [address] Social History Tobacco Use Types [...] Visit [facility] [place], [address] [place] [address] Breonna Le MD [address] [place] [address] [place] [address] documented as of this encounter Visit Diagnoses Not on filedocumented in this encounter Care Teams Cell Operator Relationship Specialty Start Date End Date Denise Blancas MD [address] [place] [address] PCP - General Internal Medicine 06/27/24 documented as of this encounter
--- OUTSIDE RECORDS SUMMARY | 2024-10-25 10:03 | XMS_ITS | Encounter Summary ---
Author Organization [facility] Address [address] [place] [address] Phone Care Team Providers Care Channel Marketing Specialist Name Role Phone Denise Blancas MD Primary Care Provider [phone] Encounter Details Date Type Department Care Team (Latest Contact Info) Description 12/15/2023 Orders Only [facility] [address] [place] [address] Jovanna Schaeffer MD SLE glomerulonephritis [...] [facility] [address] [place] [address] Breonna Le MD [address] [place] [address] [place] [address] documented as of this encounter Visit Diagnoses Diagnosis SLE glomerulonephritis syndrome, 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HCC) documented in this encounter Care Teams Channel Marketing Specialist Relationship Specialty Start Date End Date Denise Blancas MD [address] [place] [address] PCP - General Internal Medicine 06/27/24 documented as of this encounter
--- OUTSIDE RECORDS SUMMARY | 2024-10-25 10:03 | XMS_ITS | Encounter Summary ---
Author Organization [facility] Address [address] [place] [address] Phone Care Team Providers Care Equity Research Analyst Name Role Phone Denise Blancas MD Primary Care Provider [phone] Encounter Details Date Type Department Care Team (Latest Contact Info) Description 06/09/2023 Orders Only [facility] [address] [place] [address] Jovanna Schaeffer MD SLE glomerulonephritis [...] Visit [facility] [address] [place] [address] Breonna Le MD [address] [place] [address] [place] [address] documented as of this encounter Visit Diagnoses Diagnosis SLE glomerulonephritis syndrome, 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HCC) documented in this encounter Care Teams Equity Research Analyst Relationship Specialty Start Date End Date Denise Blancas MD [address] [place] [address] PCP - General Internal Medicine 06/27/24 documented as of this encounter
--- OUTSIDE RECORDS SUMMARY | 2024-10-25 10:03 | XMS_ITS | Encounter Summary ---
Author Organization [facility] Address [address] [place] [address] Phone Care Team Providers Care Manager Child Name Role Phone Denise Blancas MD Primary Care Provider [phone] Encounter Details Date Type Department Care Team (Latest Contact Info) Description 11/24/2023 Orders Only [facility] [address] [place] [address] Jovanna Schaeffer MD SLE glomerulonephritis [...] [facility] [address] [place] [address] Breonna Le MD [address] [place] [address] [place] [address] documented as of this encounter Visit Diagnoses Diagnosis SLE glomerulonephritis syndrome, 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HCC) documented in this encounter Care Teams Manager Child Relationship Specialty Start Date End Date Denise Blancas MD [address] [place] [address] PCP - General Internal Medicine 06/27/24 documented as of this encounter
[2024-10-26 08:51] LABS: Adenovirus PCR Not Detected (Not Detect.); Bordetella parapertussis PCR Not Detected (Not Detect.); Bordetella pertussis PCR Not Detected (Not Detect.); Chlamydia pneumoniae PCR Not Detected (Not Detect.); Coronavirus 229E PCR Detected (Not Detect.); Coronavirus HKU1 PCR Not Detected (Not Detect.); Coronavirus NL63 PCR Not Detected (Not Detect.); Coronavirus OC43 PCR Not Detected (Not Detect.); Human metapneumovirus PCR Not Detected (Not Detect.); Influenza A PCR Not Detected (Not Detect.); Influenza B PCR Not Detected (Not Detect.); Mycoplasma pneumoniae PCR Not Detected (Not Detect.); Parainfluenza 1 PCR Not Detected (Not Detect.); Parainfluenza 2 PCR Not Detected (Not Detect.); Parainfluenza 3 PCR Not Detected (Not Detect.); Parainfluenza 4 PCR Not Detected (Not Detect.); RSV PCR Not Detected (Not Detect.); Rhino/Enterovirus PCR Not Detected (Not Detect.)
[2024-10-26 09:21] LABS: Influenza A H1 PCR Not Detected (Not Detect.); SARS-CoV-2 PCR Not Detected (Not Detect.)
[2024-10-26 09:22] LABS: Influenza A H1-2009 PCR Not Detected (Not Detect.); Influenza A H3 PCR Not Detected (Not Detect.)
== END 2024-10-25 08:43 | disposition home or self-care (01) ==
LOC: HO.LAB 08:42
PROVIDERS: Physician Assistant; PCP Physician Assistant
DX: J06.9 Acute upper respiratory infection, unspecified (principal)
CPT/HCPCS: 87633; 99212

== ENCOUNTER 2024-10-29 15:10 | Outpatient (AMB) | payer MEDICARE, MEDICAID, SELFPAY ==
[2024-10-29 15:26] VITALS: BP 134/82; PULSE 95; O2SAT 97; BMI 39.3
--- NOTE | 2024-10-29 15:26 | MHC.OFFVIS ---
Vital Signs 10/29/24 15:26 Height 5 ft 8 in Weight 258 lb 13.163 oz BMI 39.3 BP 134/82 Blood Pressure Location Lt brachial Position Sitting Pulse 95 Pulse Source Pulse Oximeter Pulse Oximetry (%) 97 Oxygen Delivery Method Room Air Intake Visit Reasons: Glomerular disease in sle/New Patient Intake Note: Patient presents for Lupus today. She is a new patient internally referred by Adamaris Acosta. Patient was diagnosed in 2018, she was not taking meds until she ended up in the hospital. Allergies amoxicillin Allergy (Intermediate, Verified 10/29/24 15:30) rash Medication List - Last Reconciled 10/29/24 by aLurita Iniguez MD albuterol sulfate 90 mcg/actuation 2 puffs inhalation Q4-6H PRN aspirin 81 mg PO BID blood sugar diagnostic (FreeStyle Lite Strips) As directed cholecalciferol (vitamin D3) 1,250 mcg PO 2XW enoxaparin mg subcut fluticasone propionate 50 mcg/actuation (Flonase Allergy Relief) 1 spray intranasal BID folic acid 1 mg PO DAILY hydroxychloroquine 200 mg PO DAILY lancets (FreeStyle Lancets) As directed nifedipine ER 90 mg PO DAILY tacrolimus 1 mg PO BID torsemide 80 mg PO DAILY HPI Comments Details: Patient is a 24-year-old female with hypertension, asthma, hyperlipidemia, lupus complicated by glomerular disease here today to re establish care Interval History: Patient last seen 11/11/[address] Valenzuela. At that time she was on mycophenolate 500 b.i.d., Plaquenil 200 mg b.i.d. and prednisone 20 mg daily. She was following up with Dr. Small her cross country coach as well. Since then she changed nephrologists, Currently at [facility] Currently KRYSTINA 03/29/2025 currently 18 weeks Complaining of joint pain and stiffness Rheumatologic History: Initial history: Diagnosed with SLE in 2017 after presenting with a diffuse rash and inflammation. Pt was then referred to a Office Helper and had a skin biopsy done which demonstrated SLE. Pt was previously treated with Plaquenil and Mycophenolate but stopped taking her medications 1-2 months ago because she was difficulty obtaining her meds. 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 She received 4 doses of rituximab and was then treated with steroids and mycophenolate. Her baseline serum creatinine ranges from 0.8-0.9. Her baseline protein creatinine ratio is approximately 3 g. Last seen by Pediatric Rheumatology (Dr Still at [facility]) in September 2019. + malar rash on face No joint pain. No oral or nasal ulcers. Has dry mouth but denies dry eyes. Denies fevers, Raynauds. No history of miscarriages. 2 cousins with SLE Current Rheumatology Medication(s): Tacrolimus 1 mg b.i.d. Hydroxychloroquine 200 mg once a day [facility] Medical History (Updated 10/07/24 @ 11:52 by Staci Madrigal PA-C) Migraines Hypertension Kidney disease Diabetes Asthma Denial Lupus (systemic lupus erythematosus) Systemic lupus erythematosus, unspecified Surgical History No pertinent past surgical history Family History Father Diabetes Hypertension Asthma Mother Diabetes Hypertension Maternal Grandmother Cancer Paternal Grandmother Cancer Brother Asthma Social History (Updated 08/08/24 @ 09:24 by Lisa Medel CMA) Household Members: Spouse Both parents involved: No Caregiver staying overnight: No Housing: Apartment Are you a primary rn managed care to a significant other at home: Yes Do you presently have visiting nurse or other home services: No 75 years or older and lives alone: No Alcohol intake: never Patient Tobacco Use Status: Never used Tobacco e-Cigarette/Vaping Use: Never Used Current occupational status: employed Cognitive needs: No Hearing needs: No Vision needs: No Review of Systems Const Details: Review of Systems Constitutional: Denies fever, chills, weight loss ENT: Denies vision changes, eye pain or eye redness, dental caries, dry mouth GI: Denies nausea, vomiting, diarrhea, abdominal pain, change in BM Pulm: Denies SOB, PHAM, hemoptysis, wheezing Cards: Denies chest pain, palpitations Skin: Denies Raynaud's, rash, nail changes, photosensitivity, INORGANIC CHEMICAL TECHNICIAN: Denies headaches, weakness, paresthesias, recurrent falls MSK: as per HPI All other systems reviewed and are unremarkable except noted above Physical Exam Vital Signs: Last Vital Signs Pulse 95 10/29/24 15:26 BP 134/82 10/29/24 15:26 Pulse Ox 97 10/29/24 15:26 Oxygen Delivery Method Room Air 10/29/24 15:26 BMI result Body Mass Index 39.3 Vital signs reviewed Physical Examination CONSTITUITIONAL Patient alert and cooperative. Well appearing and in no apparent painful distress HEENT Conjunctiva and sclera clear. ?Pupils equal round and reactive to light. ?No lymphadenopathy. ? CHEST/RESPIRATORY SYSTEM Normal respiratory effort and able to speak in complete sentences. ?Clear to auscultation bilaterally. ?No crackles, rales, rhonchi, wheezes heard. CARDIAC SYSTEM Regular rate and rhythm. ?S1 and S2 heard no murmurs. ?Radial pulses intact bilaterally MSK Hands: ?Good student support counselor strength bilaterally. No deformities noted. ?No obvious synovitis but tenderness to palpation of the MCPs of the PIPs Wrists: ?Full range of motion at the wrists without pain. ?Tenderness to palpation of bilateral wrists. Elbows: Full range of motion without pain. No tenderness, weakness, swelling, increased warmth or erythema. Shoulders: Full range of motion without pain. No tenderness, weakness, swelling, increased warmth or erythema. Hips: Full range of motion without pain. Hip bursa: No tenderness to palpation Knees: ?Full range of motion. ?No tenderness, swelling, increased warmth or erythema.?No effusion or crepitations Ankles: Full range of motion. ?Mild present edema to the ankle Feet: ?Negative squeeze test. ?No tenderness to palpation or swelling of the MTPs. Tender points:?No tenderness to palpation of the bilateral trapezius, supraspinatus, greater trochanters, anterior costochondral junctions, bilateral gluteal areas, bilateral suboccipital muscle insertions SKIN Malar rash Results Reviewed Results Reviewed: Laboratory Tests 08/07/24 10/22/24 13:30 WBC 11.1 H 13.2 RBC 4.89 4.53 Hgb 12.4 11.9 Hct 39.0 36.6 Plt Count 400 365 Sodium 135 Potassium 4.0 Chloride 113 H Carbon Dioxide 20 L 19 BUN 14 Creatinine 0.81 1.09 Random Glucose 85 Total Bilirubin 0.2 AST 22 ALT 10 Alkaline Phosphatase 53 25-OH Vitamin D Total 8.7 L ESR 77 CRP 2 Immunology Labs 02/13/20 11/11/20 17:15 13:50 DANNIE Screen Positive H DANNIE Titer 1:320 H Sm (Allen) Antibody >8.0 H SmRNP Antibodies >8.0 H Double Strand DNA Ab 3 Complement C3 103 Complement C4 14 L Laboratory Tests 11/11/20 07/04/24 13:50 10:28 10/11/24 10/22/24 Urine Color Yellow Urine Protein >=1000 (4+) H Urine Blood Trace H Protein/Creatinin Ratio 3.43 H 8667mg/g 9518mg/g Assessment & Plan Assessment & Plan (1) Lupus (systemic lupus erythematosus): Code(s): M32.9 - Systemic lupus erythematosus, unspecified Category: Medical Qualifiers: Systemic lupus erythematosus type: unspecified Systemic lupus erythematosus organ involvement: glomerular disease Qualified Code(s): M32.14 - 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 Plan: #SLE complicated by LN Patient is a 24-year-old female in her 2nd trimester of with lupus complicated by glomerular nephritis and heavy proteinuria here today to reestablish care. This is a high-risk case and high-risk . Currently her proteinuria is worsening. She is following with Nephrology and on tacrolimus therapy. We will add azathioprine to her regimen to assist with joint pain management as well as nephritis management. Plan - Start azathioprine 50mg daily - Continue plaquenil 200mg daily - Continue tacrolimus as per renal - No MMF or steroids - Labs: CBC, CMP, ESR, CRP, C3, C4, dsDNA, UA, UPC and uric acid every month - RTC 1 month (2) Supervision of high risk due to social problems, unspecified trimester: Code(s): O09.70 - Supervision of high risk due to social problems, unspecified trimester Plan: #High risk Patient is a high risk for preeclampsia, labor, miscarriage and worsening of her underlying lupus while . She needs close monitoring. With frequent labs. (3) Encounter for monitoring of hydroxychloroquine therapy: Code(s): Z51.81 - Encounter for therapeutic drug level monitoring; Z79.899 - Other rn long term care (current) drug therapy Plan: #Long-term Use of Hydroxychloroquine Discussed with patient the risks and benefits of hydroxychloroquine in managing the rheumatic condition Benefits include: - Reduced pain, reduce mortality, maintenance of remission and reduction of flares Risks include: - GI upset, skin hyperpigmentation, retinal toxicity (especially after more than 5 years of use), myopathy Advised yearly ophthalmology visits (4) Encounter for monitoring azathioprine therapy: Code(s): Z51.81 - Encounter for therapeutic drug level monitoring; Z79.624 - senior living (current) use of inhibitors of nucleotide synthesis Plan: #Long-term use of azathioprine Discussed with patient the benefits and risks of azathioprine for the management of the rheumatic condition Benefits include: ? - Reduced pain, maintenance of remission and reduction of flares Risks include: - Bone marrow suppression, GI upset, lymphoma, hepatotoxicity, pancreatitis, hypersensitivity syndrome Drug monitoring: CBC every 4 weeks for the 1st 3 months then CBC BMP LFTs every 3 months Avoid concomitant sulfasalazine, allopurinol or febuxostat Plan I spent 42 minutes reviewing the record and labs, taking a history, examining the patient, discussing the treatment plan, ordering diagnostic work up and documenting in the medical record Medications: New azathioprine 50 mg PO DAILY 90 tabs 1RF Laurita Iniguez MD M32.14 - 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 Changed From hydroxychloroquine 200 mg PO BID 60 tabs 4RF M32.14 - 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 To hydroxychloroquine 200 mg PO DAILY M32.14 - 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 Stacia Valenzuela MD Coding Level of Care Code Est Pt Level 5 (88297) Complex EM visit Add On G2211 Diagnoses Systemic lupus erythematosus with glomerular disease, unspecified SLE type M32.14 Systemic lupus erythematosus type: unspecified Systemic lupus erythematosus organ involvement: glomerular disease Supervision of high risk due to social problems, unspecified trimester O09.70 Encounter for monitoring of hydroxychloroquine therapy Z51.81; Z79.899 Encounter for monitoring azathioprine therapy Z51.81; Z79.624
--- OUTSIDE RECORDS SUMMARY | 2024-10-29 18:05 | XMS_ITS | Encounter Summary ---
Author Organization [facility] Address [address] [place] [address] Phone Care Team Providers Care Auditing Manager Name Role Phone Denise Blancas MD Primary Care Provider [phone] Encounter Details Date Type Department Care Team (Latest Contact Info) Description 04/12/2024 Orders Only [facility] [address] [place] [address] Jovanna Schaeffer MD SLE glomerulonephritis [...] [facility] [address] [place] [address] Breonna Le MD [address] [place] [address] [place] [address] documented as of this encounter Procedures Procedure Name Priority Date/Time Associated Diagnosis Comments ANTI-DNA ANTIBODY, DOUBLE-STRANDED Routine 05/15/2024 3:08 PM EST SLE glomerulonephritis syndrome, 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HCC) documented in this encounter Results * Anti-DNA antibody, double-stranded (05/15/2024 3:08 PM EST) DS DNA Ab 2 0 - 9 IU/[facility] Comment: ? Negative ?<5 ? Equivocal ??5 - 9 ? Positive ?>9 Blood (Blood, Venous) 05/15/2024 3:08 PM EST 05/15/2024 us Jovanna Schaeffer MD LAB BLOOD ORDERABLES Final Resul t [facility] [address] [place] [address] documented in this encounter Visit Diagnoses Diagnosis SLE glomerulonephritis syndrome, 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HCC) documented in this encounter Care Teams Auditing Manager Relationship Specialty Start Date End Date Denise Blancas MD [address] [place] [address] PCP - General Internal Medicine 06/27/24 documented as of this encounter
--- OUTSIDE RECORDS SUMMARY | 2024-10-29 18:05 | XMS_ITS | Encounter Summary ---
Author Organization [facility] [place], Address [address] [place] [address] Phone Care Team Providers Care Carpenter Mate Name Role Phone Denise Blancas MD Primary Care Provider [phone] Encounter Details Date Type Department Care Team (Late st Contact Info) Description 10/24/2024 Documentation Only [facility] [place], [address] [place] [address] Rhianna Castro [address] [place] [address] Social History Tobacco Use Types [...] Visit [facility] [address] [place] [address] Breonna Le MD [address] [place] [address] documented as of this encounter Visit Diagnoses Not on filedocumented in this encounter Care Teams Carpenter Mate Relationship Specialty Start Date End Date Denise Blancas MD [address] [place] [address] PCP - General Internal Medicine 06/27/24 documented as of this encounter
--- OUTSIDE RECORDS SUMMARY | 2024-10-29 18:05 | XMS_ITS | Encounter Summary ---
Author Organization [facility] Address [address] [place] [address] Phone Care Team Providers Care Newspaper Correspondent Name Role Phone Denise Blancas MD Primary Care Provider Encounter Details Date Type Department Care Team (Latest Contact Info) Description 10/11/2024 Orders Only [facility] [address] [place] [address] Rhianna Castro [address] [place] [address] 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); Other proteinuria; SLE glomerulonephritis syndrome, 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HCC); Anemia in chronic kidney disease; Nephrotic syndrome; Fluid overload, not otherwise specified; Chronic kidney disease stage 3A ([facility]) Social History Tobacco Use Types Packs/Day Years [...] [facility] [address] [place] [address] Breonna Le MD [address] [place] [address] documented as of this encounter Procedures Procedure [...] Urine 0-5 0 - 5 /hpf [facility] RBC, Urine 3-10(A) 0 - 2 /hpf [facility] Squamous Epithelial, Urine 0-10 0 - 10 /hpf [facility] Casts None seen None seen /lpf [facility] Bacteria, Urine None seen None seen/Few [facility] 10/11/2024 11:2 2 AM EDT 10/11/2024 us Omar Garcia MD LAB MICROBIOLOGY - GENERAL OR DERABLES Final Result [facility] [address] [place] [address] * (ABNORMAL) Comprehensive metabolic panel (10/11/2024 11:22 AM EDT) Glucose 99 70 - 99 mg/dL [facility] BUN 20 6 - 20 mg/dL [facility] Creatinine 1.14(H) 0.57 - 1.00 mg/dL [facility] eGFR CKD-EPI CR 2020 69 >59 mL/min/1.7 3 [facility] BUN/Creatinine Ratio 18 9 - 23 [facility] Sodium 140 134 - 144 mmol/L [facility] Potassium 4.1 3.5 - 5.2 mmol/L [facility] Chloride 112(H) 96 - 106 mmol/L [facility] Bicarbonate (CO2) 17(L) 20 - 29 mmol/L [facility] Calcium 8.4(L) 8.7 - 10.2 mg/dL [facility] Total Protein 4.5(L) 6.0 - 8.5 g/dL [facility] Albumin 2.4(L) 4.0 - 5.0 g/dL [facility] Globulin 2.1 1.5 - 4.5 g/dL [facility] Total Bilirubin <0.2 0.0 - 1.2 mg/dL [facility] Alkaline Phosphatase 64 44 - 121 IU/L [facility] AST (SGOT) 16 0 - 40 IU/L [facility] ALT (SGPT) 11 0 - 32 IU/L [facility] Blood (Blood, Venous) 10/11/2024 11:22 AM EDT 10/11/2024 us Omar Garcia MD LAB BLOOD ORDERABLES Final Re sult [facility] [address] [place] [address] * (ABNORMAL) Urine Protein / creatinine ratio (10/11/2024 11:22 AM EDT) Creatinine, Ur 155.8 Not Estab. mg/dL [facility] Protein, Ur 1,350.3 Not Estab. mg/dL [facility] Comment: Results confirmed on dilution. Urine Protein/Creati nine Ratio 8,667(H) 0 - 200 mg/g creat [facility] Urine (Urine, Clean Catch) 10/11/2024 11:22 AM EDT 10/11/2024 Omar Garcia MD LAB URINE ORDERABLES Final Re sult Performing Organization Address City/[facility]/ZIP Co de Phone Number [facility] [address] [place] [address] * C-Reactive Protein (10/11/2024 11:22 AM EDT) Pathologist [facility] C-Reactive Protein Quant 1 0 - 10 mg/L [facility] Blood (Blood, Venous) 10/11/2024 11:22 AM EDT 10/11/2024 Omar Garcia MD LAB BLOOD ORDERABLES Final Re sult Performing Organization Address [facility] Co de Phone Number [facility] [address] [place] [address] * (ABNORMAL) Sedimentation Rate (10/11/2024 11:22 AM EDT) [facility] Sed Rate 72(H) 0 - 32 mm/hr [facility] Blood (Blood, Venous) 10/11/2024 11:22 AM EDT 10/11/2024 Omar Garcia MD LAB BLOOD ORDERABLES Final Re sult Performing Organization Address City/[facility]/ZIP Co de Phone Number [facility] [address] [place] [address] * (ABNORMAL) Urinalysis with microscopic (10/11/2024 11:22 AM EDT) Pathologist [facility] Specific [place], Urine 1.028 1.005 - 1.030 [facility] [phone] pH Urine 6.0 5.0 - 7.5 [facility] [phone] Color, Urine Yellow Yellow [facility] [phone] Appearance Urine Clear Clear [facility] [phone] WBC Esterase Urine Negative Negative [facility] [phone] Protein, Ur 4+(A) Negative/Tra ce [facility] Glucose, Ur Trace(A) Negative [facility] Ketones, Urine Negative Negative [facility] Blood Urine Trace(A) Negative [facility] [phone] Bilirubin Urine Negative Negative [facility] Urobilinogen Urine 0.2 0.2 - 1.0 mg/dL [facility] [phone] Nitrite, Urine Negative Negative [facility] [phone] Microscopic Examination See below: [facility] [phone] Comment:Microscopic was shashi cated and was performed. Urine (Urine, Clean Catch) 10/11/2024 11:22 AM EDT 10/11/2024 us Omar Garcia MD LAB URINE ORDERABLES Final Re sult [facility] [address] [place] [address] * (ABNORMAL) CBC and differential (10/11/2024 11:22 AM EDT) WBC 13.4(H) 3.4 - 10.8 x10E3/uL [facility] RBC 4.60 3.77 - 5.28 x10E6/uL [facility] Hemoglobin 12.2 11.1 - 15.9 g/dL [facility] Hematocrit 36.7 34.0 - 46.6 % [facility] MCV 80 79 - 97 fL [facility] MCH 26.5(L) 26.6 - 33.0 pg [facility] MCHC 33.2 31.5 - 35.7 g/dL [facility] RDW 16.0(H) 11.7 - 15.4 % [facility] Platelets 362 150 - 450 x10E3/uL [facility] Neutrophils Relative 72 Not Estab. % [facility] Lymphocytes Relative 20 Not Estab. % [facility] Monocytes 5 Not Estab. % [facility] Eosinophils Relative 2 Not Estab. % [facility] Basophils Relative 0 Not Estab. % [facility] Neutrophils Absolute 9.7(H) 1.4 - 7.0 x10E3/uL [facility] Lymphocytes Absolute 2.6 0.7 - 3.1 x10E3/uL [facility] Monocytes Absolute 0.7 0.1 - 0.9 x10E3/uL [facility] Eosinophils Absolute 0.2 0.0 - 0.4 x10E3/uL [facility] Basophils Absolute 0.1 0.0 - 0.2 x10E3/uL [facility] Immature Granulocytes 1 Not Estab. % [facility] Immature Grans (Absolute) 0.1 0.0 - 0.1 x10E3/uL [facility] Blood (Blood, Venous) 10/11/2024 11:22 AM EDT 10/11/2024 us Omar Garcia MD LAB BLOOD ORDERABLES Final Re sult [facility] [address] [place] [address] documented in this encounter Visit Diagnoses Diagnosis 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) Other proteinuria SLE glomerulonephritis syndrome, 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HCC) Anemia in chronic kidney disease Nephrotic syndrome Fluid overload, not otherwise specified Chronic kidney disease stage 3A (HCC) documented in this encounter Care Teams Newspaper Correspondent Relationship Specialty Start Date End Date Denise Blancas MD [address] [facility] [place] [address] PCP - General Internal Medicine 06/27/24 documented as of this encounter
--- OUTSIDE RECORDS SUMMARY | 2024-10-29 18:05 | XMS_ITS | Encounter Summary ---
Author Organization [facility] Address [address] [place] [address] Phone Care Team Providers Care Returns Supervisor Name Role Phone Denise Blancas MD Primary Care Provider [phone] Encounter Details Date Type Department Care Team (Latest Contact Info) Description 10/24/2024 2:30 PM EDT Office Visit [facility] [place], [address] [place] [address] Breonna Le MD [address] [place] [address] (Primary Dx); SLE glomerulonephritis syndrome, [...] Visit [facility] [place], [address] [place] [address] Breonna Le MD [address] [place] [address] documented as of this encounter Procedures Procedure Name Priority Date/Time Associated Diagnosis Comments TACROLIMUS LEVEL Routine 10/25/2024 10:2 6 AM EDT SLE glomerulonephritis syndrome, 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HCC) Chronic kidney disease stage 3A (HCC) Nephrotic syndrome 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) documented in this encounter Results * (ABNORMAL) Tacrolimus level (10/25/2024 10:26 AM EDT) Tacrolimus Lvl 1.1(L) 5.0 - 20.0 ng/mL [facility] Comment: Target steady state trough concentration for Tacrolimus varies based on type of organ transplant immunosuppressive protocol and other patient specific factors. ??Tacrolimus trough concentrations should be interpreted in conjunction with clinical assessments of rejection and tolerability. ??Values obtained with different assay methods cannot be used interchangeably due to differences in assay methods and cross-reactivty with metabolites, nor should correction factors be applied. ??Therefore, consistent use of one assay for individual patients is recommended. Detection Limit = 0.5 ng/mL Performed by LC-MS/MS technology ?Please note reference interval change Blood (Blood, Venous) 10/25/2024 10:26 AM EDT 10/25/2024 Narrative [facility] - 10/29/2024 8:06 AM EDT Test(s) [id number] ([id number]), Blood was developed and its performance characteristics determined by [facility]. It has not been cleared or approved by the Food and Drug Administration. us Breonna Le MD LAB BLOOD ORDERABLES Final Res ult [facility] [place] [address] documented in this encounter Visit Diagnoses Diagnosis - Primary SLE glomerulonephritis syndrome, 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HCC) Chronic kidney disease stage 3A (HCC) Nephrotic syndrome 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) documented in this encounter Care Teams Returns Supervisor Relationship Specialty Start Date End Date Denise Blancas MD [address] [place] [address] PCP - General Internal Medicine 06/27/24 documented as of this encounter
--- OUTSIDE RECORDS SUMMARY | 2024-10-29 18:05 | XMS_ITS | Encounter Summary ---
Author Organization [facility] [place], Address [address] [place] [address] Phone Care Team Providers Care Office Director Name Role Phone Denise Blancas MD Primary Care Provider [phone] Encounter Details Date Type Department Care Team (Late st Contact Info) Description 10/24/2024 Documentation Only [facility] [place], [address] [place] [address] Rhianna Castro [address] [place] [address] Social History Tobacco Use Types [...] Visit [facility] [address] [address] Breonna Le MD [address] [address] documented as of this encounter Visit Diagnoses Not on filedocumented in this encounter Care Teams Office Director Relationship Specialty Start Date End Date Denise Blancas MD [address] [place] [address] PCP - General Internal Medicine 06/27/24 documented as of this encounter
--- OUTSIDE RECORDS SUMMARY | 2024-10-29 18:05 | XMS_ITS | Encounter Summary ---
Author Organization [facility] Address [address] [place] [address] Phone Care Team Providers Care Lathe Set Up Operator Name Role Phone Denise Blancas MD Primary Care Provider Encounter Details Date Type Department Care Team (Latest Contact Info) Description 01/19/2024 Orders Only [facility] [address] [place] [address] Jovanna Schaeffer MD SLE glomerulonephritis [...] [facility] [address] [place] [address] Breonna Le MD [address] [place] [address] [place] [address] documented as of this encounter Procedures Procedure Name Priority Date/Time Associated Diagnosis Comments ANTI-DNA ANTIBODY, DOUBLE-STRANDED Routine 02/06/2024 3:02 PM EDT SLE glomerulonephritis syndrome, 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HCC) documented in this encounter Results * Anti-DNA antibody, double-stranded (02/06/2024 3:02 PM EDT) DS DNA Ab 2 0 - 9 IU/mL [facility] Comment: ? Negative ?<5 ? Equivocal ??5 - 9 ? Positive ?>9 Blood (Blood, Venous) 02/06/2024 3:02 PM EDT 02/06/2024 us Jovanna Schaeffer MD LAB BLOOD ORDERABLES Final Resul t [facility] [address] [place] [address] documented in this encounter Visit Diagnoses Diagnosis SLE glomerulonephritis syndrome, 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HCC) documented in this encounter Care Teams Lathe Set Up Operator Relationship Specialty Start Date End Date Denise Blancas MD [address] [place] [address] PCP - General Internal Medicine 06/27/24 documented as of this encounter
--- OUTSIDE RECORDS SUMMARY | 2024-10-29 18:05 | XMS_ITS | Encounter Summary ---
Author Organization [facility] [place], Address [address] [place] [address] Phone Care Team Providers Care New Car Make Ready Mechanic Name Role Phone Denise Blancas MD Primary Care Provider [phone] Encounter Details Date Type Department Care Team (Late st Contact Info) Description 07/17/2024 Documentation Only [facility] [place], [address] [place] [address] Rhianna Castro [address] [place] [address] Social History Tobacco Use Types [...] [facility] [address] [place] [address] Breonna Le MD [address] [place] [address] documented as of this encounter Visit Diagnoses Not on filedocumented in this encounter Care Teams New Car Make Ready Mechanic Relationship Specialty Start Date End Date Denise Blancas MD [address] [place] [address] PCP - General Internal Medicine 06/27/24 documented as of this encounter
--- OUTSIDE RECORDS SUMMARY | 2024-10-29 18:06 | XMS_ITS | Encounter Summary ---
Author Organization [facility] Address [address] [place] [address] Phone Care Team Providers Care Government Documents Librarian Name Role Phone Denise Blancas MD Primary Care Provider [phone] Encounter Details Date Type Department Care Team (Latest Contact Info) Description 09/27/2024 Orders Only [facility] [address] [place] [address] Rhianna Castro [address] [place] [address] 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); Other proteinuria; SLE glomerulonephritis syndrome, 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HCC); Anemia in chronic kidney disease; Nephrotic syndrome; Fluid overload, not otherwise specified; Chronic kidney disease stage 3A ([facility]) Social History Tobacco Use Types [...] Care [facility] [address] [place] [address] Breonna Le MD [address] [place] [place] [address] documented as of this encounter Procedures Procedure [...] Urine 0-5 0 - 5 /hpf [facility] RBC, Urine 3-10(A) 0 - 2 /hpf [facility] Squamous Epithelial, Urine 0-10 0 - 10 /hpf [facility] Casts None seen None seen /lpf [facility] Bacteria, Urine None seen None seen/Few [facility] 10/22/2024 12:2 6 PM EDT 10/22/2024 us Omar Garcia MD LAB MICROBIOLOGY - GENERAL OR DERABLES Final Result [facility] [address] [place] [address] * (ABNORMAL) Comprehensive metabolic panel (10/22/2024 12:26 PM EDT) Glucose 88 70 - 99 mg/dL [facility] BUN 18 6 - 20 mg/dL [facility] Creatinine 1.09(H) 0.57 - 1.00 mg/dL [facility] eGFR CKD-EPI CR 2020 72 >59 mL/min/1.7 3 [facility] BUN/Creatinine Ratio 17 9 - 23 [facility] Sodium 139 134 - 144 mmol/L [facility] Potassium 4.4 3.5 - 5.2 mmol/L [facility] Chloride 107(H) 96 - 106 mmol/L [facility] Bicarbonate (CO2) 19(L) 20 - 29 mmol/L [facility] Calcium 8.3(L) 8.7 - 10.2 mg/dL [facility] Total Protein 4.7(L) 6.0 - 8.5 g/dL [facility] Albumin 2.5(L) 4.0 - 5.0 g/dL [facility] Globulin 2.2 1.5 - 4.5 g/dL [facility] Total Bilirubin <0.2 0.0 - 1.2 mg/dL [facility] Comment:Verified by repeat analysis Alkaline Phosphatase 68 44 - 121 IU/L [facility] AST (SGOT) 17 0 - 40 IU/L [facility] ALT (SGPT) 13 0 - 32 IU/L [facility] Blood (Blood, Venous) 10/22/2024 12:26 PM EDT 10/22/2024 us Omar Garcia MD LAB BLOOD ORDERABLES Final Re sult [facility] [address] [place] [address] * (ABNORMAL) Urine Protein / creatinine ratio (10/22/2024 12:26 PM EDT) Creatinine, Ur 167.4 Not Estab. mg/dL [facility] Protein, Ur 1,593.3 Not Estab. mg/dL [facility] Comment: Results confirmed on dilution. Urine Protein/Creati nine Ratio 9,518(H) 0 - 200 mg/g creat [facility] Urine (Urine, Clean Catch) 10/22/2024 12:26 PM EDT 10/22/2024 Omar Garcia MD LAB URINE ORDERABLES Final Re sult Performing Organization Address [facility]/ZIP Co de Phone Number [facility] [address] [place] [address] * C-Reactive Protein (10/22/2024 12:26 PM EDT) Pathologist [facility] C-Reactive Protein Quant 2 0 - 10 mg/L [facility] Blood (Blood, Venous) 10/22/2024 12:26 PM EDT 10/22/2024 Omar Garcia MD LAB BLOOD ORDERABLES Final Re sult Performing Organization Address [facility] Co de Phone Number [facility] [address] [place] [address] * (ABNORMAL) Sedimentation Rate (10/22/2024 12:26 PM EDT) [facility] Sed Rate 77(H) 0 - 32 mm/hr [facility] Blood (Blood, Venous) 10/22/2024 12:26 PM EDT 10/22/2024 Omar Garcia MD LAB BLOOD ORDERABLES Final Re sult Performing Organization Address [facility] Co de Phone Number [facility] [address] [place] [address] * (ABNORMAL) Urinalysis with microscopic (10/22/2024 12:26 PM EDT) Pathologist [facility] Specific [place], Urine 1.028 1.005 - 1.030 [facility] pH Urine 6.5 5.0 - 7.5 [facility] Color, Urine Yellow Yellow [facility] Appearance Urine Clear Clear [facility] WBC Esterase Urine Negative Negative [facility] Protein, Ur 4+(A) Negative/Tra ce [facility] Glucose, Ur Trace(A) Negative [facility] Ketones, Urine Negative Negative [facility] Blood Urine Trace(A) Negative [facility] Bilirubin Urine Negative Negative [facility] [phone] Urobilinogen Urine 0.2 0.2 - 1.0 mg/dL [facility] Nitrite, Urine Negative Negative [facility] Microscopic Examination See below: [facility] Comment:Microscopic was shashi cated and was performed. Urine (Urine, Clean Catch) 10/22/2024 12:26 PM EDT 10/22/2024 us Omar Garcia MD LAB URINE ORDERABLES Final Re sult [facility] [address] [place] [address] * (ABNORMAL) CBC and differential (10/22/2024 12:26 PM EDT) WBC 13.2(H) 3.4 - 10.8 x10E3/uL [facility] RBC 4.53 3.77 - 5.28 x10E6/uL [facility] Hemoglobin 11.9 11.1 - 15.9 g/dL [facility] Hematocrit 36.6 34.0 - 46.6 % [facility] MCV 81 79 - 97 fL [facility] MCH 26.3(L) 26.6 - 33.0 pg [facility] MCHC 32.5 31.5 - 35.7 g/dL [facility] RDW 15.9(H) 11.7 - 15.4 % [facility] Platelets 365 150 - 450 x10E3/uL [facility] Immature Granulocytes 1 Not Estab. % [facility] Immature Grans (Absolute) 0.1 0.0 - 0.1 x10E3/uL [facility] Neutrophils Relative 78 Not Estab. % [facility] Lymphocytes Relative 14 Not Estab. % [facility] Monocytes 6 Not Estab. % [facility] Eosinophils Relative 1 Not Estab. % [facility] Basophils Relative 0 Not Estab. % [facility] Neutrophils Absolute 10.4(H) 1.4 - 7.0 x10E3/uL [facility] Lymphocytes Absolute 1.8 0.7 - 3.1 x10E3/uL [facility] Monocytes Absolute 0.7 0.1 - 0.9 x10E3/uL [facility] Eosinophils Absolute 0.2 0.0 - 0.4 x10E3/uL [facility] Basophils Absolute 0.0 0.0 - 0.2 x10E3/uL [facility] Blood (Blood, Venous) 10/22/2024 12:26 PM EDT 10/22/2024 us Omar Garcia MD LAB BLOOD ORDERABLES Final Re sult [facility] [address] [place] [address] documented in this encounter Visit Diagnoses Diagnosis 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) Other proteinuria SLE glomerulonephritis syndrome, 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HCC) Anemia in chronic kidney disease Nephrotic syndrome Fluid overload, not otherwise specified Chronic kidney disease stage 3A (HCC) documented in this encounter Care Teams Government Documents Librarian Relationship Specialty Start Date End Date Denise Blancas MD [address] [place] [address] PCP - General Internal Medicine 06/27/24 documented as of this encounter
--- OUTSIDE RECORDS SUMMARY | 2024-10-29 18:06 | XMS_ITS | Encounter Summary ---
Author Organization [facility] [place], Address [address] [place] [address] Phone Care Team Providers Care Developmental Services Worker Name Role Phone Denise Blancas MD Primary Care Provider [phone] Encounter Details Date Type Department Care Team (Late st Contact Info) Description 04/21/2022 Documentation Only [facility] [place], [address] [place] [address] [place], [place] [address] [place] [address] Social History Tobacco Use Types [...] Visit [facility] [place], [address] [place] [address] Breonna Le MD [address] [place] [address] [place] [address] documented as of this encounter Visit Diagnoses Not on filedocumented in this encounter Care Teams Developmental Services Worker Relationship Specialty Start Date End Date Denise Blancas MD [address] [place] [address] PCP - General Internal Medicine 06/27/24 documented as of this encounter
--- OUTSIDE RECORDS SUMMARY | 2024-10-29 18:06 | XMS_ITS | Encounter Summary ---
Author Organization [facility] Address [address] [place] [address] Phone Care Team Providers Care Emulsification Operator Name Role Phone Denise Blancas MD Primary Care Provider [phone] Encounter Details Date Type Department Care Team (Latest Contact Info) Description 12/23/2022 Orders Only [facility] [address] [place] [address] Jovanna Schaeffer MD SLE glomerulonephritis [...] [facility] [address] [place] [address] Breonna Le MD [address] [place] [address] [place] [address] documented as of this encounter [...] PM EDT Performed at: ??01 - [facility] [address] ??[id number] Pork Cutlet Maker: Mitzy Knutson MD, Phone: ??[phone] Jovanna Schaeffer MD LAB [id number] ICITED RESULTS Final Result [facility] See order comments [place] [address] documented in this encounter Visit Diagnoses Diagnosis SLE glomerulonephritis syndrome, 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HCC) documented in this encounter Care Teams Emulsification Operator Relationship Specialty Start Date End Date Denise Blancas MD [address] [place] [address] PCP - General Internal Medicine 06/27/24 documented as of this encounter
--- OUTSIDE RECORDS SUMMARY | 2024-10-29 18:06 | XMS_ITS | Encounter Summary ---
Author Organization [facility] Address [address] [place] [address] Phone Care Team Providers Care Exhibits Coordinator Name Role Phone Denise Blancas MD Primary Care Provider [phone] Encounter Details Date Type Department Care Team (Latest Contact Info) Description 09/16/2022 Orders Only [facility] [address] [place] [address] Jovanna Schaeffer MD SLE glomerulonephritis [...] Visit [facility] [address] [place] [address] Breonna Le MD [address] [place] [address] [place] [address] documented as of this encounter Visit Diagnoses Diagnosis SLE glomerulonephritis syndrome, 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HCC) documented in this encounter Care Teams Exhibits Coordinator Relationship Specialty Start Date End Date Denise Blancas MD [address] [place] [address] PCP - General Internal Medicine 06/27/24 documented as of this encounter
--- OUTSIDE RECORDS SUMMARY | 2024-10-29 18:06 | XMS_ITS | Encounter Summary ---
Author Organization [facility] Address [address] [place] [address] Phone Care Team Providers Care Necktie Operator Pockets And Pieces Name Role Phone Denise Blancas MD Primary Care Provider [phone] Encounter Details Date Type Department Care Team (Latest Contact Info) Description 08/19/2022 Orders Only [facility] [address] [place] [address] Jovanna Schaeffer MD SLE glomerulonephritis [...] [facility] [address] [place] [address] Breonna Le MD [address] [place] [address] [place] [address] documented as of this encounter Visit Diagnoses Diagnosis SLE glomerulonephritis syndrome, 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HCC) documented in this encounter Care Teams Necktie Operator Pockets And Pieces Relationship Specialty Start Date End Date Denise Blancas MD [address] [place] [address] PCP - General Internal Medicine 06/27/24 documented as of this encounter
--- OUTSIDE RECORDS SUMMARY | 2024-10-29 18:06 | XMS_ITS | Encounter Summary ---
Author Organization [facility] Address [address] [place] [address] Phone Care Team Providers Care Monorail Operator Name Role Phone Denise Blancas MD Primary Care Provider [phone] Encounter Details Date Type Department Care Team (Latest Contact Info) Description 03/17/2023 Orders Only [facility] [address] [place] [address] Jovanna Schaeffer MD SLE glomerulonephritis [...] [facility] [address] [place] [address] Breonna Le MD [address] [place] [address] [place] [address] documented as of this encounter Visit Diagnoses Diagnosis SLE glomerulonephritis syndrome, 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HCC) documented in this encounter Care Teams Monorail Operator Relationship Specialty Start Date End Date Denise Blancas MD [address] [place] [address] PCP - General Internal Medicine 06/27/24 documented as of this encounter
--- OUTSIDE RECORDS SUMMARY | 2024-10-29 18:06 | XMS_ITS | Encounter Summary ---
Author Organization [facility] Address [address] [place] [address] Phone Care Team Providers Care Photographic Process Attendant Name Role Phone Denise Blancas MD Primary Care Provider [phone] Encounter Details Date Type Department Care Team (Latest Contact Info) Description 08/05/2022 Orders Only [facility] [address] [place] [address] Jovanna Schaeffer MD SLE glomerulonephritis [...] [facility] [address] [place] [address] Breonna Le MD [address] [place] [address] [place] [address] documented as of this encounter Visit Diagnoses Diagnosis SLE glomerulonephritis syndrome, 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HCC) documented in this encounter Care Teams Photographic Process Attendant Relationship Specialty Start Date End Date Denise Blancas MD [address] [place] [address] PCP - General Internal Medicine 06/27/24 documented as of this encounter
--- OUTSIDE RECORDS SUMMARY | 2024-10-29 18:06 | XMS_ITS | Encounter Summary ---
Author Organization [facility] Address [address] [place] [address] Phone Care Team Providers Care Pm Technician Name Role Phone Denise Blancas MD Primary Care Provider [phone] Encounter Details Date Type Department Care Team (Latest Contact Info) Description 09/13/2024 Orders Only [facility] [address] [place] [address] Rhianna Castro [address] [place] [address] 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); Other proteinuria; SLE glomerulonephritis syndrome, 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HCC); Anemia in chronic kidney disease; Nephrotic syndrome; Fluid overload, not otherwise specified; Chronic kidney disease stage 3A ([facility]) Social History Tobacco Use Types [...] [facility] [address] [place] [address] Breonna Le MD [address] [place] [address] documented as of this encounter Procedures Procedure [...] Urine 0-5 0 - 5 /hpf [facility] [place] RBC, Urine 3-10(A) 0 - 2 /hpf [facility] [place] Squamous Epithelial, Urine 0-10 0 - 10 /hpf [facility] [place] Casts None seen None seen /lpf [facility] [place] Bacteria, Urine None seen None seen/Few [facility] [place] 09/16/2024 3:58 PM EDT 09/16/2024 us Omar Garcia MD LAB MICROBIOLOGY - GENERAL OR DERABLES Final Result [facility] [place] [address] [place] [address] * (ABNORMAL) Comprehensive metabolic panel (09/16/2024 3:58 PM EDT) Glucose 97 70 - 99 mg/dL [facility] [place] BUN 14 6 - 20 mg/dL [facility] [place] Creatinine 0.93 0.57 - 1.00 mg/dL [facility] [place] eGFR CKD-EPI CR 2020 88 >59 mL/min/1.7 3 [facility] [place] BUN/Creatinine Ratio 15 9 - 23 [facility] [place] Sodium 139 134 - 144 mmol/L [facility] [place] Potassium 4.2 3.5 - 5.2 mmol/L [facility] [place] Chloride 111(H) 96 - 106 mmol/L [facility] [place] Bicarbonate (CO2) 16(L) 20 - 29 mmol/L [facility] [place] Calcium 8.0(L) 8.7 - 10.2 mg/dL [facility] [place] Total Protein 4.3(LL) 6.0 - 8.5 g/dL [facility] [place] Albumin 2.5(L) 4.0 - 5.0 g/dL [facility] [place] Globulin 1.8 1.5 - 4.5 g/dL [facility] [place] Total Bilirubin <0.2 0.0 - 1.2 mg/dL [facility] [place] Alkaline Phosphatase 63 44 - 121 IU/L [facility] [place] AST (SGOT) 11 0 - 40 IU/L [facility] [place] ALT (SGPT) 10 0 - 32 IU/L [facility] [place] Blood (Blood, Venous) 09/16/2024 3:58 PM EDT 09/16/2024 Omar Garcia MD LAB BLOOD ORDERABLES Final Re sult [facility] [place] [address] [place] [address] * (ABNORMAL) Urine Protein / creatinine ratio (09/16/2024 3:58 PM EDT) Creatinine, Ur 203.5 Not Estab. mg/dL [facility] [place] Protein, Ur 1,539.0 Not Estab. mg/dL [facility] [place] Comment: Results confirmed on dilution. Urine Protein/Creati nine Ratio 7,563(H) 0 - 200 mg/g creat [facility] [place] Urine (Urine, Clean Catch) 09/16/2024 3:58 PM EDT 09/16/2024 Omar Garcia MD LAB URINE ORDERABLES Final Re sult Performing Organization Address [facility] [address]/ZIP Co de Phone Number [facility] [place] [address] [place] [address] * C-Reactive Protein (09/16/2024 3:58 PM EDT) [facility] C-Reactive Protein Quant <1 0 - 10 mg/L [facility] [place] Blood (Blood, Venous) 09/16/2024 3:58 PM EDT 09/16/2024 Omar Garcia MD LAB BLOOD ORDERABLES Final Re sult Performing Organization Address [facility] [address]/[facility] Co de Phone Number [facility] [place] [address] [place] [address] * (ABNORMAL) Sedimentation Rate (09/16/2024 3:58 PM EDT) [facility] Sed Rate 59(H) 0 - 32 mm/hr [facility] [place] Blood (Blood, Venous) 09/16/2024 3:58 PM EDT 09/16/2024 Omar Garcia MD LAB BLOOD ORDERABLES Final Re sult Performing Organization Address [facility] [address]/ZIP Co de Phone Number [facility] [place] [address] [place] [address] * (ABNORMAL) Urinalysis with microscopic (09/16/2024 3:58 PM EDT) [facility] Specific [place], Urine 1.029 1.005 - 1.030 [facility] [place] [phone] pH Urine 6.0 5.0 - 7.5 [facility] [place] [phone] Color, Urine Yellow Yellow [facility] [place] [phone] Appearance Urine Clear Clear [facility] [place] [phone] WBC Esterase Urine Negative Negative [facility] [place] Protein, Ur 4+(A) Negative/Tra ce [facility] [place] Glucose, Ur Trace(A) Negative [facility] [place] Ketones, Urine Negative Negative [facility] [place] Blood Urine 1+(A) Negative [facility] [place] Bilirubin Urine Negative Negative [facility] [place] Urobilinogen Urine 0.2 0.2 - 1.0 mg/dL [facility] [place] [phone] Nitrite, Urine Negative Negative [facility] [place] Microscopic Examination See below: [facility] [place] [phone] Comment:Microscopic was shashi cated and was performed. Urine (Urine, Clean Catch) 09/16/2024 3:58 PM EDT 09/16/2024 us Omar Garcia MD LAB URINE ORDERABLES Final Re sult [facility] [place] [address] [place] [address] * (ABNORMAL) CBC and differential (09/16/2024 3:58 PM EDT) WBC 13.0(H) 3.4 - 10.8 x10E3/uL [facility] [place] RBC 4.96 3.77 - 5.28 x10E6/uL [facility] [place] Hemoglobin 13.0 11.1 - 15.9 g/dL [facility] [place] Hematocrit 39.1 34.0 - 46.6 % [facility] [place] MCV 79 79 - 97 fL [facility] [place] MCH 26.2(L) 26.6 - 33.0 pg [facility] [place] MCHC 33.2 31.5 - 35.7 g/dL [facility] [place] RDW 15.6(H) 11.7 - 15.4 % [facility] [place] Platelets 394 150 - 450 x10E3/uL [facility] [place] Neutrophils Relative 75 Not Estab. % [facility] [place] Lymphocytes Relative 17 Not Estab. % [facility] [place] Monocytes 5 Not Estab. % [facility] [place] Eosinophils Relative 2 Not Estab. % [facility] [place] Basophils Relative 0 Not Estab. % [facility] [place] Neutrophils Absolute 9.8(H) 1.4 - 7.0 x10E3/uL [facility] [place] Lymphocytes Absolute 2.2 0.7 - 3.1 x10E3/uL [facility] [place] Monocytes Absolute 0.7 0.1 - 0.9 x10E3/uL [facility] [place] Eosinophils Absolute 0.2 0.0 - 0.4 x10E3/uL [facility] [place] Basophils Absolute 0.1 0.0 - 0.2 x10E3/uL [facility] [place] Immature Granulocytes 1 Not Estab. % [facility] [place] Immature Grans (Absolute) 0.1 0.0 - 0.1 x10E3/uL [facility] [place] Blood (Blood, Venous) 09/16/2024 3:58 PM EDT 09/16/2024 us Omar Garcia MD LAB BLOOD ORDERABLES Final Re sult [facility] [place] [address] [place] [address] documented in this encounter Visit Diagnoses Diagnosis 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) Other proteinuria SLE glomerulonephritis syndrome, 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HCC) Anemia in chronic kidney disease Nephrotic syndrome Fluid overload, not otherwise specified Chronic kidney disease stage 3A (HCC) documented in this encounter Care Teams Pm Technician Relationship Specialty Start Date End Date Denise Blancas MD [address] [place] [address] PCP - General Internal Medicine 06/27/24 documented as of this encounter
--- OUTSIDE RECORDS SUMMARY | 2024-10-29 18:06 | XMS_ITS | Encounter Summary ---
Author Organization [facility] [place], Address [address] [place] [address] Phone Care Team Providers Care Jewelsmith Name Role Phone Denise Blancas MD Primary Care Provider [phone] Encounter Details Date Type Department Care Team (Late st Contact Info) Description 08/22/2024 Documentation Only [facility] [place], [address] [place] [address] Rhianna Castro [address] [place] [address] Social History Tobacco Use Types [...] Visit [facility] [address] [place] [address] Breonna Le MD [address] [place] [address] documented as of this encounter Visit Diagnoses Not on filedocumented in this encounter Care Teams Jewelsmith Relationship Specialty Start Date End Date Denise Blancas MD [address] [place] [address] PCP - General Internal Medicine 06/27/24 documented as of this encounter
--- OUTSIDE RECORDS SUMMARY | 2024-10-29 18:06 | XMS_ITS | Encounter Summary ---
Author Organization [facility] Address [address] [place] [address] Phone Care Team Providers Care Steel Construction Worker Name Role Phone Denise Blancas MD Primary Care Provider [phone] Encounter Details Date Type Department Care Team (Latest Contact Info) Description 09/02/2022 Orders Only [facility] [address] [place] [address] Jovanna Schaeffer MD SLE [...] Visit [facility] [address] [place] [address] Breonna Le MD [address] [place] [address] [place] [address] documented as of this encounter [...] AM EDT) C3 Complement 118 (90-180) MG/DL [facility] Comment: Testing performed or reported by [facility], a Service of [facility], [address] [place] [address] Cherri Lucas MD, Director Of Exhibit Development IA# [id number] Blood (Blood, Venous) 10/03/2022 11:04 AM EDT 10/03/2022 11:12 AM EDT Result [facility] Jovanna Schaeffer MD LAB BLOOD ORDERABLES Final Resul t [facility] * C4 Complement (10/03/2022 11:04 AM EDT) Pathologist [facility] C4 Complement 22 (10-40) MG/DL [facility] Comment: Testing performed or reported by [facility], a Service of [facility], [address] [place] [id number] Cherri Lucas MD, Director Of Exhibit Development CLIA# [id number] Blood (Blood, Venous) 10/03/2022 11:04 AM EDT 10/03/2022 11:12 AM EDT Result [facility] Jovanna Schaeffer MD LAB BLOOD ORDERABLES Final Resul t Performing Organization Address City/[facility] Co de Phone Number [facility] * (ABNORMAL) DANNIE Panel (10/03/2022 11:04 AM EDT) Pathologist [facility] DANNIE Screen POSITIVE(A ) [facility] Comment: (NOTE) ?Negative ?? <1:80 ?Borderline ??1:80 ?Positive ?? >1:80 [facility], [address] [place] [address] Testing performed or reported by [facility], a Service of [facility], [address] [place] [address] Robbie Cardona MD, Director Of Exhibit Development JAME# [id number] Blood (Blood, Venous) 10/03/2022 11:04 AM EDT 10/03/2022 11:13 AM EDT Result [facility] Jovanna Schaeffer MD LAB BLOOD ORDERABLES Final Resul t Performing Organization Address [facility] de Phone Number [facility] * Anti-DNA antibody, double-stranded (10/03/2022 11:04 AM EDT) Pathologist [facility] Anti DNA, [facility] [address] [address] [facility] Comment: Reference range: 0 to 9 Unit: IU/mL (NOTE) ?Negative ?<5 ?Equivocal ??5 - 9 ?Positive ?>9 Test performed by [facility], [address] [place] [address] Testing performed or reported by [facility], a Service of [facility], [address] [place] [address] Robbie Cardona MD, Director Of Exhibit Development CLIA# [id number] Blood (Blood, Venous) 10/03/2022 11:04 AM EDT 10/03/2022 11:13 AM EDT Jovanna Schaeffer MD LAB BLOOD ORDERABLES Final Resul t Performing Organization Address [facility] de Phone Number [facility] * C-Reactive Protein (10/03/2022 11:04 AM EDT) [facility] CRP <0.3 (0-0.5) MG/DL [facility] Comment: Testing performed or reported by [facility], a Service of [facility], [address] [place] [address] Cherri Lucas MD, Director Of Exhibit Development CLIA# [id number] Blood (Blood, Venous) 10/03/2022 11:04 AM EDT 10/03/2022 11:12 AM EDT Jovanna Schaeffer MD LAB BLOOD ORDERABLES Final Resul t Performing Organization Address [facility] de Phone Number [facility] * (ABNORMAL) Sedimentation Rate (10/03/2022 11:04 AM EDT) Sed Rate 47(H) (0-20) MM/HR [facility] Comment: Testing performed or reported by [facility], [place] [address] Cherri Lucas MD, Director Of Exhibit Development IA# [id number] Blood (Blood, Venous) 10/03/2022 11:04 AM EDT 10/03/2022 11:13 AM EDT Result [facility] Jovanna Schaeffer MD LAB BLOOD ORDERABLES Final Resul t Performing Organization Address [facility] Phone Number [facility] * (ABNORMAL) Urine Albumin / Creatinine Ratio (10/03/2022 11:04 AM EDT) Pathologist [facility] Urine Microalbumin 576.4(H) (<20) MG/L [facility] Comment: The urine microalbumin test is designed to monitor renal function. When screening for Bence Lynne proteinuria, urine electrophoresis is recommended. Microalbumin/Creati nine Ratio 2,088.4(H ) (0-20) MG/GM [facility] Microalb/Creat Ratio 27.6 MG/DL [facility] Comment: Testing performed or reported by [facility], a Service of [place] [id number] Cherri Lucas MD, Director Of Exhibit Development [facility]# [id number] Urine (Urine, Clean Catch) 10/03/2022 11:04 AM EDT 10/03/2022 11:12 AM EDT Result [facility] Jovanna Schaeffer MD LAB URINE ORDERABLES Final Resul t Performing Organization Address [facility] de Phone Number [facility] * (ABNORMAL) Protein, Total, Random Urine w/Creatinine (Protein/Creat Ratio) (10/03/2022 11:04 AM EDT) [facility] Protein/Creatine Ratio 2.73(H) (0-0.2) [facility] Protein, Urine 75 MG/DL [facility] Comment: The urine microalbumin test is designed to monitor renal function. When screening for Bence Lynne proteinuria, urine electrophoresis is recommended. Creatinine, Urine 27.6 MG/DL [facility] Comment: Testing performed or reported by [facility], a Service of [facility], [address] [place] [address] Cherri Lucas MD, Director Of Exhibit Development [facility]# [id number] Urine (Urine, Clean Catch) 10/03/2022 11:04 AM EDT 10/03/2022 11:12 AM EDT us Jovanna Schaeffer MD LAB URINE ORDERABLES Final Resul t [facility] * (ABNORMAL) Urinalysis with microscopic (10/03/2022 11:04 AM EDT) [facility] Appearance COLORLESS [facility] Comment:CLEAR Specific Bitely 1.009 (1.002-1. 030) [facility] pH Urine 6.0 (5.0-8.0) [facility] Albumin, Urine 2+(A) (NEG) [facility] Glucose, Ur NEGATIVE (NEG) [facility] Ketones, Urine NEGATIVE (NEG) [facility] Bilirubin Urine NEGATIVE (NEG) [facility] Hemoglobin Presence in Urine NEGATIVE (NEG) [facility] Nitrite, Urine NEGATIVE (NEG) [facility] Leukocyte Esterase Urine NEGATIVE (NEG) [facility] Urobilinogen Urine NORMAL (NORM) MG/DL [facility] WBC, Urine <1 (0-5) /HPF [facility] RBC, Urine 1 (0-3) /HPF [facility] Bacteria SLIGHT(A) (NEG) HPF [facility] Mucus, Urine SLIGHT /LPF [facility] Squamous Epithelial, Urine <1 (0-8) /HPF [facility] Hyaline Casts, Urine 1 (0-2) LPF [facility] Comment: Testing performed or reported by [facility], a Service of [facility], [address] [place] [address] Cherri Lucas MD, Director Of Exhibit Development [facility]# [id number] Urine (Urine, Clean Catch) 10/03/2022 11:04 AM EDT 10/03/2022 11:12 AM EDT Jovanna Schaeffer MD LAB URINE ORDERABLES Final Resul t Performing Organization Address [facility] Co de Phone Number [facility] * (ABNORMAL) Renal Function Panel (10/03/2022 11:04 AM EDT) Glucose 87 (70-99) MG/DL [facility] BUN 23(H) (6-20) MG/DL [facility] Creatinine 1.0 (0.5-1.0) MG/DL [facility] Sodium 140 (133-145) MMOL/L [facility] Potassium 3.9 (3.6-5.2) MMOL/L [facility] Chloride 105 (98-107) MMOL/L [facility] Bicarbonate (CO2) 24 (22-29) MMOL/L [facility] Anion Gap 11 (4-17) [facility] Albumin 3.7 (3.4-4.8) GM/DL [facility] Calcium 9.2 (8.6-10.5) MG/DL [facility] Phosphorus, Serum 4.8(H) (2.5-4.5) MG/DL [facility] Est GFR Non 82 ML/MIN/1.7 3 M2 [facility] Comment: Creatinine based estimated glomerular filtration (eGFR) in adults is calculated using the National [employer] recommended 2020 CKD-EPI equation. Estimates GFR from serum creatinine, age and sex. Testing performed or reported by [facility], a Service of [facility], [address] [place] [address] Cherri Lucas MD, Director Of Exhibit Development [facility]# [id number] Blood (Blood, Venous) 10/03/2022 11:04 AM EDT 10/03/2022 11:12 AM EDT Jovanna Schaeffer MD LAB BLOOD ORDERABLES Final Resul t Performing Organization Address [facility] Co de Phone Number [facility] documented in this encounter Visit Diagnoses Diagnosis SLE glomerulonephritis syndrome, 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HCC) documented in this encounter Care Teams Steel Construction Worker Relationship Specialty Start Date End Date Denise Blancas MD [address] [facility] [place] [address] PCP - General Internal Medicine 06/27/24 documented as of this encounter
--- OUTSIDE RECORDS SUMMARY | 2024-10-29 18:06 | XMS_ITS | Encounter Summary ---
Author Organization [facility] [place], Address [address] [place] [address] Phone Care Team Providers Care Petroleum Sampler Name Role Phone Denise Blancas MD Primary Care Provider Encounter Details Date Type Department Care Team (Late st Contact Info) Description 08/22/2024 Documentation Only [facility] [place], [address] [address] Rhianna Castro [address] [place] [address] Social History Tobacco Use Types [...] Visit [facility] [address] [place] [address] Breonna Le MD [address] [place] [address] documented as of this encounter Visit Diagnoses Not on filedocumented in this encounter Care Teams Petroleum Sampler Relationship Specialty Start Date End Date Denise Blancas MD [address] [place] [address] PCP - General Internal Medicine 06/27/24 documented as of this encounter
--- OUTSIDE RECORDS SUMMARY | 2024-10-29 18:06 | XMS_ITS | Encounter Summary ---
Author Organization [facility] [place], Address [address] [place] [address] Phone Care Team Providers Care Tabulating Supervisor Name Role Phone Denise Blancas MD Primary Care Provider [phone] Encounter Details Date Type Department Care Team (Late st Contact Info) Description 09/26/2024 Documentation Only [facility] [place], [address] [place] [address] Rhianna Castro [address] [place] [address] Social History Tobacco Use Types [...] Visit [facility] [address] [place] [address] Breonna Le MD [address] [place] [address] documented as of this encounter Visit Diagnoses Not on filedocumented in this encounter Care Teams Tabulating Supervisor Relationship Specialty Start Date End Date Denise Blancas MD [address] [place] [address] PCP - General Internal Medicine 06/27/24 documented as of this encounter
--- OUTSIDE RECORDS SUMMARY | 2024-10-29 18:06 | XMS_ITS | Encounter Summary ---
Author Organization [facility] [place], Address [address] [place] [address] Phone Care Team Providers Care Towing Pilot Name Role Phone Denise Blancas MD Primary Care Provider [phone] Encounter Details Date Type Department Care Team (Late st Contact Info) Description 09/01/2023 Documentation Only [facility] [place], [address] [place] [address] Omar Garcia MD [address] [place] [address] [place] [address] Social History Tobacco Use Types [...] Services Of [facility] [address] [place] [place] [address] Breonna Le MD [address] [place] [address] documented as of this encounter Visit Diagnoses Not on filedocumented in this encounter Care Teams Towing Pilot Relationship Specialty Start Date End Date O'Vazquez, Denise M, MD [address] [place] [address] PCP - General Internal Medicine 06/27/24 documented as of this encounter
--- OUTSIDE RECORDS SUMMARY | 2024-10-29 18:06 | XMS_ITS | Encounter Summary ---
Author Organization [facility] [place], Address [address] [place] [address] Phone Care Team Providers Care Glass Cutter Helper Name Role Phone Denise Blancas MD Primary Care Provider [phone] Encounter Details Date Type Department Care Team (Late st Contact Info) Description 08/22/2024 Documentation Only [facility] [place], [address] [place] [address] Rhianna Castro [address] [place] [address] Social History Tobacco Use Types [...] Visit [facility] [address] [place] [place] [address] Breonna Le MD [address] [place] [address] documented as of this encounter Visit Diagnoses Not on filedocumented in this encounter Care Teams Glass Cutter Helper Relationship Specialty Start Date End Date Denise Blancas MD [address] [place] [address] PCP - General Internal Medicine 06/27/24 documented as of this encounter
--- OUTSIDE RECORDS SUMMARY | 2024-10-29 18:06 | XMS_ITS | Encounter Summary ---
Author Organization [facility] [place], Address [address] [place] [address] Phone Care Team Providers Care Vice President Medical Affairs Name Role Phone Denise Blancas MD Primary Care Provider [phone] Encounter Details Date Type Department Care Team (Late st Contact Info) Description 08/01/2024 Documentation Only [facility] [place], [address] [place] [address] [place] [address] [place] [address] Social History Tobacco Use Types [...] Visit [facility] [place], [address] [place] [address] Breonna Le MD [address] [place] [address] [place] [address] documented as of this encounter Visit Diagnoses Not on filedocumented in this encounter Care Teams Vice President Medical Affairs Relationship Specialty Start Date End Date Denise Blancas MD [address] [place] [address] PCP - General Internal Medicine 06/27/24 documented as of this encounter
--- OUTSIDE RECORDS SUMMARY | 2024-10-29 18:06 | XMS_ITS | Clinical Summary ---
Author Organization [facility], Address [address] [place] [address] [place] [address] Phone Care Team Providers Care Practice Specialist Name Role Phone Denise Blancas MD Primary Care Provider Allergies Active Allergy Reactions Criticality Noted Date Comments Amoxicillin Other (see comments) 06/20/2019 Ferumoxytol 09/29/2020 NAUSEA VOMITING AND ABDOMINAL PAIN ON 09/25 INFUSION Gluten Meal 05/05/2022 Medications * This document contains information received from the source organization and may not represent a complete record from that organization. traZODone (DESYREL) 50 MG tablet Take 50 mg by mouth at bed time 05/07/2019 Active albuterol HFA (PROAIR HFA) 108 (90 Base) MCG/ACT inhaler Acti ve sulfamethoxazole -trimethoprim (BACTRIM,SEPTRA) 400-80 MG per tablet Take 1 tablet by mouth 1 (one) time each day 30 tablet 1 05/09/2022 Active omeprazole (PriLOSEC) [address] capsule TAKE 1 CAPSULE BY MOUTH 1 TIME EACH DAY. 30 capsule 3 07/28/2022 Active SITagliptin (Januvia) 50 MG tablet Take 1 tablet (50 mg total) by mouth 1 (one) time each day 30 tablet 11 07/28/2022 Active losartan (Cozaar) 50 MG tablet Take 1 tablet (50 mg total) by mouth 1 (one) time each day 30 tablet 11 05/25/2023 Active atorvastatin (LIPITOR) 20 MG tablet 04/10/2023 Active omeprazole (PriLOSEC) [address] capsule Take 20 mg by mouth 05/28/2022 Active amLODIPine (NORVASC) 5 MG tablet Take 1 tablet (5 mg total) by mouth 1 (one) time each day 30 tablet 11 08/03/2023 Active furosemide (Lasix) 40 MG tablet Take 1 tablet (40 mg total) by mouth in the morning and 1 tablet (40 mg total) at noon and 1 tablet (40 mg total) in the evening. 270 tablet 09/28/2023 Active Dapagliflozin Propanediol (Farxiga) 10 MG tablet Take 10 mg by mouth 1 (one) time each day in the morning 30 tablet 5 02/08/2024 Active torsemide (DEMADEX) 20 MG tablet Take 3 tablets (60 mg total) by mouth 1 (one) time each day 90 tablet 3 05/16/2024 Active hydroxychloroqui ne (PLAQUENIL) 200 MG tablet TAKE 1 TABLET BY MOUTH EVERY DAY 90 tablet 1 05/17/2024 Active aspirin (ST GEMMA) 81 MG EC tablet Take 1 tablet (81 mg total) by mouth 1 (one) time each day 30 tablet 08/08/2024 08/08/19 26 Active NIFEdipine XL (PROCARDIA XL) 60 MG 24 hr tablet Take 1 tablet (60 mg total) by mouth 1 (one) time each day Do not crush, chew, or split. 30 tablet 08/08/2024 08/08/19 26 Active tacrolimus (PROGRAF) 1 MG capsule Take 1 capsule (1 mg total) by mouth in the morning and 1 capsule (1 mg total) in the evening. 60 capsule 2 08/08/2024 11/07/19 25 Active folic acid (FOLVITE) 1 MG tablet Take 1 tablet (1 mg total) by mouth 1 (one) time each day 30 tablet 11 08/08/2024 08/08/19 26 Active Active Problems Problem Noted Date Diagnosed [...] Visit [facility] [address] [place] [address] Breonna Le MD (Primary Dx); SLE glomerulonephritis syndrome, 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HCC); Chronic kidney disease stage 3A (HCC); Nephrotic syndrome; 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) 10/24/2024 Documentation Only [facility] [address] [place] [address] Rhianna Castro 10/24/2024 Documentation Only [facility] [address] [place] [address] Rhianna Castro 10/11/2024 Orders Only [facility] [address] [place] [address] Rhianna Castro 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); Other proteinuria; SLE glomerulonephritis syndrome, 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HCC); Anemia in chronic kidney disease; Nephrotic syndrome; Fluid overload, not otherwise specified; Chronic kidney disease stage 3A (HCC) 09/27/2024 Orders Only [facility] [address] [place] [address] Rhianna Castro 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); Other proteinuria; SLE glomerulonephritis syndrome, 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HCC); Anemia in chronic kidney disease; Nephrotic syndrome; Fluid overload, not otherwise specified; Chronic kidney disease stage 3A (HCC) 09/26/2024 2:30 PM EDT Office Visit [facility] [address] [place] [address] Breonna Le MD (Primary Dx); Chronic kidney disease stage 3A (HCC); Nephrotic syndrome; 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) 09/26/2024 Documentation Only [facility] [address] [place] [address] Matthew, Rhianna 09/13/2024 Orders Only [facility] [address] [place] [address] Matthew, Rhianna 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); Other proteinuria; SLE glomerulonephritis syndrome, 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HCC); Anemia in chronic kidney disease; Nephrotic syndrome; Fluid overload, not otherwise specified; Chronic kidney disease stage 3A (HCC) 08/30/2024 Orders Only [facility] [address] [place] [address] Matthew, Rhianna 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); Other proteinuria; SLE glomerulonephritis syndrome, 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HCC); Anemia in chronic kidney disease; Nephrotic syndrome; Fluid overload, not otherwise specified; Chronic kidney disease stage 3A (HCC) 08/22/2024 Documentation Only [facility] [address] [place] [address] Matthew, Rhianna 08/22/2024 Documentation Only [facility] [address] [place] [address] Matthew, Rhianna 08/22/2024 Documentation Only [facility] [address] [place] [address] Matthew, Rhianna 08/16/2024 Orders Only [facility] [address] [place] [address] Matthew, Rhianna 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); Other proteinuria; SLE glomerulonephritis syndrome, 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HCC); Anemia in chronic kidney disease; Nephrotic syndrome; Fluid overload, not otherwise specified; Chronic kidney disease stage 3A ([facility]) 08/08/2024 2:30 PM EST Office Visit [facility] [address] [place] [address] Breonna Le MD 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 ([facility]) (Primary Dx); 08/02/2024 Telephone [facility] [address] [place] [address] Rhianna Castro 08/01/2024 Documentation Only [facility] [address] [place] [address] Shauna Foreman MA from Last 3 Months [...] Visit [facility] [address] [place] [address] Breonna eL MD [address] [place] [address] Health Maintenance Due Date Last Done Comments [...] 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) COMPREHENSIVE METABOLIC PANEL Routine 10/22/2024 12:26 [...] Relevant to Health Maintenance Results * (ABNORMAL) Tacrolimus level (10/25/2024 10:26 AM EDT) Tacrolimus Lvl 1.1(L) 5.0 - 20.0 ng/mL [facility] Comment: Target steady state trough concentration for [...] Venous) 10/25/2024 10:26 AM EDT 10/25/2024 Narrative [facility] - 10/29/2024 8:06 AM EDT Test(s) [id number] ([id number]), Blood was developed and its performance characteristics determined by [facility]. It has not been cleared or approved by the Food and Drug Administration. us Breonna Le MD LAB BLOOD ORDERABLES Final Res ult [facility] [address] [place] [address] * (ABNORMAL) Microscopic Examination (10/22/2024 12:26 PM EDT) Only the most recent of3 resultswithin the time period is included. WBC, Urine 0-5 0 - 5 /hpf [facility] RBC, Urine 3-10(A) 0 - 2 /hpf [facility] Squamous Epithelial, Urine 0-10 0 - 10 /hpf [facility] Casts None seen None seen /lpf [facility] Bacteria, Urine None seen None seen/Few [facility] 10/22/2024 12:2 6 PM EDT 10/22/2024 Omar Garcia MD LAB MICROBIOLOGY - GENERAL OR DERABLES Final Result Performing Organization Address City/[facility]/ZIP Co de Phone Number [facility] [address] [place] [address] * (ABNORMAL) Urine Protein / creatinine ratio (10/22/2024 12:26 PM EDT) Only the most recent of3 resultswithin the time period is included. Creatinine, Ur 167.4 Not Estab. mg/dL [facility] Protein, Ur 1,593.3 Not Estab. mg/dL [facility] Comment: Results confirmed on dilution. Urine Protein/Creati nine Ratio 9,518(H) 0 - 200 mg/g creat [facility] Urine (Urine, Clean Catch) 10/22/2024 12:26 PM EDT 10/22/2024 Omar Garcia MD LAB URINE ORDERABLES Final Re sult Performing Organization Address City/[facility]/ZIP Co de Phone Number [facility] In [facility] [address] [place] [address] * (ABNORMAL) Urinalysis with microscopic (10/22/2024 12:26 PM EDT) Only the most recent of3 resultswithin the time period is included. Specific [place], Urine 1.028 1.005 - 1.030 [facility] pH Urine 6.5 5.0 - 7.5 [facility] Color, Urine Yellow Yellow [facility] Appearance Urine Clear Clear [facility] [phone] WBC Esterase Urine Negative Negative [facility] Protein, Ur 4+(A) Negative/Tra ce [facility] Glucose, Ur Trace(A) Negative [facility] Ketones, Urine Negative Negative [facility] [place] Blood Urine Trace(A) Negative [facility] Bilirubin Urine Negative Negative [facility] Urobilinogen Urine 0.2 0.2 - 1.0 mg/dL [facility] [phone] Nitrite, Urine Negative Negative [facility] [phone] Microscopic Examination See below: [facility] [phone] Comment:Microscopic was shashi cated and was performed. Urine (Urine, Clean Catch) 10/22/2024 12:26 PM EDT 10/22/2024 us Omar Garcia MD LAB URINE ORDERABLES Final Re sult [facility] [address] [place] [address] * (ABNORMAL) Sedimentation Rate (10/22/2024 12:26 PM EDT) Only the most recent of3 resultswithin the time period is included. Sed Rate 77(H) 0 - 32 mm/hr [facility] Blood (Blood, Venous) 10/22/2024 12:26 PM EDT 10/22/2024 us Omar Garcia MD LAB BLOOD ORDERABLES Final Re sult [facility] [address] [place] [address] * (ABNORMAL) CBC and differential (10/22/2024 12:26 PM EDT) Only the most recent of3 resultswithin the time period is included. WBC 13.2(H) 3.4 - 10.8 x10E3/uL [facility] RBC 4.53 3.77 - 5.28 x10E6/uL [facility] Hemoglobin 11.9 11.1 - 15.9 g/dL [facility] Hematocrit 36.6 34.0 - 46.6 % [facility] MCV 81 79 - 97 fL [facility] MCH 26.3(L) 26.6 - 33.0 pg [facility] MCHC 32.5 31.5 - 35.7 g/dL [facility] RDW 15.9(H) 11.7 - 15.4 % [facility] Platelets 365 150 - 450 x10E3/uL [facility] Immature Granulocytes 1 Not Estab. % [facility] Immature Grans (Absolute) 0.1 0.0 - 0.1 x10E3/uL [facility] Neutrophils Relative 78 Not Estab. % [facility] Lymphocytes Relative 14 Not Estab. % [facility] Monocytes 6 Not Estab. % [facility] Eosinophils Relative 1 Not Estab. % [facility] Basophils Relative 0 Not Estab. % [facility] Neutrophils Absolute 10.4(H) 1.4 - 7.0 x10E3/uL [facility] Lymphocytes Absolute 1.8 0.7 - 3.1 x10E3/uL [facility] Monocytes Absolute 0.7 0.1 - 0.9 x10E3/uL [facility] Eosinophils Absolute 0.2 0.0 - 0.4 x10E3/uL [facility] Basophils Absolute 0.0 0.0 - 0.2 x10E3/uL [facility] Blood (Blood, Venous) 10/22/2024 12:26 PM EDT 10/22/2024 Omar Garcia MD LAB BLOOD ORDERABLES Final Re sult Performing Organization Address City/[facility]/ZIP Co de Phone Number [facility] [address] [place] [address] * C-Reactive Protein (10/22/2024 12:26 PM EDT) Only the most recent of3 resultswithin the time period is included. C-Reactive Protein Quant 2 0 - 10 mg/L [facility] Blood (Blood, Venous) 10/22/2024 12:26 PM EDT 10/22/2024 Omar Garcia MD LAB BLOOD ORDERABLES Final Re sult [facility] [address] [place] [address] * (ABNORMAL) Comprehensive metabolic panel (10/22/2024 12:26 PM EDT) Only the most recent of3 resultswithin the time period is included. [facility] Glucose 88 70 - 99 mg/dL [facility] BUN 18 6 - 20 mg/dL [facility] Creatinine 1.09(H) 0.57 - 1.00 mg/dL [facility] eGFR CKD-EPI CR 2020 72 >59 mL/min/1.7 3 [facility] BUN/Creatinine Ratio 17 9 - 23 [facility] Sodium 139 134 - 144 mmol/L [facility] Potassium 4.4 3.5 - 5.2 mmol/L [facility] Chloride 107(H) 96 - 106 mmol/L [facility] Bicarbonate (CO2) 19(L) 20 - 29 mmol/L [facility] Calcium 8.3(L) 8.7 - 10.2 mg/dL [facility] Total Protein 4.7(L) 6.0 - 8.5 g/dL [facility] Albumin 2.5(L) 4.0 - 5.0 g/dL [facility] Globulin 2.2 1.5 - 4.5 g/dL [facility] Total Bilirubin <0.2 0.0 - 1.2 mg/dL [facility] Comment:Verified by repeat analysis Alkaline Phosphatase 68 44 - 121 IU/L [facility] AST (SGOT) 17 0 - 40 IU/L [facility] ALT (SGPT) 13 0 - 32 IU/L [facility] Blood (Blood, Venous) 10/22/2024 12:26 PM EDT 10/22/2024 us Omar Garcia MD LAB BLOOD ORDERABLES Final Re sult Performing Organization Address City/[facility]/ZIP Co de Phone Number [facility] [address] [place] [address] * (ABNORMAL) Hemoglobin A1c (12/20/2023 11:47 AM EDT) Hemoglobin A1C 5.9(H) 4.8 - 5.6 % See order comments Comment: ? Prediabetes: 5.7 - 6.4 ? Diabetes: >6.4 ? Glycemic control for adults with diabetes: <7.0 Blood (Blood, Venous) 12/20/2023 11:47 AM EDT 12/20/2023 Narrative [facility] - 12/21/2023 4:08 PM EDT Performed at: ??01 - [facility] [address] [place], [place] ??[id number] Technical Specialist Cytology: Mitzy Knutson MD, Phone: ??[phone] us Omar Garcia MD LAB BLOOD ORDERABLES Final Re sult Performing Organization Address City/[facility] Co de Phone Number [facility] See order comments [place] [address] from Last 3 Months or Most Recently Relevant to Health Maintenance Insurance Medicaid [place] Medicare Care Teams Practice Specialist Relationship Specialty Start Date End Date Denise Blancas MD [address] [place] [address] PCP - General Internal Medicine 06/27/24
--- OUTSIDE RECORDS SUMMARY | 2024-10-29 18:06 | XMS_ITS | Clinical Summary ---
Author Organization [employer] Address [address] [facility] [address] [place] [address] Care Team Providers Care X Ray Consultant Name Role Phone Unavailable Primary Care Provider [...] every day Active ergocalciferol (Drisdol) 1.25 MG (32490 UT) capsule take 1 capsule by oral [...] ?? Walter SANCHEZ et al. RANDY. 2013;310(19): 6301-7802 ?? (http://education.DyMynd.[employer]/faq/FUQ850) Chol/HDLC Ratio 5.0(H) <5.0 (calc) [facility] ?? Walter SANCHEZ et al. RANDY. 2013;310(19): 4908-7569 ?? (http://Iizuu.[employer]/faq/PHC854) Chol/HDLC Ratio 5.0(H) <5.0 (calc) [facility] 05/28/2020 10:1 0 AM EST Efraín Lara DISTRIBUTION TECH LAB BLOOD ORDERABLES Final Result Performing Organization Address City/State/[facility] Co de Phone Number [facility] [address] from Last 3 Months or Most Recently Relevant [place] [id number] [place] [address] [place] [address] [place] [id number] ELISE Rhoades [id number] ELISE Rhoades [id number]
--- OUTSIDE RECORDS SUMMARY | 2024-10-29 18:06 | XMS_ITS | Encounter Summary ---
Author Organization [facility] Address [address] [place] [address] [address] [place] [address] Care Team Providers Care Functional Tester Typewriters Name Role Phone Verena Hardin Primary Care Provider [phone] Encounter Details Date Type Department Care Team (Late st Contact Info) Description 06/01/2022 Orders Only [facility] [address] [place] [address] Norma Reich, RN [address] [place] [address] Social History Tobacco Use Types Packs/Day Years [...] on filedocumented in this encounter Care Teams Functional Tester Typewriters Relationship Specialty Start Date End Date Verena Hardin FNP [address] [place] [address] PCP - General Family Medicine 12/14/21 05/29/23 documented as of this encounter
--- OUTSIDE RECORDS SUMMARY | 2024-10-29 18:06 | XMS_ITS | Encounter Summary ---
Author Organization [facility] Address [address] [place] [address] Phone Care Team Providers Care Engineering Project Manager Name Role Phone Denise Blancas MD Primary Care Provider [phone] Encounter Details Date Type Department Care Team (Latest Contact Info) Description 08/16/2024 Orders Only [facility] [address] [place] [address] Rhianna Castro [address] [place] [address] 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); Other proteinuria; SLE glomerulonephritis syndrome, 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HCC); Anemia in chronic kidney disease; Nephrotic syndrome; Fluid overload, not otherwise specified; Chronic kidney disease stage 3A ([facility]) Social History Tobacco Use Types [...] [facility] [address] [place] [address] Breonna Le MD [address] [place] [address] documented as of this encounter Visit Diagnoses Diagnosis 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) Other proteinuria SLE glomerulonephritis syndrome, 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HCC) Anemia in chronic kidney disease Nephrotic syndrome Fluid overload, not otherwise specified Chronic kidney disease stage 3A (HCC) documented in this encounter Care Teams Engineering Project Manager Relationship Specialty Start Date End Date Denise Blancas MD [address] [place] [address] PCP - General Internal Medicine 06/27/24 documented as of this encounter
--- OUTSIDE RECORDS SUMMARY | 2024-10-29 18:06 | XMS_ITS | Encounter Summary ---
Author Organization [facility] Address [address] [place] [address] Phone Care Team Providers Care Development Writer Name Role Phone Denise Blancas MD Primary Care Provider [phone] Encounter Details Date Type Department Care Team (Latest Contact Info) Description 08/30/2024 Orders Only [facility] [address] [place] [address] Rhianna Castro [address] [place] [address] 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); Other proteinuria; SLE glomerulonephritis syndrome, 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HCC); Anemia in chronic kidney disease; Nephrotic syndrome; Fluid overload, not otherwise specified; Chronic kidney disease stage 3A ([facility]) Social History Tobacco Use Types [...] Visit [facility] [address] [place] [address] Breonna Le MD [address] [place] [address] documented as of this encounter Visit Diagnoses Diagnosis 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) Other proteinuria SLE glomerulonephritis syndrome, WHO class V (HCC) Anemia in chronic kidney disease Nephrotic syndrome Fluid overload, not otherwise specified Chronic kidney disease stage 3A (HCC) documented in this encounter Care Teams Development Writer Relationship Specialty Start Date End Date Denise Blancas MD [address] [place] [address] PCP - General Internal Medicine 06/27/24 documented as of this encounter
--- OUTSIDE RECORDS SUMMARY | 2024-10-29 18:07 | XMS_ITS | Encounter Summary ---
Author Organization [facility] Address [address] [place] [address] Phone Care Team Providers Care Estimator Printing Name Role Phone Denise Blancas MD Primary Care Provider [phone] Encounter Details Date Type Department Care Team (Latest Contact Info) Description 11/24/2023 Orders Only [facility] [address] [place] [address] Jovanna Schaeffer MD SLE glomerulonephritis [...] Visit [facility] [address] [place] [address] Breonna Le MD [address] [place] [address] [place] [address] documented as of this encounter Visit Diagnoses Diagnosis SLE glomerulonephritis syndrome, WHO class V (HCC) documented in this encounter Care Teams Estimator Printing Relationship Specialty Start Date End Date Denise Blancas MD [address] [place] [address] PCP - General Internal Medicine 06/27/24 documented as of this encounter
--- OUTSIDE RECORDS SUMMARY | 2024-10-29 18:07 | XMS_ITS | Encounter Summary ---
Author Organization [facility] [place], Address [address] [place] [address] Phone Care Team Providers Care 7Th Grade Teacher Name Role Phone Denise Blancas MD Primary Care Provider [phone] Encounter Details Date Type Department Care Team (Late st Contact Info) Description 09/05/2023 Documentation Only [facility] [place], [address] [place] [address] Rhianna Castro [address] [place] [address] Social History Tobacco Use Types [...] [facility] [address] [place] [address] Breonna Le MD [address] [place] [address] documented as of this encounter Visit Diagnoses Not on filedocumented in this encounter Care Teams 7Th Grade Teacher Relationship Specialty Start Date End Date Denise Blancas MD [address] [place] [address] PCP - General Internal Medicine 06/27/24 documented as of this encounter
--- OUTSIDE RECORDS SUMMARY | 2024-10-29 18:07 | XMS_ITS | Encounter Summary ---
Author Organization [facility] Address [address] [place] [address] Phone Care Team Providers Care Administrative Office Manager Name Role Phone Denise Blancas MD Primary Care Provider [phone] Encounter Details Date Type Department Care Team (Latest Contact Info) Description 12/01/2023 Orders Only [facility] [address] [place] [address] Jovanna Schaeffer MD SLE glomerulonephritis [...] [facility] [address] [place] [address] Breonna Le MD [address] [place] [address] [place] [address] documented as of this encounter Visit Diagnoses Diagnosis SLE glomerulonephritis syndrome, WHO class V (HCC) documented in this encounter Care Teams Administrative Office Manager Relationship Specialty Start Date End Date Denise Blancas MD [address] [place] [address] PCP - General Internal Medicine 06/27/24 documented as of this encounter
--- OUTSIDE RECORDS SUMMARY | 2024-10-29 18:07 | XMS_ITS | Encounter Summary ---
Author Organization [facility] Address [address] [place] [address] Phone Care Team Providers Care Fountain Waitress/Waiter Name Role Phone Denise Blancas MD Primary Care Provider [phone] Encounter Details Date Type Department Care Team (Latest Contact Info) Description 11/03/2023 Orders Only [facility] [address] [place] [address] Jovanna Schaeffer MD SLE glomerulonephritis [...] [facility] [address] [place] [address] Breonna Le MD [address] [place] [address] [place] [address] documented as of this encounter Visit Diagnoses Diagnosis SLE glomerulonephritis syndrome, WHO class V (HCC) documented in this encounter Care Teams Fountain Waitress/Waiter Relationship Specialty Start Date End Date Denise Blancas MD [address] [place] [address] PCP - General Internal Medicine 06/27/24 documented as of this encounter
--- OUTSIDE RECORDS SUMMARY | 2024-10-29 18:07 | XMS_ITS | Encounter Summary ---
Author Organization [facility] Address [address] [place] [address] Phone Care Team Providers Care Hand Cementer Name Role Phone Denise Blancas MD Primary Care Provider [phone] Encounter Details Date Type Department Care Team (Latest Contact Info) Description 12/15/2023 Orders Only [facility] [address] [place] [address] Jovanna Schaeffer MD SLE glomerulonephritis [...] [facility] [address] [place] [address] Breonna Le MD [address] [place] [address] [place] [address] documented as of this encounter Visit Diagnoses Diagnosis SLE glomerulonephritis syndrome, WHO class V (HCC) documented in this encounter Care Teams Hand Cementer Relationship Specialty Start Date End Date Denise Blancas MD [address] [place] [address] PCP - General Internal Medicine 06/27/24 documented as of this encounter
--- OUTSIDE RECORDS SUMMARY | 2024-10-29 18:07 | XMS_ITS | Encounter Summary ---
Author Organization [facility] Address [address] [place] [address] Phone Care Team Providers Care Private Detective Name Role Phone Denise Blancas MD Primary Care Provider [phone] Encounter Details Date Type Department Care Team (Latest Contact Info) Description 12/08/2023 Orders Only [facility] [address] [place] [address] Jovanna Schaeffer MD SLE glomerulonephritis [...] [facility] [address] [place] [address] Breonna Le MD [address] [place] [address] [place] [address] documented as of this encounter Visit Diagnoses Diagnosis SLE glomerulonephritis syndrome, WHO class V (HCC) documented in this encounter Care Teams Private Detective Relationship Specialty Start Date End Date Denise Blancas MD [address] [place] [address] PCP - General Internal Medicine 06/27/24 documented as of this encounter
--- OUTSIDE RECORDS SUMMARY | 2024-10-29 18:07 | XMS_ITS | Encounter Summary ---
Author Organization [facility] [place], Address [address] [place] [address] Phone Care Team Providers Care Heating Equipment Installer Name Role Phone Denise Blancas MD Primary Care Provider [phone] Encounter Details Date Type Department Care Team (Late st Contact Info) Description 09/05/2023 Documentation Only [facility] [place], [address] [place] [address] Rhianna Castro [address] [place] [address] Social History Tobacco Use Types [...] Visit [facility] [address] [place] [address] Breonna Le MD [address] [place] [address] documented as of this encounter Visit Diagnoses Not on filedocumented in this encounter Care Teams Heating Equipment Installer Relationship Specialty Start Date End Date Denise Blancas MD [address] [place] [address] PCP - General Internal Medicine 06/27/24 documented as of this encounter
--- OUTSIDE RECORDS SUMMARY | 2024-10-29 18:07 | XMS_ITS | Encounter Summary ---
Author Organization [facility] Address [address] [place] [address] Phone Care Team Providers Care Looping Inspector Name Role Phone Denise Blancas MD Primary Care Provider [phone] Encounter Details Date Type Department Care Team (Latest Contact Info) Description 06/09/2023 Orders Only [facility] [address] [place] [address] Jovanna Schaeffer MD SLE glomerulonephritis [...] [facility] [address] [place] [address] Breonna Le MD [address] [place] [address] [place] [address] documented as of this encounter Visit Diagnoses Diagnosis SLE glomerulonephritis syndrome, WHO class V (HCC) documented in this encounter Care Teams Looping Inspector Relationship Specialty Start Date End Date Denise Blancas MD [address] [place] [address] PCP - General Internal Medicine 06/27/24 documented as of this encounter
--- OUTSIDE RECORDS SUMMARY | 2024-10-29 18:07 | XMS_ITS | Encounter Summary ---
Author Organization [facility] [place], Address [address] [place] [address] Phone Care Team Providers Care Etiquette Teacher Name Role Phone Denise Blancas MD Primary Care Provider [phone] Encounter Details Date Type Department Care Team (Late st Contact Info) Description 10/26/2023 Documentation Only [facility] [place], [address] [place] [address] Rhianna Castro [address] [place] [address] Social History Tobacco Use [...] Transplant [facility] [address] [place] [address] Breonna Le MD [address] [place] [address] documented as of this encounter Visit Diagnoses Not on filedocumented in this encounter Care Teams Etiquette Teacher Relationship Specialty Start Date End Date Denise Blancas MD [address] [place] [address] PCP - General Internal Medicine 06/27/24 documented as of this encounter
--- OUTSIDE RECORDS SUMMARY | 2024-10-29 18:07 | XMS_ITS | Encounter Summary ---
Author Organization [facility] Address [address] [place] [address] Phone Care Team Providers Care Vp Purchasing Name Role Phone Denise Blancas MD Primary Care Provider [phone] Encounter Details Date Type Department Care Team (Latest Contact Info) Description 11/10/2023 Orders Only [facility] [address] [place] [address] Jovanna Schaeffer MD SLE glomerulonephritis [...] [facility] [address] [place] [address] Breonna Le MD [address] [place] [address] [place] [address] documented as of this encounter Visit Diagnoses Diagnosis SLE glomerulonephritis syndrome, WHO class V (HCC) documented in this encounter Care Teams Vp Purchasing Relationship Specialty Start Date End Date Denise Blancas MD [address] [place] [address] PCP - General Internal Medicine 06/27/24 documented as of this encounter
--- OUTSIDE RECORDS SUMMARY | 2024-10-29 18:07 | XMS_ITS | Encounter Summary ---
Author Organization [facility] [place], Address [address] [place] [address] Phone Care Team Providers Care Music Copyist Name Role Phone Denise Blancas MD Primary Care Provider [phone] Encounter Details Date Type Department Care Team (Late st Contact Info) Description 10/26/2023 Documentation Only [facility] [place], [address] [place] [address] Rhianna Castro [address] [place] [address] Social History Tobacco Use Types [...] And Transplant Services Of [facility] [address] [place] [address] Breonna Le MD [address] [place] [address] documented as of this encounter Visit Diagnoses Not on filedocumented in this encounter Care Teams Music Copyist Relationship Specialty Start Date End Date Denise Blancas MD [address] [place] [address] PCP - General Internal Medicine 06/27/24 documented as of this encounter
--- OUTSIDE RECORDS SUMMARY | 2024-10-29 18:07 | XMS_ITS | Encounter Summary ---
Author Organization [facility] Address [address] [place] [address] Phone Care Team Providers Care Toppiece Chopper Name Role Phone Dneise Blancas MD Primary Care Provider [phone] Encounter Details Date Type Department Care Team (Latest Contact Info) Description 11/17/2023 Orders Only [facility] [address] [place] [address] Jovanna Schaeffer MD SLE glomerulonephritis [...] [facility] [address] [place] [address] Breonna Le MD [address] [place] [address] [place] [address] documented as of this encounter Visit Diagnoses Diagnosis SLE glomerulonephritis syndrome, WHO class V (HCC) documented in this encounter Care Teams Toppiece Chopper Relationship Specialty Start Date End Date Denise Blancas MD [address] [place] [address] PCP - General Internal Medicine 06/27/24 documented as of this encounter
== END 2024-10-29 16:11 | disposition home or self-care (01) ==
LOC: HO.RHE 15:11
PROVIDERS: PCP Physician Assistant; Visit Provider Student in an Organized Health Care Education/Training Program
DX: M32.14 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 lupus erythematosus (principal); O09.70 Supervision of high risk pregnancy due to social problems, unspecified trimester; Z51.81 Encounter for therapeutic drug level monitoring; Z79.899 Other long term (current) drug therapy; Z79.624 Long term (current) use of inhibitors of nucleotide synthesis
CPT/HCPCS: 99215; G2211

== ENCOUNTER → 2024-10-29 15:10 | Outpatient (BNVA) | payer MEDICARE, MEDICAID, SELFPAY | PROVIDERS: PCP Physician Assistant; Visit Provider Student in an Organized Health Care Education/Training Program | DX: O09.70 Supervision of high risk pregnancy due to social problems, unspecified trimester (principal); O26.899 Other specified pregnancy related conditions, unspecified trimester; M32.14 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 lupus erythematosus; Z51.81 Encounter for therapeutic drug level monitoring; Z79.899 Other long term (current) drug therapy; Z79.624 Long term (current) use of inhibitors of nucleotide synthesis | CPT/HCPCS: 99212 ==

== ENCOUNTER 2025-03-04 13:23 | Outpatient (AMB) | payer MEDICARE, MEDICAID, SELFPAY ==
--- OUTSIDE RECORDS SUMMARY | 2025-03-04 14:13 | XMS_ITS | Encounter Summary ---
Author Organization [facility] Address [address] [place] [address] Phone Care Team Providers Care Temp Recruiter Name Role Phone Denise Blancas MD Primary Care Provider [phone] Encounter Details Date Type Department Care Team (Late st Contact Info) Description 10/24/2024 Documentation Only [facility] [place], [address] [facility] [address] [place] [address] Rhianna Castro [address] [place] [address] Social History Tobacco Use Types [...] Care Team (Late st Contact Info) Description 03/06/2025 2:30 PM EDT Office Visit [facility] [address] [facility] [address] [facility] [place] [address] Breonna Le MD [address] [facility] [address] [facility] [place] [address] documented as of this encounter Visit Diagnoses Not on filedocumented in this encounter Care Teams Temp Recruiter Relationship Specialty Start Date End Date Denise Blancas MD [address] [place] [address] PCP - General Internal Medicine 06/27/24 documented as of this encounter
--- OUTSIDE RECORDS SUMMARY | 2025-03-04 14:13 | XMS_ITS | Encounter Summary ---
Author Organization [facility] [place], Address [address] [place] [address] Phone Care Team Providers Care Compliance Attorney Name Role Phone Denise Blancas MD Primary Care Provider [phone] Encounter Details Date Type Department Care Team (Late st Contact Info) Description 07/17/2024 Documentation Only [facility] [place], [address] [place] [address] Rhianna Castro [address] [place] [address] Social History Tobacco Use Types [...] [facility] [address] [place] [place] [address] Breonna Le MD [address] [place] [address] documented as of this encounter Visit Diagnoses Not on filedocumented in this encounter Care Teams Compliance Attorney Relationship Specialty Start Date End Date Denise Blancas MD [address] [place] [address] PCP - General Internal Medicine 06/27/24 documented as of this encounter
--- OUTSIDE RECORDS SUMMARY | 2025-03-04 14:13 | XMS_ITS | Encounter Summary ---
Author Organization [facility] Address [address] [place] [address] Phone Care Team Providers Care Residential Child Care Counselor Name Role Phone Denise Blancas MD Primary Care Provider [phone] Encounter Details Date Type Department Care Team (Latest Contact Info) Description 10/11/2024 Orders Only [facility] [address] [place] [address] Rhianna Castro [address] [place] [address] 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); Other proteinuria; SLE glomerulonephritis syndrome, WHO class V (HCC); Anemia in chronic kidney disease; Nephrotic syndrome; Fluid overload, not otherwise specified; Chronic kidney disease stage 3A ([facility]) Social History Tobacco Use Types Packs/Day [...] Of [facility] [address] [place] [address] Breonna Le MD [address] [place] [address] documented as of this encounter Procedures Procedure [...] Urine 0-5 0 - 5 /hpf [facility] RBC, Urine 3-10(A) 0 - 2 /hpf [facility] Squamous Epithelial, Urine 0-10 0 - 10 /hpf [facility] Casts None seen None seen /lpf [facility] Bacteria, Urine None seen None seen/Few [facility] 10/11/2024 11:2 2 AM EDT 10/11/2024 us Omar Garcia MD LAB MICROBIOLOGY - GENERAL OR DERABLES Final Result [facility] [address] [place] [address] * (ABNORMAL) Comprehensive metabolic panel (10/11/2024 11:22 AM EDT) Glucose 99 70 - 99 mg/dL [facility] BUN 20 6 - 20 mg/dL [facility] Creatinine 1.14(H) 0.57 - 1.00 mg/dL [facility] eGFR CKD-EPI CR 2020 69 >59 mL/min/1.7 3 [facility] BUN/Creatinine Ratio 18 9 - 23 [facility] Sodium 140 134 - 144 mmol/L [facility] Potassium 4.1 3.5 - 5.2 mmol/L [facility] Chloride 112(H) 96 - 106 mmol/L [facility] Bicarbonate (CO2) 17(L) 20 - 29 mmol/L [facility] Calcium 8.4(L) 8.7 - 10.2 mg/dL [facility] Total Protein 4.5(L) 6.0 - 8.5 g/dL [facility] Albumin 2.4(L) 4.0 - 5.0 g/dL [facility] Globulin 2.1 1.5 - 4.5 g/dL [facility] Total Bilirubin <0.2 0.0 - 1.2 mg/dL [facility] Alkaline Phosphatase 64 44 - 121 IU/L [facility] AST (SGOT) 16 0 - 40 IU/L [facility] ALT (SGPT) 11 0 - 32 IU/L [facility] Blood specimen (specimen) Venous blood / Unknown 10/11/2024 11:22 AM EDT 10/11/2024 us Omar Garcia MD LAB BLOOD ORDERABLES Final Re sult [facility] [address] [place] [address] * (ABNORMAL) Urine Protein / creatinine ratio (10/11/2024 11:22 AM EDT) Creatinine, Ur 155.8 Not Estab. mg/dL [facility] Protein, Ur 1,350.3 Not Estab. mg/dL [facility] Comment: Results confirmed on dilution. Urine Protein/Creati nine Ratio 8,667(H) 0 - 200 mg/g creat [facility] Urine specimen (specimen) Urine specimen obtained by clean catch procedure / Unknown 10/11/2024 11:22 AM EDT 10/11/2024 Omar Garcia MD LAB URINE ORDERABLES Final Re sult Performing Organization Address [facility]/ZIP Co de Phone Number [facility] [address] [place] [address] * C-Reactive Protein (10/11/2024 11:22 AM EDT) Pathologist [facility] [place] C-Reactive Protein Quant 1 0 - 10 mg/L [facility] Blood specimen (specimen) Venous blood / Unknown 10/11/2024 11:22 AM EDT 10/11/2024 Omar Garcia MD LAB BLOOD ORDERABLES Final Re sult Performing Organization Address [facility] de Phone Number [facility] [address] [place] [address] * (ABNORMAL) Sedimentation Rate (10/11/2024 11:22 AM EDT) [facility] Sed Rate 72(H) 0 - 32 mm/hr [facility] Blood specimen (specimen) Venous blood / Unknown 10/11/2024 11:22 AM EDT 10/11/2024 Omar Garcia MD LAB BLOOD ORDERABLES Final Re sult Performing Organization Address [facility] Co de Phone Number [facility] [address] [place] [address] * (ABNORMAL) Urinalysis with microscopic (10/11/2024 11:22 AM EDT) [facility] Specific [place], Urine 1.028 1.005 - 1.030 [facility] [phone] pH Urine 6.0 5.0 - 7.5 [facility] [phone] Color, Urine Yellow Yellow [facility] [phone] Appearance Urine Clear Clear [facility] WBC Esterase Urine Negative Negative [facility] Protein, Ur 4+(A) Negative/Tra ce [facility] Glucose, Ur Trace(A) Negative [facility] Ketones, Urine Negative Negative [facility] Blood Urine Trace(A) Negative [facility] [phone] Bilirubin Urine Negative Negative [facility] [phone] Urobilinogen Urine 0.2 0.2 - 1.0 mg/dL [facility] Nitrite, Urine Negative Negative [facility] [phone] Microscopic Examination See below: [facility] Comment:Microscopic was shashi cated and was performed. Urine specimen (specimen) Urine specimen obtained by clean catch procedure / Unknown 10/11/2024 11:22 AM EDT 10/11/2024 us Omar Garcia MD LAB URINE ORDERABLES Final Re sult [facility] [address] [place] [address] * (ABNORMAL) CBC and differential (10/11/2024 11:22 AM EDT) WBC 13.4(H) 3.4 - 10.8 x10E3/uL [facility] RBC 4.60 3.77 - 5.28 x10E6/uL [facility] Hemoglobin 12.2 11.1 - 15.9 g/dL [facility] Hematocrit 36.7 34.0 - 46.6 % [facility] MCV 80 79 - 97 fL [facility] MCH 26.5(L) 26.6 - 33.0 pg [facility] MCHC 33.2 31.5 - 35.7 g/dL [facility] RDW 16.0(H) 11.7 - 15.4 % [facility] Platelets 362 150 - 450 x10E3/uL [facility] Neutrophils Relative 72 Not Estab. % [facility] Lymphocytes Relative 20 Not Estab. % [facility] Monocytes 5 Not Estab. % [facility] Eosinophils Relative 2 Not Estab. % [facility] Basophils Relative 0 Not Estab. % [facility] Neutrophils Absolute 9.7(H) 1.4 - 7.0 x10E3/uL [facility] Lymphocytes Absolute 2.6 0.7 - 3.1 x10E3/uL [facility] Monocytes Absolute 0.7 0.1 - 0.9 x10E3/uL [facility] Eosinophils Absolute 0.2 0.0 - 0.4 x10E3/uL [facility] Basophils Absolute 0.1 0.0 - 0.2 x10E3/uL [facility] Immature Granulocytes 1 Not Estab. % [facility] Immature Grans (Absolute) 0.1 0.0 - 0.1 x10E3/uL [facility] Blood specimen (specimen) Venous blood / Unknown 10/11/2024 11:22 AM EDT 10/11/2024 us Omar Garcia MD LAB BLOOD ORDERABLES Final Re sult [facility] [address] [place] [address] documented in this encounter Visit Diagnoses Diagnosis 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) Other proteinuria SLE glomerulonephritis syndrome, WHO class V (HCC) Anemia in chronic kidney disease Nephrotic syndrome Fluid overload, not otherwise specified Chronic kidney disease stage 3A (HCC) documented in this encounter Care Teams Residential Child Care Counselor Relationship Specialty Start Date End Date Denise Blancas MD [address] [place] [address] PCP - General Internal Medicine 06/27/24 documented as of this encounter
--- OUTSIDE RECORDS SUMMARY | 2025-03-04 14:13 | XMS_ITS | Clinical Summary ---
Author Organization [facility], Address [address] [place] [address] [place] [address] Phone Care Team Providers Care Director Client Services Name Role Phone Denise Blancas MD Primary Care Provider [phone] Allergies Active Allergy Reactions Criticality Noted Date [...] 108 (90 Base) MCG/ACT inhaler Acti ve sulfamethoxazol e-trimethoprim (BACTRIM,SEPTRA ) 400-80 MG per tablet Take 1 tablet [...] the morning 30 tablet 5 4 Active hydroxychloroqu ine (PLAQUENIL) 200 MG tablet TAKE 1 TABLET BY MOUTH EVERY DAY 90 tablet 1 4 Active NIFEdipine XL (PROCARDIA XL) 60 MG 24 hr tablet Take 1 tablet (60 mg total) by mouth 1 (one) time each day Do not crush, chew, or split. 30 tablet 5 08/08/19 26 Active folic acid (FOLVITE) 1 MG tablet Take 1 tablet (1 mg total) by mouth 1 (one) time each day 30 tablet 5 08/08/19 26 Active aspirin (ST GEMMA) 81 MG EC tablet Take 2 tablets (162 mg total) by mouth 1 (one) time each day 60 tablet 5 02/12/20 26 Active labetalol (NORMODYNE) 200 MG tablet Take 2 tablets (400 mg total) by mouth in the morning and 2 tablets (400 mg total) in the evening. 120 tablet 3 5 06/11/20 25 Active torsemide (DEMADEX) 20 MG tablet Take 3 tablets (60 mg total) by mouth 1 (one) time each day 90 tablet 3 5 03/23/20 25 Active torsemide (DEMADEX) 20 MG tablet Take 3 tablets (60 mg total) by mouth 1 (one) time each day 90 tablet 3 4 02/22/20 25 Discontinue d(Reorder (does not appear on AVS)) aspirin (ST GEMMA) 81 MG EC tablet Take 1 tablet (81 mg total) by mouth 1 (one) time each day 30 tablet 11 5 02/12/20 25 Discontinue d(Reorder (does not appear on AVS)) tacrolimus (PROGRAF) 1 MG capsule Take 4 capsules (4 mg total) by mouth in the morning and 4 capsules (4 mg total) in the evening. 240 capsule 2 5 02/21/20 25 labetalol (NORMODYNE) 200 MG tablet Take 2 tablets (400 mg total) by mouth in the morning and 2 tablets (400 mg total) in the evening. 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 Resolved Problems Problem Noted Date Diagnosed Date Resolved Date Vitamin D deficiency, not otherwise specified 07/12/1910/12/2021 Other iron deficiency anemia 09/21/2020 01/25/2021 Edema 06/20/2019 01/25/2021 Nephrotic syndrome 06/20/2019 Systemic lupus erythematosus 06/20/2019 01/25/2021 Encounters Date Type Department Care Team Description 02/28/2025 Orders Only [facility] [address] [place] [address] Rhianna Castro Proteinuria, not otherwise specified; Other form of systemic lupus erythematosus (HCC); Vitamin D deficiency, not otherwise specified; Flank pain; Anemia, not otherwise specified; Edema of lower extremity; Hypertension; Nephrotic syndrome; Type 2 diabetes mellitus, not otherwise specified (HCC); 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); Other proteinuria; Fluid overload, not otherwise specified; Chronic kidney disease stage 3A ([facility]); Anemia in chronic kidney disease; Routine general medical examination at a health care facility 02/21/2025 Documentation Only [facility] [address] [place] [address] Matthew, Rhianna 02/21/2025 Documentation Only [facility] [address] [place] [address] Matthew, Rhianna 02/21/2025 Documentation Only [facility] [address] [place] [address] Matthew, Rhianna 02/21/2025 Documentation Only [facility] [address] [place] [address] Matthew, Rhianna 02/21/2025 Orders Only [facility] [address] [place] [address] Matthew, Rhianna Proteinuria, not otherwise specified; Other form of systemic lupus erythematosus (HCC); Vitamin D deficiency, not otherwise specified; Flank pain; Anemia, not otherwise specified; Edema of lower extremity; Hypertension; Nephrotic syndrome; Type 2 diabetes mellitus, not otherwise specified (HCC); 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); ; SLE glomerulonephritis syndrome, WHO class V (HCC); Other proteinuria; Fluid overload, not otherwise specified; Chronic kidney disease stage 3A (HCC); Anemia in chronic kidney disease; Routine general medical examination at a health care facility 02/21/2025 Orders Only [facility] [address] [place] [address] Breonna Le MD 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); SLE glomerulonephritis syndrome, WHO class V (HCC); Chronic kidney disease stage 3A (HCC); Nephrotic syndrome; Other proteinuria; Anemia in chronic kidney disease; Fluid overload, not otherwise specified 02/14/2025 Orders Only [facility] [address] [place] [address] Matthew, Rhianna Proteinuria, not otherwise specified; Other form of systemic lupus erythematosus (HCC); Vitamin D deficiency, not otherwise specified; Flank pain; Anemia, not otherwise specified; Edema of lower extremity; Hypertension; Nephrotic syndrome; Type 2 diabetes mellitus, not otherwise specified (HCC); 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); ; SLE glomerulonephritis syndrome, WHO class V (HCC); Other proteinuria; Fluid overload, not otherwise specified; Chronic kidney disease stage 3A (HCC); Anemia in chronic kidney disease; Routine general medical examination at a health care facility 02/14/2025 Orders Only [facility] [address] [place] [address] Breonna Le MD 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); SLE glomerulonephritis syndrome, WHO class V (HCC); Nephrotic syndrome; Anemia in chronic kidney disease; Chronic kidney disease stage 3A (HCC); Other proteinuria; Fluid overload, not otherwise specified 02/13/2025 3:30 PM EDT Office Visit [facility] [address] [place] [address] Breonna Le MD 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) (Primary Dx); ; Nephrotic syndrome; Chronic kidney disease stage 3A (HCC) 02/13/2025 Documentation Only [facility] [address] [place] [address] Matthew, Rhianna 02/13/2025 Documentation Only [facility] [address] [place] [address] Matthew, Rhianna 02/13/2025 Documentation Only [facility] [address] [place] [address] Matthew, Rhianna 02/13/2025 Documentation Only [facility] [address] [place] [address] Matthew, Rhianna 02/13/2025 Documentation Only [facility] [address] [place] [address] Matthew, Rhianna 02/10/2025 Telephone [facility] [address] [place] [address] Matthew, Rhianna 02/10/2025 Documentation Only [facility] [address] [place] [address] Matthew, Rhianna 02/10/2025 Orders Only [facility] [address] [place] [address] Matthew, Rhianna Proteinuria, not otherwise specified (Primary Dx); Other form of systemic lupus erythematosus (HCC); Vitamin D deficiency, not otherwise specified; Flank pain; Anemia, not otherwise specified; Edema of lower extremity; Hypertension; Nephrotic syndrome; Type 2 diabetes mellitus, not otherwise specified (HCC); 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); ; SLE glomerulonephritis syndrome, WHO class V (HCC); Other proteinuria; Fluid overload, not otherwise specified; Chronic kidney disease stage 3A (HCC); Anemia in chronic kidney disease; Routine general medical examination at a health care facility 02/07/2025 Orders Only [facility] [address] [place] [address] Breonna Le MD 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); SLE glomerulonephritis syndrome, WHO class V (HCC); Chronic kidney disease stage 3A (HCC); Nephrotic syndrome; Other proteinuria; Anemia in chronic kidney disease; Fluid overload, not otherwise specified 01/17/2025 Orders Only [facility] [address] [place] [address] Breonna Le MD 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); Nephrotic syndrome; Anemia in chronic kidney disease; Chronic kidney disease stage 3A (HCC); Other proteinuria; Fluid overload, not otherwise specified 01/15/2025 Documentation Only [facility] [address] [place] [address] Rhianna Castro 01/15/2025 Documentation Only [facility] [address] [place] [address] Rhianna Castro 01/10/2025 Orders Only [facility] [address] [place] [address] Breonna Le MD Glomerular disease in systemic lupus erythematosus (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); Chronic kidney disease stage 3A (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); Nephrotic syndrome; Other proteinuria; Anemia in chronic kidney disease; Fluid overload, not otherwise specified 12/18/2024 Documentation Only [facility] [address] [place] [phone] Rhianna Castro 12/18/2024 Documentation Only [facility] [address] [place] [phone] Rhianna Castro 12/18/2024 Documentation Only [facility] [address] [place] [address] Rhianna Castro from Last 3 Months Immunizations Immunization Administration [...] Sign Reading Time Taken Comments Blood Pressure 148/111 01/16/2025 1:50 PM EDT Pulse 80 01/16/2025 1:50 PM EDT Temperature - - Respiratory Rate 16 2019 [...] Visit [facility], [address] [place] [place] [address] Breonna Le MD [address] [place] [address] Health Maintenance Due Date Last Done Comments Pneumococcal Vaccine: Peds ( 0 to 5 Years) and At-Risk Patients (6 to 49 Years) (2 of 2 - PPSV23, PCV20, or PCV21) 09/12/2019 07/18/2019, 05/10/2001, 02/05/2001, Additional history exists Diabetes: Ophthalmology Exam 09/05/2023 Diabetes: Pedal Pulse Checked 09/05/2023 Diabetes: Sensory Foot Exam 09/05/2023 Diabetes: Visual Foot Exam 09/05/2023 Diabetes: Hemoglobin A1C 03/21/2024 024, 10/25/2022, 07/14/2022, Additional history exists Influenza Vaccine (#1) 2025 0, 05/28/2020, 05/30/2019, Additional history exists Hepatitis B Vaccine Completed 05/25/2000, 1999, 1999 Pneumococcal Vaccine: 50+ Years Discontinued 07/18/2019, 05/10/2001, 02/05/2001, Additional history exists Procedures Procedure Name Priority Date/Time Associated Diagnosis Comments URINE ALBUMIN / CREATININE RATIO Routine 02/26/2025 1:04 PM EDT RENAL FUNCTION PANEL Routine 02/26/2025 1:04 PM EDT COMPREHENSIVE METABOLIC PANEL Routine 02/26/2025 1:04 PM EDT Proteinuria, not otherwise specified Other form of systemic lupus erythematosus (HCC) Vitamin D deficiency, not otherwise specified Flank pain Anemia, not otherwise specified Edema of lower extremity Hypertension Nephrotic syndrome Type 2 diabetes mellitus, not otherwise specified (HCC) 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, WHO class V (HCC) Other proteinuria Fluid overload, not otherwise specified Chronic kidney disease stage 3A (HCC) Anemia in chronic kidney disease Routine general medical examination at a health care facility SEDIMENTATION RATE, AUTOMATED Routine 02/26/2025 1:04 PM EDT Proteinuria, not otherwise specified Other form of systemic lupus erythematosus (HCC) Vitamin D deficiency, not otherwise specified Flank pain Anemia, not otherwise specified Edema of lower extremity Hypertension Nephrotic syndrome Type 2 diabetes mellitus, not otherwise specified (HCC) 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, WHO class V (HCC) Other proteinuria Fluid overload, not otherwise specified Chronic kidney disease stage 3A (HCC) Anemia in chronic kidney disease Routine general medical examination at a health care facility C-REACTIVE PROTEIN Routine 02/26/2025 1: 04 PM EDT Proteinuria, not otherwise specified Other form of systemic lupus erythematosus (HCC) Vitamin D deficiency, not otherwise specified Flank pain Anemia, not otherwise specified Edema of lower extremity Hypertension Nephrotic syndrome Type 2 diabetes mellitus, not otherwise specified (HCC) 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, WHO class V (HCC) Other proteinuria Fluid overload, not otherwise specified Chronic kidney disease stage 3A (HCC) Anemia in chronic kidney disease Routine general medical examination at a health care facility FAWAD PANEL Routine 02/26/2025 1:04 PM EDT Proteinuria, not otherwise specified Other form of systemic lupus erythematosus (HCC) Vitamin D deficiency, not otherwise specified Flank pain Anemia, not otherwise specified Edema of lower extremity Hypertension Nephrotic syndrome Type 2 diabetes mellitus, not otherwise specified (HCC) 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, WHO class V (HCC) Other proteinuria Fluid overload, not otherwise specified Chronic kidney disease stage 3A (HCC) Anemia in chronic kidney disease Routine general medical examination at a health care facility PROTEIN / CREATININE RATIO, URINE Routine 02/26/2025 1:04 PM EDT Proteinuria, not otherwise specified Other form of systemic lupus erythematosus (HCC) Vitamin D deficiency, not otherwise specified Flank pain Anemia, not otherwise specified Edema of lower extremity Hypertension Nephrotic syndrome Type 2 diabetes mellitus, not otherwise specified (HCC) 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, WHO class V (HCC) Other proteinuria Fluid overload, not otherwise specified Chronic kidney disease stage 3A (HCC) Anemia in chronic kidney disease Routine general medical examination at a health care facility URIC ACID Routine 02/26/2025 1:04 PM EDT Proteinuria, not otherwise specified Other form of systemic lupus erythematosus (HCC) Vitamin D deficiency, not otherwise specified Flank pain Anemia, not otherwise specified Edema of lower extremity Hypertension Nephrotic syndrome Type 2 diabetes mellitus, not otherwise specified (HCC) 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, WHO class V (HCC) Other proteinuria Fluid overload, not otherwise specified Chronic kidney disease stage 3A (HCC) Anemia in chronic kidney disease Routine general medical examination at a health care facility URINALYSIS, COMPLETE Routine 02/26/2025 1:04 PM EDT Proteinuria, not otherwise specified Other form of systemic lupus erythematosus (HCC) Vitamin D deficiency, not otherwise specified Flank pain Anemia, not otherwise specified Edema of lower extremity Hypertension Nephrotic syndrome Type 2 diabetes mellitus, not otherwise specified (HCC) 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, WHO class V (HCC) Other proteinuria Fluid overload, not otherwise specified Chronic kidney disease stage 3A (HCC) Anemia in chronic kidney disease Routine general medical examination at a health care facility C4 COMPLEMENT Routine 02/26/2025 1:04 PM EDT Proteinuria, not otherwise specified Other form of systemic lupus erythematosus (HCC) Vitamin D deficiency, not otherwise specified Flank pain Anemia, not otherwise specified Edema of lower extremity Hypertension Nephrotic syndrome Type 2 diabetes mellitus, not otherwise specified (HCC) 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, WHO class V (HCC) Other proteinuria Fluid overload, not otherwise specified Chronic kidney disease stage 3A (HCC) Anemia in chronic kidney disease Routine general medical examination at a health care facility C3 COMPLEMENT Routine 02/26/2025 1:04 PM EDT Proteinuria, not otherwise specified Other form of systemic lupus erythematosus (HCC) Vitamin D deficiency, not otherwise specified Flank pain Anemia, not otherwise specified Edema of lower extremity Hypertension Nephrotic syndrome Type 2 diabetes mellitus, not otherwise specified (HCC) 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, WHO class V (HCC) Other proteinuria Fluid overload, not otherwise specified Chronic kidney disease stage 3A (HCC) Anemia in chronic kidney disease Routine general medical examination at a health care facility CBC AND DIFFERENTIAL Routine 02/26/2025 1:04 PM EDT Proteinuria, not otherwise specified Other form of systemic lupus erythematosus (HCC) Vitamin D deficiency, not otherwise specified Flank pain Anemia, not otherwise specified Edema of lower extremity Hypertension Nephrotic syndrome Type 2 diabetes mellitus, not otherwise specified (HCC) 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, WHO class V (HCC) Other proteinuria Fluid overload, not otherwise specified Chronic kidney disease stage 3A (HCC) Anemia in chronic kidney disease Routine general medical examination at a health care facility TACROLIMUS LEVEL Routine 02/26/2025 1:04 PM EDT Proteinuria, not otherwise specified Other form of systemic lupus erythematosus (HCC) Vitamin D deficiency, not otherwise specified Flank pain Anemia, not otherwise specified Edema of lower extremity Hypertension Nephrotic syndrome Type 2 diabetes mellitus, not otherwise specified (HCC) 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, WHO class V (HCC) Other proteinuria Fluid overload, not otherwise specified Chronic kidney disease stage 3A (HCC) Anemia in chronic kidney disease Routine general medical examination at a health care facility MICROSCOPIC EXAMINATION - DO NOT USE Routine 02/26/2025 1:04 PM EDT COMPREHENSIVE METABOLIC PANEL Routine 02/11/2025 8:58 AM EDT 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, WHO class V (HCC) Nephrotic syndrome Anemia in chronic kidney disease Chronic kidney disease stage 3A (HCC) Other proteinuria Fluid overload, not otherwise specified COMPREHENSIVE METABOLIC PANEL Routine 02/11/2025 8:53 AM EDT Proteinuria, not otherwise specified Other form of systemic lupus erythematosus (HCC) Vitamin D deficiency, not otherwise specified Flank pain Anemia, not otherwise specified Edema of lower extremity Hypertension Nephrotic syndrome Type 2 diabetes mellitus, not otherwise specified (HCC) 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, WHO class V (HCC) Other proteinuria Fluid overload, not otherwise specified Chronic kidney disease stage 3A (HCC) Anemia in chronic kidney disease Routine general medical examination at a health care facility SEDIMENTATION RATE, AUTOMATED Routine 02/11/2025 8:53 AM EDT Proteinuria, not otherwise specified Other form of systemic lupus erythematosus (HCC) Vitamin D deficiency, not otherwise specified Flank pain Anemia, not otherwise specified Edema of lower extremity Hypertension Nephrotic syndrome Type 2 diabetes mellitus, not otherwise specified (HCC) 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, WHO class V (HCC) Other proteinuria Fluid overload, not otherwise specified Chronic kidney disease stage 3A (HCC) Anemia in chronic kidney disease Routine general medical examination at a health care facility C-REACTIVE PROTEIN Routine 02/11/2025 8: 53 AM EDT Proteinuria, not otherwise specified Other form of systemic lupus erythematosus (HCC) Vitamin D deficiency, not otherwise specified Flank pain Anemia, not otherwise specified Edema of lower extremity Hypertension Nephrotic syndrome Type 2 diabetes mellitus, not otherwise specified (HCC) 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, WHO class V (HCC) Other proteinuria Fluid overload, not otherwise specified Chronic kidney disease stage 3A (HCC) Anemia in chronic kidney disease Routine general medical examination at a health care facility FAWAD PANEL Routine 02/11/2025 8:53 AM EDT Proteinuria, not otherwise specified Other form of systemic lupus erythematosus (HCC) Vitamin D deficiency, not otherwise specified Flank pain Anemia, not otherwise specified Edema of lower extremity Hypertension Nephrotic syndrome Type 2 diabetes mellitus, not otherwise specified (HCC) 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, WHO class V (HCC) Other proteinuria Fluid overload, not otherwise specified Chronic kidney disease stage 3A (HCC) Anemia in chronic kidney disease Routine general medical examination at a health care facility PROTEIN / CREATININE RATIO, URINE Routine 02/11/2025 8:53 AM EDT Proteinuria, not otherwise specified Other form of systemic lupus erythematosus (HCC) Vitamin D deficiency, not otherwise specified Flank pain Anemia, not otherwise specified Edema of lower extremity Hypertension Nephrotic syndrome Type 2 diabetes mellitus, not otherwise specified (HCC) 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, WHO class V (HCC) Other proteinuria Fluid overload, not otherwise specified Chronic kidney disease stage 3A (HCC) Anemia in chronic kidney disease Routine general medical examination at a health care facility URIC ACID Routine 02/11/2025 8:53 AM EDT Proteinuria, not otherwise specified Other form of systemic lupus erythematosus (HCC) Vitamin D deficiency, not otherwise specified Flank pain Anemia, not otherwise specified Edema of lower extremity Hypertension Nephrotic syndrome Type 2 diabetes mellitus, not otherwise specified (HCC) 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, WHO class V (HCC) Other proteinuria Fluid overload, not otherwise specified Chronic kidney disease stage 3A (HCC) Anemia in chronic kidney disease Routine general medical examination at a health care facility URINALYSIS, COMPLETE Routine 02/11/2025 8:53 AM EDT Proteinuria, not otherwise specified Other form of systemic lupus erythematosus (HCC) Vitamin D deficiency, not otherwise specified Flank pain Anemia, not otherwise specified Edema of lower extremity Hypertension Nephrotic syndrome Type 2 diabetes mellitus, not otherwise specified (HCC) 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, WHO class V (HCC) Other proteinuria Fluid overload, not otherwise specified Chronic kidney disease stage 3A (HCC) Anemia in chronic kidney disease Routine general medical examination at a health care facility C4 COMPLEMENT Routine 02/11/2025 8:53 AM EDT Proteinuria, not otherwise specified Other form of systemic lupus erythematosus (HCC) Vitamin D deficiency, not otherwise specified Flank pain Anemia, not otherwise specified Edema of lower extremity Hypertension Nephrotic syndrome Type 2 diabetes mellitus, not otherwise specified (HCC) 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, WHO class V (HCC) Other proteinuria Fluid overload, not otherwise specified Chronic kidney disease stage 3A (HCC) Anemia in chronic kidney disease Routine general medical examination at a health care facility C3 COMPLEMENT Routine 02/11/2025 8:53 AM EDT Proteinuria, not otherwise specified Other form of systemic lupus erythematosus (HCC) Vitamin D deficiency, not otherwise specified Flank pain Anemia, not otherwise specified Edema of lower extremity Hypertension Nephrotic syndrome Type 2 diabetes mellitus, not otherwise specified (HCC) 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, WHO class V (HCC) Other proteinuria Fluid overload, not otherwise specified Chronic kidney disease stage 3A (HCC) Anemia in chronic kidney disease Routine general medical examination at a health care facility CBC AND DIFFERENTIAL Routine 02/11/2025 8:53 AM EDT Proteinuria, not otherwise specified Other form of systemic lupus erythematosus (HCC) Vitamin D deficiency, not otherwise specified Flank pain Anemia, not otherwise specified Edema of lower extremity Hypertension Nephrotic syndrome Type 2 diabetes mellitus, not otherwise specified (HCC) 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, WHO class V (HCC) Other proteinuria Fluid overload, not otherwise specified Chronic kidney disease stage 3A (HCC) Anemia in chronic kidney disease Routine general medical examination at a health care facility TACROLIMUS LEVEL Routine 02/11/2025 8:53 AM EDT Proteinuria, not otherwise specified Other form of systemic lupus erythematosus (HCC) Vitamin D deficiency, not otherwise specified Flank pain Anemia, not otherwise specified Edema of lower extremity Hypertension Nephrotic syndrome Type 2 diabetes mellitus, not otherwise specified (HCC) 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, WHO class V (HCC) Other proteinuria Fluid overload, not otherwise specified Chronic kidney disease stage 3A (HCC) Anemia in chronic kidney disease Routine general medical examination at a [facility] facility MICROSCOPIC EXAMINATION - DO NOT USE Routine 02/11/2025 8:53 AM EDT COMPREHENSIVE METABOLIC PANEL Routine 01/07/2025 1:44 PM EDT 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, WHO class V (HCC) Chronic kidney disease stage 3A (HCC) Nephrotic syndrome Other proteinuria Anemia in chronic kidney disease Fluid overload, not otherwise specified CBC Routine 01/07/2025 1:43 PM EDT SLE glomerulonephritis syndrome, WHO class V (HCC) Chronic kidney disease stage 3A (HCC) Nephrotic syndrome URIC ACID Routine 01/07/2025 1:43 PM EDT SLE glomerulonephritis syndrome, WHO class V (HCC) Chronic kidney disease stage 3A (HCC) Nephrotic syndrome PROTEIN / CREATININE RATIO, URINE Routine 01/07/2025 1:43 PM EDT SLE glomerulonephritis syndrome, WHO class V (HCC) Chronic kidney disease stage 3A (HCC) Nephrotic syndrome IRON PANEL (FE, TIBC, TSAT) Routine 01/07/2025 1:43 PM EDT SLE glomerulonephritis syndrome, WHO class V (HCC) Chronic kidney disease stage 3A (HCC) Nephrotic syndrome FERRITIN Routine 01/07/2025 1:43 PM EDT SLE glomerulonephritis syndrome, WHO class V (HCC) Chronic kidney disease stage 3A (HCC) Nephrotic syndrome C4 COMPLEMENT Routine 01/07/2025 1:43 PM EDT SLE glomerulonephritis syndrome, WHO class V (HCC) Chronic kidney disease stage 3A (HCC) Nephrotic syndrome C3 COMPLEMENT Routine 01/07/2025 1:43 PM EDT SLE glomerulonephritis syndrome, WHO class V (HCC) Chronic kidney disease stage 3A (HCC) Nephrotic syndrome ANTI-DNA ANTIBODY, DOUBLE-STRANDED Routine 01/07/2025 1:43 PM EDT SLE glomerulonephritis syndrome, WHO class V (HCC) Chronic kidney disease stage 3A (HCC) Nephrotic syndrome SEDIMENTATION RATE, AUTOMATED Routine 01/07/2025 1:43 PM EDT SLE glomerulonephritis syndrome, WHO class V (HCC) Chronic kidney disease stage 3A (HCC) Nephrotic syndrome C-REACTIVE PROTEIN Routine 01/07/2025 1 :43 PM EDT SLE glomerulonephritis syndrome, WHO class V (HCC) Chronic kidney disease stage 3A (HCC) Nephrotic syndrome SJOGRENS SYNDROME-A EXTRACTABLE NUCLEAR ANTIBODY Routine 01/07/2025 1:43 PM EDT SLE glomerulonephritis syndrome, WHO class V (HCC) Chronic kidney disease stage 3A (HCC) Nephrotic syndrome FAWAD PANEL Routine 01/07/2025 1:43 PM EDT SLE glomerulonephritis syndrome, WHO class V (HCC) Chronic kidney disease stage 3A (HCC) Nephrotic syndrome TACROLIMUS LEVEL Routine 01/07/2025 1:43 PM EDT 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) COMPREHENSIVE METABOLIC PANEL Routine 01/07/2025 1:43 PM EDT 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, WHO class V (HCC) Chronic kidney disease stage 3A (HCC) Nephrotic syndrome Other proteinuria Anemia in chronic kidney disease Fluid overload, not otherwise specified HEMOGLOBIN A1C Routine 12/20/2023 11:47 AM EDT SLE glomerulonephritis syndrome, WHO class V (HCC) from Last 3 Months or Most Recently Relevant to Health Maintenance Results * (ABNORMAL) Urinalysis, Complete w/reflex to Culture (02/26/2025 1:04 PM EDT) Only the most recent of2 resultswithin the time period is included. Specific [place], Urine 1.021 1.005 - 1.030 [facility] [phone] pH Urine 6.0 5.0 - 7.5 [facility] [phone] Color, Urine Yellow Yellow [facility] Appearance Urine Clear Clear [facility] [place] [phone] WBC Esterase Urine Negative Negative [facility] Protein, Ur 4+(A) Negative/Tra ce [facility] Glucose, Ur Trace(A) Negative [facility] [phone] Ketones, Urine Negative Negative [facility] Blood Urine Trace(A) Negative [facility] Bilirubin Urine Negative Negative [facility] Urobilinogen Urine 0.2 0.2 - 1.0 mg/dL [facility] Nitrite, Urine Negative Negative [facility] Microscopic Examination See below: [facility] Comment:Microscopic was shashi cated and was performed. URINALYSIS REFLEX Comment [facility] Comment:This specimen will n ot reflex to a Urine Culture. Urine Urine specimen obtained by clean catch procedure / Unknown 02/26/2025 1:04 PM EDT 02/26/2025 us Omar Garcia MD LAB URINE ORDERABLES Final Re sult [facility] [address] [place] [address] * (ABNORMAL) Microscopic Examination (02/26/2025 1:04 PM EDT) Only the most recent of2 resultswithin the time period is included. WBC, Urine 0-5 0 - 5 /hpf [facility] RBC, Urine 3-10(A) 0 - 2 /hpf [facility] Squamous Epithelial, Urine 0-10 0 - 10 /hpf [facility] Casts Present(A) None seen /lpf [facility] Cast Type Hyaline casts N/A [facility] Bacteria, Urine None seen None seen/Few [facility] 02/26/2025 1:04 PM EDT 02/26/2025 Omar Garcia MD LAB MICROBIOLOGY - GENERAL OR DERABLES Final Result Performing Organization Address City/[facility]/ZIP Co de Phone Number [facility] [address] [place] [address] * (ABNORMAL) FAWAD Panel (02/26/2025 1:04 PM EDT) Only the most recent of3 resultswithin the time period is included. [facility] AG ANTIBODIES >8.0(H) 0.0 - 0.9 AI [facility] Blood Venous blood / Unknown 02/26/2025 1:04 PM EDT 02/26/2025 Omar Garcia MD LAB BLOOD ORDERABLES Final Re sult [facility] [address] [place] [address] * Tacrolimus level (02/26/2025 1:04 PM EDT) Only the most recent of3 resultswithin the time period is included. [facility] Tacrolimus Lvl 5.3 5.0 - 20.0 ng/mL [facility] Comment: Target steady state trough concentration for Tacrolimus varies based on type of organ transplant immunosuppressive protocol and other patient specific factors. Tacrolimus trough concentrations should be interpreted in conjunction with clinical assessments of rejection and tolerability. Values obtained with different assay methods cannot be used interchangeably due to differences in assay methods and cross-reactivty with metabolites, nor should correction factors be applied. Therefore, consistent use of one assay for individual patients is recommended. Detection Limit = 0.5 ng/mL Performed by LC-MS/MS technology. Blood Venous blood / Unknown 02/26/2025 1:04 PM EDT 02/26/2025 Narrative [facility] - 03/02/2025 12:05 AM EDT Test(s) [id number] ([id number]), Blood was developed and its performance characteristics determined by [employer]. It has not been cleared or approved by the Food and Drug Administration. Omar Garcia MD LAB BLOOD ORDERABLES Final Re sult Performing Organization Address City/[facility]/ZIP Co de Phone Number [facility] [address] [place] [address] * (ABNORMAL) Urine Protein / creatinine ratio (02/26/2025 1:04 PM EDT) Only the most recent of3 resultswithin the time period is included. Creatinine, Ur 102.6 Not Estab. mg/dL [facility] Protein, Ur 748.6 Not Estab. mg/dL [facility] Comment: Results confirmed on dilution. Urine Protein/Creati nine Ratio 7,296(H) 0 - 200 mg/g creat [facility] Urine Urine specimen obtained by clean catch procedure / Unknown 02/26/2025 1:04 PM EDT 02/26/2025 Omar Garcia MD LAB URINE ORDERABLES Final Re sult Performing Organization Address City/[facility]/ZIP Co de Phone Number [facility] [address] [place] [address] * (ABNORMAL) Urine Albumin / Creatinine Ratio (02/26/2025 1:04 PM EDT) Pathologist [facility] Albumin, Urine 3,956.2 Not Estab. ug/mL [facility] Comment: Results confirmed on dilution. Albumin/Creatin ine Ratio 3,856(H) 0 - 29 mg/g creat [facility] Comment: Normal: 0 - 29 Moderately increased: 30 - 300 Severely increased: >300 02/26/2025 1:04 PM EDT 02/26/2025 Omar Garcia MD LAB URINE ORDERABLES Final Re sult Performing Organization Address City/[facility]/ZIP Co de Phone Number [facility] [address] [place] [address] * (ABNORMAL) Sedimentation Rate (02/26/2025 1:04 PM EDT) Only the most recent of3 resultswithin the time period is included. Pathologist [facility] Sed Rate 89(H) 0 - 32 mm/hr [facility] Blood Venous blood / Unknown 02/26/2025 1:04 PM EDT 02/26/2025 Omar Garcia MD LAB BLOOD ORDERABLES Final Re sult Performing Organization Address City/[facility]/ZIP Co de Phone Number [facility] [address] [place] [address] * (ABNORMAL) CBC and differential (02/26/2025 1:04 PM EDT) Only the most recent of2 resultswithin the time period is included. Pathologist [facility] WBC 12.0(H) 3.4 - 10.8 x10E3/uL [facility] RBC 3.63(L) 3.77 - 5.28 x10E6/uL [facility] Hemoglobin 10.3(L) 11.1 - 15.9 g/dL [facility] Hematocrit 31.5(L) 34.0 - 46.6 % [facility] MCV 87 79 - 97 fL [facility] MCH 28.4 26.6 - 33.0 pg [facility] MCHC 32.7 31.5 - 35.7 g/dL [facility] RDW 15.1 11.7 - 15.4 % [facility] Platelets 408 150 - 450 x10E3/uL [facility] Neutrophils Relative 80 Not Estab. % [facility] Lymphocytes Relative 15 Not Estab. % [facility] Monocytes 3 Not Estab. % [facility] Eosinophils Relative 1 Not Estab. % [facility] Basophils Relative 0 Not Estab. % [facility] Neutrophils Absolute 9.5(H) 1.4 - 7.0 x10E3/uL [facility] Lymphocytes Absolute 1.9 0.7 - 3.1 x10E3/uL [facility] Monocytes Absolute 0.4 0.1 - 0.9 x10E3/uL [facility] Eosinophils Absolute 0.2 0.0 - 0.4 x10E3/uL [facility] Basophils Absolute 0.0 0.0 - 0.2 x10E3/uL [facility] Immature Granulocytes 1 Not Estab. % [facility] Immature Grans (Absolute) 0.1 0.0 - 0.1 x10E3/uL [facility] Blood Venous blood / Unknown 02/26/2025 1:04 PM EDT 02/26/2025 Omar Garcia MD LAB BLOOD ORDERABLES Final Re sult Performing Organization Address City/[facility]/ZIP Co de Phone Number [facility] [address] [place] [address] * (ABNORMAL) C3 complement (02/26/2025 1:04 PM EDT) Only the most recent of3 resultswithin the time period is included. C3 Complement 174(H) 82 - 167 mg/dL [facility] Blood Venous blood / Unknown 02/26/2025 1:04 PM EDT 02/26/2025 Omar Garcia MD LAB BLOOD ORDERABLES Final Re sult Performing Organization Address [facility] Co de Phone Number [facility] [address] [place] [address] * C4 complement (02/26/2025 1:04 PM EDT) Only the most recent of3 resultswithin the time period is included. C4 Complement 25 12 - 38 mg/dL [facility] Blood Venous blood / Unknown 02/26/2025 1:04 PM EDT 02/26/2025 Omar Garcia MD LAB BLOOD ORDERABLES Final Re sult Performing Organization Address City/[facility]/ZIP Co de Phone Number [facility] [address] [place] [address] * C-Reactive Protein (02/26/2025 1:04 PM EDT) Only the most recent of3 resultswithin the time period is included. C-Reactive Protein Quant 4 0 - 10 mg/L [facility] Blood Venous blood / Unknown 02/26/2025 1:04 PM EDT 02/26/2025 Omar Garcia MD LAB BLOOD ORDERABLES Final Re sult Performing Organization Address [facility] Co de Phone Number [facility] [address] [place] [address] * (ABNORMAL) Uric acid (02/26/2025 1:04 PM EDT) Only the most recent of3 resultswithin the time period is included. Uric Acid 6.7(H) 2.6 - 6.2 mg/dL [facility] Comment:Therapeutic target f or gout patients: <6.0 Blood Venous blood / Unknown 02/26/2025 1:04 PM EDT 02/26/2025 Omar Garcia MD LAB BLOOD ORDERABLES Final Re sult Performing Organization Address [facility] Co de Phone Number [facility] [place] [address] [place] [address] * (ABNORMAL) Renal Function Panel (02/26/2025 1:04 PM EDT) Phosphorus 5.1(H) 3.0 - 4.3 mg/dL [facility] 02/26/2025 1:04 PM EDT 02/26/2025 Omar Garcia MD LAB BLOOD ORDERABLES Final Re sult Performing Organization Address City/[facility] Co de Phone Number [facility] [address] [place] [address] * (ABNORMAL) Comprehensive metabolic panel (02/26/2025 1:04 PM EDT) Only the most recent of5 resultswithin the time period is included. Glucose 125(H) 70 - 99 mg/dL [facility] BUN 36(H) 6 - 20 mg/dL [facility] Creatinine 2.29(H) 0.57 - 1.00 mg/dL [facility] eGFR CKD-EPI CR 2020 30(L) >59 mL/min/1.7 3 [facility] BUN/Creatinine Ratio 16 9 - 23 [facility] Sodium 140 134 - 144 mmol/L [facility] Potassium 4.8 3.5 - 5.2 mmol/L [facility] Chloride 106 96 - 106 mmol/L [facility] Bicarbonate (CO2) 18(L) 20 - 29 mmol/L [facility] Calcium 8.3(L) 8.7 - 10.2 mg/dL [facility] Total Protein 4.8(L) 6.0 - 8.5 g/dL [facility] Albumin 2.7(L) 4.0 - 5.0 g/dL [facility] Globulin 2.1 1.5 - 4.5 g/dL [facility] Total Bilirubin <0.2 0.0 - 1.2 mg/dL [facility] Alkaline Phosphatase 79 44 - 121 IU/L [facility] AST (SGOT) 16 0 - 40 IU/L [facility] ALT (SGPT) 17 0 - 32 IU/L [facility] Blood Venous blood / Unknown 02/26/2025 1:04 PM EDT 02/26/2025 us Omar Garcia MD LAB BLOOD ORDERABLES Final Re sult [facility] [address] [place] [address] * Iron Panel (Fe, TIBC, TSAT) (01/07/2025 1:43 PM EDT) [facility] TIBC 315 250 - 450 ug/dL [facility] UIBC 232 131 - 425 ug/dL [facility] Iron 83 27 - 159 ug/dL [facility] Iron Saturation (TSat) 26 15 - 55 % [facility] Blood Venous blood / Unknown 01/07/2025 1:43 PM EDT 01/07/2025 us Breonna Le MD LAB BLOOD ORDERABLES Final Res ult Performing Organization Address City/[facility]/ZIP Co de Phone Number [facility] [place] [address] [place] [address] * Anti-DNA antibody, double-stranded (01/07/2025 1:43 PM EDT) [facility] DS DNA Ab 2 0 - 9 IU/mL [facility] Comment: Negative <5 Equivocal 5 - 9 Positive >9 Blood Venous blood / Unknown 01/07/2025 1:43 PM EDT 01/07/2025 Breonna Le MD LAB BLOOD ORDERABLES Final Res ult [facility] [address] [place] [address] * Sjogrens syndrome-A extractable nuclear antibody (01/07/2025 1:43 PM EDT) Sjogren's Anti-SS-A 0.6 0.0 - 0.9 AI [facility] Blood Venous blood / Unknown 01/07/2025 1:43 PM EDT 01/07/2025 us Breonna eL MD LAB BLOOD ORDERABLES Final Res ult Performing Organization Address City/[facility]/ZIP Co de Phone Number [facility] [address] [place] [address] * (ABNORMAL) CBC (01/07/2025 1:43 PM EDT) Pathologist [facility] WBC 15.5(H) 3.4 - 10.8 x10E3/uL [facility] RBC 4.05 3.77 - 5.28 x10E6/uL [facility] Hemoglobin 11.4 11.1 - 15.9 g/dL [facility] Hematocrit 35.2 34.0 - 46.6 % [facility] MCV 87 79 - 97 fL [facility] MCH 28.1 26.6 - 33.0 pg [facility] MCHC 32.4 31.5 - 35.7 g/dL [facility] RDW 14.8 11.7 - 15.4 % [facility] Platelets 379 150 - 450 x10E3/uL [facility] Blood Venous blood / Unknown 01/07/2025 1:43 PM EDT 01/07/2025 us Breonna Le MD LAB BLOOD ORDERABLES Final Res ult [facility] [address] [place] [phone] * Ferritin (01/07/2025 1:43 PM EDT) Ferritin 19 15 - 150 ng/mL [facility] Blood Venous blood / Unknown 01/07/2025 1:43 PM EDT 01/07/2025 us Breonna Le MD LAB BLOOD ORDERABLES Final Res ult Performing Organization Address [facility]/ZIP Co de Phone Number [facility] [address] [place] [address] * (ABNORMAL) Hemoglobin A1c (12/20/2023 11:47 AM EDT) Hemoglobin A1C 5.9(H) 4.8 - 5.6 % See order comments Comment: Prediabetes: 5.7 - 6.4 Diabetes: >6.4 Glycemic control for adults with diabetes: <7.0 Blood specimen (specimen) Venous blood / Unknown 12/20/2023 11:47 AM EDT 12/20/2023 Narrative [facility] - 12/21/2023 4:08 PM EDT Performed at: [address] [place] [id number] Textile Technologist: Mitzy Knutson MD, Phone: [phone] us Omar Garcia MD LAB BLOOD ORDERABLES Final Re sult Performing Organization Address City/[facility]/ZIP Co de Phone Number [facility] See order comments [place] [address] from Last 3 Months or Most Recently Relevant to Health Maintenance Insurance Medicaid [place] Medicare Care Teams Director Client Services Relationship Specialty Start Date End Date Denise Blancas MD [address] [place] [address] PCP - General Internal Medicine 06/27/24
--- OUTSIDE RECORDS SUMMARY | 2025-03-04 14:13 | XMS_ITS | Encounter Summary ---
Author Organization [facility] Address [address] [place] [address] Phone Care Team Providers Care Assistance Coordinator Name Role Phone Denise Blancas MD Primary Care Provider [phone] Encounter Details Date Type Department Care Team (Latest Contact Info) Description 01/19/2024 Orders Only [facility] [address] [place] [address] Jovanna Schaeffer MD SLE glomerulonephritis [...] [facility] [address] [place] [address] Breonna Le MD [address] [place] [address] [place] [address] documented as of this encounter Procedures Procedure Name Priority Date/Time Associated Diagnosis Comments ANTI-DNA ANTIBODY, DOUBLE-STRANDED Routine 02/06/2024 3:02 PM EDT SLE glomerulonephritis syndrome, WHO class V (HCC) documented in this encounter Results * Anti-DNA antibody, double-stranded (02/06/2024 3:02 PM EDT) DS DNA Ab 2 0 - 9 IU/mL [facility] Comment: Negative <5 Equivocal 5 - 9 Positive >9 Blood specimen (specimen) Venous blood / Unknown 02/06/2024 3:02 PM EDT 02/06/2024 us Jovanna Schaeffer MD LAB BLOOD ORDERABLES Final Resul t [facility]Leg[facility] [address] [place] [address] documented in this encounter Visit Diagnoses Diagnosis SLE glomerulonephritis syndrome, WHO class V (HCC) documented in this encounter Care Teams Assistance Coordinator Relationship Specialty Start Date End Date Denise Blancas MD [address] [place] [address] PCP - General Internal Medicine 06/27/24 documented as of this encounter
--- OUTSIDE RECORDS SUMMARY | 2025-03-04 14:13 | XMS_ITS | Encounter Summary ---
Author Organization [facility] Address [address] [place] [address] Phone Care Team Providers Care Loop Tender Name Role Phone Denise Blancas MD Primary Care Provider [phone] Encounter Details Date Type Department Care Team (Late st Contact Info) Description 10/24/2024 Documentation Only [facility] [place], [address] [place] [address] Rhianna Castro [address] [place] [address] Social History Tobacco Use Types [...] Visit [facility] [address] [place] [place] [address] Breonna Le MD [address] [place] [address] documented as of this encounter Visit Diagnoses Not on filedocumented in this encounter Care Teams Loop Tender Relationship Specialty Start Date End Date Denise Blancas MD [address] [place] [address] PCP - General Internal Medicine 06/27/24 documented as of this encounter
--- OUTSIDE RECORDS SUMMARY | 2025-03-04 14:13 | XMS_ITS | Encounter Summary ---
Author Organization [facility] Address [address] [place] [address] Phone Care Team Providers Care Director Utilization Management Name Role Phone Denise Blancas MD Primary Care Provider [phone] Encounter Details Date Type Department Care Team (Latest Contact Info) Description 04/12/2024 Orders Only [facility] [address] [place] [address] Jovanna Schaeffer MD SLE glomerulonephritis [...] Visit [facility] [address] [place] [place] [address] Breonna Le MD [address] [place] [address] [place] [address] documented as of this encounter Procedures Procedure Name Priority Date/Time Associated Diagnosis Comments ANTI-DNA ANTIBODY, DOUBLE-STRANDED Routine 05/15/2024 3:08 PM EST SLE glomerulonephritis syndrome, WHO class V (HCC) documented in this encounter Results * Anti-DNA antibody, double-stranded (05/15/2024 3:08 PM EST) DS DNA Ab 2 0 - 9 IU/mL [facility] Comment: Negative <5 Equivocal 5 - 9 Positive >9 Blood specimen (specimen) Venous blood / Unknown 05/15/2024 3:08 PM EST 05/15/2024 us Jovanna Schaeffer MD LAB BLOOD ORDERABLES Final Resul t [facility]ENTERPrivileged World Travel ClubMary Bridge Children's Hospitalitan [address] [place] [phone] documented in this encounter Visit Diagnoses Diagnosis SLE glomerulonephritis syndrome, WHO class V (HCC) documented in this encounter Care Teams Director Utilization Management Relationship Specialty Start Date End Date Denise Blancas MD [address] [place] [address] PCP - General Internal Medicine 06/27/24 documented as of this encounter
--- OUTSIDE RECORDS SUMMARY | 2025-03-04 14:14 | XMS_ITS | Encounter Summary ---
Author Organization [facility] Address [address] [place] [address] Phone Care Team Providers Care Pump Service Supervisor Name Role Phone Denise Blancas MD Primary Care Provider [phone] Encounter Details Date Type Department Care Team (Latest Contact Info) Description 09/27/2024 Orders Only [facility] [address] [place] [address] Rhianna Castro [address] [place] [address] 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); Other proteinuria; SLE glomerulonephritis syndrome, WHO class V (HCC); Anemia in chronic kidney disease; Nephrotic syndrome; Fluid overload, not otherwise specified; Chronic kidney disease stage 3A ([facility]) Social History Tobacco Use Types Packs/Day [...] Visit [facility] [address] [place] [address] Breonna Le MD [address] [place] [address] documented as of this encounter Procedures Procedure [...] Urine 0-5 0 - 5 /hpf [facility] RBC, Urine 3-10(A) 0 - 2 /hpf [facility] Squamous Epithelial, Urine 0-10 0 - 10 /hpf [facility] Casts None seen None seen /lpf [facility] Bacteria, Urine None seen None seen/Few [facility] 10/22/2024 12:2 6 PM EDT 10/22/2024 us Omar Garcia MD LAB MICROBIOLOGY - GENERAL OR DERABLES Final Result [facility] [place] [address] [place] [address] * (ABNORMAL) Comprehensive metabolic panel (10/22/2024 12:26 PM EDT) Glucose 88 70 - 99 mg/dL [facility] BUN 18 6 - 20 mg/dL [facility] Creatinine 1.09(H) 0.57 - 1.00 mg/dL [facility] [place] eGFR CKD-EPI CR 2020 72 >59 mL/min/1.7 3 [facility] BUN/Creatinine Ratio 17 9 - 23 [facility] Sodium 139 134 - 144 mmol/L [facility] Potassium 4.4 3.5 - 5.2 mmol/L [facility] Chloride 107(H) 96 - 106 mmol/L [facility] Bicarbonate (CO2) 19(L) 20 - 29 mmol/L [facility] Calcium 8.3(L) 8.7 - 10.2 mg/dL [facility] Total Protein 4.7(L) 6.0 - 8.5 g/dL [facility] Albumin 2.5(L) 4.0 - 5.0 g/dL [facility] Globulin 2.2 1.5 - 4.5 g/dL [facility] Total Bilirubin <0.2 0.0 - 1.2 mg/dL [facility] Comment:Verified by repeat analysis Alkaline Phosphatase 68 44 - 121 IU/L [facility] AST (SGOT) 17 0 - 40 IU/L [facility] ALT (SGPT) 13 0 - 32 IU/L [facility] Blood specimen (specimen) Venous blood / Unknown 10/22/2024 12:26 PM EDT 10/22/2024 us Omar Garcia MD LAB BLOOD ORDERABLES Final Re sult [facility] [place] [address] [place] [address] * (ABNORMAL) Urine Protein / creatinine ratio (10/22/2024 12:26 PM EDT) Creatinine, Ur 167.4 Not Estab. mg/dL [facility] Protein, Ur 1,593.3 Not Estab. mg/dL [facility] Comment: Results confirmed on dilution. Urine Protein/Creati nine Ratio 9,518(H) 0 - 200 mg/g creat [facility] Urine specimen (specimen) Urine specimen obtained by clean catch procedure / Unknown 10/22/2024 12:26 PM EDT 10/22/2024 Omar Garcia MD LAB URINE ORDERABLES Final Re sult Performing Organization Address [facility]/ZIP Co de Phone Number [facility] [place] [address] [place] [address] * C-Reactive Protein (10/22/2024 12:26 PM EDT) Pathologist [facility] C-Reactive Protein Quant 2 0 - 10 mg/L [facility] Blood specimen (specimen) Venous blood / Unknown 10/22/2024 12:26 PM EDT 10/22/2024 Omar Garcia MD LAB BLOOD ORDERABLES Final Re sult Performing Organization Address [facility] de Phone Number [facility] [address] [place] [address] * (ABNORMAL) Sedimentation Rate (10/22/2024 12:26 PM EDT) [facility] Sed Rate 77(H) 0 - 32 mm/hr [facility] Blood specimen (specimen) Venous blood / Unknown 10/22/2024 12:26 PM EDT 10/22/2024 Omar Garcia MD LAB BLOOD ORDERABLES Final Re sult Performing Organization Address [facility] de Phone Number [facility] [address] [place] [address] * (ABNORMAL) Urinalysis with microscopic (10/22/2024 12:26 PM EDT) Pathologist [facility] Specific [place], Urine 1.028 1.005 - 1.030 [facility] [phone] pH Urine 6.5 5.0 - 7.5 [facility] Color, Urine Yellow Yellow [facility] Appearance Urine Clear Clear [facility] [place] WBC Esterase Urine Negative Negative [facility] [place] Protein, Ur 4+(A) Negative/Tra ce [facility] Glucose, Ur Trace(A) Negative [facility] [phone] Ketones, Urine Negative Negative [facility] [place] Blood Urine Trace(A) Negative [facility] Bilirubin Urine Negative Negative [facility] [place] [phone] Urobilinogen Urine 0.2 0.2 - 1.0 mg/dL [facility] [phone] Nitrite, Urine Negative Negative [facility] [place] Microscopic Examination See below: [facility] Comment:Microscopic was shashi cated and was performed. Urine specimen (specimen) Urine specimen obtained by clean catch procedure / Unknown 10/22/2024 12:26 PM EDT 10/22/2024 us Omar Garcia MD LAB URINE ORDERABLES Final Re sult [facility] [address] [place] [address] * (ABNORMAL) CBC and differential (10/22/2024 12:26 PM EDT) WBC 13.2(H) 3.4 - 10.8 x10E3/uL [facility] RBC 4.53 3.77 - 5.28 x10E6/uL [facility] Hemoglobin 11.9 11.1 - 15.9 g/dL [facility] Hematocrit 36.6 34.0 - 46.6 % [facility] MCV 81 79 - 97 fL [facility] MCH 26.3(L) 26.6 - 33.0 pg [facility] MCHC 32.5 31.5 - 35.7 g/dL [facility] RDW 15.9(H) 11.7 - 15.4 % [facility] Platelets 365 150 - 450 x10E3/uL [facility] Immature Granulocytes 1 Not Estab. % [facility] Immature Grans (Absolute) 0.1 0.0 - 0.1 x10E3/uL [facility] Neutrophils Relative 78 Not Estab. % [facility] Lymphocytes Relative 14 Not Estab. % [facility] Monocytes 6 Not Estab. % [facility] Eosinophils Relative 1 Not Estab. % [facility] Basophils Relative 0 Not Estab. % [facility] Neutrophils Absolute 10.4(H) 1.4 - 7.0 x10E3/uL [facility] Lymphocytes Absolute 1.8 0.7 - 3.1 x10E3/uL [facility] Monocytes Absolute 0.7 0.1 - 0.9 x10E3/uL [facility] Eosinophils Absolute 0.2 0.0 - 0.4 x10E3/uL [facility] Basophils Absolute 0.0 0.0 - 0.2 x10E3/uL [facility] Blood specimen (specimen) Venous blood / Unknown 10/22/2024 12:26 PM EDT 10/22/2024 us Omar Garcia MD LAB BLOOD ORDERABLES Final Re sult [facility] [address] [place] [address] documented in this encounter Visit Diagnoses Diagnosis 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) Other proteinuria SLE glomerulonephritis syndrome, WHO class V (HCC) Anemia in chronic kidney disease Nephrotic syndrome Fluid overload, not otherwise specified Chronic kidney disease stage 3A (HCC) documented in this encounter Care Teams Pump Service Supervisor Relationship Specialty Start Date End Date Denise Blancas MD [address] [place] [address] PCP - General Internal Medicine 06/27/24 documented as of this encounter
--- OUTSIDE RECORDS SUMMARY | 2025-03-04 14:14 | XMS_ITS | Encounter Summary ---
Author Organization [employer] Address [address] [facility] [address] [place] [address] Care Team Providers Care Manager Pharmaceutical Name Role Phone Verena Hardin Primary Care Provider [phone] Encounter Details Date Type Department Care Team ([facility] st Contact Info) Description 06/01/2022 Orders Only [facility]INE [address] [place] [address] Norma Reich, RN [address] [place] [address] Social History Tobacco Use Types Packs/Day Years [...] filedocumented in this encounter Care Teams Manager Pharmaceutical Relationship Specialty Start Date End Date Verena Hardin FNP [address] [place] [address] PCP - General Family Medicine 12/14/21 05/29/23 documented as of this encounter
--- OUTSIDE RECORDS SUMMARY | 2025-03-04 14:14 | XMS_ITS | Encounter Summary ---
Author Organization [facility] Address [address] [place] [address] Phone Care Team Providers Care Child Adolescent Care Name Role Phone Denise Blancas MD Primary Care Provider [phone] Encounter Details Date Type Department Care Team (Latest Contact Info) Description 09/16/2022 Orders Only [facility] [address] [place] [address] Jovanna Schaeffer MD SLE glomerulonephritis [...] Visit [facility] [address] [place] [address] Breonna Le MD [address] [place] [address] [place] [address] documented as of this encounter Visit Diagnoses Diagnosis SLE glomerulonephritis syndrome, WHO class V (HCC) documented in this encounter Care Teams Child Adolescent Care Relationship Specialty Start Date End Date Denise Blancas MD [address] [place] [address] PCP - General Internal Medicine 06/27/24 documented as of this encounter
--- OUTSIDE RECORDS SUMMARY | 2025-03-04 14:14 | XMS_ITS | Encounter Summary ---
Author Organization [facility] Address [address] [place] [address] Phone Care Team Providers Care Facilities Maintenance Supervisor Name Role Phone Denise Blancas MD Primary Care Provider [phone] Encounter Details Date Type Department Care Team (Late st Contact Info) Description 02/13/2025 Documentation Only [facility] [place], [address] [place] [address] Rhianna Castro [address] [place] [address] Social History Tobacco Use Types [...] Visit [facility] [address] [place] [address] Breonna Le MD [address] [place] [address] documented as of this encounter Visit Diagnoses Not on filedocumented in this encounter Care Teams Facilities Maintenance Supervisor Relationship Specialty Start Date End Date Denise Blancas MD [address] [place] [address] PCP - General Internal Medicine 06/27/24 documented as of this encounter
--- OUTSIDE RECORDS SUMMARY | 2025-03-04 14:14 | XMS_ITS | Encounter Summary ---
Author Organization [facility] Address [address] [place] [address] Phone Care Team Providers Care Qa Developer Name Role Phone Denise Blancas MD Primary Care Provider [phone] Encounter Details Date Type Department Care Team (Latest Contact Info) Description 01/17/2025 Orders Only [facility] [address] [place] [address] Breonna Le MD [address] [place] [address] [place] [address] 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); SLE glomerulonephritis syndrome, WHO class V (HCC); Nephrotic syndrome; Anemia in chronic kidney disease; Chronic kidney disease stage 3A (HCC); Other proteinuria; Fluid overload, not otherwise specified Social History Tobacco Use Types Packs/Day Years [...] [facility] [address] [place] [address] Breonna Le MD [address] [place] [address] [place] [address] documented as of this encounter Visit Diagnoses Diagnosis 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, WHO class V (HCC) Nephrotic syndrome Anemia in chronic kidney disease Chronic kidney disease stage 3A (HCC) Other proteinuria Fluid overload, not otherwise specified documented in this encounter Care Teams Qa Developer Relationship Specialty Start Date End Date Denise Blancas MD [address] [place] [address] PCP - General Internal Medicine 06/27/24 documented as of this encounter
--- OUTSIDE RECORDS SUMMARY | 2025-03-04 14:14 | XMS_ITS | Encounter Summary ---
Author Organization [facility] Address [address] [place] [address] Phone Care Team Providers Care Oleomargarine Maker Name Role Phone Denise Blancas MD Primary Care Provider [phone] Encounter Details Date Type Department Care Team (Late st Contact Info) Description 11/22/2024 Orders Only [facility] [place], [address] [place] [address] Breonna Le MD [address] [facility] [place] [address] 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) [...] Care [facility] [address] [place] [address] Breonna Le MD [address] [facility] [place] [address] Scheduled Orders Name Type Priority Associated Diagnoses Orde r Schedule Tacrolimus level Lab Routine 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) Expected: 11/22/2024, Expires: 12/23/2025 documented as of this encounter Visit Diagnoses Diagnosis 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)- Primary documented in this encounter Care Teams Oleomargarine Maker Relationship Specialty Start Date End Date Denise Blancas MD [address] [place] [address] PCP - General Internal Medicine 06/27/24 documented as of this encounter
--- OUTSIDE RECORDS SUMMARY | 2025-03-04 14:14 | XMS_ITS | Encounter Summary ---
Author Organization [facility] Address [address] [place] [address] Phone Care Team Providers Care Fast Foods Worker Name Role Phone Denise Blancas MD Primary Care Provider [phone] Encounter Details Date Type Department Care Team (Late st Contact Info) Description 02/10/2025 Documentation Only [facility], [address] [place] [address] Rhianna Castro [address] [place] [address] Social History Tobacco Use Types [...] [facility] [address] [place] [address] Breonna Le MD [address] [place] [address] documented as of this encounter Visit Diagnoses Not on filedocumented in this encounter Care Teams Fast Foods Worker Relationship Specialty Start Date End Date Denise Blancas MD [address] [place] [address] PCP - General Internal Medicine 06/27/24 documented as of this encounter
--- OUTSIDE RECORDS SUMMARY | 2025-03-04 14:14 | XMS_ITS | Encounter Summary ---
Author Organization [facility] Address [address] [place] [address] Phone Care Team Providers Care Information Technology Director Name Role Phone Denise Blancas MD Primary Care Provider [phone] Encounter Details Date Type Department Care Team (Late st Contact Info) Description 02/13/2025 Documentation Only [facility] [place], [address] [place] [address] Rhianna Castro [address] [place] [address] Social History Tobacco Use Types [...] Visit [facility] [address] [place] [address] Breonna Le MD [address] [place] [address] documented as of this encounter Visit Diagnoses Not on filedocumented in this encounter Care Teams Information Technology Director Relationship Specialty Start Date End Date Denise Blancas MD [address] [place] [address] PCP - General Internal Medicine 06/27/24 documented as of this encounter
--- OUTSIDE RECORDS SUMMARY | 2025-03-04 14:14 | XMS_ITS | Encounter Summary ---
Author Organization [facility] Address [address] [place] [address] Phone Care Team Providers Care Data Services Developer Name Role Phone Denise Blancas MD Primary Care Provider [phone] Encounter Details Date Type Department Care Team (Latest Contact Info) Description 09/02/2022 Orders Only [facility] [address] [place] [address] Jovanna Schaeffer MD SLE glomerulonephritis [...] Visit [facility] [address] [place] [address] Breonna Le MD [address] [place] [address] [place] [address] documented as of this encounter [...] AM EDT) C3 Complement 118 (90-180) MG/DL [facility] Comment: Testing performed or reported by [facility], a Service of [facility], [address] [place] [address] Cherri Lucas MD, Inbound Sales Manager IA# [id number] Blood specimen (specimen) Venous blood / Unknown 10/03/2022 11:04 AM EDT 10/03/2022 11:12 AM EDT Jovanna Schaeffer MD LAB BLOOD ORDERABLES Final Resul t Performing Organization Address [place]/[facility]/ZIP Co de Phone Number [facility] * C4 Complement (10/03/2022 11:04 AM EDT) [facility] C4 Complement 22 (10-40) MG/DL [facility] Comment: Testing performed or reported by [facility], a Service of [facility], [address] [place] [address] Cherri Lucas MD, Inbound Sales Manager CLIA# [id number] Blood specimen (specimen) Venous blood / Unknown 10/03/2022 11:04 AM EDT 10/03/2022 11:12 AM EDT Jovanna Schaeffer MD LAB BLOOD ORDERABLES Final Resul t Performing Organization Address [place]/[facility] de Phone Number [facility] * (ABNORMAL) DANNIE Panel (10/03/2022 11:04 AM EDT) [facility] DANNIE Screen POSITIVE(A ) [facility] Comment: (NOTE) Negative <1:80 Borderline 1:80 Positive >1:80 Test performed by [facility], [address], [place] [address] Testing performed or reported by [facility], a Service of [facility], [address] [place] [address] Robbie Cardona MD, Inbound Sales Manager IA# [id number] Blood specimen (specimen) Venous blood / Unknown 10/03/2022 11:04 AM EDT 10/03/2022 11:13 AM EDT Jovanna Schaeffer MD LAB BLOOD ORDERABLES Final Resul t Performing Organization Address [place]/[facility] Co de Phone Number [facility] * Anti-DNA antibody, double-stranded (10/03/2022 11:04 AM EDT) [facility] Anti DNA, [place] [address] [facility] Comment: Reference range: 0 to 9 Unit: IU/mL (NOTE) Negative <5 Equivocal 5 - 9 Positive >9 Test performed by [facility], [address] [place] [address] Testing performed or reported by [facility], a Service of [facility], [facility] [address], [place] [address] Robbie Cardona MD, Inbound Sales Manager CLIA# [id number] Blood specimen (specimen) Venous blood / Unknown 10/03/2022 11:04 AM EDT 10/03/2022 11:13 AM EDT Jovanna Schaeffer MD LAB BLOOD ORDERABLES Final Resul t Performing Organization Address [place]/[facility] de Phone Number [facility] * C-Reactive Protein (10/03/2022 11:04 AM EDT) CRP <0.3 (0-0.5) MG/DL [facility] Comment: Testing performed or reported by [facility], a Service of [facility], [address] [place] [address] Cherri Lucas MD, Inbound Sales Manager CLIA# [id number] Blood specimen (specimen) Venous blood / Unknown 10/03/2022 11:04 AM EDT 10/03/2022 11:12 AM EDT Result [facility] Jovanna Schaeffer MD LAB BLOOD ORDERABLES Final Resul t Performing Organization Address [place]/[facility] de Phone Number [facility] * (ABNORMAL) Sedimentation Rate (10/03/2022 11:04 AM EDT) Sed Rate 47(H) (0-20) MM/HR [facility] Comment: Testing performed or reported by [facility], a Service of [facility], [address] [place] [address] Cherri Lucas MD, Inbound Sales Manager CLIA# [id number] Blood specimen (specimen) Venous blood / Unknown 10/03/2022 11:04 AM EDT 10/03/2022 11:13 AM EDT Jovanna Schaeffer MD LAB BLOOD ORDERABLES Final Resul t Performing Organization Address [place]/[facility] de Phone Number [facility] * (ABNORMAL) Urine Albumin / Creatinine Ratio (10/03/2022 11:04 AM EDT) Urine Microalbumin 576.4(H) (<20) MG/L [facility] Comment: The urine microalbumin test is designed to monitor renal function. When screening for Bence Lynne proteinuria, urine electrophoresis is recommended. Microalbumin/Creati nine Ratio 2,088.4(H ) (0-20) MG/GM [facility] Microalb/Creat Ratio 27.6 MG/DL [facility] Comment: Testing performed or reported by [facility], a Service of [facility], [address] [place] [address] Cherri Lucas MD, Inbound Sales Manager CLIA# [id number] Urine specimen (specimen) Urine specimen obtained by clean catch procedure / Unknown 10/03/2022 11:04 AM EDT 10/03/2022 11:12 AM EDT Jovanna Schaeffer MD LAB URINE ORDERABLES Final Resul t Performing Organization Address [place]/[facility] de Phone Number [facility] * (ABNORMAL) Protein, Total, Random Urine w/Creatinine (Protein/Creat Ratio) (10/03/2022 11:04 AM EDT) Protein/Creatine Ratio 2.73(H) (0-0.2) [facility] Protein, Urine 75 MG/DL [facility] Comment: The urine microalbumin test is designed to monitor renal function. When screening for Bence Lynne proteinuria, urine electrophoresis is recommended. Creatinine, Urine 27.6 MG/DL [facility] Comment: Testing performed or reported by [facility], a Service of [facility], [address] [place] [address] Cherri Lucas MD, Inbound Sales Manager CLIA# [id number] Urine specimen (specimen) Urine specimen obtained by clean catch procedure / Unknown 10/03/2022 11:04 AM EDT 10/03/2022 11:12 AM EDT Jovanna Schaeffer MD LAB URINE ORDERABLES Final Resul t Performing Organization Address [place]/[facility]/ZIP Co de Phone Number [facility] * (ABNORMAL) Urinalysis with microscopic (10/03/2022 11:04 AM EDT) Appearance COLORLESS [facility] Comment:CLEAR Specific [place] 1.009 (1.002-1. 030) [facility] pH Urine 6.0 (5.0-8.0) [facility] Albumin, Urine 2+(A) (NEG) [facility] Glucose, Ur NEGATIVE (NEG) [facility] Ketones, Urine NEGATIVE (NEG) [facility] Bilirubin Urine NEGATIVE (NEG) [facility] Hemoglobin Presence in Urine NEGATIVE (NEG) [facility] Nitrite, Urine NEGATIVE (NEG) [facility] Leukocyte Esterase Urine NEGATIVE (NEG) [facility] Urobilinogen Urine NORMAL (NORM) MG/DL [facility] WBC, Urine <1 (0-5) /HPF [facility] RBC, Urine 1 (0-3) /HPF [facility] Bacteria SLIGHT(A) (NEG) HPF [facility] Mucus, Urine SLIGHT /LPF [facility] Squamous Epithelial, Urine <1 (0-8) /HPF [facility] Hyaline Casts, Urine 1 (0-2) LPF [facility] Comment: Testing performed or reported by [facility], a Service of [facility], [address] [place] [address] Cherri Lucas MD, Inbound Sales Manager [facility]# [id number] Urine specimen (specimen) Urine specimen obtained by clean catch procedure / Unknown 10/03/2022 11:04 AM EDT 10/03/2022 11:12 AM EDT us Jovanna Schaeffer MD LAB URINE ORDERABLES Final Resul t Performing Organization Address [place]/[facility] Co de Phone Number [facility] * (ABNORMAL) Renal Function Panel (10/03/2022 11:04 AM EDT) Glucose 87 (70-99) MG/DL [facility] BUN 23(H) (6-20) MG/DL [facility] Creatinine 1.0 (0.5-1.0) MG/DL [facility] Sodium 140 (133-145) MMOL/L [facility] Potassium 3.9 (3.6-5.2) MMOL/L [facility] Chloride 105 (98-107) MMOL/L [facility] Bicarbonate (CO2) 24 (22-29) MMOL/L [facility] Anion Gap 11 (4-17) [facility] Albumin 3.7 (3.4-4.8) GM/DL [facility] Calcium 9.2 (8.6-10.5) MG/DL [facility] Phosphorus, Serum 4.8(H) (2.5-4.5) MG/DL [facility] Est GFR Non 82 ML/MIN/1.7 3 M2 [facility] Comment: Creatinine based estimated glomerular filtration (eGFR) in adults is calculated using the National Kidney Foundation recommended 2020 CKD-EPI equation. Estimates GFR from serum creatinine, age and sex. Testing performed or reported by [facility], a Service of [facility], [address] [place] [address] Cherri Lucas MD, Inbound Sales Manager [facility]# [id number] Blood specimen (specimen) Venous blood / Unknown 10/03/2022 11:04 AM EDT 10/03/2022 11:12 AM EDT us Jovanna Schaeffer MD LAB BLOOD ORDERABLES Final Resul t [facility] documented in this encounter Visit Diagnoses Diagnosis SLE glomerulonephritis syndrome, WHO class V (HCC) documented in this encounter Care Teams Data Services Developer Relationship Specialty Start Date End Date Denise Blancas MD [address] [place] [address] PCP - General Internal Medicine 06/27/24 documented as of this encounter
--- OUTSIDE RECORDS SUMMARY | 2025-03-04 14:14 | XMS_ITS | Clinical Summary ---
Author Organization [employer] Address [address] [address] [place] [address] Care Team Providers Care Electrical/Instrument Technician Name Role Phone Unavailable Primary Care Provider [...] every day Active ergocalciferol (Drisdol) 1.25 MG (39741 UT) capsule take 1 capsule by oral [...] spine 06/17/2016 Gastroesophageal reflux disease 05/08/2015 Immunizations Immunization Administration Dates Next Due DTaP 04/19/2012, 1,05/25/2000,02/16 [...] 1999 HIV Screening 1999 SDOH Screening 1999 Disability Screening 1999 COVID-19 Vaccine (#1) 09/22/2004 Alcohol/Substance Use Screening 2011 Tobacco Screening 2011 Family Planning (PISQ) 09/22/2014 Hepatitis C Screening 09/22/2017 Zoster Vaccines (1 of 2) 09/22/2018 Pneumococcal Vaccine: Pediatrics (0 to 5 Years) and At-Risk Patients (6 to 49) Years (2 of 2 - PPSV23) 09/12/2019 07/18/2019, 05/10/2001, 02/05/2001, Additional history exists Pap Smear 09/22/2020 Influenza Vaccine (#1) 2025 , 05/28/2020, 05/30/2019, Additional history exists DTaP/Tdap/Td [...] 05/06/2016 , 05/06/2016, 05/08/2015, Additional history exists Meningococcal B Vaccine Aged Out No l onger eligible based on patient's age to complete this topic RSV under 20 months Aged Out No [...] with diabetes plus 1 major ASCVD risk factor, treating to a non-HDL-C goal of <100 mg/dL (LDL-C of <70 mg/dL) is considered a therapeutic option. HDL Cholesterol 41(L) > OR = 50 mg/dL [facility] Non-HDL Cholesterol 164(H) <130 mg/dL (calc) [facility] Comment: For patients with diabetes plus 1 major ASCVD risk factor, treating to a non-HDL-C goal of <100 mg/dL (LDL-C of <70 mg/dL) is considered a therapeutic option. HDL Cholesterol 41(L) > OR = 50 mg/dL [facility] Triglycerides 95 <150 mg/dL [facility] LDL Cholesterol 144(H) mg/dL (calc) [facility] Comment: Reference range: <100 Desirable range <100 mg/dL for primary prevention; <70 mg/dL for patients with CHD or diabetic patients with > or = 2 CHD risk factors. LDL-C is now calculated using the Walter-Maty calculation, which is a validated novel method providing better accuracy than the Friedewald equation in the estimation of LDL-C. Walter SANCHEZ et al. RANDY. 2013;310(19): 6215-4059 (http://education.GigaTrust.SeeChange Health/faq/YIY780) Chol/HDLC Ratio 5.0(H) <5.0 (calc) [facility] Cholesterol, Total 205(H) <200 mg/dL [facility] Triglycerides 95 <150 mg/dL [facility] LDL Cholesterol 144(H) mg/dL (calc) [facility] Comment: Reference range: <100 Desirable range <100 mg/dL for primary prevention; <70 mg/dL for patients with CHD or diabetic patients with > or = 2 CHD risk factors. LDL-C is now calculated using the Cori calculation, which is a validated novel method providing better accuracy than the Friedewald equation in the estimation of LDL-C. Walter SANCHEZ et al. RANDY. 2013;310(19): 9502-5222 (http://education.GigaTrust.SeeChange Health/faq/GZU961) Chol/HDLC Ratio 5.0(H) <5.0 (calc) [facility] 05/28/2020 10:1 0 AM EST us [employer]fus Marco BIODIESEL TECHNOLOGY MANAGER LAB BLOOD ORDERABLES Final Result Performing Organization Address City/State/[facility] Co de Phone Number [facility] [address] from Last 3 Months or Most Recently Relevant [id number] [id number] [place] [address] [place] [address] [place] [id number] [place] [id number] [place] [id number]
--- OUTSIDE RECORDS SUMMARY | 2025-03-04 14:14 | XMS_ITS | Encounter Summary ---
Author Organization [facility] Address [address] [place] [address] Phone Care Team Providers Care Fur Dressing Supervisor Name Role Phone Denise Blancas MD Primary Care Provider [phone] Encounter Details Date Type Department Care Team (Late st Contact Info) Description 11/21/2024 Documentation Only [facility] [place], [address] [place] [address] Rhianna Castro [address] [place] [address] Social History Tobacco Use Types [...] Visit [facility] [address] [place] [place] [address] Breonna Le MD [address] [place] [address] documented as of this encounter Visit Diagnoses Not on filedocumented in this encounter Care Teams Fur Dressing Supervisor Relationship Specialty Start Date End Date Denise Blancas MD [address] [place] [address] PCP - General Internal Medicine 06/27/24 documented as of this encounter
--- OUTSIDE RECORDS SUMMARY | 2025-03-04 14:14 | XMS_ITS | Encounter Summary ---
Author Organization [facility] Address [address] [place] [address] Phone Care Team Providers Care Devops Name Role Phone Denise Blancas MD Primary Care Provider [phone] Encounter Details Date Type Department Care Team (Late st Contact Info) Description 02/13/2025 Documentation Only [facility] [place], [address] [place] [address] Rhianna Castro [address] [place] [address] Social History Tobacco [...] [facility] [address] [place] [address] Breonna Le MD [address] [place] [address] documented as of this encounter Visit Diagnoses Not on filedocumented in this encounter Care Teams Devops Relationship Specialty Start Date End Date Denise Blancas MD [address] [place] [address] PCP - General Internal Medicine 06/27/24 documented as of this encounter
--- OUTSIDE RECORDS SUMMARY | 2025-03-04 14:14 | XMS_ITS | Encounter Summary ---
Author Organization [facility] Address [address] [place] [address] Phone Care Team Providers Care Stage Producer Name Role Phone Denise Blancas MD Primary Care Provider [phone] Encounter Details Date Type Department Care Team (Latest Contact Info) Description 01/10/2025 Orders Only [facility] [address] [place] [address] Breonna Le MD [address] [place] [address] [place] [address] 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); SLE glomerulonephritis syndrome, WHO class V (HCC); Chronic kidney disease stage 3A (HCC); Nephrotic syndrome; Other proteinuria; Anemia in chronic kidney disease; Fluid overload, not otherwise specified Social History [...] [facility] [address] [place] [address] Breonna Le MD [address] [place] [address] [place] [address] documented as of this encounter Visit Diagnoses Diagnosis 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, WHO class V (HCC) Chronic kidney disease stage 3A (HCC) Nephrotic syndrome Other proteinuria Anemia in chronic kidney disease Fluid overload, not otherwise specified documented in this encounter Care Teams Stage Producer Relationship Specialty Start Date End Date Denise Blancas MD [address] [place] [address] PCP - General Internal Medicine 06/27/24 documented as of this encounter
--- OUTSIDE RECORDS SUMMARY | 2025-03-04 14:14 | XMS_ITS | Encounter Summary ---
Author Organization [facility] Address [address] [place] [address] Phone Care Team Providers Care Brand Engineer Name Role Phone Denise Blancas MD Primary Care Provider [phone] Encounter Details Date Type Department Care Team (Late st Contact Info) Description 02/13/2025 Documentation Only [facility] [place], [address] [place] [address] Rhianna Castro [address] [place] [address] Social History Tobacco Use Types [...] [facility] [address] [place] [address] Breonna Le MD [address] [place] [address] documented as of this encounter Visit Diagnoses Not on filedocumented in this encounter Care Teams Brand Engineer Relationship Specialty Start Date End Date Denise Blancas MD [address] [place] [address] PCP - General Internal Medicine 06/27/24 documented as of this encounter
--- OUTSIDE RECORDS SUMMARY | 2025-03-04 14:14 | XMS_ITS | Encounter Summary ---
Author Organization [facility] [place], Address [address] [place] [address] Phone Care Team Providers Care Special Diet Cook Name Role Phone Denise Blancas MD Primary Care Provider Encounter Details Date Type Department Care Team (Late st Contact Info) Description 08/22/2024 Documentation Only [facility] [place], [address] [place] [address] Rhianna Castro [address] [place] [address] Social History Tobacco Use Types [...] Visit [facility] [address] [place] [address] Breonna Le MD [address] [place] [address] documented as of this encounter Visit Diagnoses Not on filedocumented in this encounter Care Teams Special Diet Cook Relationship Specialty Start Date End Date Denise lBancas MD [address] [place] [address] PCP - General Internal Medicine 06/27/24 documented as of this encounter
--- OUTSIDE RECORDS SUMMARY | 2025-03-04 14:14 | XMS_ITS | Encounter Summary ---
Author Organization [facility] Address [address] [place] [address] Phone Care Team Providers Care Camouflage Specialist Name Role Phone Denise Blancas MD Primary Care Provider [phone] Encounter Details Date Type Department Care Team (Late st Contact Info) Description 11/14/2024 Documentation Only [facility] [place], [address] [place] [address] Rhianna Castro [address] [place] [address] Social History Tobacco Use Types [...] And Transplant Services [facility] [address] [place] [address] Breonna Le MD [address] [place] [place] [address] documented as of this encounter Visit Diagnoses Not on filedocumented in this encounter Care Teams Camouflage Specialist Relationship Specialty Start Date End Date Denise Blancas MD [address] [place] [address] PCP - General Internal Medicine 06/27/24 documented as of this encounter
--- OUTSIDE RECORDS SUMMARY | 2025-03-04 14:14 | XMS_ITS | Encounter Summary ---
Author Organization [facility] [place], Address [address] [place] [address] Phone Care Team Providers Care Product Transfer Pumper Name Role Phone Denise Blancas MD Primary Care Provider [phone] Encounter Details Date Type Department Care Team (Late st Contact Info) Description 12/18/2024 Documentation Only [facility] [place], [address] [place] [place] [address] Rhianna Castro [address] [place] [address] Social History Tobacco Use Types [...] Visit [facility] [address] [place] [address] Breonna Le MD [address] [place] [place] [address] documented as of this encounter Visit Diagnoses Not on filedocumented in this encounter Care Teams Product Transfer Pumper Relationship Specialty Start Date End Date Denise Blancas MD [address] [place] [address] PCP - General Internal Medicine 06/27/24 documented as of this encounter
--- OUTSIDE RECORDS SUMMARY | 2025-03-04 14:14 | XMS_ITS | Encounter Summary ---
Author Organization [facility] [place], Address [address] [place] [address] Phone Care Team Providers Care Melt House Centrifugal Operator Name Role Phone Denise Blancas MD Primary Care Provider [phone] Encounter Details Date Type Department Care Team (Late st Contact Info) Description 08/22/2024 Documentation Only [facility] [place], [address] [place] [address] Rhianna Castro [address] [place] [address] Social History Tobacco Use Types [...] Of [facility] [address] [place] [address] Breonna Le MD [address] [place] [address] documented as of this encounter Visit Diagnoses Not on filedocumented in this encounter Care Teams Melt House Centrifugal Operator Relationship Specialty Start Date End Date Denise Blancas MD [address] [place] [address] PCP - General Internal Medicine 06/27/24 documented as of this encounter
--- OUTSIDE RECORDS SUMMARY | 2025-03-04 14:14 | XMS_ITS | Encounter Summary ---
Author Organization [facility] Address [address] [place] [address] Phone Care Team Providers Care General Office Dispatcher Name Role Phone Denise Blancas MD Primary Care Provider [phone] Encounter Details Date Type Department Care Team (Late st Contact Info) Description 09/26/2024 Documentation Only [facility] [place], [address] [place] [place] [address] Rhianna Castro [address] [place] [address] Social History Tobacco Use Types [...] [facility] [address] [place] [address] Breonna Le MD [address] [place] [address] documented as of this encounter Visit Diagnoses Not on filedocumented in this encounter Care Teams General Office Dispatcher Relationship Specialty Start Date End Date Denise Blancas MD [address] [place] [address] PCP - General Internal Medicine 06/27/24 documented as of this encounter
--- OUTSIDE RECORDS SUMMARY | 2025-03-04 14:14 | XMS_ITS | Encounter Summary ---
Author Organization [facility] Address [address] [place] [address] Phone Care Team Providers Care Cargo And Ramp Services Manager Name Role Phone Denise Blancas MD Primary Care Provider [phone] Encounter Details Date Type Department Care Team (Latest Contact Info) Description 02/07/2025 Orders Only [facility] Of [address] [place] [address] Breonna Le MD [address] [place] [address] [place] [address] Glomerular disease in systemic lupus [...] [facility] Of [address] [place] [address] Breonna Le MD [address] [place] [address] [place] [address] documented as of this encounter Procedures Procedure Name Priority Date/Time Associated Diagnosis Comments COMPREHENSIVE METABOLIC PANEL Routine 02/11/2025 8:58 AM EDT 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, WHO class V (HCC) Nephrotic syndrome Anemia in chronic kidney disease Chronic kidney disease stage 3A (HCC) Other proteinuria Fluid overload, not otherwise specified documented in this encounter Results * (ABNORMAL) Comprehensive metabolic panel (02/11/2025 8:58 AM EDT) Glucose 77 70 - 99 mg/dL [facility] BUN 37(H) 6 - 20 mg/dL [facility] Creatinine 2.16(H) 0.57 - 1.00 mg/dL [facility] eGFR CKD-EPI CR 2020 32(L) >59 mL/min/1.7 3 [facility] BUN/Creatinine Ratio 17 9 - 23 [facility] Sodium 137 134 - 144 mmol/L [facility] Potassium 4.6 3.5 - 5.2 mmol/L [facility] Chloride 109(H) 96 - 106 mmol/L [facility] Calcium 8.1(L) 8.7 - 10.2 mg/dL [facility] Total Protein 4.5(L) 6.0 - 8.5 g/dL [facility] Albumin 2.3(L) 4.0 - 5.0 g/dL [facility] Globulin 2.2 1.5 - 4.5 g/dL [facility] Total Bilirubin <0.2 0.0 - 1.2 mg/dL [facility] Alkaline Phosphatase 79 44 - 121 IU/L [facility] AST (SGOT) 24 0 - 40 IU/L [facility] ALT (SGPT) 19 0 - 32 IU/L [facility] Bicarbonate (CO2) 15(L) 20 - 29 mmol/L [facility] Comment:Specimen quantity in sufficient for verification by repeat analysis. Blood Venous blood / Unknown 02/11/2025 8:58 AM EDT 02/11/2025 us Breonna Le MD LAB BLOOD ORDERABLES Final Res ult [facility] [address] [place] [address] documented in this encounter Visit Diagnoses Diagnosis 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, WHO class V (HCC) Chronic kidney disease stage 3A (HCC) Nephrotic syndrome Other proteinuria Anemia in chronic kidney disease Fluid overload, not otherwise specified documented in this encounter Care Teams Cargo And Ramp Services Manager Relationship Specialty Start Date End Date Denise Blancas MD [address] [facility] [place] [place] [address] PCP - General Internal Medicine 06/27/24 documented as of this encounter
--- OUTSIDE RECORDS SUMMARY | 2025-03-04 14:14 | XMS_ITS | Encounter Summary ---
Author Organization [facility] Address [address] [place] [address] Phone Care Team Providers Care Underwriting Analyst Name Role Phone Denise Blancas MD Primary Care Provider [phone] Encounter Details Date Type Department Care Team (Late st Contact Info) Description 11/14/2024 Documentation Only [facility] [place], [address] [place] [address] Rhianna Castro [address] [place] [address] Social History Tobacco Use Types [...] Services Of [facility] [address] [place] [address] Breonna Le MD [address] [place] [address] documented as of this encounter Visit Diagnoses Not on filedocumented in this encounter Care Teams Underwriting Analyst Relationship Specialty Start Date End Date Denise Blancas MD [address] [place] [address] PCP - General Internal Medicine 06/27/24 documented as of this encounter
--- OUTSIDE RECORDS SUMMARY | 2025-03-04 14:14 | XMS_ITS | Encounter Summary ---
Author Organization [facility] Address [address] [place] [address] Phone Care Team Providers Care Photographs Curator Name Role Phone Denise Blancas MD Primary Care Provider [phone] Encounter Details Date Type Department Care Team (Late st Contact Info) Description 11/14/2024 Documentation Only [facility] [place], [address] [place] [address] Rhianna Castro [address] [place] [address] Social History Tobacco Use Types [...] Visit [facility] [address] [place] [address] Breonna Le MD [address] [place] [address] documented as of this encounter Visit Diagnoses Not on filedocumented in this encounter Care Teams Photographs Curator Relationship Specialty Start Date End Date Denise Blancas MD [address] [place] [address] PCP - General Internal Medicine 06/27/24 documented as of this encounter
--- OUTSIDE RECORDS SUMMARY | 2025-03-04 14:14 | XMS_ITS | Encounter Summary ---
Author Organization [facility] Of [place], Address [address] [place] [address] Phone Care Team Providers Care Carpet Renovator Name Role Phone Denise Blancas MD Primary Care Provider [phone] Encounter Details Date Type Department Care Team (Late st Contact Info) Description 04/21/2022 Documentation Only [facility] [place], [address] [place] [address] [place] [address] [place] [address] Social History Tobacco Use Types [...] And Transplant Services Of [facility] [address] [place] [address] Breonna Le MD [address] [place] [address] [place] [address] documented as of this encounter Visit Diagnoses Not on filedocumented in this encounter Care Teams Carpet Renovator Relationship Specialty Start Date End Date Denise Blancas MD [address] [facility] [place] [address] PCP - General Internal Medicine 06/27/24 documented as of this encounter
--- OUTSIDE RECORDS SUMMARY | 2025-03-04 14:14 | XMS_ITS | Encounter Summary ---
Author Organization [facility] Address [address] [place] [address] Phone Care Team Providers Care Bomb Squad Commander Name Role Phone Denise Blancas MD Primary Care Provider [phone] Encounter Details Date Type Department Care Team (Late st Contact Info) Description 11/14/2024 Documentation Only [facility] [place], [address] [place] [address] Rhianna Castro [address] [place] [address] Social History Tobacco Use Types [...] Visit [facility] [address] [place] [address] Breonna Le MD [address] [place] [address] documented as of this encounter Visit Diagnoses Not on filedocumented in this encounter Care Teams Bomb Squad Commander Relationship Specialty Start Date End Date Denise Blancas MD [address] [place] [address] PCP - General Internal Medicine 06/27/24 documented as of this encounter
--- OUTSIDE RECORDS SUMMARY | 2025-03-04 14:14 | XMS_ITS | Encounter Summary ---
Author Organization [facility] Address [address] [place] [address] Phone Care Team Providers Care Pediatric Assistant Name Role Phone Denise Blancas MD Primary Care Provider [phone] Encounter Details Date Type Department Care Team (Latest Contact Info) Description 09/13/2024 Orders Only [facility] Of [address] [place] [address] Rhianna Castro [address] [place] [address] 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); Other proteinuria; SLE glomerulonephritis syndrome, WHO class V (HCC); Anemia in chronic kidney disease; Nephrotic syndrome; Fluid overload, not otherwise specified; Chronic kidney disease stage 3A ([facility]) Social History Tobacco Use Types Packs/Day Years [...] Visit [facility] [address] [place] [address] Breonna Le MD [address] [place] [address] documented as of this encounter Procedures Procedure [...] Urine 0-5 0 - 5 /hpf [facility] [place] RBC, Urine 3-10(A) 0 - 2 /hpf [facility] [place] Squamous Epithelial, Urine 0-10 0 - 10 /hpf [facility] [place] Casts None seen None seen /lpf [facility] [place] Bacteria, Urine None seen None seen/Few [facility] [place] 09/16/2024 3:58 PM EDT 09/16/2024 us Omar Garcia MD LAB MICROBIOLOGY - GENERAL OR DERABLES Final Result [facility] [place] [address] [place] [address] * (ABNORMAL) Comprehensive metabolic panel (09/16/2024 3:58 PM EDT) Glucose 97 70 - 99 mg/dL [facility] [place] BUN 14 6 - 20 mg/dL [facility] [place] Creatinine 0.93 0.57 - 1.00 mg/dL [facility] [place] eGFR CKD-EPI CR 2020 88 >59 mL/min/1.7 3 [facility] [place] BUN/Creatinine Ratio 15 9 - 23 [facility] [place] Sodium 139 134 - 144 mmol/L [facility] [place] Potassium 4.2 3.5 - 5.2 mmol/L [facility] [place] Chloride 111(H) 96 - 106 mmol/L [facility] [place] Bicarbonate (CO2) 16(L) 20 - 29 mmol/L [facility] [place] Calcium 8.0(L) 8.7 - 10.2 mg/dL [facility] [place] Total Protein 4.3(LL) 6.0 - 8.5 g/dL [facility] [place] Albumin 2.5(L) 4.0 - 5.0 g/dL [facility] [place] Globulin 1.8 1.5 - 4.5 g/dL [facility] [place] Total Bilirubin <0.2 0.0 - 1.2 mg/dL [facility] [place] Alkaline Phosphatase 63 44 - 121 IU/L [facility] [place] AST (SGOT) 11 0 - 40 IU/L [facility] [place] ALT (SGPT) 10 0 - 32 IU/L [facility] [place] Blood specimen (specimen) Venous blood / Unknown 09/16/2024 3:58 PM EDT 09/16/2024 us Omar Garcia MD LAB BLOOD ORDERABLES Final Re sult [facility] [place] [address] [place] [address] * (ABNORMAL) Urine Protein / creatinine ratio (09/16/2024 3:58 PM EDT) Creatinine, Ur 203.5 Not Estab. mg/dL [facility] [place] Protein, Ur 1,539.0 Not Estab. mg/dL [facility] [place] Comment: Results confirmed on dilution. Urine Protein/Creati nine Ratio 7,563(H) 0 - 200 mg/g creat [facility] [place] Urine specimen (specimen) Urine specimen obtained by clean catch procedure / Unknown 09/16/2024 3:58 PM EDT 09/16/2024 Omar Garcia MD LAB URINE ORDERABLES Final Re sult Performing Organization Address City/[facility]/ZIP Co de Phone Number [facility] [place] [address] [place] [address] * C-Reactive Protein (09/16/2024 3:58 PM EDT) Pathologist [facility] C-Reactive Protein Quant <1 0 - 10 mg/L [facility] [place] Blood specimen (specimen) Venous blood / Unknown 09/16/2024 3:58 PM EDT 09/16/2024 Omar Garcia MD LAB BLOOD ORDERABLES Final Re sult Performing Organization Address [facility]/ZIP Co de Phone Number [facility] [place] [address] [place] [address] * (ABNORMAL) Sedimentation Rate (09/16/2024 3:58 PM EDT) [facility] Sed Rate 59(H) 0 - 32 mm/hr [facility] [place] Blood specimen (specimen) Venous blood / Unknown 09/16/2024 3:58 PM EDT 09/16/2024 Omar Garcia MD LAB BLOOD ORDERABLES Final Re sult Performing Organization Address City/[facility]/ZIP Co de Phone Number [facility] [place] [address] [place] [address] * (ABNORMAL) Urinalysis with microscopic (09/16/2024 3:58 PM EDT) [facility] Specific Nice, Urine 1.029 1.005 - 1.030 [facility] [place] [phone] pH Urine 6.0 5.0 - 7.5 [facility] [place] [phone] Color, Urine Yellow Yellow [facility] [place] [phone] Appearance Urine Clear Clear [facility] [place] WBC Esterase Urine Negative Negative [facility] [place] Protein, Ur 4+(A) Negative/Tra ce [facility] [place] Glucose, Ur Trace(A) Negative [facility] [place] Ketones, Urine Negative Negative [facility] [place] Blood Urine 1+(A) Negative [facility] [place] Bilirubin Urine Negative Negative [facility] [place] [phone] Urobilinogen Urine 0.2 0.2 - 1.0 mg/dL [facility] [place] Nitrite, Urine Negative Negative [facility] [place] Microscopic Examination See below: [facility] [place] Comment:Microscopic was shashi cated and was performed. Urine specimen (specimen) Urine specimen obtained by clean catch procedure / Unknown 09/16/2024 3:58 PM EDT 09/16/2024 us Omar Garcia MD LAB URINE ORDERABLES Final Re sult [facility] [place] [address] [place] [address] * (ABNORMAL) CBC and differential (09/16/2024 3:58 PM EDT) WBC 13.0(H) 3.4 - 10.8 x10E3/uL [facility] [place] RBC 4.96 3.77 - 5.28 x10E6/uL [facility] [place] Hemoglobin 13.0 11.1 - 15.9 g/dL [facility] [place] Hematocrit 39.1 34.0 - 46.6 % [facility] [place] MCV 79 79 - 97 fL [facility] [place] MCH 26.2(L) 26.6 - 33.0 pg [facility] [place] MCHC 33.2 31.5 - 35.7 g/dL [facility] [place] RDW 15.6(H) 11.7 - 15.4 % [facility] [place] Platelets 394 150 - 450 x10E3/uL [facility] [place] Neutrophils Relative 75 Not Estab. % [facility] [place] Lymphocytes Relative 17 Not Estab. % [facility] [place] Monocytes 5 Not Estab. % [facility] [place] Eosinophils Relative 2 Not Estab. % [facility] [place] Basophils Relative 0 Not Estab. % [facility] [place] Neutrophils Absolute 9.8(H) 1.4 - 7.0 x10E3/uL [facility] [place] Lymphocytes Absolute 2.2 0.7 - 3.1 x10E3/uL [facility] [place] Monocytes Absolute 0.7 0.1 - 0.9 x10E3/uL [facility] [place] Eosinophils Absolute 0.2 0.0 - 0.4 x10E3/uL [facility] [place] Basophils Absolute 0.1 0.0 - 0.2 x10E3/uL [facility] [place] Immature Granulocytes 1 Not Estab. % [facility] [place] Immature Grans (Absolute) 0.1 0.0 - 0.1 x10E3/uL [facility] [place] Blood specimen (specimen) Venous blood / Unknown 09/16/2024 3:58 PM EDT 09/16/2024 us Omar Garcia MD LAB BLOOD ORDERABLES Final Re sult [facility] [place] [address] [place] [address] documented in this encounter Visit Diagnoses Diagnosis 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) Other proteinuria SLE glomerulonephritis syndrome, WHO class V (HCC) Anemia in chronic kidney disease Nephrotic syndrome Fluid overload, not otherwise specified Chronic kidney disease stage 3A (HCC) documented in this encounter Care Teams Pediatric Assistant Relationship Specialty Start Date End Date Denise Blancas MD [address] [place] [address] PCP - General Internal Medicine 06/27/24 documented as of this encounter
--- OUTSIDE RECORDS SUMMARY | 2025-03-04 14:14 | XMS_ITS | Encounter Summary ---
Author Organization [facility] Address [address] [place] [address] Phone Care Team Providers Care Sports Analyst Name Role Phone Denise Blancas MD Primary Care Provider [phone] Encounter Details Date Type Department Care Team (Latest Contact Info) Description 08/19/2022 Orders Only [facility] Of [address] [place] [address] Jovanna Schaeffer MD SLE glomerulonephritis [...] [facility] Of [address] [place] [place] [address] Breonna Le MD [address] [place] [address] [place] [address] documented as of this encounter Visit Diagnoses Diagnosis SLE glomerulonephritis syndrome, WHO class V (HCC) documented in this encounter Care Teams Sports Analyst Relationship Specialty Start Date End Date Denise Blancas MD [address] [place] [address] PCP - General Internal Medicine 06/27/24 documented as of this encounter
--- OUTSIDE RECORDS SUMMARY | 2025-03-04 14:14 | XMS_ITS | Encounter Summary ---
Author Organization [facility] Of [place], Address [address] [place] [address] Phone Care Team Providers Care Mexican Food Maker Name Role Phone Denise Blancas MD Primary Care Provider [phone] Encounter Details Date Type Department Care Team (Late st Contact Info) Description 12/18/2024 Documentation Only [facility] [place], [address] [place] [address] Rhianna Castro [address] [place] [address] Social History Tobacco Use [...] Visit [facility] [address] [place] [address] Breonna Le MD [address] [place] [address] documented as of this encounter Visit Diagnoses Not on filedocumented in this encounter Care Teams Mexican Food Maker Relationship Specialty Start Date End Date Denise Blancas MD [address] [place] [address] PCP - General Internal Medicine 06/27/24 documented as of this encounter
--- OUTSIDE RECORDS SUMMARY | 2025-03-04 14:14 | XMS_ITS | Encounter Summary ---
Author Organization [facility] Of [facility] Address [address] [place] [address] Phone Care Team Providers Care Log Roller Name Role Phone Denise Blancas MD Primary Care Provider [phone] Encounter Details Date Type Department Care Team (Latest Contact Info) Description 12/27/2024 Orders Only [facility] Of [address] [place] [address] Breonna Le MD [address] [place] [address] [place] [address] Glomerular disease in systemic lupus [...] [facility] Of [address] [place] [address] rBeonna Le MD [address] [place] [address] [place] [address] documented as of this encounter Procedures Procedure Name Priority Date/Time Associated Diagnosis Comments COMPREHENSIVE METABOLIC PANEL Routine 01/07/2025 1:44 PM EDT 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, WHO class V (HCC) Chronic kidney disease stage 3A (HCC) Nephrotic syndrome Other proteinuria Anemia in chronic kidney disease Fluid overload, not otherwise specified documented in this encounter Results * (ABNORMAL) Comprehensive metabolic panel (01/07/2025 1:44 PM EDT) Glucose 101(H) 70 - 99 mg/dL [facility] BUN 22(H) 6 - 20 mg/dL [facility] Creatinine 1.34(H) 0.57 - 1.00 mg/dL [facility] eGFR CKD-EPI CR 2020 56(L) >59 mL/min/1.7 3 [facility] [place] BUN/Creatinine Ratio 16 9 - 23 [facility] [place] Sodium 137 134 - 144 mmol/L [facility] Potassium 4.5 3.5 - 5.2 mmol/L [facility] Chloride 109(H) 96 - 106 mmol/L [facility] [place] Calcium 8.3(L) 8.7 - 10.2 mg/dL [facility] Total Protein 4.8(L) 6.0 - 8.5 g/dL [facility] Albumin 2.7(L) 4.0 - 5.0 g/dL [facility] [place] Globulin 2.1 1.5 - 4.5 g/dL [facility] Total Bilirubin <0.2 0.0 - 1.2 mg/dL [facility] Alkaline Phosphatase 76 44 - 121 IU/L [facility] [facility] AST (SGOT) 16 0 - 40 IU/L [facility] [facility] ALT (SGPT) 14 0 - 32 IU/L [facility] Bicarbonate (CO2) 13(L) 20 - 29 mmol/L [facility] [facility] Comment:Verified by repeat analysis Blood Venous blood / Unknown 01/07/2025 1:44 PM EDT 01/07/2025 us Breonna Le MD LAB BLOOD ORDERABLES Final Res ult [facility] [place] [address] [place] [address] documented in this encounter Visit Diagnoses Diagnosis 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, WHO class V (HCC) Chronic kidney disease stage 3A (HCC) Nephrotic syndrome Other proteinuria Anemia in chronic kidney disease Fluid overload, not otherwise specified documented in this encounter Care Teams Log Roller Relationship Specialty Start Date End Date Denise Blancas MD [address] [place] [address] PCP - General Internal Medicine 06/27/24 documented as of this encounter
--- OUTSIDE RECORDS SUMMARY | 2025-03-04 14:14 | XMS_ITS | Encounter Summary ---
Author Organization [facility] [place], Address [address] [place] [address] Phone Care Team Providers Care Life Cycle Assessment Analyst Name Role Phone Denise Blancas MD Primary Care Provider [phone] Encounter Details Date Type Department Care Team (Late st Contact Info) Description 08/22/2024 Documentation Only [facility] [place], [address] [place] [address] Rhianna Castro [address] [place] [address] Social History Tobacco Use Types [...] Services Of [facility] [address] [place] [address] Breonna Le MD [address] [place] [address] documented as of this encounter Visit Diagnoses Not on filedocumented in this encounter Care Teams Life Cycle Assessment Analyst Relationship Specialty Start Date End Date Denise Blancas MD [address] [place] [address] PCP - General Internal Medicine 06/27/24 documented as of this encounter
--- OUTSIDE RECORDS SUMMARY | 2025-03-04 14:14 | XMS_ITS | Encounter Summary ---
Author Organization [facility] Of [facility] Address [address] [place] [address] Phone Care Team Providers Care Grill Chef Name Role Phone Denise Blancas MD Primary Care Provider [phone] Encounter Details Date Type Department Care Team (Late st Contact Info) Description 11/21/2024 Documentation Only [facility] Of [place], [address] [place] [address] Rhianna Castro [address] [place], [place] [...] Visit [facility] [address] [place] [address] Breonna Le MD [address] [place] [address] documented as of this encounter Visit Diagnoses Not on filedocumented in this encounter Care Teams Grill Chef Relationship Specialty Start Date End Date Denise Blancas MD [address] [place] [address] PCP - General Internal Medicine 06/27/24 documented as of this encounter
--- OUTSIDE RECORDS SUMMARY | 2025-03-04 14:14 | XMS_ITS | Encounter Summary ---
Author Organization [facility] Address [address] [place] [address] Phone Care Team Providers Care Dog Breeder Name Role Phone Denise Blancas MD Primary Care Provider [phone] Encounter Details Date Type Department Care Team (Late st Contact Info) Description 11/01/2024 Documentation Only [facility] [place], [address] [place] [address] Rhianna Castro [address] [place] [address] Social History Tobacco Use Types [...] Of [facility] [address] [place] [address] Breonna Le MD [address] [place] [address] documented as of this encounter Visit Diagnoses Not on filedocumented in this encounter Care Teams Dog Breeder Relationship Specialty Start Date End Date Denise Blancas MD [address] [place] [address] PCP - General Internal Medicine 06/27/24 documented as of this encounter
--- OUTSIDE RECORDS SUMMARY | 2025-03-04 14:14 | XMS_ITS | Encounter Summary ---
Author Organization [facility] Of [facility] Address [address] [place] [address] Phone Care Team Providers Care Fine Arts Chair Name Role Phone Denise Blancas MD Primary Care Provider [phone] Encounter Details Date Type Department Care Team (Latest Contact Info) Description 08/30/2024 Orders Only [facility] Of [address] [place] [address] Rhianna Castro [address] [place] [address] 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); Other proteinuria; SLE glomerulonephritis syndrome, WHO class V (HCC); Anemia in chronic kidney disease; Nephrotic syndrome; Fluid overload, not otherwise specified; Chronic kidney disease stage 3A ([facility]) Social History Tobacco Use Types Packs/Day Years [...] Of [facility] [address] [place] [address] Breonna Le MD [address] [place] [address] documented as of this encounter Procedures Procedure Name Priority Date/Time Associated Diagnosis Comments MICROSCOPIC EXAMINATION - DO NOT USE Routine 11/19/2024 11:01 AM EDT PROTEIN / CREATININE RATIO, URINE Routine 11/19/2024 11:01 AM EDT 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) Other proteinuria SLE glomerulonephritis syndrome, WHO class V (HCC) Anemia in chronic kidney disease Nephrotic syndrome Fluid overload, not otherwise specified Chronic kidney disease stage 3A (HCC) URINALYSIS WITH MICROSCOPIC Routine 11/19/2024 11:01 AM EDT 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) Other proteinuria SLE glomerulonephritis syndrome, WHO class V (HCC) Anemia in chronic kidney disease Nephrotic syndrome Fluid overload, not otherwise specified Chronic kidney disease stage 3A (HCC) SEDIMENTATION RATE, AUTOMATED Routine 11/19/2024 11:01 AM EDT 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) Other proteinuria SLE glomerulonephritis syndrome, WHO class V (HCC) Anemia in chronic kidney disease Nephrotic syndrome Fluid overload, not otherwise specified Chronic kidney disease stage 3A (HCC) CBC AND DIFFERENTIAL Routine 11/19/2024 11:01 AM EDT 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) Other proteinuria SLE glomerulonephritis syndrome, WHO class V (HCC) Anemia in chronic kidney disease Nephrotic syndrome Fluid overload, not otherwise specified Chronic kidney disease stage 3A (HCC) C-REACTIVE PROTEIN Routine 11/19/2024 11 :01 AM EDT 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) Other proteinuria SLE glomerulonephritis syndrome, WHO class V (HCC) Anemia in chronic kidney disease Nephrotic syndrome Fluid overload, not otherwise specified Chronic kidney disease stage 3A (HCC) COMPREHENSIVE METABOLIC PANEL Routine 11/19/2024 11:01 AM EDT 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) Other proteinuria SLE glomerulonephritis syndrome, WHO class V (HCC) Anemia in chronic kidney disease Nephrotic syndrome Fluid overload, not otherwise specified Chronic kidney disease stage 3A (HCC) documented in this encounter Results * (ABNORMAL) Microscopic Examination (11/19/2024 11:01 AM EDT) WBC, Urine 0-5 0 - 5 /hpf [facility] RBC, Urine 3-10(A) 0 - 2 /hpf [facility] Squamous Epithelial, Urine 0-10 0 - 10 /hpf [facility] Casts None seen None seen /lpf [facility] Bacteria, Urine Few None seen/Few [facility] 11/19/2024 11:0 1 AM EDT 11/19/2024 us Omar Garcia MD LAB MICROBIOLOGY - GENERAL OR DERABLES Final Result [facility] [address] [place] [address] * (ABNORMAL) Comprehensive metabolic panel (11/19/2024 11:01 AM EDT) Glucose 88 70 - 99 mg/dL [facility] BUN 22(H) 6 - 20 mg/dL [facility] Creatinine 1.19(H) 0.57 - 1.00 mg/dL [facility] eGFR CKD-EPI CR 2020 65 >59 mL/min/1.7 3 [facility] BUN/Creatinine Ratio 18 9 - 23 [facility] Sodium 137 134 - 144 mmol/L [facility] Potassium 4.1 3.5 - 5.2 mmol/L [facility] Chloride 108(H) 96 - 106 mmol/L [facility] Calcium 8.2(L) 8.7 - 10.2 mg/dL [facility] Total Protein 4.3(LL) 6.0 - 8.5 g/dL [facility] Albumin 2.4(L) 4.0 - 5.0 g/dL [facility] Globulin 1.9 1.5 - 4.5 g/dL [facility] Total Bilirubin <0.2 0.0 - 1.2 mg/dL [facility] Alkaline Phosphatase 59 44 - 121 IU/L [facility] AST (SGOT) 19 0 - 40 IU/L [facility] ALT (SGPT) 11 0 - 32 IU/L [facility] Bicarbonate (CO2) 13(L) 20 - 29 mmol/L [facility] Comment:Specimen quantity in sufficient for verification by repeat analysis. Blood specimen (specimen) Venous blood / Unknown 11/19/2024 11:01 AM EDT 11/19/2024 us Omar Garcia MD LAB BLOOD ORDERABLES Final Re sult [facility] [address] [place] [address] * (ABNORMAL) Urine Protein / creatinine ratio (11/19/2024 11:01 AM EDT) Creatinine, Ur 178.3 Not Estab. mg/dL [facility] Protein, Ur 1,040.7 Not Estab. mg/dL [facility] Comment: Results confirmed on dilution. Urine Protein/Creati nine Ratio 5,837(H) 0 - 200 mg/g creat [facility] Urine specimen (specimen) Urine specimen obtained by clean catch procedure / Unknown 11/19/2024 11:01 AM EDT 11/19/2024 Omar Garcia MD LAB URINE ORDERABLES Final Re sult Performing Organization Address [facility]/ZIP Co de Phone Number [facility] [address] [place] [address] * C-Reactive Protein (11/19/2024 11:01 AM EDT) Pathologist [facility] C-Reactive Protein Quant 3 0 - 10 mg/L [facility] Blood specimen (specimen) Venous blood / Unknown 11/19/2024 11:01 AM EDT 11/19/2024 Omar Garcia MD LAB BLOOD ORDERABLES Final Re sult Performing Organization Address [facility] Co de Phone Number [facility] [address] [place] [address] * (ABNORMAL) Sedimentation Rate (11/19/2024 11:01 AM EDT) [facility] Sed Rate 82(H) 0 - 32 mm/hr [facility] Blood specimen (specimen) Venous blood / Unknown 11/19/2024 11:01 AM EDT 11/19/2024 Omar Garcia MD LAB BLOOD ORDERABLES Final Re sult Performing Organization Address [facility]/ZIP Co de Phone Number [facility] [address] [place] [address] * (ABNORMAL) Urinalysis with microscopic (11/19/2024 11:01 AM EDT) [facility] Specific [place], Urine 1.025 1.005 - 1.030 [facility] pH Urine 6.0 5.0 - 7.5 [facility] Color, Urine Yellow Yellow [facility] Appearance Urine Clear Clear [facility] WBC Esterase Urine Negative Negative [facility] Protein, Ur 3+(A) Negative/Tra ce [facility] Glucose, Ur Trace(A) Negative [facility] Ketones, Urine Negative Negative [facility] [phone] Blood Urine Trace(A) Negative [facility] Bilirubin Urine Negative Negative [facility] Urobilinogen Urine 0.2 0.2 - 1.0 mg/dL [facility] Nitrite, Urine Negative Negative [facility] Microscopic Examination See below: [facility] Comment:Microscopic was shashi cated and was performed. Urine specimen (specimen) Urine specimen obtained by clean catch procedure / Unknown 11/19/2024 11:01 AM EDT 11/19/2024 us Omar Gacria MD LAB URINE ORDERABLES Final Re sult [facility] [address] [place] [address] * (ABNORMAL) CBC and differential (11/19/2024 11:01 AM EDT) WBC 14.0(H) 3.4 - 10.8 x10E3/uL [facility] RBC 4.26 3.77 - 5.28 x10E6/uL [facility] Hemoglobin 11.2 11.1 - 15.9 g/dL [facility] Hematocrit 34.7 34.0 - 46.6 % [facility] MCV 82 79 - 97 fL [facility] MCH 26.3(L) 26.6 - 33.0 pg [facility] MCHC 32.3 31.5 - 35.7 g/dL [facility] RDW 15.2 11.7 - 15.4 % [facility] Platelets 327 150 - 450 x10E3/uL [facility] Neutrophils Relative 73 Not Estab. % [facility] Lymphocytes Relative 18 Not Estab. % [facility] Monocytes 6 Not Estab. % [facility] Eosinophils Relative 2 Not Estab. % [facility] Basophils Relative 0 Not Estab. % [facility] Neutrophils Absolute 10.2(H) 1.4 - 7.0 x10E3/uL [facility] Lymphocytes Absolute 2.5 0.7 - 3.1 x10E3/uL [facility] Monocytes Absolute 0.8 0.1 - 0.9 x10E3/uL [facility] Eosinophils Absolute 0.3 0.0 - 0.4 x10E3/uL [facility] Basophils Absolute 0.0 0.0 - 0.2 x10E3/uL [facility] Immature Granulocytes 1 Not Estab. % [facility] Immature Grans (Absolute) 0.1 0.0 - 0.1 x10E3/uL [facility] Blood specimen (specimen) Venous blood / Unknown 11/19/2024 11:01 AM EDT 11/19/2024 us Omar Garcia MD LAB BLOOD ORDERABLES Final Re sult [facility] [address] [place] [address] documented in this encounter Visit Diagnoses Diagnosis 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) Other proteinuria SLE glomerulonephritis syndrome, WHO class V (HCC) Anemia in chronic kidney disease Nephrotic syndrome Fluid overload, not otherwise specified Chronic kidney disease stage 3A (HCC) documented in this encounter Care Teams Fine Arts Chair Relationship Specialty Start Date End Date Denise Blancas MD [address] [place] [address] PCP - General Internal Medicine 06/27/24 documented as of this encounter
--- OUTSIDE RECORDS SUMMARY | 2025-03-04 14:14 | XMS_ITS | Encounter Summary ---
Author Organization [facility] Of [facility] Address [address] [place] [address] Phone Care Team Providers Care Personal Chef Name Role Phone Denise Blancas MD Primary Care Provider [phone] Encounter Details Date Type Department Care Team (Late st Contact Info) Description 11/14/2024 Documentation Only [facility] [place], [address] [place] [address] Rhianna Castro [address] [place] [address] Social History Tobacco Use Types [...] Visit [facility] [address] [place] [address] Breonna Le MD [address] [place] [address] documented as of this encounter Visit Diagnoses Not on filedocumented in this encounter Care Teams Personal Chef Relationship Specialty Start Date End Date Denise Blancas MD [address] [place] [address] PCP - General Internal Medicine 06/27/24 documented as of this encounter
--- OUTSIDE RECORDS SUMMARY | 2025-03-04 14:14 | XMS_ITS | Encounter Summary ---
Author Organization [facility] Of [facility] Address [address] [place] [address] Phone Care Team Providers Care Academic Department Chair Name Role Phone Denise Blancas MD Primary Care Provider [phone] Encounter Details Date Type Department Care Team (Latest Contact Info) Description 08/05/2022 Orders Only [facility] Of [address] [place] [address] Jovanna Schaeffer MD SLE glomerulonephritis [...] Visit [facility] [address] [place] [address] Breonna Le MD [address] [place] [address] [place] [address] documented as of this encounter Visit Diagnoses Diagnosis SLE glomerulonephritis syndrome, WHO class V (HCC) documented in this encounter Care Teams Academic Department Chair Relationship Specialty Start Date End Date Denise Blancas MD [address] [place] [address] PCP - General Internal Medicine 06/27/24 documented as of this encounter
--- OUTSIDE RECORDS SUMMARY | 2025-03-04 14:14 | XMS_ITS | Encounter Summary ---
Author Organization [facility] Of [facility] Address [address] [place] [address] Phone Care Team Providers Care Dental Laboratory Technician Apprentice Name Role Phone Denise Blancas MD Primary Care Provider [phone] Encounter Details Date Type Department Care Team (Late st Contact Info) Description 02/13/2025 Documentation Only [facility] [place], [address] [place] [address] Rhianna Castro [address] [place] [address] Social History Tobacco Use Types [...] [facility] [address] [place] [address] Breonna Le MD [address] [place] [address] documented as of this encounter Visit Diagnoses Not on filedocumented in this encounter Care Teams Dental Laboratory Technician Apprentice Relationship Specialty Start Date End Date Denise Blancas MD [address] [place] [address] PCP - General Internal Medicine 06/27/24 documented as of this encounter
--- OUTSIDE RECORDS SUMMARY | 2025-03-04 14:14 | XMS_ITS | Encounter Summary ---
Author Organization [facility] [place], Address [address] [place] [address] Phone Care Team Providers Care Medical Coding Auditor Name Role Phone Denise Blancas MD Primary Care Provider [phone] Encounter Details Date Type Department Care Team (Late st Contact Info) Description 12/18/2024 Documentation Only [facility] [place], [address] [place] [address] Rhianna Castro [address] [place] [address] Social History Tobacco Use Types [...] Visit [facility] [address] [place] [address] Breonna Le MD [address] [place] [address] documented as of this encounter Visit Diagnoses Not on filedocumented in this encounter Care Teams Medical Coding Auditor Relationship Specialty Start Date End Date Denise Blancas MD [address] [place] [address] PCP - General Internal Medicine 06/27/24 documented as of this encounter
--- OUTSIDE RECORDS SUMMARY | 2025-03-04 14:14 | XMS_ITS | Encounter Summary ---
Author Organization [facility] Of [place], Address [address] [place] [address] Phone Care Team Providers Care Bakery Worker Conveyor Line Name Role Phone Denise Blancas MD Primary Care Provider [phone] Encounter Details Date Type Department Care Team (Late st Contact Info) Description 08/01/2024 Documentation Only [facility] [place], [address] [place] [address] [place], [place] [address] [place] [address] Social History Tobacco Use Types [...] Transplant Services Of [facility] [address] [place] [address] Breonna Le MD [address] [place] [address] [place] [address] documented as of this encounter Visit Diagnoses Not on filedocumented in this encounter Care Teams Bakery Worker Conveyor Line Relationship Specialty Start Date End Date Denise Blancas MD [address] [place] [address] PCP - General Internal Medicine 06/27/24 documented as of this encounter
--- OUTSIDE RECORDS SUMMARY | 2025-03-04 14:15 | XMS_ITS | Encounter Summary ---
Author Organization [facility] Of [facility] Address [address] [place] [address] Phone Care Team Providers Care Stress Analyst Name Role Phone Denise Blancas MD Primary Care Provider [phone] Encounter Details Date Type Department Care Team (Latest Contact Info) Description 11/24/2023 Orders Only [facility] Of [address] [place] [address] Jovanna Schaeffer MD SLE glomerulonephritis [...] [facility] [address] [place] [address] Breonna Le MD [address] [place] [address] [place] [address] documented as of this encounter Visit Diagnoses Diagnosis SLE glomerulonephritis syndrome, WHO class V (HCC) documented in this encounter Care Teams Stress Analyst Relationship Specialty Start Date End Date Denise Blancas MD [address] [place] [address] PCP - General Internal Medicine 06/27/24 documented as of this encounter
--- OUTSIDE RECORDS SUMMARY | 2025-03-04 14:15 | XMS_ITS | Encounter Summary ---
Author Organization [facility] Of [facility] Address [address] [place] [address] Phone Care Team Providers Care Bone Glue Maker Name Role Phone Denise Blancas MD Primary Care Provider [phone] Encounter Details Date Type Department Care Team (Latest Contact Info) Description 11/03/2023 Orders Only [facility] Of [address] [place] [address] Jovanna Schaeffer MD SLE glomerulonephritis [...] [facility] Of [address] [place] [address] Breonna Le MD [address] [place] [address] [place] [address] documented as of this encounter Visit Diagnoses Diagnosis SLE glomerulonephritis syndrome, WHO class V (HCC) documented in this encounter Care Teams Bone Glue Maker Relationship Specialty Start Date End Date Denise Blancas MD [address] [place] [address] PCP - General Internal Medicine 06/27/24 documented as of this encounter
--- OUTSIDE RECORDS SUMMARY | 2025-03-04 14:15 | XMS_ITS | Encounter Summary ---
Author Organization [facility] Of [facility] Address [address] [place] [address] Phone Care Team Providers Care Drill Instructor Name Role Phone Denise Blancas MD Primary Care Provider [phone] Encounter Details Date Type Department Care Team (Late st Contact Info) Description 02/21/2025 Documentation Only [facility] [place], [address] [place] [address] Rhianna Castro [address] [place] [address] Social History Tobacco Use Types [...] Transplant Services Of [facility] [address] [place] [address] Breonna Le MD [address] [place] [place] [address] documented as of this encounter Visit Diagnoses Not on filedocumented in this encounter Care Teams Drill Instructor Relationship Specialty Start Date End Date Denise Blancas MD [address] [place] [address] PCP - General Internal Medicine 06/27/24 documented as of this encounter
--- OUTSIDE RECORDS SUMMARY | 2025-03-04 14:15 | XMS_ITS | Encounter Summary ---
Author Organization [facility] Of [place], Address [address] [place] [address] Phone Care Team Providers Care Manager Retail Name Role Phone Denise Blancas MD Primary Care Provider [phone] Encounter Details Date Type Department Care Team (Late st Contact Info) Description 09/01/2023 Documentation Only [facility] [place], [address] [place] [address] Omar Garcia MD [address] [place] [address] [place] [address] Social History Tobacco Use Types [...] Transplant Services Of [facility] [address] [place] [address] Breonna eL MD [address] [place] [address] documented as of this encounter Visit Diagnoses Not on filedocumented in this encounter Care Teams Manager Retail Relationship Specialty Start Date End Date O'Vazquez, Denise M, MD [address] [place] [address] PCP - General Internal Medicine 06/27/24 documented as of this encounter
--- OUTSIDE RECORDS SUMMARY | 2025-03-04 14:15 | XMS_ITS | Encounter Summary ---
Author Organization [facility] Of [facility] Address [address] [place] [address] Phone Care Team Providers Care Senior Visual Designer Name Role Phone Denise Blancas MD Primary Care Provider [phone] Encounter Details Date Type Department Care Team (Latest Contact Info) Description 12/23/2022 Orders Only [facility] Of [address] [place] [address] Jovanna Schaeffer MD SLE glomerulonephritis [...] Visit [facility] Of [address] [place] [address] Breonna Le MD [address] [place] [address] [place] [address] documented as of this encounter Procedures Procedure Name Priority Date/Time Associated Diagnosis Comments DNA ANTIBODY DS #2 - HC Routine 10/30/2023 4:35 PM EDT documented in this encounter Results * DNA Antibody DS (10/30/2023 4:35 PM EDT) Anti-DNA (DS) AB QN 2 0 - 9 IU/mL See order comments Comment: Negative <5 Equivocal 5 - 9 Positive >9 10/30/2023 4:35 PM EDT 10/30/2023 Narrative [facility] - 10/31/2023 3:07 PM EDT Performed at: 01 - [facility] [id number] Animal Technician: Mitzy Knutson MD, Phone: [phone] us Jovanna Schaeffer MD LAB [id number] ICITED RESULTS Final Result [facility] See order comments [place] [address] documented in this encounter Visit Diagnoses Diagnosis SLE glomerulonephritis syndrome, WHO class V (HCC) documented in this encounter Care Teams Senior Visual Designer Relationship Specialty Start Date End Date Denise Blancas MD [address] [place] [address] PCP - General Internal Medicine 06/27/24 documented as of this encounter
--- OUTSIDE RECORDS SUMMARY | 2025-03-04 14:15 | XMS_ITS | Encounter Summary ---
Author Organization [facility] Of [place], Address [address] [place] [address] Phone Care Team Providers Care Echo Vascular Technologist Name Role Phone Denise Blancas MD Primary Care Provider [phone] Encounter Details Date Type Department Care Team (Late st Contact Info) Description 10/26/2023 Documentation Only [facility] [place], [address] [place] [address] Rhianna Castro [address] [place] [address] Social History Tobacco Use Types [...] And Transplant Services Of [facility] [address] [place] [address] Breonna Le MD [address] [place] [address] documented as of this encounter Visit Diagnoses Not on filedocumented in this encounter Care Teams Echo Vascular Technologist Relationship Specialty Start Date End Date Denise Blancas MD [address] [place] [address] PCP - General Internal Medicine 06/27/24 documented as of this encounter
--- OUTSIDE RECORDS SUMMARY | 2025-03-04 14:15 | XMS_ITS | Encounter Summary ---
Author Organization [facility] Address [address] [place] [address] Phone Care Team Providers Care Chair Frame Builder Name Role Phone Denise Blancas MD Primary Care Provider [phone] Encounter Details Date Type Department Care Team (Late st Contact Info) Description 02/21/2025 Documentation Only [facility] [place], [address] [place] [address] Rhianna Castro [address] [place] [address] Social History Tobacco Use Types [...] Visit [facility] [address] [place] [address] Breonna Le MD [address] [place] [address] documented as of this encounter Visit Diagnoses Not on filedocumented in this encounter Care Teams Chair Frame Builder Relationship Specialty Start Date End Date Denise Blancas MD [address] [place] [address] PCP - General Internal Medicine 06/27/24 documented as of this encounter
--- OUTSIDE RECORDS SUMMARY | 2025-03-04 14:15 | XMS_ITS | Encounter Summary ---
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); Other proteinuria; SLE glomerulonephritis syndrome, WHO class V (HCC); Anemia in chronic kidney disease; Nephrotic syndrome; Fluid overload, not otherwise specified; Chronic kidney disease stage 3A ([facility]) Social History Tobacco Use Types Packs/Day [...] [facility] [address] [place] [address] Breonna Le MD [address] [place] [address] documented as of this encounter Visit Diagnoses Diagnosis 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
--- OUTSIDE RECORDS SUMMARY | 2025-03-04 14:15 | XMS_ITS | Encounter Summary ---
Author Organization [facility] Address [address] [place] [address] Phone Care Team Providers Care Physician Industrial Name Role Phone Denise Blancas MD Primary Care Provider [phone] Encounter Details Date Type Department Care Team (Latest Contact Info) Description 02/14/2025 Orders Only [facility] Of [address] [place] [address] Breonna Le MD [address] [place] [address] [place] [address] Glomerular disease in systemic lupus [...] Visit [facility] [address] [place] [address] Breonna Le MD [address] [place] [address] [place] [address] documented as of this encounter Visit Diagnoses Diagnosis 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
--- OUTSIDE RECORDS SUMMARY | 2025-03-04 14:15 | XMS_ITS | Encounter Summary ---
Author Organization [facility] Address [address] [place] [address] Phone Care Team Providers Care Ordnance Engineer Name Role Phone Denise Blancas MD Primary Care Provider [phone] Encounter Details Date Type Department Care Team (Latest Contact Info) Description 02/21/2025 Orders Only [facility] Of [address] [place] [address] Breonna Le MD [address] [place] [address] [place] [address] Glomerular disease in systemic lupus [...] Visit [facility] [address] [place] [address] Breonna Le MD [address] [place] [address] [place] [address] documented as of this encounter Visit Diagnoses Diagnosis 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
--- OUTSIDE RECORDS SUMMARY | 2025-03-04 14:15 | XMS_ITS | Encounter Summary ---
Author Organization [facility] Address [address] [place] [address] Phone Care Team Providers Care Commercial Real Estate Lender Name Role Phone Denise Blancas MD Primary Care Provider [phone] Encounter Details Date Type Department Care Team (Late st Contact Info) Description 01/15/2025 Documentation Only [facility] [place], [address] [place] [address] Rhianna Castro [address] [place] [address] Social History Tobacco Use Types [...] [facility] [address] [place] [address] Breonna Le MD [address] [place] [address] documented as of this encounter Visit Diagnoses Not on filedocumented in this encounter Care Teams Commercial Real Estate Lender Relationship Specialty Start Date End Date Denise Blancas MD [address] [place] [address] PCP - General Internal Medicine 06/27/24 documented as of this encounter
--- OUTSIDE RECORDS SUMMARY | 2025-03-04 14:15 | XMS_ITS | Encounter Summary ---
Author Organization [facility] Address [address] [place] [address] Phone Care Team Providers Care Croze Machine Operator Name Role Phone Denise Blancas MD Primary Care Provider [phone] Encounter Details Date Type Department Care Team (Latest Contact Info) Description 02/28/2025 Orders Only [facility] [place], [address] [place] [address] Rhianna Castro [address] [place] [address] Proteinuria, not otherwise specified; Other form of systemic lupus erythematosus (HCC); Vitamin D deficiency, not otherwise specified; Flank pain; Anemia, not otherwise specified; Edema of lower extremity; Hypertension; Nephrotic syndrome; Type 2 diabetes mellitus, not otherwise specified (HCC); 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); ; SLE glomerulonephritis syndrome, WHO class V ([facility]); Other proteinuria; Fluid overload, not otherwise specified; Chronic kidney disease stage 3A ([facility]); Anemia in chronic kidney disease; Routine general medical examination at a health care facility Social History Tobacco Use Types Packs/Day Years [...] Upcoming Encounters Date Type Department Care Team ( Contact Info) Description 03/06/2025 2:30 PM EDT Office Visit [facility] [place], [address] [place] [address] Breonna Le MD [address] [place] [id number] documented as of this encounter Visit Diagnoses Diagnosis Proteinuria, not otherwise specified Other form of [...] medical examination at a health care facility documented in this encounter Care Teams Croze Machine Operator Relationship Specialty Start Date End Date Denise Blancas MD [address] [place] [address] PCP - General Internal Medicine 06/27/24 documented as of this encounter
--- OUTSIDE RECORDS SUMMARY | 2025-03-04 14:15 | XMS_ITS | Encounter Summary ---
Author Organization [facility] Address [address] [place] [address] Phone Care Team Providers Care Patternmaker Bench Name Role Phone Denise Blancas MD Primary Care Provider [phone] Encounter Details Date Type Department Care Team (Latest Contact Info) Description 12/15/2023 Orders Only [facility] [address] [place] [address] Jovanna Schaeffer MD SLE glomerulonephritis [...] [facility] [address] [place] [address] Breonna Le MD [address] [place] [address] [place] [address] documented as of this encounter Visit Diagnoses Diagnosis SLE glomerulonephritis syndrome, WHO class V (HCC) documented in this encounter Care Teams Patternmaker Bench Relationship Specialty Start Date End Date Denise Blancas MD [address] [place] [address] PCP - General Internal Medicine 06/27/24 documented as of this encounter
--- OUTSIDE RECORDS SUMMARY | 2025-03-04 14:15 | XMS_ITS | Encounter Summary ---
Author Organization [facility] Address [address] [place] [address] Phone Care Team Providers Care Material Worker Name Role Phone Denise Blancas MD Primary Care Provider [phone] Encounter Details Date Type Department Care Team (Latest Contact Info) Description 01/24/2025 Orders Only [facility] Of [address] [place] [address] Breonna Le MD [address] [place] [address] [place] [address] Glomerular disease in systemic lupus [...] [facility] [address] [place] [address] Breonna Le MD [address] [place] [address] [place] [address] documented as of this encounter Visit Diagnoses Diagnosis 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
--- OUTSIDE RECORDS SUMMARY | 2025-03-04 14:15 | XMS_ITS | Encounter Summary ---
Author Organization [facility] [place], Address [address] [place] [address] Phone Care Team Providers Care Clip On Sunglasses Assembler Name Role Phone Denise Blancas MD Primary Care Provider [phone] Encounter Details Date Type Department Care Team (Late st Contact Info) Description 10/26/2023 Documentation Only [facility] [place], [address] [place] [address] Rhianna Castro [address] [place] [address] Social History Tobacco Use Types [...] Visit [facility] [address] [place] [address] Breonna Le MD [address] [place] [address] documented as of this encounter Visit Diagnoses Not on filedocumented in this encounter Care Teams Clip On Sunglasses Assembler Relationship Specialty Start Date End Date Denise Blancas MD [address] [place] [address] PCP - General Internal Medicine 06/27/24 documented as of this encounter
--- OUTSIDE RECORDS SUMMARY | 2025-03-04 14:15 | XMS_ITS | Encounter Summary ---
Author Organization [facility] Address [address] [place] [address] Phone Care Team Providers Care Treasury Manager Name Role Phone Denise Blancas MD Primary Care Provider [phone] Encounter Details Date Type Department Care Team (Latest Contact Info) Description 11/17/2023 Orders Only [facility] [address] [place] [address] Jovanna Schaeffer MD SLE glomerulonephritis [...] [facility] [address] [place] [address] Breonna Le MD [address] [place] [address] [place] [address] documented as of this encounter Visit Diagnoses Diagnosis SLE glomerulonephritis syndrome, WHO class V (HCC) documented in this encounter Care Teams Treasury Manager Relationship Specialty Start Date End Date Denise Blancas MD [address] [place] [address] PCP - General Internal Medicine 06/27/24 documented as of this encounter
--- OUTSIDE RECORDS SUMMARY | 2025-03-04 14:15 | XMS_ITS | Encounter Summary ---
Author Organization [facility] Address [address] [place] [address] Phone Care Team Providers Care Loader Operator Name Role Phone Denise Blancas MD Primary Care Provider [phone] Encounter Details Date Type Department Care Team (Latest Contact Info) Description 11/10/2023 Orders Only [facility] [address] [place] [address] Jovanna Schaeffer MD SLE glomerulonephritis [...] [facility] [address] [place] [address] Breonna Le MD [address] [place] [address] [place] [address] documented as of this encounter Visit Diagnoses Diagnosis SLE glomerulonephritis syndrome, WHO class V (HCC) documented in this encounter Care Teams Loader Operator Relationship Specialty Start Date End Date Denise Blancas MD [address] [place] [address] PCP - General Internal Medicine 06/27/24 documented as of this encounter
--- OUTSIDE RECORDS SUMMARY | 2025-03-04 14:15 | XMS_ITS | Encounter Summary ---
Author Organization [facility] Address [address] [place] [address] Phone Care Team Providers Care Night Filler Name Role Phone Denise Blancas MD Primary Care Provider [phone] Encounter Details Date Type Department Care Team (Latest Contact Info) Description 01/31/2025 Orders Only [facility] [address] [place] [address] Breonna Le MD [address] [place] [address] [place] [address] Glomerular disease in systemic lupus [...] [facility] [address] [place] [address] Breonna Le MD [address] [place] [address] [place] [address] documented as of this encounter Visit Diagnoses Diagnosis 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
--- OUTSIDE RECORDS SUMMARY | 2025-03-04 14:15 | XMS_ITS | Encounter Summary ---
Author Organization [facility] Address [address] [place] [address] Phone Care Team Providers Care Social Scientist Name Role Phone Denise Blancas MD Primary Care Provider [phone] Encounter Details Date Type Department Care Team (Late st Contact Info) Description 02/21/2025 Documentation Only [facility] [place], [address] [place] [address] Rhianna Castro [address] [place] [address] Social History Tobacco Use [...] Visit [facility] [address] [place] [address] Breonna Le MD [address] [place] [address] documented as of this encounter Visit Diagnoses Not on filedocumented in this encounter Care Teams Social Scientist Relationship Specialty Start Date End Date Denise Blancas MD [address] [place] [address] PCP - General Internal Medicine 06/27/24 documented as of this encounter
--- OUTSIDE RECORDS SUMMARY | 2025-03-04 14:15 | XMS_ITS | Encounter Summary ---
Author Organization [facility] Address [address] [place] [address] Phone Care Team Providers Care Operating Room Registered Nurse Name Role Phone Denise Blancas MD Primary Care Provider [phone] Encounter Details Date Type Department Care Team (Latest Contact Info) Description 03/17/2023 Orders Only [facility] [address] [place] [address] Jovanna Schaeffer MD SLE glomerulonephritis [...] [facility] [address] [place] [address] Breonna Le MD [address] [place] [address] [place] [address] documented as of this encounter Visit Diagnoses Diagnosis SLE glomerulonephritis syndrome, WHO class V (HCC) documented in this encounter Care Teams Operating Room Registered Nurse Relationship Specialty Start Date End Date Denise Blancas MD [address] [place] [address] PCP - General Internal Medicine 06/27/24 documented as of this encounter
--- OUTSIDE RECORDS SUMMARY | 2025-03-04 14:15 | XMS_ITS | Encounter Summary ---
Author Organization [facility] Address [address] [place] [address] Phone Care Team Providers Care Radiation Oncology Therapist Name Role Phone Denise Blancas MD Primary Care Provider [phone] Encounter Details Date Type Department Care Team (Latest Contact Info) Description 12/01/2023 Orders Only [facility] Of [address] [place] [address] Jovanna Schaeffer MD SLE glomerulonephritis [...] [facility] [address] [place] [address] Breonna Le MD [address] [place] [address] [place] [address] documented as of this encounter Visit Diagnoses Diagnosis SLE glomerulonephritis syndrome, WHO class V (HCC) documented in this encounter Care Teams Radiation Oncology Therapist Relationship Specialty Start Date End Date Denise Blancas MD [address] [place] [address] PCP - General Internal Medicine 06/27/24 documented as of this encounter
--- OUTSIDE RECORDS SUMMARY | 2025-03-04 14:15 | XMS_ITS | Encounter Summary ---
Author Organization [facility] Address [address] [place] [address] Phone Care Team Providers Care Knife Setter Assembler Name Role Phone Denise Blancas MD Primary Care Provider Encounter Details Date Type Department Care Team (Latest Contact Info) Description 12/08/2023 Orders Only [facility] Of [address] [place] [address] Jovanna Schaeffer MD SLE glomerulonephritis [...] [facility] [address] [place] [address] Breonna Le MD [address] [place] [address] [place] [address] documented as of this encounter Visit Diagnoses Diagnosis SLE glomerulonephritis syndrome, WHO class V (HCC) documented in this encounter Care Teams Knife Setter Assembler Relationship Specialty Start Date End Date Denise Blancas MD [address] [place] [address] PCP - General Internal Medicine 06/27/24 documented as of this encounter
--- OUTSIDE RECORDS SUMMARY | 2025-03-04 14:15 | XMS_ITS | Encounter Summary ---
Author Organization [facility] Address [address] [place] [address] Phone Care Team Providers Care Corporate Librarian Name Role Phone Denise Blancas MD Primary Care Provider [phone] Encounter Details Date Type Department Care Team (Latest Contact Info) Description 06/09/2023 Orders Only [facility] Of [address] [place] [address] Jovanna Schaeffer MD SLE glomerulonephritis [...] Visit [facility] Of [address] [place] [address] Breonna Le MD [address] [place] [address] [place] [address] documented as of this encounter Visit Diagnoses Diagnosis SLE glomerulonephritis syndrome, WHO class V (HCC) documented in this encounter Care Teams Corporate Librarian Relationship Specialty Start Date End Date Denise Blancas MD [address] [place] [address] PCP - General Internal Medicine 06/27/24 documented as of this encounter
--- OUTSIDE RECORDS SUMMARY | 2025-03-04 14:15 | XMS_ITS | Encounter Summary ---
Author Organization [facility] Of [place], Address [address] [place] [address] Phone Care Team Providers Care Java Jsf Developer Name Role Phone Denise Blancas MD Primary Care Provider [phone] Encounter Details Date Type Department Care Team (Late st Contact Info) Description 09/05/2023 Documentation Only [facility] [place], [address] [place] [address] Rhianna Castro [address] [place] [address] Social History Tobacco Use Types [...] Of [facility] [address] [place] [place] [address] Breonna Le MD [address] [place] [place] [address] documented as of this encounter Visit Diagnoses Not on filedocumented in this encounter Care Teams Java Jsf Developer Relationship Specialty Start Date End Date Denise Blancas MD [address] [place] [address] PCP - General Internal Medicine 06/27/24 documented as of this encounter
--- OUTSIDE RECORDS SUMMARY | 2025-03-04 14:15 | XMS_ITS | Encounter Summary ---
Author Organization [facility] Address [address] [place] [address] Phone Care Team Providers Care Mixed Crop And Livestock Farmer Name Role Phone Denise Blancas MD Primary Care Provider [phone] Encounter Details Date Type Department Care Team (Latest Contact Info) Description 02/14/2025 Orders Only [facility] [place], [address] [place] [address] Rhianna Castro [address] [place] [address] Proteinuria, not otherwise specified; Other form of systemic lupus erythematosus (HCC); Vitamin D deficiency, not otherwise specified; Flank pain; Anemia, not otherwise specified; Edema of lower extremity; Hypertension; Nephrotic syndrome; Type 2 diabetes mellitus, not otherwise specified (HCC); 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); ; SLE glomerulonephritis syndrome, WHO class V ([facility]); Other proteinuria; Fluid overload, not otherwise specified; Chronic kidney disease stage 3A ([facility]); Anemia in chronic kidney disease; Routine general [...] Visit [facility] [place], [address] [place] [address] Breonna Le MD [address] [place] [id number] documented as of this encounter Visit Diagnoses [...] facility documented in this encounter Care Teams Mixed Crop And Livestock Farmer Relationship Specialty Start Date End Date Denies Blancas MD [address] [place] [address] PCP - General Internal Medicine 06/27/24 documented as of this encounter
--- OUTSIDE RECORDS SUMMARY | 2025-03-04 14:15 | XMS_ITS | Encounter Summary ---
Author Organization [facility] Address [address] [place] [address] Phone Care Team Providers Care Educator Senior Clinical Name Role Phone Denise Blancas MD Primary Care Provider [phone] Encounter Details Date Type Department Care Team (Late st Contact Info) Description 02/21/2025 Documentation Only [facility] [place], [address] [place] [address] Rhianna Castro [address] [place] [address] Social History Tobacco Use Types [...] And Transplant [facility] [address] [place] [address] Breonna Le MD [address] [place] [address] documented as of this encounter Visit Diagnoses Not on filedocumented in this encounter Care Teams Educator Senior Clinical Relationship Specialty Start Date End Date Denise Blancas MD [address] [place] [address] PCP - General Internal Medicine 06/27/24 documented as of this encounter
--- OUTSIDE RECORDS SUMMARY | 2025-03-04 14:15 | XMS_ITS | Encounter Summary ---
Author Organization [facility] [place], Address [address] [place] [address] Phone Care Team Providers Care Record Label Intern Name Role Phone Denise Blancas MD Primary Care Provider [phone] Encounter Details Date Type Department Care Team (Late st Contact Info) Description 09/05/2023 Documentation Only [facility] [place], [address] [place] [address] Rhianna Castro [address] [place] [address] Social History Tobacco Use Types [...] Services Of [facility] [address] [place] [address] Breonna Le MD [address] [place] [address] documented as of this encounter Visit Diagnoses Not on filedocumented in this encounter Care Teams Record Label Intern Relationship Specialty Start Date End Date Denise Blancas MD [address] [place] [address] PCP - General Internal Medicine 06/27/24 documented as of this encounter
--- OUTSIDE RECORDS SUMMARY | 2025-03-04 14:15 | XMS_ITS | Encounter Summary ---
Author Organization [facility] Address [address] [place] [address] Phone Care Team Providers Care Bmet Name Role Phone Denise Blancas MD Primary Care Provider [phone] Encounter Details Date Type Department Care Team (Latest Contact Info) Description 02/21/2025 Orders Only [facility] [place], [address] [place] [address] Rhianna Castro [address] [place] [address] Proteinuria, not otherwise specified; Other form of systemic lupus erythematosus (HCC); Vitamin D deficiency, not otherwise specified; Flank pain; Anemia, not otherwise specified; Edema of lower extremity; Hypertension; Nephrotic syndrome; Type 2 diabetes mellitus, not otherwise specified (HCC); 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); ; SLE glomerulonephritis syndrome, WHO class V ([facility]); Other proteinuria; Fluid overload, not otherwise specified; Chronic kidney disease stage 3A ([facility]); Anemia in chronic kidney disease; Routine general [...] Visit [facility] [place], [address] [place] [address] Breonna Le MD [address] [place] [address] documented as of this encounter Procedures Procedure Name Priority Date/Time Associated Diagnosis Comments URINALYSIS, COMPLETE Routine 02/26/2025 1:04 PM EDT [...] NOT USE Routine 02/26/2025 1:04 PM EDT FAWAD PANEL Routine 02/26/2025 1:04 PM EDT [...] medical examination at a health care facility URINE ALBUMIN / CREATININE RATIO Routine 02/26/2025 1:04 PM EDT SEDIMENTATION RATE, AUTOMATED Routine 02/26/2025 1:04 PM [...] medical examination at a health care facility RENAL FUNCTION PANEL Routine 02/26/2025 1:04 PM [...] health care facility documented in this encounter Results * (ABNORMAL) Urine Albumin / Creatinine Ratio (02/26/2025 1:04 PM EDT) Albumin, Urine 3,956.2 Not Estab. ug/mL [facility] Comment: Results confirmed on dilution. Albumin/Creatin ine Ratio 3,856(H) 0 - 29 mg/g creat [facility] Comment: Normal: 0 - 29 Moderately increased: 30 - 300 Severely increased: >300 02/26/2025 1:04 PM EDT 02/26/2025 Omar Garcia MD LAB URINE ORDERABLES Final Re sult Performing Organization Address City/[facility] Co de Phone Number [facility] [place] [address] [place] [address] * (ABNORMAL) Renal Function Panel (02/26/2025 1:04 PM EDT) Pathologist [facility] Phosphorus 5.1(H) 3.0 - 4.3 mg/dL [facility] 02/26/2025 1:04 PM EDT 02/26/2025 Omar Garcia MD LAB BLOOD ORDERABLES Final Re sult Performing Organization Address City/[facility]/ZIP Co de Phone Number [facility] [place] [address] [place] [address] * (ABNORMAL) Microscopic Examination (02/26/2025 1:04 PM EDT) Pathologist [facility] WBC, Urine 0-5 0 - 5 /hpf [facility] RBC, Urine 3-10(A) 0 - 2 /hpf [facility] Squamous Epithelial, Urine 0-10 0 - 10 /hpf [facility] Casts Present(A) None seen /lpf [facility] Cast Type Hyaline casts N/A [facility] Bacteria, Urine None seen None seen/Few [facility] 02/26/2025 1:04 PM EDT 02/26/2025 us Omar Garcia MD LAB MICROBIOLOGY - GENERAL OR DERABLES Final Result [facility] [place] [address] [place] [address] * (ABNORMAL) Comprehensive metabolic panel (02/26/2025 1:04 PM EDT) Glucose 125(H) 70 - 99 mg/dL [facility] BUN 36(H) 6 - 20 mg/dL [facility] Creatinine 2.29(H) 0.57 - 1.00 mg/dL [facility] eGFR CKD-EPI CR 2020 30(L) >59 mL/min/1.7 3 [facility] BUN/Creatinine Ratio 16 9 - 23 [facility] Sodium 140 134 - 144 mmol/L [facility] Potassium 4.8 3.5 - 5.2 mmol/L [facility] Chloride 106 96 - 106 mmol/L [facility] Bicarbonate (CO2) 18(L) 20 - 29 mmol/L [facility] Calcium 8.3(L) 8.7 - 10.2 mg/dL [facility] Total Protein 4.8(L) 6.0 - 8.5 g/dL [facility] Albumin 2.7(L) 4.0 - 5.0 g/dL [facility] Globulin 2.1 1.5 - 4.5 g/dL [facility] Total Bilirubin <0.2 0.0 - 1.2 mg/dL [facility] Alkaline Phosphatase 79 44 - 121 IU/L [facility] AST (SGOT) 16 0 - 40 IU/L [facility] ALT (SGPT) 17 0 - 32 IU/L [facility] Blood Venous blood / Unknown 02/26/2025 1:04 PM EDT 02/26/2025 Omar Garcia MD LAB BLOOD ORDERABLES Final Re sult Performing Organization Address City/[facility]/ZIP Co de Phone Number [facility] [place] [address] [place] [address] * (ABNORMAL) Sedimentation Rate (02/26/2025 1:04 PM EDT) Pathologist [facility] Sed Rate 89(H) 0 - 32 mm/hr [facility] Blood Venous blood / Unknown 02/26/2025 1:04 PM EDT 02/26/2025 Omar Garcia MD LAB BLOOD ORDERABLES Final Re sult Performing Organization Address City/[facility]/ZIP Co de Phone Number [facility] [place] [address] [place] [address] * C-Reactive Protein (02/26/2025 1:04 PM EDT) Pathologist [facility] C-Reactive Protein Quant 4 0 - 10 mg/L [facility] Blood Venous blood / Unknown 02/26/2025 1:04 PM EDT 02/26/2025 Omar Garcia MD LAB BLOOD ORDERABLES Final Re sult [facility] [place] [address] [place] [address] * (ABNORMAL) FAWAD Panel (02/26/2025 1:04 PM EDT) Pathologist [facility] AG ANTIBODIES >8.0(H) 0.0 - 0.9 AI [facility] Blood Venous blood / Unknown 02/26/2025 1:04 PM EDT 02/26/2025 Omar Garcia MD LAB BLOOD ORDERABLES Final Re sult Performing Organization Address [facility] Co de Phone Number [facility] [place] [address] [place] [address] * (ABNORMAL) Urine Protein / creatinine ratio (02/26/2025 1:04 PM EDT) Pathologist [facility] Creatinine, Ur 102.6 Not Estab. mg/dL [facility] Protein, Ur 748.6 Not Estab. mg/dL [facility] Comment: Results confirmed on dilution. Urine Protein/Creati nine Ratio 7,296(H) 0 - 200 mg/g creat [facility] Urine Urine specimen obtained by clean catch procedure / Unknown 02/26/2025 1:04 PM EDT 02/26/2025 Omar Garcia MD LAB URINE ORDERABLES Final Re sult Performing Organization Address City/[facility]/ZIP Co de Phone Number [facility] [place] [address] [place] [address] * (ABNORMAL) Uric acid (02/26/2025 1:04 PM EDT) Pathologist [facility] Uric Acid 6.7(H) 2.6 - 6.2 mg/dL [facility] Comment:Therapeutic target f or gout patients: <6.0 Blood Venous blood / Unknown 02/26/2025 1:04 PM EDT 02/26/2025 us Omar Garcia MD LAB BLOOD ORDERABLES Final Re sult [facility] [place] [address] [place] [address] * (ABNORMAL) Urinalysis, Complete w/reflex to Culture (02/26/2025 1:04 PM EDT) Pathologist [facility] Specific [place], Urine 1.021 1.005 - 1.030 [facility] pH Urine 6.0 5.0 - 7.5 [facility] Color, Urine Yellow Yellow [facility] [phone] Appearance Urine Clear Clear [facility] [place] WBC Esterase Urine Negative Negative [facility] [phone] Protein, Ur 4+(A) Negative/Tra ce [facility] Glucose, Ur Trace(A) Negative [facility] Ketones, Urine Negative Negative [facility] [place] [phone] Blood Urine Trace(A) Negative [facility] Bilirubin Urine Negative Negative [facility] [place] Urobilinogen Urine 0.2 0.2 - 1.0 mg/dL [facility] Nitrite, Urine Negative Negative [facility] [place] Microscopic Examination See below: [facility] [phone] Comment:Microscopic was shashi cated and was performed. URINALYSIS REFLEX Comment [facility] [phone] Comment:This specimen will n ot reflex to a Urine Culture. Urine Urine specimen obtained by clean catch procedure / Unknown 02/26/2025 1:04 PM EDT 02/26/2025 Omar Garcia MD LAB URINE ORDERABLES Final Re sult Performing Organization Address City/[facility]/ZIP Co de Phone Number [facility] [address] [place] [address] * C4 complement (02/26/2025 1:04 PM EDT) C4 Complement 25 12 - 38 mg/dL [facility] Blood Venous blood / Unknown 02/26/2025 1:04 PM EDT 02/26/2025 Omar Garcia MD LAB BLOOD ORDERABLES Final Re sult Performing Organization Address [facility] Co de Phone Number [facility] [address] [place] [address] * (ABNORMAL) C3 complement (02/26/2025 1:04 PM EDT) C3 Complement 174(H) 82 - 167 mg/dL [facility] Blood Venous blood / Unknown 02/26/2025 1:04 PM EDT 02/26/2025 Omar Garcia MD LAB BLOOD ORDERABLES Final Re sult Performing Organization Address [facility] Co de Phone Number [facility] [address] [place] [address] * (ABNORMAL) CBC and differential (02/26/2025 1:04 PM EDT) WBC 12.0(H) 3.4 - 10.8 x10E3/uL [facility] RBC 3.63(L) 3.77 - 5.28 x10E6/uL [facility] Hemoglobin 10.3(L) 11.1 - 15.9 g/dL [facility] Hematocrit 31.5(L) 34.0 - 46.6 % [facility] MCV 87 79 - 97 fL [facility] MCH 28.4 26.6 - 33.0 pg [facility] MCHC 32.7 31.5 - 35.7 g/dL [facility] RDW 15.1 11.7 - 15.4 % [facility] Platelets 408 150 - 450 x10E3/uL [facility] Neutrophils Relative 80 Not Estab. % [facility] Lymphocytes Relative 15 Not Estab. % [facility] Monocytes 3 Not Estab. % [facility] Eosinophils Relative 1 Not Estab. % [facility] Basophils Relative 0 Not Estab. % [facility] Neutrophils Absolute 9.5(H) 1.4 - 7.0 x10E3/uL [facility] Lymphocytes Absolute 1.9 0.7 - 3.1 x10E3/uL [facility] Monocytes Absolute 0.4 0.1 - 0.9 x10E3/uL [facility] Eosinophils Absolute 0.2 0.0 - 0.4 x10E3/uL [facility] Basophils Absolute 0.0 0.0 - 0.2 x10E3/uL [facility] Immature Granulocytes 1 Not Estab. % [facility] Immature Grans (Absolute) 0.1 0.0 - 0.1 x10E3/uL [facility] Blood Venous blood / Unknown 02/26/2025 1:04 PM EDT 02/26/2025 Omar Garcia MD LAB BLOOD ORDERABLES Final Re sult Performing Organization Address City/[facility]/ZIP Co de Phone Number [facility] [address] [place] [address] * Tacrolimus level (02/26/2025 1:04 PM EDT) Tacrolimus Lvl 5.3 5.0 - 20.0 ng/mL [facility] Comment: Target steady state trough concentration for [...] [facility] - 03/02/2025 12:05 AM EDT Test(s) 261642-[id number] (FK506), Blood was developed and its performance characteristics determined by [employer]. It has not been cleared or approved by the Food and Drug Administration. Omar Garcia MD LAB BLOOD ORDERABLES Final Re sult [facility] [address] [place] [address] documented in this encounter Visit Diagnoses Diagnosis Proteinuria, not [...] facility documented in this encounter Care Teams Bmet Relationship Specialty Start Date End Date Denise Blancas MD [address] [place] [address] PCP - General Internal Medicine 06/27/24 documented as of this encounter
--- OUTSIDE RECORDS SUMMARY | 2025-03-04 14:15 | XMS_ITS | Encounter Summary ---
Author Organization [facility] Address [address] [place] [address] Phone Care Team Providers Care Real Estate Acquisition Analyst Name Role Phone Denise Blancas MD Primary Care Provider [phone] Encounter Details Date Type Department Care Team (Late st Contact Info) Description 01/15/2025 Documentation Only [facility] [place], [address] [place] [address] Rhianna Castro [address] [place] [address] Social History Tobacco Use Types [...] Visit [facility] [address] [place] [address] Breonna Le MD [address] [place] [address] documented as of this encounter Visit Diagnoses Not on filedocumented in this encounter Care Teams Real Estate Acquisition Analyst Relationship Specialty Start Date End Date Denise Blancas MD [address] [place] [address] PCP - General Internal Medicine 06/27/24 documented as of this encounter
[2025-03-04 14:26] VITALS: BP 120/88; PULSE 76; TEMP 36.4; O2SAT 99; BMI 41.0
--- NOTE | 2025-03-04 14:26 | AM.OFFWIN_ITS ---
Intake Vital Signs 03/04/25 14:26 Height 5 ft 8 in Weight 270 lb BMI 41.0 BP 120/88 Blood Pressure Location Lt brachial Position Sitting Pulse 76 Pulse Source Pulse Oximeter Temp 97.6 F Temp Source Oral Pulse Oximetry (%) 99 Oxygen Delivery Method Room Air Intake Visit Reasons: EP-full spine pain Intake Note: pt presents with full back pain RT > LT s/p childbirth 02/16/25 Patient Tobacco Use Status: Never used Tobacco Allergies amoxicillin Allergy (Intermediate, Verified 03/04/25 14:32) rash Do you need a note to return to daycare/school/sports/work: Yes HPI HPI Comments History of Present Illness Details History of Present Illness - The patient is a 24-year-old female pr esenting with severe back pain primarily on the right side, extending to the neck and arm. - The pain began after the of her baby on February 16, following a section. - The pain intensified significantly the night before the visit, becoming unbearable by the morning. - The patient describes the pain as a st abbing sensation, with associated stiffness in the neck and arm. - She has been taking Tylenol and other unspecified pain medications without relief. - The patient believes the pain may be d ue to muscle spasms. - Has increased pain when she moves or l ifts anything. - There is no history of chest pain, maria esther rtness of breath, or numbness and tingling in the legs. - The patient is not and r eports normal urination. - She denies OWEN, CP, SOB, abd pain, dark urine, bleeding, trauma or falls. - She has tried tylenol and motrin with no relief. Physical Exam General: Cooperative, healthy appearing, comfortable, no acute distress and well developed Orientation: Patient oriented x3 Neck: Stiffness noted, limited ROM due to pain. Respiratory: Normal respiratory effort and able to speak in complete sentences. No w/r/r noted. Cardiac: No m/r/g noted. Musculoskeletal: Decrease ROM of the spine due to pain. No midline spinous tenderness noted. No step offs noted. TTP of the scapular region, thoracic paraspinous muscles on the right. No SI joint tenderness noted. Strength is 5/5 on the LE bilaterally. Ambulates with a steady gait. Skin: No rashes or lesions noted Neuro: Sensation is intact Extremities: FROM of the UE bilaterally. Strength is 5/5 on the UE. Patient was informed and verbally consented to the use of an ambient scribe for clinic note documentation during this visit [facility] Medical History (Updated 10/07/24 @ 11:52 by Staci Madrigal PA-C) Migraines Hypertension Kidney disease Diabetes Asthma Denial Lupus (systemic lupus erythematosus) Systemic lupus erythematosus, unspecified Surgical History No pertinent past surgical history Family History Father Diabetes Hypertension Asthma Mother Diabetes Hypertension Maternal Grandmother Cancer Paternal Grandmother Cancer Brother Asthma Social History (Updated 08/08/24 @ 09:24 by Lisa Medel CMA) Household Members: Spouse Both parents involved: No Caregiver staying overnight: No Housing: Apartment Are you a primary rn homecare to a significant other at home: Yes Do you presently have visiting nurse or other home services: No 75 years or older and lives alone: No Alcohol intake: never Patient Tobacco Use Status: Never used Tobacco e-Cigarette/Vaping Use: Never Used Current occupational status: employed Cognitive needs: No Hearing needs: No Vision needs: No Review of Systems Const All systems reviewed & are unremarkable except as noted in HPI and below Physical Exam Vital Signs: Last Vital Signs Temp 97.6 F 03/04/25 14:26 Pulse 76 03/04/25 14:26 BP 120/88 03/04/25 14:26 Pulse Ox 99 03/04/25 14:26 Oxygen Delivery Method Room Air 03/04/25 14:26 BMI result Body Mass Index 41.0 Assessment & Plan Assessment & Plan (1) Back pain: Code(s): M54.9 - Dorsalgia, unspecified Qualifiers: Back pain location: thoracic back pain Chronicity: acute Back pain laterality: right Qualified Code(s): M54.6 - Pain in thoracic spine Plan Most likely spasm vs strain vs arthritis vs radiculopathy plan - rest and heat to the back - activities as tolerated - no heavy lifting - Prescribed a muscle relaxer and prednisone to alleviate pain and inflammation. - Advised to use a heating pad or take a hot shower to help relieve muscle tension. - Recommended follow-up with physical therapy if symptoms do not improve with medication. - follow up with PCP Medications: New prednisone 40 mg (2 x 20 mg) PO DAILY 10 tabs 0RF 5 days cyclobenzaprine 5 mg PO Q8H PRN 21 tabs 0RF Muscle Spasm 7 days Coding Level of Care Code Est Pt Level 4 (16291) Diagnoses Acute right-sided thoracic back pain M54.6 Back pain location: thoracic back pain Chronicity: acute Back pain laterality: right
== END 2025-03-04 15:36 | disposition home or self-care (01) ==
PROVIDERS: PCP Physician Assistant; Visit Provider Physician Assistant Medical
DX: M54.6 Pain in thoracic spine (principal)

== ENCOUNTER → 2025-03-04 13:23 | Outpatient (BNVA) | payer MEDICARE, MEDICAID, SELFPAY | PROVIDERS: PCP Physician Assistant; Visit Provider Physician Assistant Medical | DX: M54.6 Pain in thoracic spine (principal) | CPT/HCPCS: 99212 ==

== ENCOUNTER 2025-06-13 08:24 | Outpatient (REF) | payer MEDICARE, MEDICAID, SELFPAY | END 2025-06-13 08:25 | disposition home or self-care (01) | LOC: HO.HKASLDS 08:24 | PROVIDERS: PCP Physician Assistant; Visit Provider Student in an Organized Health Care Education/Training Program | DX: M32.9 Systemic lupus erythematosus, unspecified (principal); E55.9 Vitamin D deficiency, unspecified; Z51.81 Encounter for therapeutic drug level monitoring; Z79.899 Other long term (current) drug therapy; Z79.624 Long term (current) use of inhibitors of nucleotide synthesis | CPT/HCPCS: 36415; 82306; 86225; 99212 ==

== ENCOUNTER 2025-06-13 08:24 | Outpatient (AMB) | payer MEDICARE, MEDICAID, SELFPAY ==
--- NOTE | 2025-06-13 08:30 | A.OFFVIS_ITS ---
Vital Signs 06/13/25 08:45 Height 5 ft 8 in Weight 281 lb 12.012 oz BMI 42.8 BP 132/84 Blood Pressure Location Lt brachial Position Sitting Pulse 63 Pulse Source Pulse Oximeter Pulse Oximetry (%) 98 Oxygen Delivery Method Room Air Intake Visit Reasons: follow up Intake Note: Patient presents for Lupus follow up. 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 Accompanied by: Self / Same As Patient Allergies amoxicillin Allergy (Intermediate, Verified 06/13/25 08:35) rash Medication List - Last Reconciled 06/13/25 by Laurita Iniguez MD albuterol sulfate 90 mcg/actuation 2 puffs inhalation Q4-6H PRN dapagliflozin propanediol (Farxiga) 10 mg PO DAILY hydroxychloroquine 200 mg PO DAILY losartan 50 mg PO DAILY mycophenolate mofetil 1,000 mg PO BID nifedipine ER 90 mg PO DAILY tacrolimus 5 mg PO BID torsemide 20 mg PO DAILY torsemide 60 mg PO DAILY HPI Comments Details: Patient is a 24-year-old female with hypertension, asthma, hyperlipidemia, 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 - The patient acknowledges a history of missing appointments. - She recently gave on February 16 and is not . - , her medications were switched back to her previous regimen. Azathioprine was stopped and switched to MMF - Since then she has been having worsening joint pain (had good control of joint pain on azathioprine) - The patient is followed by a technical coordinator, Dr. Le (Fellow), for her kidney involvement. - Her technical coordinator recommended she discuss a new medication with rheumatology and did not see the point of a repeat kidney biopsy Rheumatologic History: Initial history: Diagnosed with SLE in 2018 after presenting with a diffuse rash and inflammation. Pt was then referred to a Certified Vehicle Fire Investigator and had a skin biopsy done which demonstrated SLE. Pt was previously treated with Plaquenil and Mycophenolate but stopped taking her medications 1-2 months ago because she was difficulty obtaining her meds. 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 She received 4 doses of rituximab and was then treated with steroids and mycophenolate. Her baseline serum creatinine ranges from 0.8-0.9. Her baseline protein creatinine ratio is approximately 3 g. Last seen by Pediatric Rheumatology (Dr Still at [facility]) in September 2019. + malar rash on face No joint pain. No oral or nasal ulcers. Has dry mouth but denies dry eyes. Denies fevers, Raynauds. No history of miscarriages. 2 cousins with SLE Current Rheumatology Medication(s): Tacrolimus 1 mg b.i.d. 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 other at home: Yes Do you presently have visiting nurse or other home services: No 75 years or older and lives alone: No Alcohol intake: never Patient Tobacco Use Status: Never used Tobacco e-Cigarette/Vaping Use: Never Used Current occupational status: employed Cognitive needs: No Hearing needs: No Vision needs: No Review of Systems Narrative Review of Systems Constitutional: Denies fever, chills, weight loss ENT: Denies vision changes, eye pain or eye redness, dental caries, dry mouth GI: Denies nausea, vomiting, diarrhea, abdominal pain, change in BM Pulm: Denies SOB, PHAM, hemoptysis, wheezing Cards: Denies chest pain, palpitations REPAIRER FINISHED METAL: Denies headaches, weakness, paresthesias, recurrent falls MSK: as per HPI All other systems reviewed and are unremarkable except noted above Physical Exam Exam Exam: Vital signs reviewed Physical Examination CONSTITUITIONAL Patient alert and cooperative. Well appearing and in no apparent painful distress MSK Hands * Right Hand: Able to make a fist. No swelling but TTP of the MCPs * Left Hand: Able to make a fist. No swelling but TTP of the MCPs Wrists * Right Wrist: Full ROM to flexion and extension. No swelling or TTP * Left Wrist: Full ROM to flexion and extension. No swelling or TTP Elbows * Right Elbow: Full ROM. No swelling or TTP. No TTP of the medial epicondyle. No TTP of the lateral epicondyle * Left Elbow: Full ROM. No swelling or TTP. No TTP of the medial epicondyle. No TTP of the lateral epicondyle Shoulders * Right shoulder: Full ROM. No swelling noted. No TTP of the AC joint. No TTP of the subacromial bursa. No TTP of the posterior shoulder * Left shoulder: Full ROM. No swelling noted. No TTP of the AC joint. No TTP of the subacromial bursa. No TTP of the posterior shoulder Knees * Right knee: Full ROM. No swelling noted. No TTP of the knee joint line. No TTP of pes anserine bursa * Left knee: Full ROM. No swelling noted. No TTP of the knee joint line. No TTP of pes anserine bursa. Ankles * Right ankle: Good ankle dorsiflexion and plantar flexion. No swelling. No TTP of the ankle joint * Left ankle: Good ankle dorsiflexion and plantar flexion. No swelling. No TTP of the ankle joint Feet * Right foot: Negative squeeze test * Left foot: Negative squeeze test Tender points? * No tenderness to palpation of the bilateral trapezius, supraspinatus, anterior costochondral junctions, bilateral suboccipital muscle insertions SKIN Mild malar rash noted Vital Signs: Last Vital Signs Pulse 63 06/13/25 08:45 BP 132/84 06/13/25 08:45 Pulse Ox 98 06/13/25 08:45 Oxygen Delivery Method Room Air 06/13/25 08:45 BMI result Body Mass Index 42.8 Results Reviewed Results Reviewed: Laboratory Tests 08/07/24 06/04/25 13:30 [facility] WBC 11.1 H 11.2 RBC 4.89 4.59 Hgb 12.4 12.5 Hct 39.0 37.6 Plt Count 400 380 Sodium 135 137 Potassium 4.0 4.4 Chloride 113 H 101 Carbon Dioxide 20 L 21 BUN 14 Creatinine 0.81 3.06 AST 22 19 ALT 10 15 25-OH Vitamin D Total 8.7 L ESR 51 CRP <3 Laboratory Tests 11/11/20 06/04/25 13:50 [facility] Double Strand DNA Ab 3 Complement C3 103 152 Complement C4 14 L 23 Laboratory Tests 11/11/20 07/04/24 06/04/25 13:50 10:28 [facility] Urine Color Yellow Yellow Urine Appearance Clear clear Urine pH 6.0 5 Ur Specific Miles 1.025 1.013 Urine Protein >=1000 (4+) H 3+ Urine Blood Trace H Negative Protein/Creatinin Ratio 3.43 H 2.22 H Assessment & Plan Assessment & Plan (1) Lupus (systemic lupus erythematosus): Code(s): M32.9 - Systemic lupus erythematosus, unspecified Category: Medical Qualifiers: Systemic lupus erythematosus organ involvement: glomerular disease Systemic lupus erythematosus type: unspecified Qualified Code(s): M32.14 - Glomerular disease in systemic lupus erythematosus Plan: #SLE complicated by LN Patient is a 24-year-old female 4 months post with lupus complicated by glomerular nephritis and heavy proteinuria. Her kidney function has significantly declined with mild improvement in her proteinuria. Her main complaint at this time is her joint pain. Complement levels okay. The patient's kidney function has severely declined, with an eGFR of 21, placing her at high risk for end-stage renal disease. It is critical to determine if this is due to active lupus or chronic, irreversible damage. A kidney biopsy would be the ideal way to assess for active disease versus damage, which is necessary to guide appropriate therapy and avoid unnecessary immunosuppression. Plan includes contacting the patient's technical coordinator,to discuss the case and the rationale against a biopsy. Additional blood work, including a double-stranded DNA test, will be ordered today to assess for lupus activity. Plan - Continue MMF, plaquenil and tacrolimus - Consider adding Benlysta for additional coverage of her joints - Labs today: dsDNA, Vit D - RTC 3 month - Labs before visit: CBC, CMP, ESR, CRP, C3, C4, dsDNA, UA, UPC (2) Encounter for monitoring of hydroxychloroquine therapy: Code(s): Z51.81 - Encounter for therapeutic drug level monitoring; Z79.899 - Other mcc (current) drug therapy Plan: #Long-term Use of Hydroxychloroquine Discussed with patient the risks and benefits of hydroxychloroquine in managing the rheumatic condition Benefits include: - Reduced pain, reduce mortality, maintenance of remission and reduction of flares Risks include: - GI upset, skin hyperpigmentation, retinal toxicity (especially after more than 5 years of use), myopathy Advised yearly ophthalmology visits (3) Encounter for [facility] use of mycophenolate mofetil: Code(s): Z79.624 - jail (current) use of inhibitors of nucleotide synthesis Plan: #Long-term Use of Mycophenolate/Mycophenolic Acid Discussed with patient the benefits and risks of mycophenolate/mycophenolic acid for the management of the rheumatic condition Benefits include improved disease control and reduction of mortality Risks include GI upset especially diarrhea, anemia, leukopenia, hepatotoxicity, lymphoproliferative malignancies, PML Mycophenolate and mycophenolic acid are teratogenic and should be avoided in patients who are desiring the Monitoring: CBC, LFTs, BMP Recommended holding medication during and for up to 1 week after resolution of a febrile illness Plan I discussed with the patient the severe decline in her kidney function, noting her eGFR is 21 compared to a normal of over 90. I explained that this puts her at a significant risk of needing dialysis if her condition is not managed aggressively. We discussed the importance of determining whether her poor kidney function is due to active lupus or permanent damage, as this will dictate the treatment plan. I explained my concern that initiating potent immunosuppressive medications without confirming active disease could expose her to risks without benefit, and that a kidney biopsy would be the best way to clarify this. I informed her that I will call her technical coordinator to coordinate her care and discuss these concerns. I also let her know I will be ordering additional blood work today. I strongly emphasized the critical need for her to attend her follow-up appointment in three months, to which she agreed. I spent 40 minutes reviewing the record and labs, taking a history, examining the patient, discussing the treatment plan, ordering diagnostic work up, contacting nephrology and documenting in the medical record Orders: Orders Erythrocyte Sedimentation Rate 3 Months M32.9 - Systemic lupus erythematosus, unspecified Complement C3 3 Months M32.9 - Systemic lupus erythematosus, unspecified Complement C4 3 Months M32.9 - Systemic lupus erythematosus, unspecified Vitamin D 25-OH Total Today E55.9 - Vitamin D deficiency, unspecified Complete Blood Count Auto Diff 3 Months M32.9 - Systemic lupus erythematosus, unspecified Protein Creatinine Ratio, Ur 3 Months M32.9 - Systemic lupus erythematosus, unspecified Anti DNA DS Antibody 3 Months M32.9 - Systemic lupus erythematosus, unspecified UA ClnCatch+Micro w/rflx Cult 3 Months M32.9 - Systemic lupus erythematosus, unspecified C Reactive Protein 3 Months M32.9 - Systemic lupus erythematosus, unspecified Comprehensive Met. Panel 3 Months M32.9 - Systemic lupus erythematosus, unspecified Anti DNA DS Antibody Today M32.9 - Systemic lupus erythematosus, unspecified Coding Level of Care Code Est Pt Level 5 (37794) Complex visit Add On G2211 Diagnoses Systemic lupus erythematosus with glomerular disease, unspecified SLE type M32.14 Systemic lupus erythematosus organ involvement: glomerular disease Systemic lupus erythematosus type: unspecified Encounter for monitoring of hydroxychloroquine therapy Z51.81; Z79.899 Encounter for intermediate card tender use of mycophenolate mofetil Z79.624
[2025-06-13 08:45] VITALS: BP 132/84; PULSE 63; O2SAT 98; BMI 42.8
== END 2025-06-13 09:18 | disposition home or self-care (01) ==
LOC: HO.RHES 08:25
PROVIDERS: PCP Physician Assistant; Visit Provider Student in an Organized Health Care Education/Training Program
DX: M32.14 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 lupus erythematosus (principal); Z51.81 Encounter for therapeutic drug level monitoring; Z79.899 Other long term (current) drug therapy; Z79.624 Long term (current) use of inhibitors of nucleotide synthesis
CPT/HCPCS: 99215; G2211